=== PATIENT | male | born 1935 | race African-American/Black ===

== ENCOUNTER 2018-11-28 15:20 | Inpatient (IN) | payer OTHER, BC ==
--- NOTE | 2018-11-28 15:37 | PDOC ---
History of Present Illness - General Stated Complaint: Cold Symptoms Time Seen by Provider: 11/28/18 15:35 History Source: Patient Exam Limitations: No Limitations - History of Present Illness Initial Comments: 11/28/18 15:36 Lito Crandall is a 82yM w PMHx HTN, DM, CKD on dialysis (, , ), prostate CA s/p resection, microvascular ischemic disease presenting w fever and shivering. Pt is poor historian and unable to give full history. Subjective fevers, shivering, malaise last 2 days. Today underwent 30min dialysis before staff noted shivering, measured fever, sent to ED for further eval. Denies headache, nausea/vomiting, cough, SOB, chest/AB pain. Past History - Past Medical History Allergies/Adverse Reactions: Allergies Allergy/AdvReac Type Severity Reaction Status Date / Time No Known Allergies Allergy Verified 11/28/18 16:06 Home Medications: Ambulatory Orders Amlodipine Besylate [Norvasc -] 5 mg PO DAILY 09/24/18 Carvedilol 18.75 mg PO TID 09/24/18 Hydralazine HCl 10 mg PO TID 09/24/18 Sodium Bicarbonate - 1,300 mg PO TID 09/25/18 Aspirin 81 mg PO DAILY #30 tab.chew 10/04/18 Atorvastatin Ca [Lipitor] 40 mg PO HS #30 tablet 10/04/18 Cancer: Yes (PROSTATE) COPD: No Diabetes: Yes (BORDERLINE) GI Disorders: Yes (JESSY) HTN: Yes - Psycho Social/Smoking Cessation Hx Smoking History: Never smoked Have you smoked in the past 12 months: No Hx Alcohol Use: No Drug/Substance Use Hx: No Substance Use Type: None Hx Substance Use Treatment: No Review of Systems - Review of Systems Constitutional: Yes: Chills, Fever, Malaise HEENTM: No: Eye Pain, Nose Pain, Throat Pain, Mouth Pain Respiratory: No: Cough, Shortness of Breath Cardiac (ROS): No: Chest Pain, Palpitations, Syncope ABD/GI: No: Abdominal Distended, Constipated, Diarrhea, Nausea, Vomiting : No: Burning, Dysuria, Discharge, Flank Pain, Hematuria Musculoskeletal: No: Back Pain, Joint Pain, Muscle Pain, Neck Pain Integumentary: No: Bruising, Flushing, Lesions Neurological: No: Headache, Seizure, Tingling, Tremors Psychiatric: No: Anxiety, Depression, Stressors Endocrine: No: Excessive Sweating, Flushing, Intolerance to Cold, Intolerance to Heat Hematologic/Lymphatic: No: Anemia, Blood Clots *Physical Exam - Physical Exam General Appearance: Yes: Nourished, Appropriately Dressed. No: Apparent Distress (sleeping in bed) HEENT: positive: EOMI, JOCELYN, Normal Voice, Hearing Grossly Normal. negative: Scleral Icterus (R), Scleral Icterus (L), Nasal Congestion, Rhinorrhea Respiratory/Chest: positive: Lungs Clear, Normal Breath Sounds, Other (R chest wall candy cath ). negative: Chest Tender, Respiratory Distress, Crackles, Rales, Rhonchi, Stridor, Wheezing Cardiovascular: positive: Regular Rhythm, Regular Rate, S1, S2. negative: Edema , Murmur Gastrointestinal/Abdominal: positive: Normal Bowel Sounds, Flat, Soft. negative : Tender, Organomegaly Musculoskeletal: negative: CVA Tenderness (R), CVA Tenderness (L) Extremity: positive: Delayed Capillary Refill. negative: Pedal Edema Integumentary: positive: Dry Neurologic: negative: Fully Oriented, Alert (sleepy, mumbles words, follows basic commands) ED Treatment Course - LABORATORY CBC & Chemistry Diagram: 11/28/18 16:00 11/28/18 16:00 Medical Decision Making - Medical Decision Making 11/28/18 16:02 CBC CMP trop VBG coags lactate blood cx (blood, portacath) urine cx, EKG CXR tylenol for fever, 1g vanc/2.25 zosyn for sepsis EKG shows NSR, HR 91. QTc 418 WBC 18 w neutrophil shift, Cr 4.3 (CKD on dialysis), BG 262, neg trop, lactate 2 , UTI w 3+ leuk est WBC bacteria neg flu CXR no focal infiltrates, consolidation, effusion, RIJ in place. --- Lito Crandall is a 82yM w PMHx HTN, DM, CKD on dialysis (, , ), prostate CA s/p resection, microvascular ischemic disease presenting w 2d fever and shivering d/t sepsis (temp 102, HR 95, RR 22) in setting of UTI. Did not give fluids because pt is on dialysis. Given tylenol for fever, 1g vanc/ 2.25 zosyn for sepsis. No evidence of ACS (NSR EKG, neg trop) or acute lung infection. Has 18 WBC, Cr 4.3 (CKD on dialysis), mildly elevated BG 262. Contacted Dr Allison Stahl transport analyst, confirmed dialysis did not give any antibiotics Admitted to Dr Currie med/surg for sepsis d/t UTI, ESRD on dialysis Discharge - Discharge Information Problems reviewed: Yes Clinical Impression/Diagnosis: UTI (urinary tract infection) Qualifiers: Urinary tract infection type: acute cystitis Hematuria presence: without hematuria Qualified Code(s): N30.00 - Acute cystitis without hematuria Sepsis Qualifiers: Sepsis type: sepsis due to unspecified organism Sepsis acute organ dysfunction status: with acute organ dysfunction Severe sepsis acute organ dysfunction type : unspecified Severe sepsis shock status: without septic shock Qualified Code(s) : A41.9 - Sepsis, unspecified organism - Follow up/Referral - Patient Discharge Instructions - Post Discharge Activity
[2018-11-28] MEDS ORDERED: SODIUM CHLORIDE 0.9% 500 ML INFUS.BAG IV ONE (16:00)
[2018-11-28] MEDS ORDERED: ACETAMINOPHEN INJECTION 100 ML IVPB ONE (16:13)
[2018-11-28] MEDS ORDERED: ACETAMINOPHEN 1000 MG/100 ML VIAL (NON FORMULARY) IVPB ONE (16:17)
[2018-11-28] MEDS ORDERED: VANCOMYCIN 1 GM in D5W (PRE-DOCKED) 1,000 MG/250 ML IVPB ONE ×2 (16:17→19:32)
[2018-11-28] MEDS ORDERED: PIPERACILLIN/TAZOB 4.5 GM 4.5 GM in DEXTROSE 5%-WATER 100 ML IVPB ONE (16:17)
[2018-11-28 16:44] LABS: BASO % 0.2 % (0-2.0); HEMATOCRIT 37.4 % (35.4-49); LYMPH % 1.9 % (8-40); MCH 29.8 pg (25.7-33.7); MCHC 32.2 g/dl (32.0-35.9); MEAN CELL VOLUME 92.4 fl (80-96); MEAN PLT VOLUME 6.9 fl (7.5-11.1); MONO % 3.4 % (3.8-10.2); NEUT % 94.5 % (42.8-82.8); PLATELET COUNT 335 K/MM3 (134-434); RBC 4.05 M/mm3 (4.00-5.60); RDW 19.7 % (11.9-15.9); WHITE BLOOD COUNT 18.9 K/mm3 (4.0-10.0)
[2018-11-28 16:48] LABS: VENOUS PC02 38.7 mmHg (38-52)
[2018-11-28 16:51] LABS: VENOUS PO2 < 49 mmHg (28-48)
[2018-11-28 17:04] LABS: INR 1.14 (0.83-1.09); PROTHROMBIN TIME (PATIENT) 13.5 SEC (9.7-13.0)
[2018-11-28 17:07] LABS: ACTIVATED PTT 30.4 SECONDS (25.2-36.5)
[2018-11-28 17:16] LABS: ALBUMIN 3.4 g/dl (3.4-5.0); BILIRUBIN,TOTAL 0.9 mg/dL (0.2-1); BLOOD UREA NITROGEN 54.9 mg/dL (7-18); CALCIUM 8.7 mg/dL (8.5-10.1); CREATININE 4.3 mg/dL (0.55-1.3); TOT PROT 7.3 g/dl (6.4-8.2)
[2018-11-28] MEDS ORDERED: PIPERACILLIN/TAZOB 2.25 GM 2.25 GM in DEXTROSE 5%-WATER - 50 ML IVPB ONE (17:46)
[2018-11-28] MEDS ORDERED: PIPERACILLIN/TAZOB 2.25 GM 2.25 GM/50 ML BAG IVPB ONE (17:51)
[2018-11-28] MEDS ORDERED: VANCOMYCIN 1 GRAM (PRE-DOCKED) 1,000 MG/250 ML BAG IVPB ONE (17:51)
--- NOTE | 2018-11-28 18:06 | PDOC ---
Documentation entered by Marzena De Anda SCRIBE, acting as scribe for Lois Freire DO. Lois Freire DO: This documentation has been prepared by the Neetu perez Brenda, SCRIBE, under my direction and personally reviewed by me in its entirety. I confirm that the documentation accurately reflects all work, treatment, procedures, and medical decision making performed by me. Attending Attestation - Resident Resident Name: Paco Ga - ED Attending Attestation I have performed the following: I have examined & evaluated the patient, The case was reviewed & discussed with the resident, I agree w/resident's findings & plan, Exceptions are as noted - HPI HPI: 11/28/18 17:50 The patient is an 82 year old male, with a significant PMH of HTN, DM, JESSY, CKD on dialysis (, , ), prostate CA s/p resection, microvascular ischemic disease, who presents to the emergency department BIBA from the Dialysis center for evaluation of a fever of 102 degrees and shivering. As per patient's caregiver, patient received dialysis for 30 minutes only, due to fever concern. Patient was a bad historian and unable to give history. Allergies: NKA Past surgical history: None reported Social history: No tobacco use, alcohol use or illicit drug use. Manager Culinary: Dr. Alyce Grace - Physicial Exam PE: 11/28/18 17:42 GENERAL: Awake and alert o person. In no acute distress HEAD: No signs of trauma EYES: PERRLA, EOMI, sclera anicteric, conjunctiva clear ENT: Auricles normal inspection, hearing grossly normal, nares patent, oropharynx clear without exudates. Moist mucosa NECK: Normal ROM, supple, no lymphadenopathy, JVD, or masses LUNGS: Breath sounds equal, clear to auscultation bilaterally. No wheezes, and no crackles HEART: (+) tachycardic. Regularrhythm, normal S1 and S2, no murmurs, rubs or gallops ABDOMEN: Soft, nontender, normoactive bowel sounds. No guarding, no rebound. No masses EXTREMITIES: (+) right perm cath. No edema. No clubbing or cyanosis. No cords, erythema, or tenderness NEUROLOGICAL: Cranial nerves II through XII grossly intact. Normal speech. SKIN: Warm, Dry, normal turgor, no rashes or lesions noted. - Medical Decision Making 11/28/18 17:51 I, Dr. Lois Freire, DO, attest that this document has been prepared under my direction and personally reviewed by me in its entirety. I further attest, that it accurately reflects all work, treatment, procedures and medical decision -making performed by me. a/p: 82yo male from HD for eval of fevers today -pt with a perm cath to R chest wall -denies cough, denies abd pain, denies dysuria -pt does make urine -will send ua, ucx -will start abx -discussed with Dr. Robert Bose who states pt did not receive abx on hd -cultures sent from HD catheter by HD nurse in the ER -labs sent show an elevated wbc to 18.9 -normal K -will start iv abx - vanco, zosyn -will need admission 11/28/18 18:53 cxr clear 11/28/18 19:33 microblog sent to [facility] for admission 11/28/18 20:21 resident discussed the case with [facility] who accepts pt to service Heart Score/ECG Review - ECG Intrepretation Comment:: 11/28/18 19:11 sinus at 91, nl axis, nl interval, no acute st/t wave findings
[2018-11-28 19:24] LABS: EPI CELLS 3.5 /HPF (0-5/HPF); HYALINE CASTS 4 /lpf (0-8); URINE APPEARANCE TURBID; URINE BACTERIA >9000 /hpf (NEGATIVE); URINE BILIRUBIN NEGATIVE (NEGATIVE); URINE COLOR YELLOW; URINE GLUCOSE (UA) NEGATIVE (NEGATIVE); URINE KETONE NEGATIVE (NEGATIVE); URINE LEUK ESTERASE 3+ (NEGATIVE); URINE NITRITE NEGATIVE (NEGATIVE); URINE PROTEIN 3+ (NEGATIVE); URINE RBC 12 /hpf (0-4); URINE WBC 523 /hpf (0-5)
[2018-11-28 19:56] LABS: ANISOCYTOSIS 1+; MACROCYTOSIS 0; PLATELET ESTIMATE NORMAL
--- NOTE | 2018-11-28 22:13 | HP ---
CHIEF COMPLAINT: chills & fever PCP: Dr Gross HISTORY OF PRESENT ILLNESS: 82 y.o M PMH HTN, diabetes mellitus, ESRD on dialysis ([place], [place], Sat), prostate CA s/p resection and microvascular ischemic disease presenting d/t fever and chills. The patient was at dialysis today and began having shaking chills and was noted to be febrile. Pt appears altered and majority of history obtained from son at bedside. At baseline he is AOx2 but son said he seems "a bit off", although remains AOx2 today. He says for the past 2 days he has had chills but 30 mins into dialysis the chills worsened and he became febrile. Patient denies CP/ SOB/ suprapubic tenderness/ abdominal pain/ dysuria/ hematuria/ N/V/D/ myalgias/ parasthesias. ER course was notable for: (1) Tylenol (2) 1g vanc/ 2.25g Zosyn (3) Dr. Alyce Stahl contacted (nephro) 9$) UA 3+ LE, 3+ protein, 1+ blood Recent Travel: denies PAST MEDICAL HISTORY: as per hpi PAST SURGICAL HISTORY: prostate resection Social History: lives w/ son and daughter in law Smoking: denies Alcohol:denies Drugs: denies Allergies No Known Allergies Allergy (Verified 11/28/18 16:06) Family Hx: Mother: HTN, CAD; Father: HTN HOME MEDICATIONS: Home Medications Medication Instructions Recorded Amlodipine Besylate [Norvasc -] 10 mg PO DAILY 09/24/18 Carvedilol 18.75 mg PO TID 09/24/18 Hydralazine HCl 10 mg PO TID 09/24/18 Sodium Bicarbonate - 1,300 mg PO TID 09/25/18 Aspirin 81 mg PO DAILY #30 tab.chew 10/04/18 Atorvastatin Ca [Lipitor] 40 mg PO HS #30 tablet 10/04/18 Furosemide [Lasix] 80 mg PO DAILY 11/28/18 PHYSICAL EXAMINATION Vital Signs - 24 hr 11/28/18 11/28/18 15:45 21:14 Temperature 102.0 F H 98.7 F Pulse Rate 95 H Pulse Rate [ 81 Right Apical] Respiratory 22 H Rate Blood Pressure 164/84 Blood Pressure 138/71 [Right Arm] O2 Sat by Pulse 95 95 Oximetry (%) GENERAL: AOx2 oriented to self and place not year or month. In no acute distress. HEENT: NCAT. PERRLA. LUNGS: CTABL. No crackles/ w/r/r. HEART: RRR. No murmurs. ABDOMEN: Soft NTND. No guarding. + BS. No suprapubic tenderness. EXTR: 2+ pulses intact b/l. No edema noted. Laboratory Results - last 24 hr 11/28/18 11/28/18 11/28/18 16:00 16:00 16:00 WBC 18.9 H RBC 4.05 Hgb 12.0 Hct 37.4 D MCV 92.4 MCH 29.8 MCHC 32.2 RDW 19.7 H Plt Count 335 D MPV 6.9 L Absolute Neuts (auto) 17.8 H Neutrophils % 94.5 H Neutrophils % (Manual) 96.7 H Band Neutrophils % 0.0 Lymphocytes % 1.9 L D Lymphocytes % (Manual) 0.0 L Monocytes % 3.4 L Monocytes % (Manual) 1 L Eosinophils % 0.0 D Eosinophils % (Manual) 0.0 Basophils % 0.2 Basophils % (Manual) 0.0 Myelocytes % (Man) 0 Promyelocytes % (Man) 0 Blast Cells % (Manual) 0 Nucleated RBC % 0 Metamyelocytes 2 Hypochromia 0 Platelet Estimate Normal Polychromasia 0 Anisocytosis 1+ Microcytosis 1+ Macrocytosis 0 Corolla Cells 1+ Fragmented RBCs 1+ PT with INR 13.50 H INR 1.14 H PTT (Actin FS) 30.4 VBG pH POC VBG pCO2 POC VBG pO2 VBG HCO3 VBG O2 Sat (Lobito) VBG Base Excess Sodium 133 L Potassium 5.0 Chloride 98 Carbon Dioxide 22 Anion Gap 13 BUN 54.9 H Creatinine 4.3 H Est GFR (CKD-EPI)AfAm 13.77 Est GFR (CKD-EPI)NonAf 11.88 Random Glucose 262 H Lactic Acid Calcium 8.7 Total Bilirubin 0.9 AST 10 L ALT 12 L Alkaline Phosphatase 88 Creatine Kinase Troponin I Total Protein 7.3 Albumin 3.4 Urine Color Urine Appearance Urine pH Ur Specific Dulzura Urine Protein Urine Glucose (UA) Urine Ketones Urine Blood Urine Nitrite Urine Bilirubin Urine Urobilinogen Ur Leukocyte Esterase Urine WBC (Auto) Urine RBC (Auto) Urine Casts (Auto) U Epithel Cells (Auto) Urine Bacteria (Auto) Influenza A (Rapid) Influenza B (Rapid) 11/28/18 11/28/18 11/28/18 16:00 16:00 16:00 WBC RBC Hgb Hct MCV MCH MCHC RDW Plt Count MPV Absolute Neuts (auto) Neutrophils % Neutrophils % (Manual) Band Neutrophils % Lymphocytes % Lymphocytes % (Manual) Monocytes % Monocytes % (Manual) Eosinophils % Eosinophils % (Manual) Basophils % Basophils % (Manual) Myelocytes % (Man) Promyelocytes % (Man) Blast Cells % (Manual) Nucleated RBC % Metamyelocytes Hypochromia Platelet Estimate Polychromasia Anisocytosis Microcytosis Macrocytosis Corolla Cells Fragmented RBCs PT with INR INR PTT (Actin FS) VBG pH 7.40 POC VBG pCO2 38.7 POC VBG pO2 < 49 H VBG HCO3 23.5 VBG O2 Sat (Lobito) 72.0 VBG Base Excess -0.5 Sodium Potassium Chloride Carbon Dioxide Anion Gap BUN Creatinine Est GFR (CKD-EPI)AfAm Est GFR (CKD-EPI)NonAf Random Glucose Lactic Acid 2.0 Calcium Total Bilirubin AST ALT Alkaline Phosphatase Creatine Kinase 48 Troponin I < 0.02 Total Protein Albumin Urine Color Urine Appearance Urine pH Ur Specific Dulzura Urine Protein Urine Glucose (UA) Urine Ketones Urine Blood Urine Nitrite Urine Bilirubin Urine Urobilinogen Ur Leukocyte Esterase Urine WBC (Auto) Urine RBC (Auto) Urine Casts (Auto) U Epithel Cells (Auto) Urine Bacteria (Auto) Influenza A (Rapid) Influenza B (Rapid) 11/28/18 11/28/18 18:50 18:50 WBC RBC Hgb Hct MCV MCH MCHC RDW Plt Count MPV Absolute Neuts (auto) Neutrophils % Neutrophils % (Manual) Band Neutrophils % Lymphocytes % Lymphocytes % (Manual) Monocytes % Monocytes % (Manual) Eosinophils % Eosinophils % (Manual) Basophils % Basophils % (Manual) Myelocytes % (Man) Promyelocytes % (Man) Blast Cells % (Manual) Nucleated RBC % Metamyelocytes Hypochromia Platelet Estimate Polychromasia Anisocytosis Microcytosis Macrocytosis Serena Cells Fragmented RBCs PT with INR INR PTT (Actin FS) VBG pH POC VBG pCO2 POC VBG pO2 VBG HCO3 VBG O2 Sat (Lobito) VBG Base Excess Sodium Potassium Chloride Carbon Dioxide Anion Gap BUN Creatinine Est GFR (CKD-EPI)AfAm Est GFR (CKD-EPI)NonAf Random Glucose Lactic Acid Calcium Total Bilirubin AST ALT Alkaline Phosphatase Creatine Kinase Troponin I Total Protein Albumin Urine Color Yellow Urine Appearance Turbid Urine pH 6.0 D Ur Specific Dulzura 1.013 Urine Protein 3+ H Urine Glucose (UA) Negative Urine Ketones Negative Urine Blood 1+ H Urine Nitrite Negative Urine Bilirubin Negative Urine Urobilinogen 1.0 Ur Leukocyte Esterase 3+ H Urine WBC (Auto) 523 Urine RBC (Auto) 12 Urine Casts (Auto) 4 U Epithel Cells (Auto) 3.5 Urine Bacteria (Auto) >9000 Influenza A (Rapid) Negative Influenza B (Rapid) Negative ASSESSMENT/PLAN: 82 y.o M PMH HTN, diabetes mellitus, ESRD on dialysis (, Sun, Sun), prostate CA s/p resection and microvascular ischemic disease presenting d/t fever and chills. #Sepsis 2/2 UTI vs. right subclavian line vs lung pathology -Febrile tmax 102 -leukocytosis 18.9; f/u AM cbc -CXR: alveolar infiltrates noted w/ incr lung markings -F/u cultures: blood, urine, sputum -S/p vanc/ zosyn in ED -C/w abx: Zosyn, azithromycin-- f/u AM vanc level -ID consulted (Dr. Carranza) -F/u flu swab -Holding IVF d/t CXR findings #Acute metabolic encephalopathy -Likely 2/2 sepsis -Neuro checks #ESRD -On dialysis // Sun-- pt did not complete dialysis yesterday, likely to be dialyzed tomorrow -Dr. Robert mcqueen consulted -Renally dose medications -Avoid nephrotoxic meds -Trend renal labs #HTN -C/w home meds: hydralazine, coreg, amlodipine -Monitor vitals #DM -Holding oral agents -ISS -BGMs #FEN -No fluids -hyperkalemic-- f/u repeat bmp post dialysis (pt did not complete dialysis tx today); trend lytes -diabetic, na controlled diet #DVT PPX -Heparin SQ Visit type - Emergency Visit Emergency Visit: Yes ED Registration Date: 11/28/18 Care time: The patient presented to the Emergency Department on the above date and was hospitalized for further evaluation of their emergent condition. - New Patient This patient is new to me today: Yes Date on this admission: 11/29/18 - Critical Care Critical Care patient: No ATTENDING PHYSICIAN STATEMENT I saw and evaluated the patient. I reviewed the resident's note and discussed the case with the resident. I agree with the resident's findings and plan as documented. SUBJECTIVE: OBJECTIVE: ASSESSMENT AND PLAN:
[2018-11-28] MEDS ORDERED: HEPARIN NA (PORCINE) 5,000 UNITS/ML 1ML VIAL SQ ONE (23:17)
--- NOTE | 2018-11-29 00:45 | PN ---
Teaching Attending Note Name of Resident: Miya Gould ATTENDING PHYSICIAN STATEMENT I saw and evaluated the patient. I reviewed the resident's note and discussed the case with the resident. I agree with the resident's findings and plan as documented. SUBJECTIVE: 82 year old man w/ HTN, DM, JESSY, CKD on dialysis (, , ), prostate CA s/p resection, microvascular ischemic disease BIBA from the dialysis center for evaluation of a fever of 102 degrees and shivering. As per patient's caregiver, patient received dialysis for 30 minutes only, due to fever concern. Patient himself unable to provide much history. OBJECTIVE: Last Vital Signs Temp Pulse Resp BP Pulse Ox 98.7 F 87 18 159/75 96 11/28/18 21:14 11/29/18 00:00 11/29/18 00:00 11/29/18 00:00 11/29/18 00:00 gen -clear sclera, no sinus tenderness chest -right chest hd catheter cv -s1+s2+rrr chest - b/l air entry sounds appreciated abdomen -soft ext -no cyanosis Abnormal Lab Results 11/28/18 11/28/18 11/28/18 16:00 16:00 16:00 WBC 18.9 H RDW 19.7 H MPV 6.9 L Absolute Neuts (auto) 17.8 H Neutrophils % 94.5 H Neutrophils % (Manual) 96.7 H Lymphocytes % 1.9 L D Lymphocytes % (Manual) 0.0 L Monocytes % 3.4 L Monocytes % (Manual) 1 L PT with INR 13.50 H INR 1.14 H POC VBG pO2 Sodium 133 L BUN 54.9 H Creatinine 4.3 H Random Glucose 262 H AST 10 L ALT 12 L Urine Protein Urine Blood Ur Leukocyte Esterase 11/28/18 11/28/18 16:00 18:50 WBC RDW MPV Absolute Neuts (auto) Neutrophils % Neutrophils % (Manual) Lymphocytes % Lymphocytes % (Manual) Monocytes % Monocytes % (Manual) PT with INR INR POC VBG pO2 < 49 H Sodium BUN Creatinine Random Glucose AST ALT Urine Protein 3+ H Urine Blood 1+ H Ur Leukocyte Esterase 3+ H imaging reviewed - cxr noted to have b/l pulm edema ASSESSMENT AND PLAN: #sepsis secondary to HD catheter central line infection vs uti vs possible pna as cxr was notable for b/l infiltrates/pulm edema. +fever, leukocytosis. Lactate was wnl, hemodynamically stable for admission to floor. -med/surg -blood cultures -shiley tunneled hd catheter cultures were sent from ER -sputum culture -urine legionella ag -c/w broad spectrum abx coverage -zosyn and vancomycin renally dosed -can give tylenol for fever control -esr, crp -id consult #ESRD on HD -incomplete last dose of HD due to rigors/ fever -renal consult for HD -free water restriction -salt restriction -bp monitoring #Pseudohyponatremia- secondary to uncontrolled hyperglycemia #Hyperglycemia- uncontrolled -tight novolog sliding scale -diabetic diet -a1c dvt ppx- heparin sc
[2018-11-29] MEDS ORDERED: HEPARIN NA (PORCINE) 5,000 UNITS/ML 1ML VIAL ONE (00:59)
[2018-11-29] MEDS ORDERED: DEXTROSE 5%-WATER - 50 ML IVPB ONE ×6 (05:11→23:35)
[2018-11-29] MEDS ORDERED: PIPERACILLIN/TAZOBACTAM 2.25 GM VIAL IVPB ONE ×6 (05:11→23:35)
[2018-11-29] MEDS: SODIUM BICARBONATE 650 MG TABLET PO SCH ×3 (05:38→21:49)
[2018-11-29] MEDS: hydrALAZINE HCL 10 MG TABLET PO SCH ×3 (05:38→21:49)
[2018-11-29] MEDS: CARVEDILOL 6.25 MG TABLET (FP) PO SCH ×3 (05:38→21:49)
[2018-11-29] MEDS: PIPERACILLIN/TAZOB 2.25 GM 2.25 GM in DEXTROSE 5%-WATER - 50 ML IVPB SCH ×5 (05:39→21:48)
[2018-11-29] MEDS: HEPARIN NA (PORCINE) 5,000 UNITS/ML 1ML VIAL SQ SCH ×3 (05:40→21:49)
[2018-11-29] MEDS: INSULIN SLIDING SCALE (NOVOLOG) 1 VIAL SQ SCH ×4 (06:22→21:56)
[2018-11-29] MEDS ORDERED: AZITHROMYCIN IVPB 500 MG in DEXTROSE 5%-WATER - 250 ML IVPB SCH (10:00)
[2018-11-29] MEDS ORDERED: amLODIPine BESYLATE 10 MG TABLET (FP) PO SCH (10:00)
[2018-11-29] MEDS: FUROSEMIDE 40 MG TABLET (FP) PO SCH (10:25)
[2018-11-29] MEDS: ASPIRIN 81 MG CHEWABLE TABLETS PO SCH (10:25)
[2018-11-29 10:28] LABS: HEMATOCRIT 33.2 % (35.4-49); HEMOGLOBIN 10.7 GM/dL (11.7-16.9); MCH 29.8 pg (25.7-33.7); MCHC 32.3 g/dl (32.0-35.9); MEAN CELL VOLUME 92.3 fl (80-96); MEAN PLT VOLUME 7.2 fl (7.5-11.1); PLATELET COUNT 298 K/MM3 (134-434); RDW 18.8 % (11.9-15.9); WHITE BLOOD COUNT 15.4 K/mm3 (4.0-10.0)
[2018-11-29 11:00] LABS: ALBUMIN 2.8 g/dl (3.4-5.0); BILIRUBIN,TOTAL 1.2 mg/dL (0.2-1); BLOOD UREA NITROGEN 67.3 mg/dL (7-18); CALCIUM 9.1 mg/dL (8.5-10.1); CREATININE 4.8 mg/dL (0.55-1.3); PHOSPHOROUS 4.2 mg/dL (2.5-4.9); POTASSIUM 4.7 mmol/L (3.5-5.1); TOT PROT 6.3 g/dl (6.4-8.2)
--- NOTE | 2018-11-29 11:55 | CON.ID ---
Consult Consult Specialty:: infectious diseases Referred by:: Hospitalist Reason for Consultation:: bacteremia,sepsis,uti - History of Present Illness Chief Complaint: weakness ,lethargy,cough History of Present Illness: 82 y.o M PMH HTN, diabetes mellitus, ESRD on dialysis , prostate CA s/p resection and microvascular ischemic disease presenting d/t fever and chills. The patient was at dialysis and began having shaking chills and was noted to be febrile. . He says for the past 2 days he has had chills but 30 mins into dialysis the chills worsened and he became febrile. Patient denies CP/ SOB/ suprapubic tenderness/ abdominal pain/ dysuria/ hematuria/ N/V/D/ myalgias/ parasthesias. currently feels a bit better work up done shows positive bactermia through all sites including the catheter patient was started on iv abx - History Source History Provided By: Patient Limitations to Obtaining History: No Limitations - Alcohol/Substance Use Hx Alcohol Use: No - Smoking History Smoking history: Never smoked Have you smoked in the past 12 months: No Home Medications - Allergies Allergies/Adverse Reactions: Allergies Allergy/AdvReac Type Severity Reaction Status Date / Time No Known Allergies Allergy Verified 11/28/18 16:06 - Home Medications Home Medications: Ambulatory Orders Amlodipine Besylate [Norvasc -] 10 mg PO DAILY 09/24/18 Carvedilol 18.75 mg PO TID 09/24/18 Hydralazine HCl 10 mg PO TID 09/24/18 Sodium Bicarbonate - 1,300 mg PO TID 09/25/18 Aspirin 81 mg PO DAILY #30 tab.chew 10/04/18 Atorvastatin Ca [Lipitor] 40 mg PO HS #30 tablet 10/04/18 Furosemide [Lasix] 80 mg PO DAILY 11/28/18 Review of Systems - Review of Systems Constitutional: reports: Chills, Fever, Weakness Eyes: reports: No Symptoms HENT: reports: No Symptoms Neck: reports: No Symptoms Cardiovascular: reports: No Symptoms Respiratory: reports: No Symptoms Gastrointestinal: reports: No Symptoms Genitourinary: reports: No Symptoms Musculoskeletal: reports: No Symptoms Integumentary: reports: No Symptoms Neurological: reports: No Symptoms Endocrine: reports: No Symptoms Hematology/Lymphatic: reports: No Symptoms Psychiatric: reports: No Symptoms Physical Exam Vital Signs: Vital Signs Temperature 99.9 F H 11/29/18 09:08 Pulse Rate 77 11/29/18 09:08 Respiratory Rate 18 11/29/18 09:08 Blood Pressure 127/62 11/29/18 09:08 O2 Sat by Pulse Oximetry (%) 97 11/29/18 08:50 Constitutional: Yes: No Distress, Calm Eyes: Yes: Conjunctiva Clear Cardiovascular: Yes: Regular Rate and Rhythm Respiratory: Yes: Regular, CTA Bilaterally Gastrointestinal: Yes: Normal Bowel Sounds, Soft Musculoskeletal: Yes: WNL Extremities: Yes: WNL Neurological: Yes: Alert, Oriented Psychiatric: Yes: Alert, Oriented Labs: CBC, BMP 11/29/18 09:53 11/29/18 09:53 Imaging - Results Chest X-ray: Report Reviewed, Image Reviewed Assessment/Plan this patient with multiple medical problems coming with bacteremia gm negative both from the periphery and the catheter currently feeling better after abx i am going to take a wait approach we will give the patient abx for 48 hours and monitor blood cx if the blood cx turns negative then catheter can be changed over the guide wire if it remains positive then line ahs to come out continue abx close watch d/w the team also i am going to order an echo on the patient
--- NOTE | 2018-11-29 12:09 | CONSULT ---
Consult - text type - Consultation Consultation Note: Renal consult for ESRD on HD This is a 82 year old gentleman with history of ESRD on HD (TTS ), DM Type 2, Prostate cancer s/p resection, and hypertension who presented from dialysis center with high fever, chills and shortness of breath. Pt last had dialysis on Sunday (was off schedule). Daughter reports that he began to feel ill on Sunday night. He denies any shortness at present, abd pain, N/V/D , dysuria or frequency. No leg swelling. PMhx: as above Allergies: NKDA Family Hx: NC Social Hx: No T/A/D ROS: as per HPI, all other pertinent ros negative Home Medications Medication Instructions Recorded Amlodipine Besylate [Norvasc -] 10 mg PO DAILY 09/24/18 Carvedilol 18.75 mg PO TID 09/24/18 Hydralazine HCl 10 mg PO TID 09/24/18 Sodium Bicarbonate - 1,300 mg PO TID 09/25/18 Aspirin 81 mg PO DAILY #30 tab.chew 10/04/18 Atorvastatin Ca [Lipitor] 40 mg PO HS #30 tablet 10/04/18 Furosemide [Lasix] 80 mg PO DAILY 11/28/18 Vital Signs Temperature 99.9 F H 11/29/18 09:08 Pulse Rate 77 11/29/18 09:08 Respiratory Rate 18 11/29/18 09:08 Blood Pressure 127/62 11/29/18 09:08 O2 Sat by Pulse Oximetry (%) 97 11/29/18 08:50 Intake & Output 11/26/18 11/27/18 11/28/18 11/29/18 23:59 23:59 23:59 23:59 Intake Total 50 Balance 50 Weight 60.1 kg 58.468 kg NAD awake and alert neck supple RRR CTA soft NT/ND no LE edmea right IJ tunneled HD catheter, no discharge or tenderness CBC, BMP 11/29/18 09:53 11/29/18 09:53 Current Medications Amlodipine Besylate (Norvasc -) 10 mg PO DAILY [facility] Last Admin: 11/29/18 10:25 Dose: 10 mg Aspirin (Asa -) 81 mg PO DAILY [facility] Last Admin: 11/29/18 10:25 Dose: 81 mg Atorvastatin Calcium (Lipitor -) 40 mg PO HS [facility] Carvedilol (Coreg -) 18.75 mg PO TID [facility] Last Admin: 11/29/18 05:38 Dose: 18.75 mg Furosemide (Lasix -) 80 mg PO DAILY [facility] Last Admin: 11/29/18 10:25 Dose: 80 mg Heparin Sodium (Porcine) (Heparin -) 5,000 unit SQ TID [facility] Last Admin: 11/29/18 05:40 Dose: 5,000 unit Hydralazine HCl (Apresoline -) 10 mg PO TID [facility] Last Admin: 11/29/18 05:38 Dose: 10 mg Piperacillin Sod/Tazobactam (Sod 2.25 gm/ Dextrose) 50 mls @ 100 mls/hr IVPB Q6H-IV [facility]; Protocol Insulin Aspart (Novolog Vial Sliding Scale -) 1 vial SQ ACHS [facility]; Protocol Last Admin: 11/29/18 06:22 Dose: 4 units Sodium Bicarbonate (Sodium Bicarbonate -) 1,300 mg PO TID [facility] Last Admin: 11/29/18 05:38 Dose: 1,300 mg 82 year old gentleman with history of ESRD on HD (TTS), DM Type 2, Prostate cancer s/p resection, and hypertension who presented from dialysis center with high fever, chills and shortness of breath. 1. Gram negative bacteremia (? primary source vs. catheter) 2. ESRD on HD 3. Chronic anemia 4. Hyponatremia 5. Hypertension 6. DM type 2 Will defer removal of dialysis catheter pending identification of the organism. Case discussed with ID, will eventually need catheter exchange but can wait on removing catheter pending organism and repeat cultures Vascular surgery consulted Will arrange HD today with minimal UF Continue ROCK with HD for anemia Renal diet, 1.2L fluid restriction Continue amlodipine on oral sodium bicarb, will trend bicarb levels and adjust as needed Thank you Will follow Juice Jones DO
--- NOTE | 2018-11-29 12:51 | EKG ---
Test Reason : Blood Pressure : / mmHG Vent. Rate : 091 BPM Atrial Rate : 091 BPM P-R Int : 162 ms QRS Dur : 084 ms QT Int : 340 ms P-R-T Axes : 037 013 047 degrees QTc Int : 418 ms NORMAL SINUS RHYTHM POSSIBLE LEFT ATRIAL ENLARGEMENT WHEN COMPARED WITH ECG OF 24-SEP-2018 18:31, NO SIGNIFICANT CHANGE WAS FOUND Confirmed by EFRAIN MANZO MD ([id number]) on 11/29/2018 12:51:06 PM Referred By: Confirmed By:EFRAIN MANZO MD
[2018-11-29] MEDS ORDERED: SODIUM CHLORIDE 250 ML IV PRN (13:14)
--- NOTE | 2018-11-29 15:08 | ECHO ---
Name: YAJAIRA NEGRO Exam:Adult Echocardiogram Study Date: 11/29/2018 02:16 PM Age: 82 yrs Reason For Study: R/O Vegetation Height: 66 in Weight: 128 lb BSA: 1.7 m2 MMode/2D Measurements & Calculations IVSd: 0.99 cm Ao root diam: 2.7 cm LVIDd: 3.9 cm LA dimension: 2.5 cm LVIDs: 2.5 cm LVPWd: 1.1 cm LVPWs: 1.2 cm EDV(Teich): 66.8 ml ESV(Teich): 23.1 ml LVOT diam: 1.9 cm Doppler Measurements & Calculations MV E max helio: 91.3 cm/sec Ao V2 max: 157.8 cm/sec MV A max helio: 104.6 cm/sec Ao max P.2 mmHg MV E/A: 0.87 MV dec time: 0.30 sec RUBENS(V,D): 2.0 cm2 LV V1 max P.7 mmHg PA V2 max: 94.6 cm/sec LV V1 max: 119.4 cm/sec PA max P.6 mmHg Med Peak E' Helio: 6.1 cm/sec Med E/e': 14.9 Lat Peak E' Helio: 6.0 cm/sec Lat E/e': 15.1 Left Ventricle Left ventricular systolic function is normal. Ejection Fraction = 55-60%. The transmitral spectral Do ppler flow pattern is normal for age. Right Ventricle The right ventricle is normal in size and function. Atria Normal left and right atrial size and function. Mitral Valve There is a mobile echodensity at the base of the anterior leaflet of the mitral valve (left atrial stone rface) which may represent an artifact from the sclerotic aortic valve; a vegetation cannot be excluded. The re is no mitral valve stenosis. There is mild mitral regurgitation. Tricuspid Valve The tricuspid valve is not well visualized, but is grossly normal. There is no tricuspid stenosis. Th ere is mild tricuspid regurgitation. Aortic Valve There is moderate aortic sclerosis.;. No hemodynamically significant valvular aortic stenosis. No aor tic regurgitation is present. Pulmonic Valve The pulmonic valve is not well visualized. There is no pulmonic valvular stenosis. Great Vessels The aortic root is normal size. Pericardium/Pleura There is no pericardial effusion. Interpretation Summary Would consider a transesophageal echocardiogram if clinically indicated. There is moderate aortic scl erosis.; There is mild mitral regurgitation. Left ventricular systolic function is normal. Ejection Fraction = 55-60%. There is mild tricuspid regurgitation. There is a mobile echodensity at the base of the anterior leaflet of the mitral valve (left atrial stone rface) which may represent an artifact from the sclerotic aortic valve; a vegetation cannot be excluded. MD Esquivel *Ritu 11/29/2018 03:04 PM
[2018-11-29] MEDS ORDERED: EPOETIN ALFA 3,000 UNIT/1 ML ML IVPUSH ONE (15:30)
--- NOTE | 2018-11-29 15:51 | PN ---
Progress Note, Physician Chief Complaint: seen and examined in HD resting comfortably - Current Medication List Current Medications: Active Medications Aspirin (Asa -) 81 mg PO DAILY [facility] Last Admin: 11/29/18 10:25 Dose: 81 mg Atorvastatin Calcium (Lipitor -) 40 mg PO [facility] Carvedilol (Coreg -) 18.75 mg PO TID [facility] Last Admin: 11/29/18 05:38 Dose: 18.75 mg Furosemide (Lasix -) 80 mg PO DAILY [facility] Last Admin: 11/29/18 10:25 Dose: 80 mg Heparin Sodium (Porcine) (Heparin -) 5,000 unit SQ TID [facility] Last Admin: 11/29/18 05:40 Dose: 5,000 unit Hydralazine HCl (Apresoline -) 10 mg PO TID [facility] Last Admin: 11/29/18 05:38 Dose: 10 mg Piperacillin Sod/Tazobactam (Sod 2.25 gm/ Dextrose) 50 mls @ 100 mls/hr IVPB Q6H-IV [facility]; Protocol Last Admin: 11/29/18 13:00 Dose: 100 mls/hr Sodium Chloride (Normal Saline -) 250 mls @ 3,000 mls/hr IV PRN PRN PRN Reason: Hypotension during Dialysis Stop: 11/30/18 13:14 Insulin Aspart (Novolog Vial Sliding Scale -) 1 vial SQ ACHS [facility]; Protocol Last Admin: 11/29/18 13:09 Dose: 4 units Sodium Bicarbonate (Sodium Bicarbonate -) 1,300 mg PO TID [facility] Last Admin: 11/29/18 05:38 Dose: 1,300 mg - Objective Vital Signs: Vital Signs Temperature 99.1 F 11/29/18 15:00 Pulse Rate 70 11/29/18 15:30 Respiratory Rate 18 11/29/18 15:30 Blood Pressure 121/64 11/29/18 15:30 O2 Sat by Pulse Oximetry (%) 97 11/29/18 08:50 Constitutional: Yes: Calm Neck: Yes: Trachea Midline Cardiovascular: Yes: Regular Rate and Rhythm, S1, S2 Respiratory: Yes: CTA Bilaterally Gastrointestinal: Yes: Normal Bowel Sounds, Soft Edema: No Neurological: Yes: Alert, Oriented Labs: CBC, BMP 11/29/18 09:53 11/29/18 09:53 INR, PTT INR 1.14 (0.83-1.09) H 11/28/18 16:00 Problem List - Problems (1) Sepsis Assessment/Plan: iv abx blood culture permacath related infection gram negative bacteremia mobile echodensity seen on valve leaflet ?? Code(s): A41.9 - SEPSIS, UNSPECIFIED ORGANISM Qualifiers: Sepsis type: sepsis due to unspecified organism Sepsis acute organ dysfunction status: with acute organ dysfunction Severe sepsis acute organ dysfunction type: unspecified Severe sepsis shock status: without septic shock Qualified Code(s): A41.9 - Sepsis, unspecified organism; R65.20 - Severe sepsis without septic shock (2) Stage 5 chronic kidney disease Assessment/Plan: on HD per renal Code(s): N18.5 - CHRONIC KIDNEY DISEASE, STAGE 5 (3) HTN (hypertension) Assessment/Plan: coreg hydralazine lasix Code(s): I10 - ESSENTIAL (PRIMARY) HYPERTENSION
--- NOTE | 2018-11-29 15:53 | PN ---
Progress Note (short form) - Note Progress Note: Vascular Surgery: Called to evaluate the patient for possible removal of the permacath. He was brought to the ER for chills and fevers at dialysis. He denies any painful urination and states that he still makes urine. Slight cough. Denies any tenderness to his permcath site. Chana reviewed and he had a temp to 102 upon admission. Vital Signs Period Temp Pulse Resp BP Sys/Pryor Pulse Ox Last 24 Hr 97.9 F-99.9 F 70-91 16-18 121-159/60-89 95-97 GEN: pt resting comfortably Right chest: pt on HD machine, tolerating it well. No erythema/drainage from his permacath. CBC, BMP 11/29/18 09:53 11/29/18 09:53 Microbiology 11/28/18 17:30 Blood - Althea Cath Blood Culture - Preliminary Pending Organism 11/28/18 17:30 Blood - Althea Cath Blood Culture - Preliminary Pending Organism 11/28/18 16:00 Blood - Peripheral Venous Blood Culture - Preliminary Pending Organism 11/28/18 16:00 Blood - Peripheral Venous Blood Culture - Preliminary Pending Organism Laboratory Tests 11/28/18 11/28/18 18:50 18:50 Urine Color Yellow Urine Appearance Turbid Urine pH 6.0 D Ur Specific [place] 1.013 Urine Protein 3+ H Urine Glucose (UA) Negative Urine Ketones Negative Urine Blood 1+ H Urine Nitrite Negative Urine Bilirubin Negative Ur Leukocyte Esterase 3+ H Urine Bacteria (Auto) >9000 Influenza A (Rapid) Negative Influenza B (Rapid) Negative CXR: JANETTE A/P: 82 yo male with fevers, now afebrile with improving leukocytosis Case d/w ID and nephrology, want to wait to see if the patient has a positive blood culture before removing the permacath. If the cultures remains negative then pt may require a permacath exchange. D/w Dr. Gerco and will hold on catheter removal for now.
[2018-11-29] MEDS ORDERED: PIPERACILLIN/TAZOB 2.25 GM 2.25 GM in DEXTROSE 5%-WATER - 50 ML IVPB SCH (18:00)
[2018-11-29] MEDS: ATORVASTATIN CA 40 MG TABLET (FP) PO SCH (21:49)
[2018-11-30] MEDS: PIPERACILLIN/TAZOB 2.25 GM 2.25 GM in DEXTROSE 5%-WATER - 50 ML IVPB SCH ×4 (02:40→22:09)
[2018-11-30] MEDS: CARVEDILOL 6.25 MG TABLET (FP) PO SCH ×3 (05:45→22:10)
[2018-11-30] MEDS: HEPARIN NA (PORCINE) 5,000 UNITS/ML 1ML VIAL SQ SCH ×3 (05:45→22:10)
[2018-11-30] MEDS: hydrALAZINE HCL 10 MG TABLET PO SCH ×3 (05:45→22:11)
[2018-11-30] MEDS: SODIUM BICARBONATE 650 MG TABLET PO SCH ×3 (05:45→22:10)
[2018-11-30] MEDS: INSULIN SLIDING SCALE (NOVOLOG) 1 VIAL SQ SCH ×4 (06:04→21:30)
--- NOTE | 2018-11-30 10:04 | PN ---
Progress Note (short form) - Note Progress Note: Renal follow up for ESRD on HD Seen and examined at the bedside no acute complaints no fevers overnight s/p Hd yesterday with 1L UF making urine Vital Signs Temperature 99 F 11/30/18 06:00 Pulse Rate 75 11/30/18 06:00 Respiratory Rate 18 11/30/18 06:00 Blood Pressure 120/57 L 11/30/18 06:00 O2 Sat by Pulse Oximetry (%) 97 11/29/18 21:00 Intake & Output 11/27/18 11/28/18 11/29/18 11/30/18 23:59 23:59 23:59 23:59 Intake Total 850 200 Output Total 1700 Balance -850 200 Weight 60.1 kg 58.468 kg 57.017 kg NAD awake and alert RRR CTA soft NT/ND no LE edema CBC, BMP 11/29/18 09:53 11/29/18 09:53 Current Medications Aspirin (Asa -) 81 mg PO DAILY [facility] Last Admin: 11/29/18 10:25 Dose: 81 mg Atorvastatin Calcium (Lipitor -) 40 mg PO HS [facility] Last Admin: 11/29/18 21:49 Dose: 40 mg Carvedilol (Coreg -) 18.75 mg PO TID [facility] Last Admin: 11/30/18 05:45 Dose: 18.75 mg Furosemide (Lasix -) 80 mg PO DAILY [facility] Last Admin: 11/29/18 10:25 Dose: 80 mg Heparin Sodium (Porcine) (Heparin -) 5,000 unit SQ TID [facility] Last Admin: 11/30/18 05:45 Dose: 5,000 unit Hydralazine HCl (Apresoline -) 10 mg PO TID [facility] Last Admin: 11/30/18 05:45 Dose: 10 mg Piperacillin Sod/Tazobactam (Sod 2.25 gm/ Dextrose) 50 mls @ 100 mls/hr IVPB Q6H-IV [facility]; Protocol Last Admin: 11/30/18 02:40 Dose: 100 mls/hr Sodium Chloride (Normal Saline -) 250 mls @ 3,000 mls/hr IV PRN PRN PRN Reason: Hypotension during Dialysis Stop: 11/30/18 13:14 Insulin Aspart (Novolog Vial Sliding Scale -) 1 vial SQ ACHS [facility]; Protocol Last Admin: 11/30/18 06:04 Dose: 2 units Sodium Bicarbonate (Sodium Bicarbonate -) 1,300 mg PO TID [facility] Last Admin: 11/30/18 05:45 Dose: 1,300 mg 82 year old gentleman with history of ESRD on HD (TTS), DM Type 2, Prostate cancer s/p resection, and hypertension who presented from dialysis center with high fever, chills and shortness of breath. 1. Gram negative bacteremia (? primary source vs. catheter) 2. ESRD on HD 3. Chronic anemia 4. Hyponatremia 5. Hypertension 6. DM type 2 s/p Hd yesterday, tolerated it well fever curve improved f/u final culture results continue zosyn as per ID Vascular surgery consulted Continue ROCK with HD for anemia Renal diet, 1.2L fluid restriction Continue amlodipine on oral sodium bicarb, will trend bicarb levels and adjust as needed Juice Jones DO
--- NOTE | 2018-11-30 10:11 | PN ---
Progress Note, Physician History of Present Illness: patient feels much better no complaints afebrile awaiting for labs - Current Medication List Current Medications: Active Medications Aspirin (Asa -) 81 mg PO DAILY [facility] Last Admin: 11/29/18 10:25 Dose: 81 mg Atorvastatin Calcium (Lipitor -) 40 mg PO HS [facility] Last Admin: 11/29/18 21:49 Dose: 40 mg Carvedilol (Coreg -) 18.75 mg PO TID [facility] Last Admin: 11/30/18 05:45 Dose: 18.75 mg Furosemide (Lasix -) 80 mg PO DAILY [facility] Last Admin: 11/29/18 10:25 Dose: 80 mg Heparin Sodium (Porcine) (Heparin -) 5,000 unit SQ TID [facility] Last Admin: 11/30/18 05:45 Dose: 5,000 unit Hydralazine HCl (Apresoline -) 10 mg PO TID [facility] Last Admin: 11/30/18 05:45 Dose: 10 mg Piperacillin Sod/Tazobactam (Sod 2.25 gm/ Dextrose) 50 mls @ 100 mls/hr IVPB Q6H-IV [facility]; Protocol Last Admin: 11/30/18 02:40 Dose: 100 mls/hr Sodium Chloride (Normal Saline -) 250 mls @ 3,000 mls/hr IV PRN PRN PRN Reason: Hypotension during Dialysis Stop: 11/30/18 13:14 Insulin Aspart (Novolog Vial Sliding Scale -) 1 vial SQ ACHS [facility]; Protocol Last Admin: 11/30/18 06:04 Dose: 2 units Sodium Bicarbonate (Sodium Bicarbonate -) 1,300 mg PO TID [facility] Last Admin: 11/30/18 05:45 Dose: 1,300 mg - Objective Vital Signs: Vital Signs Temperature 99 F 11/30/18 06:00 Pulse Rate 75 11/30/18 06:00 Respiratory Rate 18 11/30/18 06:00 Blood Pressure 120/57 L 11/30/18 06:00 O2 Sat by Pulse Oximetry (%) 97 11/29/18 21:00 Constitutional: Yes: No Distress, Calm Cardiovascular: Yes: S1, S2, Other Respiratory: Yes: Regular, CTA Bilaterally Gastrointestinal: Yes: Normal Bowel Sounds, Soft Musculoskeletal: Yes: WNL Extremities: Yes: WNL Neurological: Yes: Alert, Oriented Psychiatric: Yes: Alert, Oriented Labs: CBC, BMP 11/29/18 09:53 11/29/18 09:53 INR, PTT INR 1.14 (0.83-1.09) H 11/28/18 16:00 Assessment/Plan echo result noted plan continue abx need dialysis catheter to be removed also patient needs a CARRIE to r/o conclusively if he has vegetation continue abx await for repeat blood cx
[2018-11-30] MEDS ORDERED: DEXTROSE 5%-WATER - 50 ML IVPB ONE ×3 (10:18→20:59)
[2018-11-30] MEDS ORDERED: PIPERACILLIN/TAZOBACTAM 2.25 GM VIAL IVPB ONE ×3 (10:18→20:59)
[2018-11-30] MEDS: ASPIRIN 81 MG CHEWABLE TABLETS PO SCH (10:21)
[2018-11-30] MEDS: FUROSEMIDE 40 MG TABLET (FP) PO SCH (10:21)
--- NOTE | 2018-11-30 10:44 | PN ---
Progress Note, Physician - Current Medication List Current Medications: Active Medications Aspirin (Asa -) 81 mg PO DAILY [facility] Last Admin: 11/30/18 10:21 Dose: 81 mg Atorvastatin Calcium (Lipitor -) 40 mg PO HS [facility] Last Admin: 11/29/18 21:49 Dose: 40 mg Carvedilol (Coreg -) 18.75 mg PO TID [facility] Last Admin: 11/30/18 05:45 Dose: 18.75 mg Furosemide (Lasix -) 80 mg PO DAILY [facility] Last Admin: 11/30/18 10:21 Dose: 80 mg Heparin Sodium (Porcine) (Heparin -) 5,000 unit SQ TID [facility] Last Admin: 11/30/18 05:45 Dose: 5,000 unit Hydralazine HCl (Apresoline -) 10 mg PO TID [facility] Last Admin: 11/30/18 05:45 Dose: 10 mg Piperacillin Sod/Tazobactam (Sod 2.25 gm/ Dextrose) 50 mls @ 100 mls/hr IVPB Q6H-IV [facility]; Protocol Last Admin: 11/30/18 10:20 Dose: 100 mls/hr Sodium Chloride (Normal Saline -) 250 mls @ 3,000 mls/hr IV PRN PRN PRN Reason: Hypotension during Dialysis Stop: 11/30/18 13:14 Insulin Aspart (Novolog Vial Sliding Scale -) 1 vial SQ ACHS [facility]; Protocol Last Admin: 11/30/18 06:04 Dose: 2 units Sodium Bicarbonate (Sodium Bicarbonate -) 1,300 mg PO TID [facility] Last Admin: 11/30/18 05:45 Dose: 1,300 mg - Objective Vital Signs: Vital Signs Temperature 98 F 11/30/18 10:00 Pulse Rate 70 11/30/18 10:00 Respiratory Rate 18 11/30/18 10:00 Blood Pressure 112/51 L 11/30/18 10:00 O2 Sat by Pulse Oximetry (%) 97 11/29/18 21:00 Cardiovascular: Yes: Regular Rate and Rhythm Respiratory: Yes: Regular, CTA Bilaterally Gastrointestinal: Yes: Normal Bowel Sounds, Soft Labs: CBC, BMP 11/29/18 09:53 11/29/18 09:53 INR, PTT INR 1.14 (0.83-1.09) H 11/28/18 16:00 Problem List - Problems (1) Line sepsis associated with dialysis catheter Assessment/Plan: iv abx blood culture Microbiology 11/28/18 17:30 Blood - Althea Cath Blood Culture - Preliminary Lactose Fermenting Neg Bacilli 11/28/18 17:30 Blood - Althea Cath Blood Culture - Preliminary Lactose Fermenting Neg Bacilli 11/28/18 16:00 Blood - Peripheral Venous Blood Culture - Preliminary Lactose Fermenting Neg Bacilli 11/28/18 16:00 Blood - Peripheral Venous Blood Culture - Preliminary Lactose Fermenting Neg Bacilli permacath related infection gram negative bacteremia mobile echodensity seen on valve leaflet ?? cardio Code(s): T82.7XXA - INFECT/INFLM REACT D/T OTH CARDI/VASC DEV/IMPLNT/GRFT, INIT ; A41.9 - SEPSIS, UNSPECIFIED ORGANISM (2) HTN (hypertension) Assessment/Plan: coreg hydralazine lasix Code(s): I10 - ESSENTIAL (PRIMARY) HYPERTENSION (3) Sepsis Code(s): A41.9 - SEPSIS, UNSPECIFIED ORGANISM Qualifiers: Sepsis type: sepsis due to unspecified organism Sepsis acute organ dysfunction status: with acute organ dysfunction Severe sepsis acute organ dysfunction type: unspecified Severe sepsis shock status: without septic shock Qualified Code(s): A41.9 - Sepsis, unspecified organism; R65.20 - Severe sepsis without septic shock (4) Stage 5 chronic kidney disease Assessment/Plan: on HD per renal Code(s): N18.5 - CHRONIC KIDNEY DISEASE, STAGE 5
--- NOTE | 2018-11-30 19:31 | CON.CARD ---
Consult Consult Specialty:: Cardiology Referred by:: Dr. Fontana Reason for Consultation:: Infective endocarditis - History of Present Illness Chief Complaint: Fever, chills and weakness. History of Present Illness: 82 year-old man with a PMHx of HTN, DM-II, ESRD on dialysis , prostate cancer, s /p resection, microvascular ischemic disease admitted 11/28/18 with fever and chills. The patient had chills for 2 days prior to the admission. He developed shaking, chills and was noted to be febrile during HD. He was found to have positive bactermia (Gram negative) through all sites including the catheter. Seen by ID and receiving IV ABx. He has severe weakness after admission. But he reports no chest pain, SOB, palpitation, syncope or near syncope. Echo 11/29/18 showed mobile echodensity at the base of anterior leaflet of MV. Mild MR. Normal LV and RV size and function. LVEF 55-60%. CARRIE was recommended by Dr. Chaney and ID. - History Source History Provided By: Patient, Medical Record Limitations to Obtaining History: No Limitations - Alcohol/Substance Use Hx Alcohol Use: No - Smoking History Smoking history: Never smoked Have you smoked in the past 12 months: No Home Medications - Allergies Allergies/Adverse Reactions: Allergies Allergy/AdvReac Type Severity Reaction Status Date / Time No Known Allergies Allergy Verified 11/28/18 16:06 - Home Medications Home Medications: Ambulatory Orders Amlodipine Besylate [Norvasc -] 10 mg PO DAILY 09/24/18 Carvedilol 18.75 mg PO TID 09/24/18 Hydralazine HCl 10 mg PO TID 09/24/18 Sodium Bicarbonate - 1,300 mg PO TID 09/25/18 Aspirin 81 mg PO DAILY #30 tab.chew 10/04/18 Atorvastatin Ca [Lipitor] 40 mg PO HS #30 tablet 10/04/18 Furosemide [Lasix] 80 mg PO DAILY 11/28/18 Review of Systems - Review of Systems Constitutional: reports: Fever, Loss of Appetite, Malaise, Weakness Eyes: reports: No Symptoms HENT: reports: No Symptoms Neck: reports: No Symptoms Cardiovascular: reports: No Symptoms Respiratory: reports: No Symptoms Gastrointestinal: reports: No Symptoms Genitourinary: reports: No Symptoms Breasts: reports: No Symptoms Reported Musculoskeletal: reports: No Symptoms Integumentary: reports: No Symptoms Neurological: reports: No Symptoms Endocrine: reports: No Symptoms Hematology/Lymphatic: reports: No Symptoms Psychiatric: reports: No Symptoms Vital Signs: Vital Signs Temperature 97.5 F L 11/30/18 17:25 Pulse Rate 70 11/30/18 17:25 Respiratory Rate 18 11/30/18 17:25 Blood Pressure 122/60 11/30/18 17:25 O2 Sat by Pulse Oximetry (%) 97 11/29/18 21:00 General: Well developed. Chronic ill. No acute distress. Head: Normocephalic. Atraumatic, Eyes: PERRLA, EOMI. Sclerae anicteric. Conjunctivae clear. Neck: Supple. No JVD. No bruits. Heart: Normal S1, S2: Regular rhythm and rate. No murmur. No gallop or rub. Lungs: Symmetrical air entry. Clear to auscultation. No crackle. No wheezing or rhonchi. Abdomen: Soft. Bowel sound positive. Non tender. No masses. Extremities: No edema. No clubbing or cyanosis. PD 2+, equal bilaterally. - Other Data Labs, Other Data: CBC, BMP 11/29/18 09:53 11/29/18 09:53 INR, PTT INR 1.14 (0.83-1.09) H 11/28/18 16:00 Assessment/Plan 82 year-old man with a PMHx of HTN, DM-II, ESRD on dialysis , prostate cancer, s /p resection, microvascular ischemic disease admitted 11/28/18 with fever and chills. He was found to have positive bactermia (Gram negative) through all sites including the catheter. Seen by ID and receiving IV ABx. Echo 11/29/18 showed mobile echodensity at the base of anterior leaflet of MV. Mild MR. Normal LV and RV size and function. LVEF 55-60%. CARRIE was recommended by Dr. Chaney and ID. Infective endocarditis:Meet Stern Criteria for infective endocarditis. Agree with recommended CARRIE. Will discuss with Dr. Avelar for the timing of CARRIE next week. I discuss the risks and benefits of the CARRIE with patient's health care proxy, [id number], Liliana Crandall . She agrees with the procedure and willing to signs the consent. Continue IV Abx guided by ID. We will follow the patient with you.
[2018-11-30] MEDS: ATORVASTATIN CA 40 MG TABLET (FP) PO SCH (22:10)
[2018-12-01] MEDS ORDERED: PIPERACILLIN/TAZOBACTAM 2.25 GM VIAL IVPB ONE ×4 (01:10→20:17)
[2018-12-01] MEDS ORDERED: DEXTROSE 5%-WATER - 50 ML IVPB ONE ×4 (01:10→20:18)
[2018-12-01] MEDS: PIPERACILLIN/TAZOB 2.25 GM 2.25 GM in DEXTROSE 5%-WATER - 50 ML IVPB SCH ×4 (03:08→20:57)
[2018-12-01] MEDS: HEPARIN NA (PORCINE) 5,000 UNITS/ML 1ML VIAL SQ SCH ×3 (05:00→21:03)
[2018-12-01] MEDS: hydrALAZINE HCL 10 MG TABLET PO SCH ×3 (05:00→21:02)
[2018-12-01] MEDS: CARVEDILOL 6.25 MG TABLET (FP) PO SCH ×3 (05:03→21:03)
[2018-12-01] MEDS: SODIUM BICARBONATE 650 MG TABLET PO SCH ×3 (05:03→21:01)
[2018-12-01] MEDS: INSULIN SLIDING SCALE (NOVOLOG) 1 VIAL SQ SCH ×4 (06:01→21:10)
[2018-12-01 06:59] LABS: BLOOD UREA NITROGEN 48.8 mg/dL (7-18); CALCIUM 8.5 mg/dL (8.5-10.1); CREATININE 4.8 mg/dL (0.55-1.3); POTASSIUM 4.1 mmol/L (3.5-5.1)
[2018-12-01 07:20] LABS: HEMATOCRIT 30.6 % (35.4-49); HEMOGLOBIN 10.3 GM/dL (11.7-16.9); LYMPH % 13.5 % (8-40); MCH 30.7 pg (25.7-33.7); MCHC 33.8 g/dl (32.0-35.9); MEAN CELL VOLUME 90.8 fl (80-96); MEAN PLT VOLUME 7.5 fl (7.5-11.1); NEUT % 74.4 % (42.8-82.8); PLATELET COUNT 304 K/MM3 (134-434); RBC 3.37 M/mm3 (4.00-5.60); RDW 18.5 % (11.9-15.9); WHITE BLOOD COUNT 10.7 K/mm3 (4.0-10.0)
[2018-12-01 07:21] LABS: BASO % 0.4 % (0-2.0); EOS % 2.3 % (0-4.5); MONO % 9.4 % (3.8-10.2)
[2018-12-01] MEDS: ASPIRIN 81 MG CHEWABLE TABLETS PO SCH (09:26)
[2018-12-01] MEDS: FUROSEMIDE 40 MG TABLET (FP) PO SCH (09:26)
--- NOTE | 2018-12-01 10:04 | PN ---
Progress Note (short form) - Note Progress Note: Renal follow up for ESRD on HD Seen and examined at the bedside no acute complaints no fevers denies any flank or abd pain making urine Vital Signs Temperature 98 F 12/01/18 09:33 Pulse Rate 71 12/01/18 09:33 Respiratory Rate 18 12/01/18 09:33 Blood Pressure 134/65 12/01/18 09:33 O2 Sat by Pulse Oximetry (%) 99 12/01/18 08:34 Intake & Output 11/28/18 11/29/18 11/30/18 12/01/18 23:59 23:59 23:59 23:59 Intake Total 850 750 Output Total 1700 Balance -850 750 Weight 60.1 kg 58.468 kg 56.699 kg 57.153 kg NAD awake and alert RRR CTA soft NT/ND no LE edema CBC, BMP 12/01/18 05:50 12/01/18 05:50 Current Medications Aspirin (Asa -) 81 mg PO DAILY [facility] Last Admin: 12/01/18 09:26 Dose: 81 mg Atorvastatin Calcium (Lipitor -) 40 mg PO HS [facility] Last Admin: 11/30/18 22:10 Dose: 40 mg Carvedilol (Coreg -) 18.75 mg PO TID [facility] Last Admin: 12/01/18 05:03 Dose: 18.75 mg Furosemide (Lasix -) 80 mg PO DAILY [facility] Last Admin: 12/01/18 09:26 Dose: 80 mg Heparin Sodium (Porcine) (Heparin -) 5,000 unit SQ TID [facility] Last Admin: 12/01/18 05:00 Dose: 5,000 unit Hydralazine HCl (Apresoline -) 10 mg PO TID [facility] Last Admin: 12/01/18 05:00 Dose: 10 mg Piperacillin Sod/Tazobactam (Sod 2.25 gm/ Dextrose) 50 mls @ 100 mls/hr IVPB Q6H-IV [facility]; Protocol Last Admin: 12/01/18 09:25 Dose: 100 mls/hr Insulin Aspart (Novolog Vial Sliding Scale -) 1 vial SQ ACHS [facility]; Protocol Last Admin: 12/01/18 06:01 Dose: Not Given Sodium Bicarbonate (Sodium Bicarbonate -) 1,300 mg PO TID [facility] Last Admin: 12/01/18 05:03 Dose: 1,300 mg 82 year old gentleman with history of ESRD on HD (TTS), DM Type 2, Prostate cancer s/p resection, and hypertension who presented from dialysis center with high fever, chills and shortness of breath. 1. Gram negative bacteremia likely secondary to source 2. ESRD on HD 3. Chronic anemia 4. Hyponatremia 5. Hypertension 6. 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
--- NOTE | 2018-12-01 10:30 | PN ---
Progress Note, Physician History of Present Illness: doing well no issues repeat blood cx negative so far - Current Medication List Current Medications: Active Medications Aspirin (Asa -) 81 mg PO DAILY [facility] Last Admin: 12/01/18 09:26 Dose: 81 mg Atorvastatin Calcium (Lipitor -) 40 mg PO HS [facility] Last Admin: 11/30/18 22:10 Dose: 40 mg Carvedilol (Coreg -) 18.75 mg PO TID [facility] Last Admin: 12/01/18 05:03 Dose: 18.75 mg Furosemide (Lasix -) 80 mg PO DAILY [facility] Last Admin: 12/01/18 09:26 Dose: 80 mg Heparin Sodium (Porcine) (Heparin -) 5,000 unit SQ TID [facility] Last Admin: 12/01/18 05:00 Dose: 5,000 unit Hydralazine HCl (Apresoline -) 10 mg PO TID [facility] Last Admin: 12/01/18 05:00 Dose: 10 mg Piperacillin Sod/Tazobactam (Sod 2.25 gm/ Dextrose) 50 mls @ 100 mls/hr IVPB Q6H-IV [facility]; Protocol Last Admin: 12/01/18 09:25 Dose: 100 mls/hr Insulin Aspart (Novolog Vial Sliding Scale -) 1 vial SQ ACHS [facility]; Protocol Last Admin: 12/01/18 06:01 Dose: Not Given Sodium Bicarbonate (Sodium Bicarbonate -) 1,300 mg PO TID [facility] Last Admin: 12/01/18 05:03 Dose: 1,300 mg - Objective Vital Signs: Vital Signs Temperature 98 F 12/01/18 09:33 Pulse Rate 71 12/01/18 09:33 Respiratory Rate 18 12/01/18 09:33 Blood Pressure 134/65 12/01/18 09:33 O2 Sat by Pulse Oximetry (%) 99 12/01/18 08:34 Constitutional: Yes: No Distress, Calm Cardiovascular: Yes: S1, S2 Respiratory: Yes: Regular, CTA Bilaterally Gastrointestinal: Yes: Normal Bowel Sounds, Soft Musculoskeletal: Yes: WNL Extremities: Yes: Other Neurological: Yes: Alert, Oriented Psychiatric: Yes: Alert, Oriented Labs: CBC, BMP 12/01/18 05:50 12/01/18 05:50 INR, PTT INR 1.14 (0.83-1.09) H 11/28/18 16:00 Assessment/Plan 82 year old gentleman with history of ESRD on HD (TTS), DM Type 2, Prostate cancer s/p resection, and hypertension who presented from dialysis center with high fever, chills and shortness of breath. 1. Gram negative bacteremia likely secondary to source 2. ESRD on HD 3. Chronic anemia 4. Hyponatremia 5. Hypertension 6. DM type 2 plan continue abc monitor the blood cx
--- NOTE | 2018-12-01 11:27 | PN ---
Progress Note, Physician - Current Medication List Current Medications: Active Medications Aspirin (Asa -) 81 mg PO DAILY [facility] Last Admin: 12/01/18 09:26 Dose: 81 mg Atorvastatin Calcium (Lipitor -) 40 mg PO HS [facility] Last Admin: 11/30/18 22:10 Dose: 40 mg Carvedilol (Coreg -) 18.75 mg PO TID [facility] Last Admin: 12/01/18 05:03 Dose: 18.75 mg Furosemide (Lasix -) 80 mg PO DAILY [facility] Last Admin: 12/01/18 09:26 Dose: 80 mg Heparin Sodium (Porcine) (Heparin -) 5,000 unit SQ TID [facility] Last Admin: 12/01/18 05:00 Dose: 5,000 unit Hydralazine HCl (Apresoline -) 10 mg PO TID [facility] Last Admin: 12/01/18 05:00 Dose: 10 mg Piperacillin Sod/Tazobactam (Sod 2.25 gm/ Dextrose) 50 mls @ 100 mls/hr IVPB Q6H-IV [facility]; Protocol Last Admin: 12/01/18 09:25 Dose: 100 mls/hr Insulin Aspart (Novolog Vial Sliding Scale -) 1 vial SQ ACHS [facility]; Protocol Last Admin: 12/01/18 06:01 Dose: Not Given Sodium Bicarbonate (Sodium Bicarbonate -) 1,300 mg PO TID [facility] Last Admin: 12/01/18 05:03 Dose: 1,300 mg - Objective Vital Signs: Vital Signs Temperature 98 F 12/01/18 09:33 Pulse Rate 71 12/01/18 09:33 Respiratory Rate 18 12/01/18 09:33 Blood Pressure 134/65 12/01/18 09:33 O2 Sat by Pulse Oximetry (%) 99 12/01/18 08:34 Cardiovascular: Yes: Regular Rate and Rhythm Respiratory: Yes: Regular, CTA Bilaterally Gastrointestinal: Yes: Normal Bowel Sounds, Soft Labs: CBC, BMP 12/01/18 05:50 12/01/18 05:50 INR, PTT INR 1.14 (0.83-1.09) H 11/28/18 16:00 Problem List - Problems (1) Line sepsis associated with dialysis catheter Assessment/Plan: iv abx blood culture Microbiology 11/28/18 17:30 Blood - [facility]a Cath Blood Culture - Preliminary Lactose Fermenting Neg Bacilli 10/17/19 17:30 Blood - Althea Cath Blood Culture - Preliminary Lactose Fermenting Neg Bacilli 11/28/18 16:00 Blood - Peripheral Venous Blood Culture - Preliminary Lactose Fermenting Neg Bacilli 11/28/18 16:00 Blood - Peripheral Venous Blood Culture - Preliminary Lactose Fermenting Neg Bacilli permacath related infection gram negative bacteremia mobile echodensity seen on valve leaflet ?? cardio Code(s): T82.7XXA - INFECT/INFLM REACT D/T OTH CARDI/VASC DEV/IMPLNT/GRFT, INIT ; A41.9 - SEPSIS, UNSPECIFIED ORGANISM (2) HTN (hypertension) Assessment/Plan: coreg hydralazine lasix Code(s): I10 - ESSENTIAL (PRIMARY) HYPERTENSION (3) Sepsis Code(s): A41.9 - SEPSIS, UNSPECIFIED ORGANISM Qualifiers: Sepsis type: sepsis due to unspecified organism Sepsis acute organ dysfunction status: with acute organ dysfunction Severe sepsis acute organ dysfunction type: unspecified Severe sepsis shock status: without septic shock Qualified Code(s): A41.9 - Sepsis, unspecified organism; R65.20 - Severe sepsis without septic shock (4) Stage 5 chronic kidney disease Assessment/Plan: on HD per renal Code(s): N18.5 - CHRONIC KIDNEY DISEASE, STAGE 5
--- NOTE | 2018-12-01 15:13 | PN ---
Progress Note, Physician Chief Complaint: The patient appears comfortable at the time of exam. He remains afebrile. He feels better than yesterday. He reports no chest pain, shortness of breath or palpitation. He feels better than yesterday. History of Present Illness: 82 year-old man with a PMHx of HTN, DM-II, ESRD on dialysis , prostate cancer, s /p resection, microvascular ischemic disease admitted 11/28/18 with fever and chills. The patient had chills for 2 days prior to the admission. He developed shaking, chills and was noted to be febrile during HD. He was found to have positive bactermia (Gram negative) through all sites including the catheter. Seen by ID and receiving IV ABx. Echo 11/29/18 showed mobile echodensity at the base of anterior leaflet of MV. Mild MR. Normal LV and RV size and function. LVEF 55-60%. CARRIE was recommended by Dr. Chaney and ID. - Current Medication List Current Medications: Active Medications Aspirin (Asa -) 81 mg PO DAILY [facility] Last Admin: 12/01/18 09:26 Dose: 81 mg Atorvastatin Calcium (Lipitor -) 40 mg PO HS [facility] Last Admin: 11/30/18 22:10 Dose: 40 mg Carvedilol (Coreg -) 18.75 mg PO TID [facility] Last Admin: 12/01/18 14:42 Dose: 18.75 mg Furosemide (Lasix -) 80 mg PO DAILY [facility] Last Admin: 12/01/18 09:26 Dose: 80 mg Heparin Sodium (Porcine) (Heparin -) 5,000 unit SQ TID [facility] Last Admin: 12/01/18 14:43 Dose: 5,000 unit Hydralazine HCl (Apresoline -) 10 mg PO TID [facility] Last Admin: 12/01/18 14:46 Dose: 10 mg Piperacillin Sod/Tazobactam (Sod 2.25 gm/ Dextrose) 50 mls @ 100 mls/hr IVPB Q6H-IV [facility]; Protocol Last Admin: 12/01/18 14:44 Dose: 100 mls/hr Insulin Aspart (Novolog Vial Sliding Scale -) 1 vial SQ ACHS [facility]; Protocol Last Admin: 12/01/18 11:40 Dose: Not Given Sodium Bicarbonate (Sodium Bicarbonate -) 1,300 mg PO TID [facility] Last Admin: 12/01/18 14:43 Dose: 1,300 mg - Objective Vital Signs: Vital Signs Temperature 98.8 F 12/01/18 14:01 Pulse Rate 71 12/01/18 14:01 Respiratory Rate 20 12/01/18 14:01 Blood Pressure 137/76 12/01/18 14:01 O2 Sat by Pulse Oximetry (%) 99 12/01/18 08:34 General: Well developed. Well nourished. No acute distress. Head: Normocephalic. Atraumatic, Eyes: PERRLA, EOMI. Sclerae anicteric. Conjunctivae clear. Neck: Supple. No JVD. No bruits. Heart: Normal S1, S2: Regular rhythm and rate. II/ luli and apical hsm. Lungs: Symmetrical air entry. Clear to auscultation. No crackle. No wheezing or rhonchi. Abdomen: Soft. Bowel sound positive. Non tender. No masses. Extremities: No edema. No clubbing or cyanosis. PD 2+, equal bilaterally. Labs: CBC, BMP 12/01/18 05:50 12/01/18 05:50 INR, PTT INR 1.14 (0.83-1.09) H 11/28/18 16:00 Assessment/Plan 82 year-old man with a PMHx of HTN, DM-II, ESRD on dialysis , prostate cancer, s /p resection, microvascular ischemic disease admitted 11/28/18 with fever and chills. He was found to have positive bactermia (Gram negative) through all sites including the catheter. Seen by ID and receiving IV ABx. Echo 11/29/18 showed mobile echodensity at the base of anterior leaflet of MV. Mild MR. Normal LV and RV size and function. LVEF 55-60%. CARRIE was recommended by Dr. Chaney and ID. Infective endocarditis:Meet Stern Criteria for infective endocarditis. Agree with recommended CARRIE. Dr. Anguiano will discuss with Dr. Avelar for the timing of CARRIE this week. I discussed the risks and benefits of the CARRIE with patient's health care proxy, [id number], Liliana Crandall . She spoke with her , pt 's son. They agreed with the procedure (CARRIE). Continue IV Abx guided by ID. We will follow the patient with you.
[2018-12-01] MEDS: ATORVASTATIN CA 40 MG TABLET (FP) PO SCH (21:02)
[2018-12-01] MEDS: ACETAMINOPHEN 325 MG TABLET (FP) PO PRN (22:10)
[2018-12-02] MEDS ORDERED: PIPERACILLIN/TAZOBACTAM 2.25 GM VIAL IVPB ONE ×4 (00:57→21:47)
[2018-12-02] MEDS ORDERED: DEXTROSE 5%-WATER - 50 ML IVPB ONE ×4 (00:57→21:47)
[2018-12-02] MEDS: PIPERACILLIN/TAZOB 2.25 GM 2.25 GM in DEXTROSE 5%-WATER - 50 ML IVPB SCH ×4 (02:50→22:00)
[2018-12-02] MEDS: CARVEDILOL 6.25 MG TABLET (FP) PO SCH ×3 (05:19→23:10)
[2018-12-02] MEDS: SODIUM BICARBONATE 650 MG TABLET PO SCH ×3 (05:19→23:10)
[2018-12-02] MEDS: HEPARIN NA (PORCINE) 5,000 UNITS/ML 1ML VIAL SQ SCH ×3 (05:20→23:10)
[2018-12-02] MEDS: hydrALAZINE HCL 10 MG TABLET PO SCH ×3 (05:21→23:10)
[2018-12-02] MEDS: INSULIN SLIDING SCALE (NOVOLOG) 1 VIAL SQ SCH ×4 (06:10→23:17)
[2018-12-02 08:45] LABS: BLOOD UREA NITROGEN 58.5 mg/dL (7-18); CALCIUM 8.2 mg/dL (8.5-10.1); CREATININE 5.7 mg/dL (0.55-1.3); POTASSIUM 3.9 mmol/L (3.5-5.1)
--- NOTE | 2018-12-02 09:18 | PN ---
Progress Note (short form) - Note Progress Note: Afebrile Permacath site clean, no tenderness Blood cultures with Klebsiella - same as urine Discussed with Dr. Carranza - he recommends catheter removal due to echo finding of possible Mitral valve vegetation. CARRIE is planned. Will wait for TTE to plan line removal and creation of new dialysis access.
--- NOTE | 2018-12-02 09:25 | PN ---
Progress Note, Physician History of Present Illness: stable no new issues - Current Medication List Current Medications: Active Medications Acetaminophen (Tylenol -) 650 mg PO Q4H PRN PRN Reason: FEVER Last Admin: 12/01/18 22:10 Dose: 650 mg Aspirin (Asa -) 81 mg PO DAILY [facility] Last Admin: 12/01/18 09:26 Dose: 81 mg Atorvastatin Calcium (Lipitor -) 40 mg PO HS [facility] Last Admin: 12/01/18 21:02 Dose: 40 mg Carvedilol (Coreg -) 18.75 mg PO TID [facility] Last Admin: 12/02/18 05:19 Dose: 18.75 mg Furosemide (Lasix -) 80 mg PO DAILY [facility] Last Admin: 12/01/18 09:26 Dose: 80 mg Heparin Sodium (Porcine) (Heparin -) 5,000 unit SQ TID [facility] Last Admin: 12/02/18 05:20 Dose: 5,000 unit Hydralazine HCl (Apresoline -) 10 mg PO TID [facility] Last Admin: 12/02/18 05:21 Dose: 10 mg Piperacillin Sod/Tazobactam (Sod 2.25 gm/ Dextrose) 50 mls @ 100 mls/hr IVPB Q6H-IV [facility]; Protocol Last Admin: 12/02/18 02:50 Dose: 100 mls/hr Insulin Aspart (Novolog Vial Sliding Scale -) 1 vial SQ ACHS [facility]; Protocol Last Admin: 12/02/18 06:10 Dose: Not Given Sodium Bicarbonate (Sodium Bicarbonate -) 1,300 mg PO TID [facility] Last Admin: 12/02/18 05:19 Dose: 1,300 mg - Objective Vital Signs: Vital Signs Temperature 98.8 F 12/02/18 05:25 Pulse Rate 75 12/02/18 05:25 Respiratory Rate 18 12/02/18 05:25 Blood Pressure 146/55 L 12/02/18 05:25 O2 Sat by Pulse Oximetry (%) 99 12/01/18 21:00 Constitutional: Yes: No Distress, Calm Cardiovascular: Yes: S1, S2 Respiratory: Yes: Regular, CTA Bilaterally Gastrointestinal: Yes: Normal Bowel Sounds, Soft Musculoskeletal: Yes: WNL Extremities: Yes: WNL Neurological: Yes: Alert, Oriented Psychiatric: Yes: Alert, Oriented Labs: CBC, BMP 12/01/18 05:50 12/02/18 06:45 INR, PTT INR 1.14 (0.83-1.09) H 11/28/18 16:00 Assessment/Plan 82 year old gentleman with history of ESRD on HD (TTS), DM Type 2, Prostate cancer s/p resection, and hypertension who presented from dialysis center with high fever, chills and shortness of breath. 1. Gram negative bacteremia likely secondary to source 2. ESRD on HD 3. Chronic anemia 4. Hyponatremia 5. Hypertension 6. DM type 2 plan continue abx monitor the blood cx rest as per the team
--- NOTE | 2018-12-02 10:34 | PN ---
Progress Note, Physician Chief Complaint: Sepsis ESRD History of Present Illness: Previous notes and events reviewed awake and alert NAD denies chest pain or SOB patient is pending CARRIE for mitral valve vegetation afebrile WBC showing downtrend - Current Medication List Current Medications: Active Medications Acetaminophen (Tylenol -) 650 mg PO Q4H PRN PRN Reason: FEVER Last Admin: 12/01/18 22:10 Dose: 650 mg Aspirin (Asa -) 81 mg PO DAILY [facility] Last Admin: 12/01/18 09:26 Dose: 81 mg Atorvastatin Calcium (Lipitor -) 40 mg PO HS [facility] Last Admin: 12/01/18 21:02 Dose: 40 mg Carvedilol (Coreg -) 18.75 mg PO TID [facility] Last Admin: 12/02/18 05:19 Dose: 18.75 mg Furosemide (Lasix -) 80 mg PO DAILY [facility] Last Admin: 12/01/18 09:26 Dose: 80 mg Heparin Sodium (Porcine) (Heparin -) 5,000 unit SQ TID [facility] Last Admin: 12/02/18 05:20 Dose: 5,000 unit Hydralazine HCl (Apresoline -) 10 mg PO TID [facility] Last Admin: 12/02/18 05:21 Dose: 10 mg Piperacillin Sod/Tazobactam (Sod 2.25 gm/ Dextrose) 50 mls @ 100 mls/hr IVPB Q6H-IV [facility]; Protocol Last Admin: 12/02/18 02:50 Dose: 100 mls/hr Insulin Aspart (Novolog Vial Sliding Scale -) 1 vial SQ ACHS [facility]; Protocol Last Admin: 12/02/18 06:10 Dose: Not Given Sodium Bicarbonate (Sodium Bicarbonate -) 1,300 mg PO TID [facility] Last Admin: 12/02/18 05:19 Dose: 1,300 mg - Objective Vital Signs: Vital Signs Temperature 98.8 F 12/02/18 05:25 Pulse Rate 75 12/02/18 05:25 Respiratory Rate 18 12/02/18 05:25 Blood Pressure 146/55 L 12/02/18 05:25 O2 Sat by Pulse Oximetry (%) 99 12/01/18 21:00 Constitutional: Yes: No Distress, Calm Eyes: Yes: Conjunctiva Clear HENT: Yes: Atraumatic Cardiovascular: Yes: Regular Rate and Rhythm Respiratory: Yes: Regular, Diminished Gastrointestinal: Yes: Normal Bowel Sounds, Soft Musculoskeletal: Yes: Muscle Weakness Extremities: Yes: WNL Edema: No Neurological: Yes: Alert, Oriented Psychiatric: Yes: Alert, Oriented Labs: CBC, BMP 12/01/18 05:50 12/02/18 06:45 INR, PTT INR 1.14 (0.83-1.09) H 11/28/18 16:00 Microbiology 11/30/18 07:15 Blood - Peripheral Venous Blood Culture - Preliminary NO GROWTH OBTAINED AFTER 48 HOURS, INCUBATION TO CONTINUE FOR 3 DAYS. 11/30/18 07:00 Blood - Peripheral Venous Blood Culture - Preliminary NO GROWTH OBTAINED AFTER 48 HOURS, INCUBATION TO CONTINUE FOR 3 DAYS. 11/29/18 15:10 Blood - Pre-Dialysis Blood Culture - Preliminary NO GROWTH OBTAINED AFTER 48 HOURS, INCUBATION TO CONTINUE FOR 3 DAYS. 11/28/18 16:00 Blood - Peripheral Venous Blood Culture - Final Klebsiella Pneumoniae 11/28/18 17:30 Blood - Althea Cath Blood Culture - Final Klebsiella Pneumoniae 11/28/18 18:50 Urine - Urine Clean Catch Urine Culture - Final Klebsiella Pneumoniae 11/28/18 17:30 Blood - Althea Cath Blood Culture - Final Klebsiella Pneumoniae 11/28/18 16:00 Blood - Peripheral Venous Blood Culture - Final Klebsiella Pneumoniae - ....Imaging Cat Scan: Report Reviewed Ultrasound: Report Reviewed Problem List - Problems (1) HTN (hypertension) Assessment/Plan: -Carvedilol, Hydralazine -low Na diet Code(s): I10 - ESSENTIAL (PRIMARY) HYPERTENSION (2) Sepsis Assessment/Plan: -ID on board -Leukocytosis WBC 10.7 -afebrile -initial BC positive with Klebsiella, repeat BC neg -UC positive Klebsiella -Zosyn -Echo shows possible mitral valve vegetation~Cardio on board and possibly will have CARRIE -ID recommend permacath removal IR on board and will wait for CARRIE to plan possible removal -Abd/Pelvic CT scan shows worsening hydronephrosis on right side compared to prior imaging, some blood noted in right upper calyx noted which could be secondary to prior instrumentation~Urology consult Code(s): A41.9 - SEPSIS, UNSPECIFIED ORGANISM Qualifiers: Sepsis type: sepsis due to unspecified organism Sepsis acute organ dysfunction status: with acute organ dysfunction Severe sepsis acute organ dysfunction type: unspecified Severe sepsis shock status: without septic shock Qualified Code(s): A41.9 - Sepsis, unspecified organism; R65.20 - Severe sepsis without septic shock (3) UTI (urinary tract infection) Assessment/Plan: -ID on board -Leukocytosis WBC 10.7 -afebirle -Zosyn -UC positive Klebsiella Code(s): N39.0 - URINARY TRACT INFECTION, SITE NOT SPECIFIED Qualifiers: Urinary tract infection type: acute cystitis Hematuria presence: without hematuria Qualified Code(s): N30.00 - Acute cystitis without hematuria (4) Stage 5 chronic kidney disease Assessment/Plan: -Renal on board -_HD on scheduled days -BUN/Cr 58.5/5.7 -monitor renal function daily -Renal US shows moderate right hydronephrosis Code(s): N18.5 - CHRONIC KIDNEY DISEASE, STAGE 5 Assessment/Plan see problem list dvt ppx
[2018-12-02] MEDS: FUROSEMIDE 40 MG TABLET (FP) PO SCH (11:04)
[2018-12-02] MEDS: ASPIRIN 81 MG CHEWABLE TABLETS PO SCH (11:04)
--- NOTE | 2018-12-02 12:23 | PN ---
Progress Note (short form) - Note Progress Note: Renal follow up for ESRD on HD Seen and examined at the bedside no acute complaints no fever, chills, sob, chest pain or abd pain Vital Signs Temperature 98.8 F 12/02/18 05:25 Pulse Rate 75 12/02/18 05:25 Respiratory Rate 18 12/02/18 05:25 Blood Pressure 146/55 L 12/02/18 05:25 O2 Sat by Pulse Oximetry (%) 99 12/01/18 21:00 Intake & Output 11/29/18 11/30/18 12/01/18 12/02/18 23:59 23:59 23:59 23:59 Intake Total 853 039 5722 50 Output Total 1700 1500 Balance -850 750 -350 50 Weight 58.468 kg 56.699 kg 57.153 kg 58.513 kg NAD awake and alert RRR CTA soft NT/ND no LE edema CBC, BMP 12/01/18 05:50 12/02/18 06:45 Current Medications Acetaminophen (Tylenol -) 650 mg PO Q4H PRN PRN Reason: FEVER Last Admin: 12/01/18 22:10 Dose: 650 mg Aspirin (Asa -) 81 mg PO DAILY [facility] Last Admin: 12/02/18 11:04 Dose: 81 mg Atorvastatin Calcium (Lipitor -) 40 mg PO HS [facility] Last Admin: 12/01/18 21:02 Dose: 40 mg Carvedilol (Coreg -) 18.75 mg PO TID [facility] Last Admin: 12/02/18 05:19 Dose: 18.75 mg Furosemide (Lasix -) 80 mg PO DAILY [facility] Last Admin: 12/02/18 11:04 Dose: 80 mg Heparin Sodium (Porcine) (Heparin -) 5,000 unit SQ TID [facility] Last Admin: 12/02/18 05:20 Dose: 5,000 unit Hydralazine HCl (Apresoline -) 10 mg PO TID [facility] Last Admin: 12/02/18 05:21 Dose: 10 mg Piperacillin Sod/Tazobactam (Sod 2.25 gm/ Dextrose) 50 mls @ 100 mls/hr IVPB Q6H-IV [facility]; Protocol Last Admin: 12/02/18 11:03 Dose: 100 mls/hr Insulin Aspart (Novolog Vial Sliding Scale -) 1 vial SQ ACHS [facility]; Protocol Last Admin: 12/02/18 06:10 Dose: Not Given Sodium Bicarbonate (Sodium Bicarbonate -) 1,300 mg PO TID [facility] Last Admin: 12/02/18 05:19 Dose: 1,300 mg 82 year old gentleman with history of ESRD on HD (TTS), DM Type 2, Prostate cancer s/p resection, and hypertension who presented from dialysis center with high fever, chills and shortness of breath. 1. Gram negative bacteremia likely secondary to source 2. ESRD on HD 3. Chronic anemia 4. Hyponatremia 5. Hypertension 6. DM type 2 Labs reviewed, no acute indication for STUDIO RECEPTIONIST today awaiting CARRIE to evalulate mobile mass seen by mitral valve fevers resolved, WBC improved Urine and blood cutlures grew klebsella CT of the Abdomen showed hydronephrosis and perinephric stranding with indwelling stents and air in bladder recommend consult for further evaluation continue zosyn as per ID HD catheter to be exchanged Continue ROCK with HD for anemia Renal diet, 1.2L fluid restriction Continue amlodipine on oral sodium bicarb, will trend bicarb levels and adjust as needed Juice Jones DO
--- NOTE | 2018-12-02 14:23 | CON.GU ---
Consult Consult Specialty:: Referred by:: Robert Reason for Consultation:: hydronephrosis - History of Present Illness History of Present Illness: 82 y.o M PMH HTN, diabetes mellitus, ESRD on dialysis ([facility], [place], [facility]), prostate CA s/p resection and microvascular ischemic disease presenting d/t fever and chills. The patient was at dialysis today and began having shaking chills and was noted to be febrile. Pt appears altered and majority of history obtained from son at bedside. At baseline he is AOx2 but son said he seems "a bit off", although remains AOx2 today. He says for the past 2 days he has had chills but 30 mins into dialysis the chills worsened and he became febrile. Patient denies CP/ SOB/ suprapubic tenderness/ abdominal pain/ dysuria/ hematuria/ N/V/D/ myalgias/ parasthesias. cons req. ER course was notable for: (1) Tylenol (2) 1g vanc/ 2.25g Zosyn (3) Dr. Alyce Stahl contacted (nephro) 9$) UA 3+ LE, 3+ protein, 1+ blood - History Source History Provided By: Family Member, Medical Record - Past Medical History Renal/: Yes: Renal Failure, Cancer - Alcohol/Substance Use Hx Alcohol Use: No - Smoking History Smoking history: Never smoked Have you smoked in the past 12 months: No Home Medications - Allergies Allergies/Adverse Reactions: Allergies Allergy/AdvReac Type Severity Reaction Status Date / Time No Known Allergies Allergy Verified 11/28/18 16:06 - Home Medications Home Medications: Ambulatory Orders Amlodipine Besylate [Norvasc -] 10 mg PO DAILY 09/24/18 Carvedilol 18.75 mg PO TID 09/24/18 Hydralazine HCl 10 mg PO TID 09/24/18 Sodium Bicarbonate - 1,300 mg PO TID 09/25/18 Aspirin 81 mg PO DAILY #30 tab.chew 10/04/18 Atorvastatin Ca [Lipitor] 40 mg PO HS #30 tablet 10/04/18 Furosemide [Lasix] 80 mg PO DAILY 11/28/18 Review of Systems - Review of Systems Constitutional: reports: Chills, Fever Genitourinary: reports: No Symptoms Physical Exam- Vital Signs: Vital Signs Temperature 98 F 12/02/18 09:00 Pulse Rate 80 12/02/18 09:00 Respiratory Rate 18 12/02/18 09:00 Blood Pressure 135/74 12/02/18 09:00 O2 Sat by Pulse Oximetry (%) 99 12/02/18 09:00 Gastrointestinal: Yes: Normal Bowel Sounds, Soft Renal/: No: CVA Tenderness - Left, CVA Tenderness - Right Kidneys: No: FLank Pain Right Scrotum: Yes: WNL Penis: Yes: WNL Prostate Exam: Yes: WNL Extremities: Yes: WNL Labs: CBC, BMP 12/01/18 05:50 12/02/18 06:45 Imaging - Results Cat Scan: Report Reviewed, Image Reviewed Problem List - Problems (1) Sepsis Code(s): A41.9 - SEPSIS, UNSPECIFIED ORGANISM Qualifiers: Sepsis type: sepsis due to unspecified organism Sepsis acute organ dysfunction status: with acute organ dysfunction Severe sepsis acute organ dysfunction type: unspecified Severe sepsis shock status: without septic shock Qualified Code(s): A41.9 - Sepsis, unspecified organism; R65.20 - Severe sepsis without septic shock (2) UTI (urinary tract infection) Assessment/Plan: ur cx, iv abxs Code(s): N39.0 - URINARY TRACT INFECTION, SITE NOT SPECIFIED Qualifiers: Urinary tract infection type: acute cystitis Hematuria presence: without hematuria Qualified Code(s): N30.00 - Acute cystitis without hematuria (3) Hydronephrosis Assessment/Plan: ? occluded JJ stent, cysto and stent change 12/04 Code(s): N13.30 - UNSPECIFIED HYDRONEPHROSIS Qualifiers: Hydronephrosis type: with other ureteral stricture Qualified Code(s): N13.1 - Hydronephrosis with ureteral stricture, not elsewhere classified (4) Prostate cancer Code(s): C61 - MALIGNANT NEOPLASM OF PROSTATE
--- NOTE | 2018-12-02 14:43 | PN ---
Progress Note, Physician Chief Complaint: No complaints today History of Present Illness: 82 year-old man with a PMHx of HTN, DM-II, ESRD on dialysis , prostate cancer, s /p resection, microvascular ischemic disease admitted 11/28/18 with fever and chills. He was found to have positive bactermia (Gram negative) through all sites including the catheter. Seen by ID and receiving IV ABx. Echo 11/29/18 showed mobile echodensity at the base of anterior leaflet of MV. Mild MR. Normal LV and RV size and function. LVEF 55-60%. CARRIE was recommended by Dr. Chaney and ID. - Current Medication List Current Medications: Active Medications Acetaminophen (Tylenol -) 650 mg PO Q4H PRN PRN Reason: FEVER Last Admin: 12/01/18 22:10 Dose: 650 mg Aspirin (Asa -) 81 mg PO DAILY [facility] Last Admin: 12/02/18 11:04 Dose: 81 mg Atorvastatin Calcium (Lipitor -) 40 mg PO HS [facility] Last Admin: 12/01/18 21:02 Dose: 40 mg Carvedilol (Coreg -) 18.75 mg PO TID [facility] Last Admin: 12/02/18 05:19 Dose: 18.75 mg Furosemide (Lasix -) 80 mg PO DAILY [facility] Last Admin: 12/02/18 11:04 Dose: 80 mg Heparin Sodium (Porcine) (Heparin -) 5,000 unit SQ TID [facility] Last Admin: 12/02/18 05:20 Dose: 5,000 unit Hydralazine HCl (Apresoline -) 10 mg PO TID [facility] Last Admin: 12/02/18 05:21 Dose: 10 mg Piperacillin Sod/Tazobactam (Sod 2.25 gm/ Dextrose) 50 mls @ 100 mls/hr IVPB Q6H-IV [facility]; Protocol Last Admin: 12/02/18 11:03 Dose: 100 mls/hr Insulin Aspart (Novolog Vial Sliding Scale -) 1 vial SQ ACHS [facility]; Protocol Last Admin: 12/02/18 12:37 Dose: Not Given Sodium Bicarbonate (Sodium Bicarbonate -) 1,300 mg PO TID [facility] Last Admin: 12/02/18 05:19 Dose: 1,300 mg - Objective Vital Signs: Vital Signs Temperature 98 F 12/02/18 09:00 Pulse Rate 80 12/02/18 09:00 Respiratory Rate 18 10/21/19 09:00 Blood Pressure 135/74 12/02/18 09:00 O2 Sat by Pulse Oximetry (%) 99 12/02/18 09:00 Constitutional: Yes: No Distress Neck: Yes: Supple Cardiovascular: Yes: Regular Rate and Rhythm. No: JVD Respiratory: Yes: CTA Bilaterally Gastrointestinal: Yes: Soft Edema: No Labs: CBC, BMP 12/01/18 05:50 12/02/18 06:45 INR, PTT INR 1.14 (0.83-1.09) H 11/28/18 16:00 Assessment/Plan 82 year-old man with a PMHx of HTN, DM-II, ESRD on dialysis , prostate cancer, s /p resection, microvascular ischemic disease admitted 11/28/18 with fever and chills. He was found to have positive bactermia (Gram negative) through all sites including the catheter. Seen by ID and receiving IV ABx. Echo 11/29/18 showed mobile echodensity at the base of anterior leaflet of MV. Mild MR. Normal LV and RV size and function. LVEF 55-60%. CARRIE was recommended by Dr. Chaney and ID. 1) ID Being tread for possible endocarditis with bacteremia from possible source Antibiotics as per primary team Echocardiogram with mild MR and possible mobile echodensity on MV. Will discuss with Dr. Avelar regarding timing of possible CARRIE.
[2018-12-02] MEDS ORDERED: PT OWN MED DRAWER 7, Y5N ONE (15:20)
[2018-12-02] MEDS: ATORVASTATIN CA 40 MG TABLET (FP) PO SCH (23:10)
[2018-12-03] MEDS: PIPERACILLIN/TAZOB 2.25 GM 2.25 GM in DEXTROSE 5%-WATER - 50 ML IVPB SCH ×4 (04:00→21:33)
[2018-12-03] MEDS ORDERED: DEXTROSE 5%-WATER - 50 ML IVPB ONE ×4 (04:15→21:15)
[2018-12-03] MEDS ORDERED: PIPERACILLIN/TAZOBACTAM 2.25 GM VIAL IVPB ONE ×4 (04:15→21:15)
[2018-12-03] MEDS: CARVEDILOL 6.25 MG TABLET (FP) PO SCH ×4 (06:09→21:33)
[2018-12-03] MEDS: SODIUM BICARBONATE 650 MG TABLET PO SCH ×3 (06:09→21:33)
[2018-12-03] MEDS: HEPARIN NA (PORCINE) 5,000 UNITS/ML 1ML VIAL SQ SCH ×2 (06:10→14:15)
[2018-12-03] MEDS: hydrALAZINE HCL 10 MG TABLET PO SCH ×4 (06:10→21:33)
[2018-12-03] MEDS: INSULIN SLIDING SCALE (NOVOLOG) 1 VIAL SQ SCH ×4 (06:12→21:43)
[2018-12-03] MEDS ORDERED: INSULIN (NOVOLOG) ASPART 100 UNITS/ML 10ML VIAL ONE (07:33)
[2018-12-03 08:23] LABS: HEMATOCRIT 33.9 % (35.4-49); HEMOGLOBIN 10.7 GM/dL (11.7-16.9); MCH 29.1 pg (25.7-33.7); MCHC 31.7 g/dl (32.0-35.9); MEAN CELL VOLUME 91.8 fl (80-96); MEAN PLT VOLUME 7.9 fl (7.5-11.1); PLATELET COUNT 317 K/MM3 (134-434); RBC 3.69 M/mm3 (4.00-5.60); RDW 19.4 % (11.9-15.9); WHITE BLOOD COUNT 11.4 K/mm3 (4.0-10.0)
[2018-12-03 09:04] LABS: ALBUMIN 2.4 g/dl (3.4-5.0); BILIRUBIN,TOTAL 0.7 mg/dL (0.2-1); BLOOD UREA NITROGEN 60.4 mg/dL (7-18); CALCIUM 8.7 mg/dL (8.5-10.1); CREATININE 6.3 mg/dL (0.55-1.3); POTASSIUM 3.7 mmol/L (3.5-5.1)
--- NOTE | 2018-12-03 09:37 | PN ---
Progress Note (short form) - Note Progress Note: CARRIE performed today. Pt tolerated procedure well. There were no complications. keep NPO for 2 hours post procedure then check gag reflex and if positive may resume previous diet. Full report to follow in echo report. Briefly, No evidence of valvular vegetations. There is a freely mobile echodensity adherent to the distal end of the dialysis catheter that appears c/ w a vegetation.
[2018-12-03] MEDS: ASPIRIN 81 MG CHEWABLE TABLETS PO SCH (09:59)
[2018-12-03] MEDS: FUROSEMIDE 40 MG TABLET (FP) PO SCH (10:00)
--- NOTE | 2018-12-03 11:48 | ECHO ---
Name: MARKY, YAJAIRA Exam:Transesophageal Echocardiogram Study Date: 12/03/2018 08:49 AM Age: 82 yrs Reason For Study: R/O Vegetation Height: 66 in Weight: 129 lb BSA: 1.7 m2 Procedure: A 2D transesophageal echocardiogram with Doppler and color flow Doppler was performed. Informed conse nt for Transesophageal Echocardiogram, and use of a contrast agent as needed, was obtained prior to the proc edure. The patient was brought to the endoscopy suite in a fasting state. An intravenous line was placed. A topical anesthetic agent was used for oropharangeal anesthesia. A bite block was inserted. IV concious sedati on was administered using propafol. The transesophageal probe was passed without difficulty. The usual views were obtained; basal, mid-esophageal, transgastric and aortic views. The patient's vital signs, including blood pressure, heart rate, pulse oximetry and cardiac rhythm were monitored throughout the procedure and r emained stable. The patient tolerated the procedure well without evidence of orophangeal or esophageal trauma . Contrast injection with agitated saline was performed. There were no complications. The patient was i n normal sinus rhythm during the exam. Left Ventricle Left ventricular systolic function is grossly normal. Right Ventricle The right ventricular systolic function is grossly normal. Atria No left atrial or left atrial appendage thrombus. Color flow doppler and agitated saline injection demonstrates no evidence of a patent foramen ovale. Mitral Valve The mitral valve is normal. There is no vegetation seen on the mitral valve. There is mild mitral regurgitation. Tricuspid Valve The tricuspid valve is normal. There is no tricuspid valve vegetation. There is trace tricuspid regur gitation. Aortic Valve There is mild aortic sclerosis.;. The aortic valve is trileaflet and opening normally. There is no ao rtic valvular vegetation. No aortic regurgitation is present. Pulmonic Valve The pulmonic valve is not well visualized. The pulmonic valve is not well seen, but is grossly normal . There is no vegetation on the pulmonic valve. Trace pulmonic valvular regurgitation. Great Vessels Mild, non-mobile, atheroma in the ascending aorta, aortic arch, and proximal descending aorta. The ao rtic root is normal size. Catheter visualized coursing from SVC into RA. There is an approximately 0.5 x 0.7 cm freely mobility echodensity consistent with a vegetation, attached to the distal end of the catheter. Pericardium/Pluera There is no pericardial effusion. Interpretation Summary Catheter visualized coursing from SVC into RA. There is an approximately 0.5 x 0.7 cm freely mobility echodensity consistent with a vegetation, attached to the distal end of the catheter. Left ventricular systolic function is grossly normal. The right ventricular systolic function is grossly normal. No left atrial or left atrial appendage thrombus. Color flow doppler and agitated saline injection demonstrates no evidence of a patent foramen ovale. The mitral valve is normal. There is no vegetation seen on the mitral valve. There is mild mitral regurgitation. The tricuspid valve is normal. There is no tricuspid valve vegetation. There is trace tricuspid regurgitation. There is mild aortic sclerosis.; The aortic valve is trileaflet and opening normally. There is no aortic valvular vegetation. The pulmonic valve is not well seen, but is grossly normal. There is no vegetation on the pulmonic valve. Trace pulmonic valvular regurgitation. Mild, non-mobile, atheroma in the ascending aorta, aortic arch, and proximal descending aorta. MD Ronny Avelar 12/03/2018 11:48 AM
--- NOTE | 2018-12-03 11:54 | PN ---
Progress Note, Physician History of Present Illness: stable no new issues luis done - Current Medication List Current Medications: Active Medications Acetaminophen (Tylenol -) 650 mg PO Q4H PRN PRN Reason: FEVER Last Admin: 12/01/18 22:10 Dose: 650 mg Aspirin (Asa -) 81 mg PO DAILY [facility] Last Admin: 12/03/18 09:59 Dose: Not Given Atorvastatin Calcium (Lipitor -) 40 mg PO HS [facility] Last Admin: 12/02/18 23:10 Dose: 40 mg Carvedilol (Coreg -) 18.75 mg PO TID [facility] Last Admin: 12/03/18 06:09 Dose: 18.75 mg Furosemide (Lasix -) 80 mg PO DAILY [facility] Last Admin: 12/03/18 10:00 Dose: Not Given Heparin Sodium (Porcine) (Heparin -) 5,000 unit SQ TID [facility] Last Admin: 12/03/18 06:10 Dose: 5,000 unit Hydralazine HCl (Apresoline -) 10 mg PO TID [facility] Last Admin: 12/03/18 06:10 Dose: 10 mg Piperacillin Sod/Tazobactam (Sod 2.25 gm/ Dextrose) 50 mls @ 100 mls/hr IVPB Q6H-IV [facility]; Protocol Last Admin: 12/03/18 11:34 Dose: 100 mls/hr Insulin Aspart (Novolog Vial Sliding Scale -) 1 vial SQ ACHS [facility]; Protocol Last Admin: 12/03/18 06:12 Dose: 2 units Sodium Bicarbonate (Sodium Bicarbonate -) 1,300 mg PO TID [facility] Last Admin: 12/03/18 06:09 Dose: 1,300 mg - Objective Vital Signs: Vital Signs Temperature 98 F 12/03/18 10:00 Pulse Rate 69 12/03/18 10:00 Respiratory Rate 18 12/03/18 10:00 Blood Pressure 137/68 12/03/18 10:00 O2 Sat by Pulse Oximetry (%) 100 12/03/18 09:50 Constitutional: Yes: No Distress, Calm Cardiovascular: Yes: S1, S2 Respiratory: Yes: Regular, CTA Bilaterally Gastrointestinal: Yes: Normal Bowel Sounds, Soft Musculoskeletal: Yes: WNL Extremities: Yes: WNL Neurological: Yes: Alert, Oriented Psychiatric: Yes: Alert, Oriented Labs: CBC, BMP 12/03/18 07:05 12/03/18 07:05 INR, PTT INR 1.14 (0.83-1.09) H 11/28/18 16:00 Assessment/Plan 82 year old gentleman with history of ESRD on HD (TTS), DM Type 2, Prostate cancer s/p resection, and hypertension who presented from dialysis center with high fever, chills and shortness of breath. 1. Gram negative bacteremia likely secondary to source 2. ESRD on HD 3. Chronic anemia 4. Hyponatremia 5. Hypertension 6. DM type 2 plan continue abx monitor the blood cx rest as per the team luis result noted catheter needs to come out
--- NOTE | 2018-12-03 13:12 | PN ---
Progress Note (short form) - Note Progress Note: Renal follow up for ESRD on HD Seen and examined at the bedside no acute complaints no fever, chills, sob, chest pain or abd pain NPO for nephrostomy tube placement Vital Signs Temperature 98 F 12/03/18 10:00 Pulse Rate 69 12/03/18 10:00 Respiratory Rate 18 12/03/18 10:00 Blood Pressure 137/68 12/03/18 10:00 O2 Sat by Pulse Oximetry (%) 100 12/03/18 09:50 Intake & Output 11/30/18 12/01/18 12/02/18 12/03/18 23:59 23:59 23:59 23:59 Intake Total 750 1150 100 100 Output Total 1500 200 Balance 750 -350 100 -100 Weight 56.699 kg 57.153 kg 58.513 kg 56.88 kg NAD awake and alert RRR CTA soft NT/ND no LE edema CBC, BMP 12/03/18 07:05 12/03/18 07:05 Current Medications Acetaminophen (Tylenol -) 650 mg PO Q4H PRN PRN Reason: FEVER Last Admin: 12/01/18 22:10 Dose: 650 mg Aspirin (Asa -) 81 mg PO DAILY [facility] Last Admin: 12/03/18 09:59 Dose: Not Given Atorvastatin Calcium (Lipitor -) 40 mg PO HS [facility] Last Admin: 12/02/18 23:10 Dose: 40 mg Carvedilol (Coreg -) 18.75 mg PO TID [facility] Last Admin: 12/03/18 06:09 Dose: 18.75 mg Furosemide (Lasix -) 80 mg PO DAILY [facility] Last Admin: 12/03/18 10:00 Dose: Not Given Heparin Sodium (Porcine) (Heparin -) 5,000 unit SQ TID [facility] Last Admin: 12/03/18 06:10 Dose: 5,000 unit Hydralazine HCl (Apresoline -) 10 mg PO TID [facility] Last Admin: 12/03/18 06:10 Dose: 10 mg Piperacillin Sod/Tazobactam (Sod 2.25 gm/ Dextrose) 50 mls @ 100 mls/hr IVPB Q6H-IV [facility]; Protocol Last Admin: 12/03/18 11:34 Dose: 100 mls/hr Insulin Aspart (Novolog Vial Sliding Scale -) 1 vial SQ ACHS [facility]; Protocol Last Admin: 12/03/18 12:26 Dose: Not Given Sodium Bicarbonate (Sodium Bicarbonate -) 1,300 mg PO TID [facility] Last Admin: 12/03/18 06:09 Dose: 1,300 mg 82 year old gentleman with history of ESRD on HD (TTS), DM Type 2, Prostate cancer s/p resection, and hypertension who presented from dialysis center with high fever, chills and shortness of breath. 1. Gram negative bacteremia likely secondary to source 2. ESRD on HD 3. Chronic anemia 4. Hyponatremia 5. Hypertension 6. DM type 2 No acute need for HD today. Cannot use present HD catheter given CARRIE findings of vegetation on catheter Heart valves w/o pathology Repeat cultures are w/o growth thus far fevers resolved, WBC improved Urine and blood cutlures grew klebsella CT of the Abdomen showed hydronephrosis and perinephric stranding with indwelling stents and air in bladder Seen by , for IR nephrostomy tube placement continue zosyn as per ID HD catheter to be exchanged Continue ROCK with HD for anemia Renal diet, 1.2L fluid restriction Continue amlodipine on oral sodium bicarb, will trend bicarb levels and adjust as needed Juice Jones DO
--- NOTE | 2018-12-03 13:54 | PN ---
Progress Note, Physician Chief Complaint: Sepsis ESRD History of Present Illness: Previous notes and events reviewed awake and alert NAD patient had CARRIE today afebrile leukocytosis 11.4 s/p R Nephrostomy tube placement - Current Medication List Current Medications: Active Medications Acetaminophen (Tylenol -) 650 mg PO Q4H PRN PRN Reason: FEVER Last Admin: 12/01/18 22:10 Dose: 650 mg Aspirin (Asa -) 81 mg PO DAILY [facility] Last Admin: 12/03/18 09:59 Dose: Not Given Atorvastatin Calcium (Lipitor -) 40 mg PO HS [facility] Last Admin: 12/02/18 23:10 Dose: 40 mg Carvedilol (Coreg -) 18.75 mg PO TID [facility] Last Admin: 12/03/18 06:09 Dose: 18.75 mg Furosemide (Lasix -) 80 mg PO DAILY [facility] Last Admin: 12/03/18 10:00 Dose: Not Given Heparin Sodium (Porcine) (Heparin -) 5,000 unit SQ TID [facility] Last Admin: 12/03/18 06:10 Dose: 5,000 unit Hydralazine HCl (Apresoline -) 10 mg PO TID [facility] Last Admin: 12/03/18 06:10 Dose: 10 mg Piperacillin Sod/Tazobactam (Sod 2.25 gm/ Dextrose) 50 mls @ 100 mls/hr IVPB Q6H-IV [facility]; Protocol Last Admin: 12/03/18 11:34 Dose: 100 mls/hr Insulin Aspart (Novolog Vial Sliding Scale -) 1 vial SQ ACHS [facility]; Protocol Last Admin: 12/03/18 12:26 Dose: Not Given Sodium Bicarbonate (Sodium Bicarbonate -) 1,300 mg PO TID [facility] Last Admin: 12/03/18 06:09 Dose: 1,300 mg - Objective Vital Signs: Vital Signs Temperature 98 F 12/03/18 10:00 Pulse Rate 69 12/03/18 10:00 Respiratory Rate 18 12/03/18 10:00 Blood Pressure 137/68 12/03/18 10:00 O2 Sat by Pulse Oximetry (%) 100 12/03/18 09:50 Constitutional: Yes: No Distress, Calm Eyes: Yes: Conjunctiva Clear HENT: Yes: Atraumatic Cardiovascular: Yes: Regular Rate and Rhythm Respiratory: Yes: Regular, CTA Bilaterally Gastrointestinal: Yes: Normal Bowel Sounds, Soft Genitourinary: Yes: Other (R nephrostomy tube with blood tinged drainage) Musculoskeletal: Yes: Muscle Weakness Extremities: Yes: WNL Edema: No Neurological: Yes: Alert, Oriented Psychiatric: Yes: Alert, Oriented Labs: CBC, BMP 12/03/18 07:05 12/03/18 07:05 INR, PTT INR 1.14 (0.83-1.09) H 11/28/18 16:00 Microbiology 11/30/18 07:15 Blood - Peripheral Venous Blood Culture - Preliminary NO GROWTH OBTAINED AFTER 72 HOURS, INCUBATION TO CONTINUE FOR 2 DAYS. 11/30/18 07:00 Blood - Peripheral Venous Blood Culture - Preliminary NO GROWTH OBTAINED AFTER 72 HOURS, INCUBATION TO CONTINUE FOR 2 DAYS. 11/29/18 15:10 Blood - Pre-Dialysis Blood Culture - Preliminary NO GROWTH OBTAINED AFTER 72 HOURS, INCUBATION TO CONTINUE FOR 2 DAYS. 11/28/18 16:00 Blood - Peripheral Venous Blood Culture - Final Klebsiella Pneumoniae 11/28/18 17:30 Blood - Althea Cath Blood Culture - Final Klebsiella Pneumoniae 11/28/18 18:50 Urine - Urine Clean Catch Urine Culture - Final Klebsiella Pneumoniae 11/28/18 17:30 Blood - Althea Cath Blood Culture - Final Klebsiella Pneumoniae 11/28/18 16:00 Blood - Peripheral Venous Blood Culture - Final Klebsiella Pneumoniae Problem List - Problems (1) HTN (hypertension) Assessment/Plan: -Carvedilol, Hydralazine -low Na diet Code(s): I10 - ESSENTIAL (PRIMARY) HYPERTENSION (2) Sepsis Assessment/Plan: -ID on board -Leukocytosis WBC 11.4 -afebrile -initial BC positive with Klebsiella, repeat BC neg -UC positive Klebsiella -Zosyn -Echo shows possible mitral valve vegetation~Cardio on board and possibly will have CARRIE -ID recommend permacath removal IR on board and will wait for CARRIE to plan possible removal -Abd/Pelvic CT scan shows worsening hydronephrosis on right side compared to prior imaging, some blood noted in right upper calyx noted which could be secondary to prior instrumentation, subcortical cysts on kidneys, double J stent noted on the R with the proximal double J within the proximal ureter, right parapelvic cysts -Urology consult -CARRIE done today and shows no evidence of valvular vegetation but freely mobile echodensity adherent to the distal end of of the dialysis catheter that appears to be consistent with vegetation -possible catheter removal? Code(s): A41.9 - SEPSIS, UNSPECIFIED ORGANISM Qualifiers: Sepsis type: sepsis due to unspecified organism Sepsis acute organ dysfunction status: with acute organ dysfunction Severe sepsis acute organ dysfunction type: unspecified Severe sepsis shock status: without septic shock Qualified Code(s): A41.9 - Sepsis, unspecified organism; R65.20 - Severe sepsis without septic shock (3) UTI (urinary tract infection) Assessment/Plan: -ID on board -Leukocytosis WBC 11.4 -afebirle -Zosyn -UC positive Klebsiella Code(s): N39.0 - URINARY TRACT INFECTION, SITE NOT SPECIFIED Qualifiers: Urinary tract infection type: acute cystitis Hematuria presence: without hematuria Qualified Code(s): N30.00 - Acute cystitis without hematuria (4) Stage 5 chronic kidney disease Assessment/Plan: -Renal on board -_HD on scheduled days -BUN/Cr 60.4/6.3 -monitor renal function daily -Renal US shows moderate right hydronephrosis -R nephrostomy tube placed with stent opening Code(s): N18.5 - CHRONIC KIDNEY DISEASE, STAGE 5 (5) Hydronephrosis Assessment/Plan: -Abd/Pelvic CT scan shows worsening hydronephrosis on right side compared to prior imaging, some blood noted in right upper calyx noted which could be secondary to prior instrumentation, subcortical cysts on kidneys, double J stent noted on the R with the proximal double J within the proximal ureter, right parapelvic cysts -possible R renal cysts aspiration tomorrow-ASA and Heparin held -Urology on board -possible stent change on 12/04/18 - Code(s): N13.30 - UNSPECIFIED HYDRONEPHROSIS Qualifiers: Hydronephrosis type: with other ureteral stricture Qualified Code(s): N13.1 - Hydronephrosis with ureteral stricture, not elsewhere classified Assessment/Plan see problem list dvt ppx
[2018-12-03] MEDS ORDERED: PT OWN MED DRAWER 7, Y5N ONE ×2 (14:52→21:16)
[2018-12-03] MEDS ORDERED: LIDOCAINE HCL 1%, 10 MG/ML (50 mL VIAL) SQ ONE (17:02)
--- NOTE | 2018-12-03 20:28 | PN ---
Progress Note (short form) - Note Progress Note: Permacath removed at bedside. Tip sent for culture.
[2018-12-03] MEDS: ATORVASTATIN CA 40 MG TABLET (FP) PO SCH (21:34)
[2018-12-04] MEDS ORDERED: PIPERACILLIN/TAZOBACTAM 2.25 GM VIAL IVPB ONE ×4 (02:37→19:56)
[2018-12-04] MEDS ORDERED: DEXTROSE 5%-WATER - 50 ML IVPB ONE ×4 (02:37→19:56)
[2018-12-04] MEDS: PIPERACILLIN/TAZOB 2.25 GM 2.25 GM in DEXTROSE 5%-WATER - 50 ML IVPB SCH ×4 (02:44→21:34)
[2018-12-04] MEDS: SODIUM BICARBONATE 650 MG TABLET PO SCH ×3 (05:42→21:36)
[2018-12-04] MEDS: hydrALAZINE HCL 10 MG TABLET PO SCH ×3 (05:43→21:37)
[2018-12-04] MEDS: CARVEDILOL 6.25 MG TABLET (FP) PO SCH ×3 (05:43→21:36)
[2018-12-04] MEDS: INSULIN SLIDING SCALE (NOVOLOG) 1 VIAL SQ SCH ×4 (06:31→21:39)
[2018-12-04] MEDS ORDERED: PT OWN MED DRAWER 7, Y5N ONE ×3 (06:37→19:57)
[2018-12-04] MEDS ORDERED: INSULIN (NOVOLOG) ASPART 100 UNITS/ML 10ML VIAL ONE ×3 (06:38→16:59)
[2018-12-04 07:41] LABS: BASO % 0.4 % (0-2.0); EOS % 1.2 % (0-4.5); HEMATOCRIT 32.7 % (35.4-49); HEMOGLOBIN 10.6 GM/dL (11.7-16.9); LYMPH % 7.5 % (8-40); MCH 29.1 pg (25.7-33.7); MCHC 32.5 g/dl (32.0-35.9); MEAN CELL VOLUME 89.4 fl (80-96); MEAN PLT VOLUME 7.4 fl (7.5-11.1); MONO % 10.1 % (3.8-10.2); NEUT % 80.8 % (42.8-82.8); PLATELET COUNT 318 K/MM3 (134-434); RBC 3.66 M/mm3 (4.00-5.60); WHITE BLOOD COUNT 12.9 K/mm3 (4.0-10.0)
[2018-12-04 08:05] LABS: BLOOD UREA NITROGEN 61.4 mg/dL (7-18); CALCIUM 8.5 mg/dL (8.5-10.1); CREATININE 6.7 mg/dL (0.55-1.3); PHOSPHOROUS 5.5 mg/dL (2.5-4.9); POTASSIUM 3.8 mmol/L (3.5-5.1)
[2018-12-04] MEDS: FUROSEMIDE 40 MG TABLET (FP) PO SCH (09:51)
--- NOTE | 2018-12-04 10:28 | PN ---
Progress Note, Physician Chief Complaint: Sepsis ESRD History of Present Illness: Previous notes and events reviewed awake and alert NAD patient to have parapelvic cyst drained by IR today afebrile leukocytosis 12.9 s/p R Nephrostomy tube placement Vascular remove permacath site - Current Medication List Current Medications: Active Medications Acetaminophen (Tylenol -) 650 mg PO Q4H PRN PRN Reason: FEVER Last Admin: 12/01/18 22:10 Dose: 650 mg Aspirin (Asa -) 81 mg PO DAILY [facility] Last Admin: 12/03/18 09:59 Dose: Not Given Atorvastatin Calcium (Lipitor -) 40 mg PO HS [facility] Last Admin: 12/03/18 21:34 Dose: 40 mg Carvedilol (Coreg -) 18.75 mg PO TID [facility] Last Admin: 12/04/18 05:43 Dose: 18.75 mg Furosemide (Lasix -) 80 mg PO DAILY [facility] Last Admin: 12/04/18 09:51 Dose: 80 mg Heparin Sodium (Porcine) (Heparin -) 5,000 unit SQ TID [facility] Last Admin: 12/03/18 14:15 Dose: Not Given Hydralazine HCl (Apresoline -) 10 mg PO TID [facility] Last Admin: 12/04/18 05:43 Dose: 10 mg Piperacillin Sod/Tazobactam (Sod 2.25 gm/ Dextrose) 50 mls @ 100 mls/hr IVPB Q6H-IV [facility]; Protocol Last Admin: 12/04/18 09:51 Dose: 100 mls/hr Insulin Aspart (Novolog Vial Sliding Scale -) 1 vial SQ ACHS [facility]; Protocol Last Admin: 12/04/18 06:31 Dose: 2 units Sodium Bicarbonate (Sodium Bicarbonate -) 1,300 mg PO TID [facility] Last Admin: 12/04/18 05:42 Dose: 1,300 mg - Objective Vital Signs: Vital Signs Temperature 98.5 F 12/04/18 09:55 Pulse Rate 69 12/04/18 09:55 Respiratory Rate 18 12/04/18 09:55 Blood Pressure 141/68 12/04/18 09:55 O2 Sat by Pulse Oximetry (%) 95 12/04/18 08:51 Constitutional: Yes: No Distress, Calm Eyes: Yes: Conjunctiva Clear HENT: Yes: Atraumatic Cardiovascular: Yes: Regular Rate and Rhythm Respiratory: Yes: Regular, CTA Bilaterally Gastrointestinal: Yes: Normal Bowel Sounds, Soft Genitourinary: Yes: Hematuria, Other (R nephrostomy tube) Musculoskeletal: Yes: Muscle Weakness Extremities: Yes: WNL Edema: No Wound/Incision: Yes: Dressing Dry and Intact Neurological: Yes: Alert, Oriented Psychiatric: Yes: Alert, Oriented Labs: CBC, BMP 12/04/18 07:00 12/04/18 07:00 INR, PTT INR 1.14 (0.83-1.09) H 11/28/18 16:00 Microbiology 12/03/18 14:30 Urine - Urine Nephrostomy Tube Right Urine Culture - Final NO GROWTH OBTAINED 11/30/18 07:00 Blood - Peripheral Venous Blood Culture - Preliminary NO GROWTH OBTAINED AFTER 96 HOURS, INCUBATION TO CONTINUE FOR 1 DAYS. 11/30/18 07:15 Blood - Peripheral Venous Blood Culture - Preliminary NO GROWTH OBTAINED AFTER 96 HOURS, INCUBATION TO CONTINUE FOR 1 DAYS. 11/29/18 15:10 Blood - Pre-Dialysis Blood Culture - Preliminary NO GROWTH OBTAINED AFTER 96 HOURS, INCUBATION TO CONTINUE FOR 1 DAYS. 11/28/18 16:00 Blood - Peripheral Venous Blood Culture - Final Klebsiella Pneumoniae 11/28/18 17:30 Blood - Althea Cath Blood Culture - Final Klebsiella Pneumoniae 11/28/18 18:50 Urine - Urine Clean Catch Urine Culture - Final Klebsiella Pneumoniae 11/28/18 17:30 Blood - Althea Cath Blood Culture - Final Klebsiella Pneumoniae 11/28/18 16:00 Blood - Peripheral Venous Blood Culture - Final Klebsiella Pneumoniae Problem List - Problems (1) HTN (hypertension) Assessment/Plan: -Carvedilol, Hydralazine -low Na diet Code(s): I10 - ESSENTIAL (PRIMARY) HYPERTENSION (2) Sepsis Assessment/Plan: -ID on board -Leukocytosis WBC 12.9 -afebrile -initial BC positive with Klebsiella, repeat BC neg -UC positive Klebsiella -UC from nephrostomy neg -Zosyn -Echo shows possible mitral valve vegetation~CARRIE done no valve vegetation -ID recommend permacath removal IR on board and will wait for CARRIE to plan possible removal -Abd/Pelvic CT scan shows worsening hydronephrosis on right side compared to prior imaging, some blood noted in right upper calyx noted which could be secondary to prior instrumentation, subcortical cysts on kidneys, double J stent noted on the R with the proximal double J within the proximal ureter, right parapelvic cysts -Urology consult -CARRIE done today and shows no evidence of valvular vegetation but freely mobile echodensity adherent to the distal end of of the dialysis catheter that appears to be consistent with vegetation -permacath removed by Vascular and tip sent for culture Code(s): A41.9 - SEPSIS, UNSPECIFIED ORGANISM Qualifiers: Sepsis type: sepsis due to unspecified organism Sepsis acute organ dysfunction status: with acute organ dysfunction Severe sepsis acute organ dysfunction type: unspecified Severe sepsis shock status: without septic shock Qualified Code(s): A41.9 - Sepsis, unspecified organism; R65.20 - Severe sepsis without septic shock (3) UTI (urinary tract infection) Assessment/Plan: -ID on board -Leukocytosis WBC 12.9 -afebirle -Zosyn -UC positive Klebsiella -UC from R nephrostomy tube neg Code(s): N39.0 - URINARY TRACT INFECTION, SITE NOT SPECIFIED Qualifiers: Urinary tract infection type: acute cystitis Hematuria presence: without hematuria Qualified Code(s): N30.00 - Acute cystitis without hematuria (4) Stage 5 chronic kidney disease Assessment/Plan: -Renal on board -_HD on scheduled days -BUN/Cr 61.4/6.7 -monitor renal function daily -Renal US shows moderate right hydronephrosis -R nephrostomy tube placed with stent opening -to have pelvic cyst drain by IR Code(s): N18.5 - CHRONIC KIDNEY DISEASE, STAGE 5 (5) Hydronephrosis Assessment/Plan: -Abd/Pelvic CT scan shows worsening hydronephrosis on right side compared to prior imaging, some blood noted in right upper calyx noted which could be secondary to prior instrumentation, subcortical cysts on kidneys, double J stent noted on the R with the proximal double J within the proximal ureter, right parapelvic cysts -possible R renal cysts aspiration tomorrow-ASA and Heparin held -Urology on board -possible stent change on 12/04/18 - Code(s): N13.30 - UNSPECIFIED HYDRONEPHROSIS Qualifiers: Hydronephrosis type: with other ureteral stricture Qualified Code(s): N13.1 - Hydronephrosis with ureteral stricture, not elsewhere classified Assessment/Plan see problem list dvt ppx
--- NOTE | 2018-12-04 10:51 | PN ---
Progress Note, Physician History of Present Illness: stable wbc has increased patient going for ir - Current Medication List Current Medications: Active Medications Acetaminophen (Tylenol -) 650 mg PO Q4H PRN PRN Reason: FEVER Last Admin: 12/01/18 22:10 Dose: 650 mg Aspirin (Asa -) 81 mg PO DAILY [facility] Last Admin: 12/03/18 09:59 Dose: Not Given Atorvastatin Calcium (Lipitor -) 40 mg PO HS [facility] Last Admin: 12/03/18 21:34 Dose: 40 mg Carvedilol (Coreg -) 18.75 mg PO TID [facility] Last Admin: 12/04/18 05:43 Dose: 18.75 mg Furosemide (Lasix -) 80 mg PO DAILY [facility] Last Admin: 12/04/18 09:51 Dose: 80 mg Heparin Sodium (Porcine) (Heparin -) 5,000 unit SQ TID [facility] Last Admin: 12/03/18 14:15 Dose: Not Given Hydralazine HCl (Apresoline -) 10 mg PO TID [facility] Last Admin: 12/04/18 05:43 Dose: 10 mg Piperacillin Sod/Tazobactam (Sod 2.25 gm/ Dextrose) 50 mls @ 100 mls/hr IVPB Q6H-IV [facility]; Protocol Last Admin: 12/04/18 09:51 Dose: 100 mls/hr Insulin Aspart (Novolog Vial Sliding Scale -) 1 vial SQ ACHS [facility]; Protocol Last Admin: 12/04/18 06:31 Dose: 2 units Sodium Bicarbonate (Sodium Bicarbonate -) 1,300 mg PO TID [facility] Last Admin: 12/04/18 05:42 Dose: 1,300 mg - Objective Vital Signs: Vital Signs Temperature 98.5 F 12/04/18 09:55 Pulse Rate 69 12/04/18 09:55 Respiratory Rate 18 12/04/18 09:55 Blood Pressure 141/68 12/04/18 09:55 O2 Sat by Pulse Oximetry (%) 95 12/04/18 08:51 Constitutional: Yes: No Distress, Calm Cardiovascular: Yes: S1, S2 Respiratory: Yes: Regular, CTA Bilaterally Musculoskeletal: Yes: WNL Extremities: Yes: WNL Neurological: Yes: Alert, Oriented Psychiatric: Yes: Alert, Oriented Labs: CBC, BMP 12/04/18 07:00 12/04/18 07:00 INR, PTT INR 1.14 (0.83-1.09) H 11/28/18 16:00 Assessment/Plan 82 year old gentleman with history of ESRD on HD (TTS), DM Type 2, Prostate cancer s/p resection, and hypertension who presented from dialysis center with high fever, chills and shortness of breath. 1. Gram negative bacteremia likely secondary to source 2. ESRD on HD 3. Chronic anemia 4. Hyponatremia 5. Hypertension 6. DM type 2 plan continue abx catheter removed close watch
--- NOTE | 2018-12-04 12:50 | PN ---
Progress Note (short form) - Note Progress Note: Renal follow up for ESRD on HD Seen and examined at the bedside no acute complaints s/p IR drainage of right sided hydronephrosis denies any sob, cp, abd pain, fever or chills tolerating oral diet tunneled dialysis catheter removed yesterday Vital Signs Temperature 98.5 F 12/04/18 09:55 Pulse Rate 70 12/04/18 12:03 Respiratory Rate 19 12/04/18 12:03 Blood Pressure 127/57 L 12/04/18 12:03 O2 Sat by Pulse Oximetry (%) 93 L 12/04/18 12:03 Intake & Output 12/01/18 12/02/18 12/03/18 12/04/18 23:59 23:59 23:59 23:59 Intake Total 1150 100 150 50 Output Total 1500 550 550 Balance -350 100 -400 -500 Weight 57.153 kg 58.513 kg 56.88 kg 56.427 kg NAD awake and alert RRR CTA soft NT/ND no LE edema CBC, BMP 12/04/18 07:00 12/04/18 07:00 Current Medications Acetaminophen (Tylenol -) 650 mg PO Q4H PRN PRN Reason: FEVER Last Admin: 12/01/18 22:10 Dose: 650 mg Aspirin (Asa -) 81 mg PO DAILY [facility] Last Admin: 12/03/18 09:59 Dose: Not Given Atorvastatin Calcium (Lipitor -) 40 mg PO HS [facility] Last Admin: 12/03/18 21:34 Dose: 40 mg Carvedilol (Coreg -) 18.75 mg PO TID [facility] Last Admin: 12/04/18 05:43 Dose: 18.75 mg Furosemide (Lasix -) 80 mg PO DAILY [facility] Last Admin: 12/04/18 09:51 Dose: 80 mg Heparin Sodium (Porcine) (Heparin -) 5,000 unit SQ TID [facility] Last Admin: 12/03/18 14:15 Dose: Not Given Hydralazine HCl (Apresoline -) 10 mg PO TID [facility] Last Admin: 12/04/18 05:43 Dose: 10 mg Piperacillin Sod/Tazobactam (Sod 2.25 gm/ Dextrose) 50 mls @ 100 mls/hr IVPB Q6H-IV [facility]; Protocol Last Admin: 12/04/18 09:51 Dose: 100 mls/hr Insulin Aspart (Novolog Vial Sliding Scale -) 1 vial SQ ACHS [facility]; Protocol Last Admin: 12/04/18 06:31 Dose: 2 units Sodium Bicarbonate (Sodium Bicarbonate -) 1,300 mg PO TID [facility] Last Admin: 12/04/18 05:42 Dose: 1,300 mg 82 year old gentleman with history of ESRD on HD (TTS), DM Type 2, Prostate cancer s/p resection, and hypertension who presented from dialysis center with high fever, chills and shortness of breath. 1. Gram negative bacteremia likely secondary to source 2. ESRD on HD 3. Chronic anemia 4. Hyponatremia 5. Hypertension 6. DM type 2 No acute need for HD today. K is stable and no evidence of volume overload HD catheter removed, new tunneled catheter insertion per vascular surgery. Heart valves w/o pathology on CARRIE Repeat cultures are w/o growth thus far Urine and blood cutlures grew klebsella CT of the Abdomen showed hydronephrosis and perinephric stranding with indwelling stents and air in bladder s/p nephrostomy tube placement by IR continue zosyn as per ID Continue ROCK with HD for anemia Renal diet, 1.2L fluid restriction Continue amlodipine on oral sodium bicarb Juice Jones DO
--- NOTE | 2018-12-04 16:21 | OP ---
DATE OF OPERATION: 12/03/2018 PROCEDURE: Removal of Perma-Cath. PREOPERATIVE DIAGNOSIS: Infected Perma-Cath. POSTOPERATIVE DIAGNOSIS: Infected Perma-Cath. ANESTHESIA: Local. DESCRIPTION OF PROCEDURE: The right chest and neck were prepped with Betadine solution. Time-out was performed, 1% lidocaine was infiltrated at the exit site of the Perma-Cath on the right chest wall, and the suture holding it in place was cut. The subcutaneous cuff was then sharply dissected to free it, and the catheter was removed. The tip was sent for culture. Pressure was applied until all bleeding ceased. A sterile dressing was applied. The patient tolerated the procedure well. Gagan [id number]
[2018-12-04] MEDS: ACETAMINOPHEN 325 MG TABLET (FP) PO PRN (21:35)
[2018-12-04] MEDS: HEPARIN NA (PORCINE) 5,000 UNITS/ML 1ML VIAL SQ SCH (21:36)
[2018-12-04] MEDS: ATORVASTATIN CA 40 MG TABLET (FP) PO SCH (21:37)
[2018-12-05] MEDS ORDERED: PIPERACILLIN/TAZOBACTAM 2.25 GM VIAL IVPB ONE ×4 (00:04→22:09)
[2018-12-05] MEDS ORDERED: DEXTROSE 5%-WATER - 50 ML IVPB ONE ×4 (00:04→22:09)
[2018-12-05] MEDS: PIPERACILLIN/TAZOB 2.25 GM 2.25 GM in DEXTROSE 5%-WATER - 50 ML IVPB SCH ×4 (02:00→22:00)
[2018-12-05] MEDS: SODIUM BICARBONATE 650 MG TABLET PO SCH ×3 (05:51→23:04)
[2018-12-05] MEDS: CARVEDILOL 6.25 MG TABLET (FP) PO SCH ×3 (05:52→23:04)
[2018-12-05] MEDS: HEPARIN NA (PORCINE) 5,000 UNITS/ML 1ML VIAL SQ SCH ×3 (05:52→23:05)
[2018-12-05] MEDS: hydrALAZINE HCL 10 MG TABLET PO SCH ×3 (05:52→23:05)
[2018-12-05] MEDS: INSULIN SLIDING SCALE (NOVOLOG) 1 VIAL SQ SCH ×4 (06:07→23:00)
[2018-12-05 06:57] LABS: HEMATOCRIT 32.8 % (35.4-49); HEMOGLOBIN 10.9 GM/dL (11.7-16.9); MCHC 33.2 g/dl (32.0-35.9); MEAN CELL VOLUME 90.4 fl (80-96); MEAN PLT VOLUME 7.5 fl (7.5-11.1); PLATELET COUNT 314 K/MM3 (134-434); RBC 3.63 M/mm3 (4.00-5.60); RDW 18.6 % (11.9-15.9); WHITE BLOOD COUNT 9.4 K/mm3 (4.0-10.0)
[2018-12-05 08:06] LABS: ALBUMIN 2.3 g/dl (3.4-5.0); BILIRUBIN,TOTAL 0.7 mg/dL (0.2-1); CALCIUM 8.4 mg/dL (8.5-10.1); CREATININE 7.1 mg/dL (0.55-1.3); POTASSIUM 3.5 mmol/L (3.5-5.1); TOT PROT 5.9 g/dl (6.4-8.2)
[2018-12-05] MEDS: ASPIRIN 81 MG CHEWABLE TABLETS PO SCH (08:59)
[2018-12-05] MEDS: FUROSEMIDE 40 MG TABLET (FP) PO SCH (08:59)
--- NOTE | 2018-12-05 10:32 | PN ---
Progress Note, Physician History of Present Illness: stable bloody drainage he the nephrostomy tube wbc normalized - Current Medication List Current Medications: Active Medications Acetaminophen (Tylenol -) 650 mg PO Q4H PRN PRN Reason: FEVER Last Admin: 12/04/18 21:35 Dose: 650 mg Aspirin (Asa -) 81 mg PO DAILY [facility] Last Admin: 12/05/18 08:59 Dose: Not Given Atorvastatin Calcium (Lipitor -) 40 mg PO HS [facility] Last Admin: 12/04/18 21:37 Dose: 40 mg Carvedilol (Coreg -) 18.75 mg PO TID [facility] Last Admin: 12/05/18 05:52 Dose: 18.75 mg Furosemide (Lasix -) 80 mg PO DAILY [facility] Last Admin: 12/05/18 08:59 Dose: 80 mg Heparin Sodium (Porcine) (Heparin -) 5,000 unit SQ TID [facility] Last Admin: 12/05/18 05:52 Dose: 5,000 unit Hydralazine HCl (Apresoline -) 10 mg PO TID [facility] Last Admin: 12/05/18 05:52 Dose: 10 mg Piperacillin Sod/Tazobactam (Sod 2.25 gm/ Dextrose) 50 mls @ 100 mls/hr IVPB Q6H-IV [facility]; Protocol Last Admin: 12/05/18 08:58 Dose: 100 mls/hr Insulin Aspart (Novolog Vial Sliding Scale -) 1 vial SQ ACHS [facility]; Protocol Last Admin: 12/05/18 06:07 Dose: Not Given Sodium Bicarbonate (Sodium Bicarbonate -) 1,300 mg PO TID [facility] Last Admin: 12/05/18 05:51 Dose: 1,300 mg - Objective Vital Signs: Vital Signs Temperature 97.7 F 12/05/18 09:00 Pulse Rate 68 12/05/18 09:00 Respiratory Rate 18 12/05/18 09:00 Blood Pressure 152/68 12/05/18 09:00 O2 Sat by Pulse Oximetry (%) 98 12/05/18 09:00 Constitutional: Yes: No Distress, Calm Cardiovascular: Yes: Regular Rate and Rhythm Respiratory: Yes: Regular, CTA Bilaterally Gastrointestinal: Yes: Normal Bowel Sounds, Soft Musculoskeletal: Yes: WNL Extremities: Yes: WNL Neurological: Yes: Alert, Oriented Psychiatric: Yes: Alert, Oriented Labs: CBC, BMP 12/05/18 06:25 12/05/18 06:25 INR, PTT INR 1.14 (0.83-1.09) H 11/28/18 16:00 Assessment/Plan 82 year old gentleman with history of ESRD on HD (TTS), DM Type 2, Prostate cancer s/p resection, and hypertension who presented from dialysis center with high fever, chills and shortness of breath. 1. Gram negative bacteremia likely secondary to source 2. ESRD on HD 3. Chronic anemia 4. Hyponatremia 5. Hypertension 6. DM type 2 plan continue abx rest as per the team monitor drainage rest as per the team
--- NOTE | 2018-12-05 11:26 | PN ---
Progress Note, Physician Chief Complaint: patient seen and exmained sitting up in bed NPO nephrosotomy bag bloody drainage - Current Medication List Current Medications: Active Medications Acetaminophen (Tylenol -) 650 mg PO Q4H PRN PRN Reason: FEVER Last Admin: 12/04/18 21:35 Dose: 650 mg Aspirin (Asa -) 81 mg PO DAILY [facility] Last Admin: 12/05/18 08:59 Dose: Not Given Atorvastatin Calcium (Lipitor -) 40 mg PO HS [facility] Last Admin: 12/04/18 21:37 Dose: 40 mg Carvedilol (Coreg -) 18.75 mg PO TID [facility] Last Admin: 12/05/18 05:52 Dose: 18.75 mg Furosemide (Lasix -) 80 mg PO DAILY [facility] Last Admin: 12/05/18 08:59 Dose: 80 mg Heparin Sodium (Porcine) (Heparin -) 5,000 unit SQ TID [facility] Last Admin: 12/05/18 05:52 Dose: 5,000 unit Hydralazine HCl (Apresoline -) 10 mg PO TID [facility] Last Admin: 12/05/18 05:52 Dose: 10 mg Piperacillin Sod/Tazobactam (Sod 2.25 gm/ Dextrose) 50 mls @ 100 mls/hr IVPB Q6H-IV [facility]; Protocol Last Admin: 12/05/18 08:58 Dose: 100 mls/hr Insulin Aspart (Novolog Vial Sliding Scale -) 1 vial SQ ACHS [facility]; Protocol Last Admin: 12/05/18 06:07 Dose: Not Given Sodium Bicarbonate (Sodium Bicarbonate -) 1,300 mg PO TID [facility] Last Admin: 12/05/18 05:51 Dose: 1,300 mg - Objective Vital Signs: Vital Signs Temperature 97.7 F 12/05/18 09:00 Pulse Rate 68 12/05/18 09:00 Respiratory Rate 18 12/05/18 09:00 Blood Pressure 152/68 12/05/18 09:00 O2 Sat by Pulse Oximetry (%) 98 12/05/18 09:00 Constitutional: Yes: Calm, Thin Cardiovascular: Yes: Regular Rate and Rhythm, S1, S2 Respiratory: Yes: CTA Bilaterally Gastrointestinal: Yes: Normal Bowel Sounds, Soft Genitourinary: Yes: Other (nephrostomy bag) Edema: No Neurological: Yes: Alert Labs: CBC, BMP 12/05/18 06:25 12/05/18 06:25 INR, PTT INR 1.14 (0.83-1.09) H 11/28/18 16:00 Problem List - Problems (1) Sepsis Assessment/Plan: iv abx blood culture noted permacath related infection-permacath removed gram negative bacteremia 11/28/18 18:50 Urine - Urine Clean Catch Urine Culture - Final Klebsiella Pneumoniae 11/28/18 17:30 Blood - Althea Cath Blood Culture - Final Klebsiella Pneumoniae 11/28/18 17:30 Blood - Althea Cath Blood Culture - Final Klebsiella Pneumoniae 11/28/18 16:00 Blood - Peripheral Venous Blood Culture - Final Klebsiella Pneumoniae 11/28/18 16:00 Blood - Peripheral Venous Blood Culture - Final Klebsiella Pneumoniae Code(s): A41.9 - SEPSIS, UNSPECIFIED ORGANISM Qualifiers: Sepsis type: sepsis due to unspecified organism Sepsis acute organ dysfunction status: with acute organ dysfunction Severe sepsis acute organ dysfunction type: unspecified Severe sepsis shock status: without septic shock Qualified Code(s): A41.9 - Sepsis, unspecified organism; R65.20 - Severe sepsis without septic shock (2) Stage 5 chronic kidney disease Assessment/Plan: on HD per renal Code(s): N18.5 - CHRONIC KIDNEY DISEASE, STAGE 5 (3) HTN (hypertension) Assessment/Plan: coreg hydralazine lasix Code(s): I10 - ESSENTIAL (PRIMARY) HYPERTENSION
[2018-12-05] MEDS ORDERED: PROPOFOL 20 ML ONE (14:49)
--- NOTE | 2018-12-05 14:51 | PN ---
Progress Note (short form) - Note Progress Note: Renal follow up for ESRD on HD Seen and examined at the bedside no acute complaints s/p IR drainage of right sided hydronephrosis denies any sob, cp, abd pain, fever or chills tolerating oral diet tunneled dialysis catheter removed yesterday Vital Signs Temperature 98.5 F 12/04/18 09:55 Pulse Rate 70 12/04/18 12:03 Respiratory Rate 19 12/04/18 12:03 Blood Pressure 127/57 L 12/04/18 12:03 O2 Sat by Pulse Oximetry (%) 93 L 12/04/18 12:03 Intake & Output 12/01/18 12/02/18 12/03/18 12/04/18 23:59 23:59 23:59 23:59 Intake Total 1150 100 150 50 Output Total 1500 550 550 Balance -350 100 -400 -500 Weight 57.153 kg 58.513 kg 56.88 kg 56.427 kg NAD awake and alert RRR CTA soft NT/ND no LE edema CBC, BMP 12/04/18 07:00 12/04/18 07:00 Current Medications Acetaminophen (Tylenol -) 650 mg PO Q4H PRN PRN Reason: FEVER Last Admin: 12/01/18 22:10 Dose: 650 mg Aspirin (Asa -) 81 mg PO DAILY [facility] Last Admin: 12/03/18 09:59 Dose: Not Given Atorvastatin Calcium (Lipitor -) 40 mg PO HS [facility] Last Admin: 12/03/18 21:34 Dose: 40 mg Carvedilol (Coreg -) 18.75 mg PO TID [facility] Last Admin: 12/04/18 05:43 Dose: 18.75 mg Furosemide (Lasix -) 80 mg PO DAILY [facility] Last Admin: 12/04/18 09:51 Dose: 80 mg Heparin Sodium (Porcine) (Heparin -) 5,000 unit SQ TID [facility] Last Admin: 12/03/18 14:15 Dose: Not Given Hydralazine HCl (Apresoline -) 10 mg PO TID [facility] Last Admin: 12/04/18 05:43 Dose: 10 mg Piperacillin Sod/Tazobactam (Sod 2.25 gm/ Dextrose) 50 mls @ 100 mls/hr IVPB Q6H-IV [facility]; Protocol Last Admin: 12/04/18 09:51 Dose: 100 mls/hr Insulin Aspart (Novolog Vial Sliding Scale -) 1 vial SQ ACHS [facility]; Protocol Last Admin: 12/04/18 06:31 Dose: 2 units Sodium Bicarbonate (Sodium Bicarbonate -) 1,300 mg PO TID [facility] Last Admin: 12/04/18 05:42 Dose: 1,300 mg 82 year old gentleman with history of ESRD on HD (TTS), DM Type 2, Prostate cancer s/p resection, and hypertension who presented from dialysis center with high fever, chills and shortness of breath. 1. Gram negative bacteremia likely secondary to source 2. ESRD on HD 3. Chronic anemia 4. Hyponatremia 5. Hypertension 6. DM type 2 No acute need for HD today. K is stable and no evidence of volume overload HD catheter removed, new tunneled catheter insertion per vascular surgery. Heart valves w/o pathology on CARRIE Repeat cultures are w/o growth thus far Urine and blood cutlures grew klebsella CT of the Abdomen showed hydronephrosis and perinephric stranding with indwelling stents and air in bladder s/p nephrostomy tube placement by IR continue zosyn as per ID Continue ROCK with HD for anemia Renal diet, 1.2L fluid restriction Continue amlodipine on oral sodium bicarb Juice Jones DO
[2018-12-05] MEDS ORDERED: SODIUM CHLORIDE 250 ML IV PRN (14:53)
--- NOTE | 2018-12-05 14:53 | PN ---
Progress Note (short form) - Note Progress Note: Renal follow up for ESRD on HD Seen and examined at the bedside no acute complaints NPO for tunneled catheter placement no sob, cp, abd pain, fever or chills Vital Signs Temperature 97.8 F 12/05/18 14:45 Pulse Rate 71 12/05/18 14:45 Respiratory Rate 18 12/05/18 14:45 Blood Pressure 133/67 12/05/18 14:45 O2 Sat by Pulse Oximetry (%) 98 12/05/18 09:00 Intake & Output 12/02/18 12/03/18 12/04/18 12/05/18 23:59 23:59 23:59 23:59 Intake Total 100 150 387 50 Output Total 550 850 525 Balance 100 -400 -463 -475 Weight 58.513 kg 56.88 kg 56.427 kg 56.245 kg NAD awake and alert RRR CTA soft NT/ND no LE edema CBC, BMP 12/05/18 06:25 12/05/18 06:25 Current Medications Acetaminophen (Tylenol -) 650 mg PO Q4H PRN PRN Reason: FEVER Last Admin: 12/04/18 21:35 Dose: 650 mg Aspirin (Asa -) 81 mg PO DAILY [facility] Last Admin: 12/05/18 08:59 Dose: Not Given Atorvastatin Calcium (Lipitor -) 40 mg PO HS [facility] Last Admin: 12/04/18 21:37 Dose: 40 mg Carvedilol (Coreg -) 18.75 mg PO TID [facility] Last Admin: 12/05/18 13:42 Dose: Not Given Furosemide (Lasix -) 80 mg PO DAILY [facility] Last Admin: 12/05/18 08:59 Dose: 80 mg Heparin Sodium (Porcine) (Heparin -) 5,000 unit SQ TID [facility] Last Admin: 12/05/18 13:42 Dose: Not Given Hydralazine HCl (Apresoline -) 10 mg PO TID [facility] Last Admin: 12/05/18 13:41 Dose: Not Given Piperacillin Sod/Tazobactam (Sod 2.25 gm/ Dextrose) 50 mls @ 100 mls/hr IVPB Q6H-IV [facility]; Protocol Last Admin: 12/05/18 14:03 Dose: 100 mls/hr Insulin Aspart (Novolog Vial Sliding Scale -) 1 vial SQ ACHS [facility]; Protocol Last Admin: 12/05/18 11:37 Dose: 4 units Sodium Bicarbonate (Sodium Bicarbonate -) 1,300 mg PO TID [facility] Last Admin: 12/05/18 13:42 Dose: Not Given 82 year old gentleman with history of ESRD on HD (TTS), DM Type 2, Prostate cancer s/p resection, and hypertension who presented from dialysis center with high fever, chills and shortness of breath. 1. Gram negative bacteremia likely secondary to source 2. ESRD on HD 3. Chronic anemia 4. Hyponatremia 5. Hypertension 6. DM type 2 for HD catheter placement today. Will plan for HD this evening vs. tomorrow morning pending completion of OR procedure. Heart valves w/o pathology on CARRIE Repeat cultures are w/o growth thus far Urine and blood cutlures grew klebsella CT of the Abdomen showed hydronephrosis and perinephric stranding with indwelling stents and air in bladder s/p nephrostomy tube placement by IR. Nephrostomy mangement per continue zosyn as per ID. Will need to determine which Abx he can be discharged on. Continue ROCK with HD for anemia Renal diet, 1.2L fluid restriction Continue amlodipine on oral sodium bicarb Juice Jones DO
[2018-12-05] MEDS ORDERED: SODIUM CHLORIDE 0.9% P/F 10 ML VIAL IJ ONE (14:54)
[2018-12-05] MEDS ORDERED: ceFAZolin SODIUM 1 GM VIAL ONE (14:54)
[2018-12-05] MEDS ORDERED: LIDOCAINE HCL 2% (20ML MULTI-DOSE VIAL) NR ONE (15:06)
[2018-12-05] MEDS ORDERED: HEPARIN NA (PORCINE) 5,000 UNITS/ML 1ML VIAL ONE (15:06)
[2018-12-05] MEDS ORDERED: LIDOCAINE HCL 2% (50ML VIAL) INF ONE (16:57)
--- NOTE | 2018-12-05 17:20 | OP ---
Operative Note - Note: Operative Date: 12/05/18 Pre-Operative Diagnosis: ESRD Operation: Placement Permacath Findings: Patent left IJ Implants: 23 cm TTC Permacath Post-Operative Diagnosis: Same as Pre-op Surgeon: Panda Greco Anesthesiologist/PHYSICAL SECURITY SPECIALIST: Robert Phillips Anesthesia: Fractional
[2018-12-05] MEDS ORDERED: ACETAMINOPHEN 325 MG TABLET (FP) PO PRN (17:32)
[2018-12-05] MEDS ORDERED: ONDANSETRON 4 MG/2 ML VIAL IVPUSH PRN (18:43)
[2018-12-05] MEDS ORDERED: MELATONIN 5 MG TABLETS PO PRN (22:43)
[2018-12-05] MEDS: ATORVASTATIN CA 40 MG TABLET (FP) PO SCH (23:05)
[2018-12-05] MEDS: SODIUM CHLORIDE 1,000 ML IV SCH ×2 (23:07→23:20)
[2018-12-06] MEDS ORDERED: DEXTROSE 5%-WATER - 50 ML IVPB ONE ×2 (02:07→09:02)
[2018-12-06] MEDS ORDERED: PIPERACILLIN/TAZOBACTAM 2.25 GM VIAL IVPB ONE ×2 (02:07→09:02)
[2018-12-06] MEDS: PIPERACILLIN/TAZOB 2.25 GM 2.25 GM in DEXTROSE 5%-WATER - 50 ML IVPB SCH ×2 (02:21→11:20)
[2018-12-06] MEDS: HEPARIN NA (PORCINE) 5,000 UNITS/ML 1ML VIAL SQ SCH ×2 (05:21→13:25)
[2018-12-06] MEDS: SODIUM BICARBONATE 650 MG TABLET PO SCH ×3 (05:21→21:32)
[2018-12-06] MEDS: hydrALAZINE HCL 10 MG TABLET PO SCH ×3 (05:22→21:32)
[2018-12-06] MEDS: CARVEDILOL 6.25 MG TABLET (FP) PO SCH ×3 (05:34→21:32)
[2018-12-06] MEDS: INSULIN SLIDING SCALE (NOVOLOG) 1 VIAL SQ SCH ×4 (06:19→23:21)
--- NOTE | 2018-12-06 09:42 | PN ---
Progress Note (short form) - Note Progress Note: POD#1 s/p permacath insertion to left chest Vital Signs Period Temp Pulse Resp BP Sys/Pryor Pulse Ox Last 24 Hr 97.8 F-98.9 F 59-77 16-22 133-176/59-80 95-100 GEN: Alert and follows commands Chest: No evidence of bleeding from permacath site. Dressing in place with scant dried blood. Microbiology 12/03/18 21:25 Catheter Tip - Perma Cath Tip Foreign Body Culture - Final NO GROWTH AFTER 48 HOURS INCUBATION A/p: 82 yo male s/p permacath removal(vegataion on catheter tip) and new catheter placement 12/05 Continue HD via new permcath Care as per the medical team Follow-up with Dr. Greco as outpt
[2018-12-06] MEDS ORDERED: FUROSEMIDE 40 MG TABLET (FP) PO SCH (10:00)
[2018-12-06] MEDS ORDERED: SODIUM CHLORIDE 250 ML IV PRN (10:00)
[2018-12-06] MEDS ORDERED: ASPIRIN 81 MG CHEWABLE TABLETS PO SCH (10:00)
--- NOTE | 2018-12-06 12:42 | PN ---
Progress Note, Physician History of Present Illness: stable no new issues - Current Medication List Current Medications: Active Medications Acetaminophen (Tylenol -) 650 mg PO Q4H PRN PRN Reason: FEVER Aspirin (Asa -) 81 mg PO DAILY [facility] Atorvastatin Calcium (Lipitor -) 40 mg PO HS [facility] Last Admin: 12/05/18 23:05 Dose: 40 mg Carvedilol (Coreg -) 18.75 mg PO TID [facility] Last Admin: 12/06/18 05:34 Dose: 18.75 mg Fentanyl (Sublimaze Injection -) 25 mcg IVPUSH [id number] PRN PRN Reason: PAIN-PACU ORDER X 4 DOSES ONLY Last Admin: 12/05/18 18:43 Dose: 25 mcg Furosemide (Lasix -) 80 mg PO DAILY [facility] Heparin Sodium (Porcine) (Heparin -) 5,000 unit SQ TID [facility] Last Admin: 12/06/18 05:21 Dose: 5,000 unit Hydralazine HCl (Apresoline -) 10 mg PO TID [facility] Last Admin: 12/06/18 05:22 Dose: 10 mg Sodium Chloride (Normal Saline -) 1,000 mls @ 42 mls/hr IV ASDIR [facility] Last Admin: 12/05/18 23:20 Dose: Not Given Cefazolin Sodium 3 gm/ (Dextrose) 100 mls @ 100 mls/hr IVPB ONCE ONE Stop: 12/06/18 13:38 Insulin Aspart (Novolog Vial Sliding Scale -) 1 vial SQ ACHS [facility]; Protocol Last Admin: 12/06/18 11:20 Dose: Not Given Melatonin (Melatonin) 5 mg PO HS PRN PRN Reason: INSOMNIA Last Admin: 12/05/18 23:05 Dose: 5 mg Ondansetron HCl (Zofran Injection) 4 mg IVPUSH Q6H PRN PRN Reason: NAUSEA AND/OR VOMITING Sodium Bicarbonate (Sodium Bicarbonate -) 1,300 mg PO TID [facility] Last Admin: 12/06/18 05:21 Dose: 1,300 mg - Objective Vital Signs: Vital Signs Temperature 98.7 F 12/06/18 08:50 Pulse Rate 63 12/06/18 12:00 Respiratory Rate 18 12/06/18 12:00 Blood Pressure 160/95 12/06/18 12:00 O2 Sat by Pulse Oximetry (%) 99 12/06/18 09:00 Constitutional: Yes: No Distress, Calm Cardiovascular: Yes: S1, S2 Respiratory: Yes: Regular, CTA Bilaterally Gastrointestinal: Yes: Normal Bowel Sounds, Soft Musculoskeletal: Yes: WNL Extremities: Yes: WNL Neurological: Yes: Alert, Oriented Psychiatric: Yes: Alert, Oriented Labs: CBC, BMP 12/05/18 06:25 12/05/18 06:25 INR, PTT INR 1.14 (0.83-1.09) H 11/28/18 16:00 Assessment/Plan 82 year old gentleman with history of ESRD on HD (TTS), DM Type 2, Prostate cancer s/p resection, and hypertension who presented from dialysis center with high fever, chills and shortness of breath. 1. Gram negative bacteremia likely secondary to source 2. ESRD on HD 3. Chronic anemia 4. Hyponatremia 5. Hypertension 6. DM type 2 plan continue abx new cath placed patient can get abx ancef during dialysis as per dialysis schedule rest as per the team
--- NOTE | 2018-12-06 13:17 | PN ---
Progress Note (short form) - Note Progress Note: Renal follow up for ESRD on HD Seen and examined at the bedside awake and alert s/p dialysis AM with new catheter tolerated it well no fevers or chills has some soreness at catheter insertion site Vital Signs Temperature 98.7 F 12/06/18 08:50 Pulse Rate 63 12/06/18 12:00 Respiratory Rate 18 12/06/18 12:00 Blood Pressure 160/95 12/06/18 12:00 O2 Sat by Pulse Oximetry (%) 99 12/06/18 09:00 Intake & Output 12/03/18 12/04/18 12/05/18 12/06/18 23:59 23:59 23:59 23:59 Intake Total 150 387 284 500 Output Total 550 413 821 6331 Balance -617 -463 -546 -9489 Weight 56.88 kg 56.427 kg 56.245 kg 56.744 kg NAD awake and alert RRR CTA soft NT/ND no LE edema CBC, BMP 12/05/18 06:25 12/05/18 06:25 Current Medications Acetaminophen (Tylenol -) 650 mg PO Q4H PRN PRN Reason: FEVER Aspirin (Asa -) 81 mg PO DAILY [facility] Atorvastatin Calcium (Lipitor -) 40 mg PO HS [facility] Last Admin: 12/05/18 23:05 Dose: 40 mg Carvedilol (Coreg -) 18.75 mg PO TID [facility] Last Admin: 12/06/18 05:34 Dose: 18.75 mg Fentanyl (Sublimaze Injection -) 25 mcg IVPUSH [id number] PRN PRN Reason: PAIN-PACU ORDER X 4 DOSES ONLY Last Admin: 12/05/18 18:43 Dose: 25 mcg Furosemide (Lasix -) 80 mg PO DAILY [facility] Heparin Sodium (Porcine) (Heparin -) 5,000 unit SQ TID [facility] Last Admin: 12/06/18 05:21 Dose: 5,000 unit Hydralazine HCl (Apresoline -) 10 mg PO TID [facility] Last Admin: 12/06/18 05:22 Dose: 10 mg Sodium Chloride (Normal Saline -) 1,000 mls @ 42 mls/hr IV ASDIR [facility] Last Admin: 12/05/18 23:20 Dose: Not Given Cefazolin Sodium 3 gm/ (Dextrose) 100 mls @ 100 mls/hr IVPB ONCE ONE Stop: 12/06/18 13:38 Insulin Aspart (Novolog Vial Sliding Scale -) 1 vial SQ ACHS [facility]; Protocol Last Admin: 12/06/18 11:20 Dose: Not Given Melatonin (Melatonin) 5 mg PO HS PRN PRN Reason: INSOMNIA Last Admin: 12/05/18 23:05 Dose: 5 mg Ondansetron HCl (Zofran Injection) 4 mg IVPUSH Q6H PRN PRN Reason: NAUSEA AND/OR VOMITING Sodium Bicarbonate (Sodium Bicarbonate -) 1,300 mg PO TID [facility] Last Admin: 12/06/18 05:21 Dose: 1,300 mg 82 year old gentleman with history of ESRD on HD (TTS), DM Type 2, Prostate cancer s/p resection, and hypertension who presented from dialysis center with high fever, chills and shortness of breath. 1. Gram negative bacteremia likely secondary to source 2. ESRD on HD 3. Chronic anemia 4. Hyponatremia 5. Hypertension 6. DM type 2 Tolerated dialysis well this AM. Repeat cultures negative. Heart valves w/o pathology on CARRIE Urine and blood cultures grew klebsella. CT of the Abdomen showed hydronephrosis and perinephric stranding with indwelling stents and air in bladder s/p nephrostomy tube placement by IR. Nephrostomy management per . Should follow up with on discharge. Will get Ancef with HD x 3 weeks. Continue ROCK with HD for anemia Renal diet, 1.2L fluid restriction Continue amlodipine on oral sodium bicarb Juice Jones DO
--- NOTE | 2018-12-06 13:35 | PN ---
Progress Note, Physician Chief Complaint: Sepsis ESRD History of Present Illness: Previous notes and events reviewed awake and alert NAD patient had permacath placement to L chest 12/05/18 had HD today denies chest pain or SOB R nephrostomy tube with bloody output - Current Medication List Current Medications: Active Medications Acetaminophen (Tylenol -) 650 mg PO Q4H PRN PRN Reason: FEVER Aspirin (Asa -) 81 mg PO DAILY [facility] Last Admin: 12/06/18 13:26 Dose: 81 mg Atorvastatin Calcium (Lipitor -) 40 mg PO HS [facility] Last Admin: 12/05/18 23:05 Dose: 40 mg Carvedilol (Coreg -) 18.75 mg PO TID [facility] Last Admin: 12/06/18 13:25 Dose: 18.75 mg Fentanyl (Sublimaze Injection -) 25 mcg IVPUSH [id number] PRN PRN Reason: PAIN-PACU ORDER X 4 DOSES ONLY Last Admin: 12/05/18 18:43 Dose: 25 mcg Furosemide (Lasix -) 80 mg PO DAILY [facility] Last Admin: 12/06/18 13:27 Dose: 80 mg Heparin Sodium (Porcine) (Heparin -) 5,000 unit SQ TID [facility] Last Admin: 12/06/18 13:25 Dose: 5,000 unit Hydralazine HCl (Apresoline -) 10 mg PO TID [facility] Last Admin: 12/06/18 13:27 Dose: 10 mg Sodium Chloride (Normal Saline -) 1,000 mls @ 42 mls/hr IV ASDIR [facility] Last Admin: 12/05/18 23:20 Dose: Not Given Cefazolin Sodium 3 gm/ (Dextrose) 100 mls @ 100 mls/hr IVPB ONCE ONE Stop: 12/06/18 13:38 Insulin Aspart (Novolog Vial Sliding Scale -) 1 vial SQ [facility]; Protocol Last Admin: 12/06/18 11:20 Dose: Not Given Melatonin (Melatonin) 5 mg PO HS PRN PRN Reason: INSOMNIA Last Admin: 12/05/18 23:05 Dose: 5 mg Ondansetron HCl (Zofran Injection) 4 mg IVPUSH Q6H PRN PRN Reason: NAUSEA AND/OR VOMITING Sodium Bicarbonate (Sodium Bicarbonate -) 1,300 mg PO TID [facility] Last Admin: 12/06/18 13:25 Dose: 1,300 mg - Objective Vital Signs: Vital Signs Temperature 98.7 F 12/06/18 08:50 Pulse Rate 63 12/06/18 12:00 Respiratory Rate 18 12/06/18 12:00 Blood Pressure 160/95 12/06/18 12:00 O2 Sat by Pulse Oximetry (%) 99 12/06/18 09:00 Constitutional: Yes: No Distress, Calm Eyes: Yes: Conjunctiva Clear HENT: Yes: Atraumatic Cardiovascular: Yes: Regular Rate and Rhythm Respiratory: Yes: Regular, CTA Bilaterally Gastrointestinal: Yes: Normal Bowel Sounds, Soft Genitourinary: Yes: Other (R nephrostomy tube) Musculoskeletal: Yes: Muscle Weakness Extremities: Yes: WNL Edema: No Wound/Incision: Yes: Dressing Dry and Intact Neurological: Yes: Alert, Oriented Psychiatric: Yes: Alert, Oriented Labs: CBC, BMP 12/05/18 06:25 12/05/18 06:25 INR, PTT INR 1.14 (0.83-1.09) H 11/28/18 16:00 Microbiology 12/04/18 12:15 Body Fluid - Other Gram Stain - Final 12/04/18 12:15 Body Fluid - Other Body Fluid Culture - Final NO GROWTH OF AEROBIC ORGANISMS AFTER 48 HOURS INCUBATION 12/04/18 12:15 Body Fluid - Other Anaerobic Culture - Final NO ANAEROBES WERE ISOLATED 12/03/18 21:25 Catheter Tip - Perma Cath Tip Foreign Body Culture - Final NO GROWTH AFTER 48 HOURS INCUBATION 11/30/18 07:15 Blood - Peripheral Venous Blood Culture - Final NO GROWTH AFTER 5 DAYS INCUBATION 11/30/18 07:00 Blood - Peripheral Venous Blood Culture - Final NO GROWTH AFTER 5 DAYS INCUBATION 11/29/18 15:10 Blood - Pre-Dialysis Blood Culture - Final NO GROWTH AFTER 5 DAYS INCUBATION 12/03/18 14:30 Urine - Urine Nephrostomy Tube Right Urine Culture - Final NO GROWTH OBTAINED 11/28/18 16:00 Blood - Peripheral Venous Blood Culture - Final Klebsiella Pneumoniae 11/28/18 17:30 Blood - Althea Cath Blood Culture - Final Klebsiella Pneumoniae 11/28/18 18:50 Urine - Urine Clean Catch Urine Culture - Final Klebsiella Pneumoniae 11/28/18 17:30 Blood - Althea Cath Blood Culture - Final Klebsiella Pneumoniae 11/28/18 16:00 Blood - Peripheral Venous Blood Culture - Final Klebsiella Pneumoniae Problem List - Problems (1) HTN (hypertension) Assessment/Plan: -Carvedilol, Hydralazine -low Na diet Code(s): I10 - ESSENTIAL (PRIMARY) HYPERTENSION (2) Sepsis Assessment/Plan: -ID on board -Leukocytosis WBC 9.4 -afebrile -initial BC positive with Klebsiella, repeat BC neg -UC positive Klebsiella -UC from nephrostomy neg -Ancef~will receive Ancef during dialysis for 3 weeks -Echo shows possible mitral valve vegetation~CARRIE done no valve vegetation -ID recommend permacath removal IR on board and will wait for CARRIE to plan possible removal -Abd/Pelvic CT scan shows worsening hydronephrosis on right side compared to prior imaging, some blood noted in right upper calyx noted which could be secondary to prior instrumentation, subcortical cysts on kidneys, double J stent noted on the R with the proximal double J within the proximal ureter, right parapelvic cysts -Urology consult -CARRIE done today and shows no evidence of valvular vegetation but freely mobile echodensity adherent to the distal end of of the dialysis catheter that appears to be consistent with vegetation -permacath removed by Vascular and tip sent for culture and neg Code(s): A41.9 - SEPSIS, UNSPECIFIED ORGANISM Qualifiers: Sepsis type: sepsis due to unspecified organism Sepsis acute organ dysfunction status: with acute organ dysfunction Severe sepsis acute organ dysfunction type: unspecified Severe sepsis shock status: without septic shock Qualified Code(s): A41.9 - Sepsis, unspecified organism; R65.20 - Severe sepsis without septic shock (3) UTI (urinary tract infection) Assessment/Plan: -ID on board -Leukocytosis WBC 9.4 -afebirle -Zosyn -UC positive Klebsiella -UC from R nephrostomy tube neg Code(s): N39.0 - URINARY TRACT INFECTION, SITE NOT SPECIFIED Qualifiers: Urinary tract infection type: acute cystitis Hematuria presence: without hematuria Qualified Code(s): N30.00 - Acute cystitis without hematuria (4) Stage 5 chronic kidney disease Assessment/Plan: -Renal on board -_HD on scheduled days -BUN/Cr 65/7.1 -monitor renal function daily -Renal US shows moderate right hydronephrosis -R nephrostomy tube placed with stent opening -pelvic cyst drain by IR -permacath removed by Vascular and new one placed to L side of chest yesterday Code(s): N18.5 - CHRONIC KIDNEY DISEASE, STAGE 5 (5) Hydronephrosis Assessment/Plan: -Abd/Pelvic CT scan shows worsening hydronephrosis on right side compared to prior imaging, some blood noted in right upper calyx noted which could be secondary to prior instrumentation, subcortical cysts on kidneys, double J stent noted on the R with the proximal double J within the proximal ureter, right parapelvic cysts -R renal cysts aspiration -Urology on board Code(s): N13.30 - UNSPECIFIED HYDRONEPHROSIS Qualifiers: Hydronephrosis type: with other ureteral stricture Qualified Code(s): N13.1 - Hydronephrosis with ureteral stricture, not elsewhere classified Assessment/Plan see problem list dvt ppx when begin d/c planning snf vs home care services
[2018-12-06] MEDS ORDERED: CEFAZOLIN 3 GM in DEXTROSE 5%-WATER - 100 ML IVPB ONE (14:00)
--- NOTE | 2018-12-06 14:53 | DS ---
Physical Examination Vital Signs: Vital Signs Temperature 98.7 F 12/06/18 13:52 Pulse Rate 85 12/06/18 13:52 Respiratory Rate 20 12/06/18 13:52 Blood Pressure 173/74 H 12/06/18 13:52 O2 Sat by Pulse Oximetry (%) 99 12/06/18 09:00 Findings/Remarks: Laboratory Results - last 24 hr 12/05/18 12/05/18 12/06/18 17:47 23:16 06:17 POC Glucometer 148 251 153 Active Medications Generic Name Dose Route Start Last Admin Trade Name Freq PRN Reason Stop Dose Admin Acetaminophen 650 mg 12/05/18 17:32 Tylenol - PO Q4H PRN FEVER Aspirin 81 mg 12/06/18 10:00 12/06/18 13:26 Asa - PO 81 mg DAILY [facility] Administration Atorvastatin Calcium 40 mg 12/05/18 22:00 12/05/18 23:05 Lipitor - PO 40 mg HS [facility] Administration Carvedilol 18.75 mg 12/05/18 22:00 12/06/18 13:25 Coreg - PO 18.75 mg TID [facility] Administration Fentanyl 25 mcg 12/05/18 18:43 12/05/18 18:43 Sublimaze Injection - IVPUSH 25 mcg [id number] PRN Administration PAIN-PACU ORDER X 4 DOSES ONLY Furosemide 80 mg 12/06/18 10:00 12/06/18 13:27 Lasix - PO 80 mg DAILY [facility] Administration Heparin Sodium (Porcine) 5,000 unit 12/05/18 22:00 12/06/18 13:25 Heparin - SQ 5,000 unit TID [facility] Administration Hydralazine HCl 10 mg 12/05/18 22:00 12/06/18 13:27 Apresoline - PO 10 mg TID [facility] Administration Sodium Chloride 1,000 mls @ 42 mls/hr 12/05/18 18:45 12/05/18 23:20 Normal Saline - IV Not Given ASDIR [facility] Cefazolin Sodium 3 gm/ 100 mls @ 100 mls/hr 12/06/18 14:00 Dextrose IVPB 12/06/18 14:59 ONCE ONE Insulin Aspart 1 vial 12/05/18 22:00 12/06/18 11:20 Novolog Vial Sliding Scale - SQ Not Given ACHS [facility] Protocol Melatonin 5 mg 12/05/18 22:43 12/05/18 23:05 Melatonin PO 5 mg HS PRN Administration INSOMNIA Ondansetron HCl 4 mg 12/05/18 18:43 Zofran Injection IVPUSH Q6H PRN NAUSEA AND/OR VOMITING Sodium Bicarbonate 1,300 mg 12/05/18 22:00 12/06/18 13:25 Sodium Bicarbonate - PO 1,300 mg TID [facility] Administration Microbiology 12/04/18 12:15 Body Fluid - Other Gram Stain - Final 12/04/18 12:15 Body Fluid - Other Body Fluid Culture - Final NO GROWTH OF AEROBIC ORGANISMS AFTER 48 HOURS INCUBATION 12/04/18 12:15 Body Fluid - Other Anaerobic Culture - Final NO ANAEROBES WERE ISOLATED 12/03/18 21:25 Catheter Tip - Perma Cath Tip Foreign Body Culture - Final NO GROWTH AFTER 48 HOURS INCUBATION 11/30/18 07:15 Blood - Peripheral Venous Blood Culture - Final NO GROWTH AFTER 5 DAYS INCUBATION 11/30/18 07:00 Blood - Peripheral Venous Blood Culture - Final NO GROWTH AFTER 5 DAYS INCUBATION 11/29/18 15:10 Blood - Pre-Dialysis Blood Culture - Final NO GROWTH AFTER 5 DAYS INCUBATION 12/03/18 14:30 Urine - Urine Nephrostomy Tube Right Urine Culture - Final NO GROWTH OBTAINED 11/28/18 16:00 Blood - Peripheral Venous Blood Culture - Final Klebsiella Pneumoniae 11/28/18 17:30 Blood - Althea Cath Blood Culture - Final Klebsiella Pneumoniae 11/28/18 18:50 Urine - Urine Clean Catch Urine Culture - Final Klebsiella Pneumoniae 11/28/18 17:30 Blood - Althea Cath Blood Culture - Final Klebsiella Pneumoniae 11/28/18 16:00 Blood - Peripheral Venous Blood Culture - Final Klebsiella Pneumoniae Constitutional: Yes: No Distress, Calm Eyes: Yes: Conjunctiva Clear HENT: Yes: Atraumatic Cardiovascular: Yes: Regular Rate and Rhythm Respiratory: Yes: Regular, CTA Bilaterally Gastrointestinal: Yes: Normal Bowel Sounds, Soft Renal/: Yes: Other (R nephrostomy tube) Musculoskeletal: Yes: Muscle Weakness Extremities: Yes: WNL Edema: No Wound/Incision: Yes: Dressing Dry and Intact Neurological: Yes: Alert, Oriented Psychiatric: Yes: Alert, Oriented Labs: CBC, BMP 12/05/18 06:25 12/05/18 06:25 Discharge Summary Problems reviewed: Yes Reason For Visit: URINARY TRACT INFECTION/SEPSIS/END STAGE RENAL JOSEPH Current Active Problems HTN (hypertension) (Acute) Line sepsis associated with dialysis catheter (Acute) Sepsis (Acute) UTI (urinary tract infection) (Acute) Hospital Course: 82 y.o M PMH HTN, diabetes mellitus, ESRD on dialysis ([place], [place], [place]), prostate CA s/p resection and microvascular ischemic disease presenting d/t fever and chills. The patient was at dialysis today and began having shaking chills and was noted to be febrile. Pt appears altered and majority of history obtained from son at bedside. At baseline he is AOx2 but son said he seems "a bit off", although remains AOx2 today. He says for the past 2 days he has had chills but 30 mins into dialysis the chills worsened and he became febrile. Patient denies CP/ SOB/ suprapubic tenderness/ abdominal pain/ dysuria/ hematuria/ N/V/D/ myalgias/ parasthesias. -ID on board -Leukocytosis WBC 9.4 -afebrile -initial BC positive with Klebsiella, repeat BC neg -UC positive Klebsiella -UC from nephrostomy neg -Ancef~will receive Ancef during dialysis for 3 weeks -Echo shows possible mitral valve vegetation~CARRIE done no valve vegetation -ID recommend permacath removal IR on board and will wait for CARRIE to plan possible removal -Abd/Pelvic CT scan shows worsening hydronephrosis on right side compared to prior imaging, some blood noted in right upper calyx noted which could be secondary to prior instrumentation, subcortical cysts on kidneys, double J stent noted on the R with the proximal double J within the proximal ureter, right parapelvic cysts -Urology consult -CARRIE done today and shows no evidence of valvular vegetation but freely mobile echodensity adherent to the distal end of of the dialysis catheter that appears to be consistent with vegetation -permacath removed by Vascular and tip sent for culture and neg Condition: Stable - Instructions Diet, Activity, Other Instructions: Keep permacath site clean and dry. Covered at all times. Follow-up with Dr Greco for further hemodialysis access care as needed. Follow up with PMD in 1 week Follow up with [employer] Dr Jones continue with HD on scheduled days, will receive Ancef during dialysis for 3 weeks Follow up with Vascular Dr Greco return to ER if develop fever, respiratory distress, chest pain, altered mental status Referrals: Tristin Rodriguez MD [Staff Physician] - 1 Week Juice Jones MD [Staff Physician] - Panda Greco MD [Staff Physician] - Disposition: [facility]/HOME HEALTH CARE - Home Medications Comprehensive Discharge Medication List: Ambulatory Orders Amlodipine Besylate [Norvasc -] 10 mg PO DAILY 09/24/18 Carvedilol 18.75 mg PO TID 09/24/18 Hydralazine HCl 10 mg PO TID 09/24/18 Sodium Bicarbonate - 1,300 mg PO TID 09/25/18 Aspirin 81 mg PO DAILY #30 tab.chew 10/04/18 Atorvastatin Ca [Lipitor] 40 mg PO HS #30 tablet 10/04/18 Furosemide [Lasix] 80 mg PO DAILY 11/28/18 Acetaminophen [Tylenol .Regular Strength -] 650 mg PO Q4H PRN tablet 12/06/18 Melatonin 5 mg PO HS PRN #30 tab 12/06/18
[2018-12-06] MEDS ORDERED: INSULIN (NOVOLOG) ASPART 100 UNITS/ML 10ML VIAL ONE (16:27)
[2018-12-06 21:30] VITALS: BP 149/74; PULSE 73; TEMP 98.1
[2018-12-06] MEDS: ATORVASTATIN CA 40 MG TABLET (FP) PO SCH (21:32)
--- NOTE | 2018-12-07 10:35 | OP ---
DATE OF OPERATION: 12/05/2018 PROCEDURE: Placement of Perma-Cath. PREOPERATIVE DIAGNOSIS: Renal failure. POSTOPERATIVE DIAGNOSIS: Renal failure. ANESTHESIA: Fractional. ANESTHESIOLOGIST: Robert Phillips MD OPERATIVE PROCEDURE: Following routine patient identification, intravenous sedation was established. The left neck and chest were prepped with ChloraPrep. Time-out was performed. Using ultrasound guidance, the left internal jugular vein was identified and cannulated with a micropuncture needle using 1% lidocaine local anesthesia. A wire was passed proximally and the needle exchanged for a 5-[place]an catheter. The wire was exchanged for a J-tip wire, which was advanced into the right atrium. Additional lidocaine was infiltrated on the chest wall and a stab wound made beneath the clavicle. A 23-cm tip-to-cuff Perma-Cath was advanced with a tunneler from chest to neck. The tract around the wire was dilated, and the introducer was placed over the wire into the superior vena cava. The wire and dilator were removed, and the catheter was advanced through the introducer and the tip positioned in the right atrium. Introducer was peeled away. Each lumen was aspirated for blood and flushed with saline and heparin solution. The neck wound was closed with a subcuticular suture of 3-0 Vicryl, and the catheter was sutured to the exit site with 3-0 nylon. A sterile dressing was applied, and the patient was taken to the recovery room in stable condition. KANDY SIMONS M.D. [id number]
--- NOTE | 2018-12-09 17:26 | PATH ---
Cytology Non-Gynecological Report Patient Name: YAJAIRA NEGRO Med. Rec. #: [id number] /Age/Gender: 1935 (Age: 82) / M Account: [id number] Location: [facility] MED/SURG Taken: 12/04/2018 Received: 12/04/2018 Reported: 12/09/2018 Physicians: Herman Traylor M.D. Specimen(s) Received RENAL CYST, FINE NEEDLE ASPIRATION Clinical History Right lower renal pole, pelvic cyst Final Diagnosis RENAL CYST, FINE NEEDLE ASPIRATION: SATISFACTORY FOR EVALUATION. NEGATIVE FOR MALIGNANCY. CYSTIC LESION WITH MACROPHAGES AND DEGENERATED CELLS. SCATTERED MACROPHAGES AND DEGENERATED CELLS IN A CLEAN BACKGROUND PRESENT. Electronically Signed Rosa M Stauffer M.D. Gross Description Approximately 40 cc of yellow cloudy fluid received fresh. One cytofunnel prepared and Pap stained.
== END 2018-12-06 21:45 | disposition home health service (06) | DRG 981 ==
LOC: JER 15:20 → JERBED 18:29 → J7W 11-29 01:48
PROVIDERS: ADMIT Internal Medicine; ATTEND Family Medicine
PROC: B246ZZ4 Ultrasonography of Right and Left Heart, Transesophageal (ICD-10-PCS; 2018-12-03)
PROC: 0T9330Z Drainage of Right Kidney Pelvis with Drainage Device, Percutaneous Approach (ICD-10-PCS; 2018-12-03)
PROC: 05PY03Z Removal of Infusion Device from Upper Vein, Open Approach (ICD-10-PCS; principal; 2018-12-03 08:15)
PROC: 0T903ZX Drainage of Right Kidney, Percutaneous Approach, Diagnostic (ICD-10-PCS; 2018-12-04)
PROC: 02HV33Z Insertion of Infusion Device into Superior Vena Cava, Percutaneous Approach (ICD-10-PCS; 2018-12-05)
PROC: B518ZZA Fluoroscopy of Superior Vena Cava, Guidance (ICD-10-PCS; 2018-12-05)
PROC: 0JH63XZ Insertion of Tunneled Vascular Access Device into Chest Subcutaneous Tissue and Fascia, Percutaneous Approach (ICD-10-PCS; 2018-12-05)
DX: T83.511A Infection and inflammatory reaction due to indwelling urethral catheter, initial encounter (principal); A41.59 Other Gram-negative sepsis; N18.6 End stage renal disease; G93.41 Metabolic encephalopathy; E87.1 Hypo-osmolality and hyponatremia; I12.0 Hypertensive chronic kidney disease with stage 5 chronic kidney disease or end stage renal disease; N13.1 Hydronephrosis with ureteral stricture, not elsewhere classified; N39.0 Urinary tract infection, site not specified; E11.22 Type 2 diabetes mellitus with diabetic chronic kidney disease; D72.829 Elevated white blood cell count, unspecified; E87.5 Hyperkalemia; N28.1 Cyst of kidney, acquired; D64.9 Anemia, unspecified; E11.65 Type 2 diabetes mellitus with hyperglycemia; Z85.46 Personal history of malignant neoplasm of prostate; Z99.2 Dependence on renal dialysis
CPT/HCPCS: 36415; 50390; 50432; 71045-TC-FY; 74176-TC; 74425-TC-FY; 76098-TC-FY; 76775-TC; 76942-TC; 80048; 80053; 81003; 82550; 82803; 82962; 83605; 83735; 84100; 84484; 85025; 85027; 85610; 85730; 86803; 87040; 87070; 87075; 87086; 87186; 87205; 87340; 87804; 87899; 88108; 93005; 93010; 93306-TC; 93312; 93325; 94760; 97116-GP; 97161-GP; 99285-25; A4358; C1729; C1769; G0480; J0131; J0885; J1644; J7030

== ENCOUNTER 2018-12-17 20:42 | Inpatient (IN) | payer OTHER, BC ==
--- NOTE | 2018-12-17 20:49 | PDOC ---
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 patient received his dialysis and finished at 18:10 then went home with his step daughter. The were preparing to eat around 19:00 and (per the daughter) the patient appeared weak at the dinner table and was leaning to the side then nearly fell but the daughter caught him. After the event he felt nauseous and vomited clear fluid once. The patient recalls the event and states that he felt very weak but denies complete syncope, loss of consciousness, or actual fall from chair. Unclear from daughter as she says he was still somewhat responsive during this event. No focal deficit after the event, seizure like activity, or post ictal period. No recent fevers but his nephrostromy tube did have bloody drainage today. Denies chest pain, SOB, 12/17/18 21:33 Past History - Past Medical History Allergies/Adverse Reactions: Allergies Allergy/AdvReac Type Severity Reaction Status Date / Time No Known Allergies Allergy Verified 11/28/18 16:06 Home Medications: Ambulatory Orders Amlodipine Besylate [Norvasc -] 10 mg PO DAILY 09/24/18 Carvedilol 18.75 mg PO TID 09/24/18 Hydralazine HCl 10 mg PO TID 09/24/18 Sodium Bicarbonate - 1,300 mg PO TID 09/25/18 Aspirin 81 mg PO DAILY #30 tab.chew 10/04/18 Atorvastatin Ca [Lipitor] 40 mg PO HS #30 tablet 10/04/18 Furosemide [Lasix] 80 mg PO DAILY 11/28/18 Acetaminophen [Tylenol .Regular Strength -] 650 mg PO Q4H PRN tablet 12/06/18 Melatonin 5 mg PO HS PRN #30 tab 12/06/18 Anemia: Yes Cancer: Yes (PROSTATE) Cardiac Disorders: No CVA: No COPD: No CHF: No Dementia: No Diabetes: Yes (BORDERLINE) GI Disorders: Yes (JESSY) HTN: Yes Liver Disease: No Thyroid Disease: No - Surgical History Abdominal Surgery: No Appendectomy: No Cardiac Surgery: No Cholecystectomy: No Lung Surgery: No Neurologic Surgery: No Orthopedic Surgery: No - Psycho Social/Smoking Cessation Hx Smoking History: Never smoked Have you smoked in the past 12 months: No Hx Alcohol Use: No Drug/Substance Use Hx: No Substance Use Type: None Hx Substance Use Treatment: No Review of Systems - Review of Systems Constitutional: No: Chills, Diaphoresis, Fever, Loss of Appetite HEENTM: No: Eye Pain, Blurred Vision, Tearing Respiratory: No: Cough, Orthopnea, Shortness of Breath Cardiac (ROS): No: Chest Pain, Edema, Irregular Heart Rate ABD/GI: Yes: Nausea, Vomiting. No: Diarrhea : No: Dysuria, Discharge, Frequency Musculoskeletal: Yes: Joint Pain. No: Joint Swelling Integumentary: No: Bruising, Lesions, Lumps Neurological: Yes: Weakness, Unsteady Gait. No: Headache, Numbness, Paresthesia Psychiatric: No: Anxiety, Depression Hematologic/Lymphatic: No: Easy Bleeding *Physical Exam - Physical Exam General Appearance: Yes: Appropriately Dressed, Thin. No: Apparent Distress HEENT: positive: EOMI, JOCELYN, Normal ENT Inspection, Normal Voice Neck: positive: Trachea midline, Normal Thyroid, Supple. negative: Tender, Rigid Respiratory/Chest: positive: Lungs Clear, Normal Breath Sounds, Other (C/D/I nephsotomy tube intact on posterior right CVA. Nephrostomy bag with blood fluid. ). negative: Chest Tender, Respiratory Distress, Accessory Muscle Use Cardiovascular: positive: Regular Rhythm, Regular Rate Gastrointestinal/Abdominal: positive: Normal Bowel Sounds, Flat, Soft. negative : Tender Musculoskeletal: positive: Normal Inspection. negative: Decreased Range of Motion Extremity: positive: Normal Capillary Refill, Normal Inspection, Normal Range of Motion. negative: Tender Integumentary: positive: Normal Color, Dry, Warm Neurologic: positive: Fully Oriented, Alert, Normal Mood/Affect, Normal Response , Motor Strength 5/5 ED Treatment Course - LABORATORY CBC & Chemistry Diagram: 12/17/18 22:15 12/17/18 22:15 Medical Decision Making - Medical Decision Making 82 year old with nephrostomy tube in place with blood in nephrostomy bag and brief episode of weakness/ presyncope one hour after dialysis today. Given blood in nephrostomy bag and mild temperature elevation to 100, concern for urinary infection. Elevated WBC, given Rocephin for previous cultures sensitive to UTI. Alternate diagnosis could be volume depletion with overly aggressive dialysis earlier today. 12/18/18 00:54 Discharge - Discharge Information Problems reviewed: Yes Clinical Impression/Diagnosis: Pre-syncope Condition: Improved - Admission Yes - Follow up/Referral - Patient Discharge Instructions - Post Discharge Activity
--- NOTE | 2018-12-17 20:58 | PDOC ---
Attending Attestation - Resident Resident Name: Kimberly Fung - ED Attending Attestation I have performed the following: I have examined & evaluated the patient, The case was reviewed & discussed with the resident, I agree w/resident's findings & plan - HPI HPI: 12/17/18 23:32 see resident hpi - Physicial Exam PE: 12/17/18 23:33 agree with resident exam - Medical Decision Making 12/17/18 23:33 82-year-old male status post near syncopal episode status post hemodialysis today Now with blood from his right nephrostomy tube Plan for admission to medical service for further evaluation
[2018-12-17 21:35] VITALS: BMI 22.6
[2018-12-17] MEDS ORDERED: ACETAMINOPHEN 1000 MG/100 ML VIAL (NON FORMULARY) IVPB ONE (21:50)
[2018-12-17 22:37] LABS: BASO % 0.7 % (0-2.0); EOS % 1.4 % (0-4.5); HEMATOCRIT 32.1 % (35.4-49); HEMOGLOBIN 10.6 GM/dL (11.7-16.9); LYMPH % 5.2 % (8-40); MCH 30.1 pg (25.7-33.7); MCHC 32.9 g/dl (32.0-35.9); MEAN CELL VOLUME 91.6 fl (80-96); MEAN PLT VOLUME 7.1 fl (7.5-11.1); MONO % 4.8 % (3.8-10.2); NEUT % 87.9 % (42.8-82.8); PLATELET COUNT 444 K/MM3 (134-434); RBC 3.51 M/mm3 (4.00-5.60); RDW 19.7 % (11.9-15.9); WHITE BLOOD COUNT 14.1 K/mm3 (4.0-10.0)
[2018-12-17] MEDS ORDERED: ACETAMINOPHEN INJECTION 100 ML IVPB ONE (23:00)
[2018-12-17] MEDS ORDERED: CEFTRIAXONE 1,000 MG in DEXTROSE 5%-WATER - 50 ML IVPB ONE (23:06)
[2018-12-17 23:11] LABS: ALBUMIN 2.9 g/dl (3.4-5.0); ALK PHOS 105 U/L (45-117); ANION GAP 8 MMOL/L (8-16); BILIRUBIN,TOTAL 0.4 mg/dL (0.2-1); BLOOD UREA NITROGEN 28.6 mg/dL (7-18); CALCIUM 8.7 mg/dL (8.5-10.1); CHLORIDE 95 mmol/L (98-107); CO2 25 mmol/L (21-32); CREATININE 3.5 mg/dL (0.55-1.3); GLUCOSE,RANDOM 197 mg/dL (74-106); POTASSIUM 4.7 mmol/L (3.5-5.1); SGOT/AST 13 U/L (15-37); SGPT/ALT < 6 U/L (13-61); SODIUM 128 mmol/L (136-145); URINE COLOR RED
[2018-12-17 23:12] LABS: URINE APPEARANCE BLOODY
[2018-12-17 23:22] LABS: URINE RBC >100 /hpf (0-4)
[2018-12-17 23:23] LABS: URINE BACTERIA FEW /hpf (NEGATIVE)
[2018-12-17 23:24] LABS: YEAST PRESENT (NEGATIVE)
[2018-12-17] MEDS ORDERED: CEFTRIAXONE 1 GM/50 ML BAG ONE (23:28)
--- NOTE | 2018-12-18 02:07 | HP ---
Admitting History and Physical - Primary Care Physician PCP: Dr. 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 According to son, after dailysis session today patient went home and had episode of weakness and leaning to side nearly falling, felt nausea, voimted x1 (clear). Patient denies LOC, falls, SOB/CP. NO fever, chills. Patient has nephrostomy right side with bloody drainage noted. Patient at baseline AOx2. 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)) Renal/: Yes: Renal Failure, Cancer, Hemodialysis, Other (right sided nephrostomy tube (likely due to failed uretral stents), prostate CA s/p resection) Endocrine: Yes: Diabetes Mellitus - Past Surgical History Additional Past Surgical History: right sided nephrostomy tube (likely due to failed uretral stents), thoracotomy x2 (to 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), prostate CA s/p resection - Smoking History Smoking history: Never smoked Have you smoked in the past 12 months: No - Alcohol/Substance Use Hx Alcohol Use: No History of Substance Use: reports: None - Social History Usual Living Arrangement: Yes: With Child ADL: Family Assistance History of Recent Travel: No Home Medications - Allergies Allergies/Adverse Reactions: Allergies Allergy/AdvReac Type Severity Reaction Status Date / Time No Known Allergies Allergy Verified 11/28/18 16:06 - Home Medications Home Medications: Ambulatory Orders Amlodipine Besylate [Norvasc -] 10 mg PO DAILY 09/24/18 Carvedilol 18.75 mg PO TID 09/24/18 Hydralazine HCl 10 mg PO TID 09/24/18 Sodium Bicarbonate - 1,300 mg PO TID 09/25/18 Aspirin 81 mg PO DAILY #30 tab.chew 10/04/18 Atorvastatin Ca [Lipitor] 40 mg PO HS #30 tablet 10/04/18 Furosemide [Lasix] 80 mg PO DAILY 11/28/18 Acetaminophen [Tylenol .Regular Strength -] 650 mg PO Q4H PRN tablet 12/06/18 Melatonin 5 mg PO HS PRN #30 tab 12/06/18 Family Medical History Family History: Denies Review of Systems - Review of Systems Constitutional: reports: Weakness Eyes: reports: No Symptoms HENT: reports: No Symptoms Neck: reports: No Symptoms Cardiovascular: reports: No Symptoms Respiratory: reports: No Symptoms Gastrointestinal: reports: Nausea, Vomiting Genitourinary: reports: No Symptoms Musculoskeletal: reports: No Symptoms Integumentary: reports: No Symptoms Neurological: reports: No Symptoms, Weakness Endocrine: reports: No Symptoms Hematology/Lymphatic: reports: No Symptoms Psychiatric: reports: No Symptoms Physical Examination Vital Signs: Vital Signs Temperature 98.6 F 12/17/18 20:50 Pulse Rate 58 L 12/17/18 20:50 Respiratory Rate 18 12/17/18 20:50 Blood Pressure 142/64 12/17/18 20:50 O2 Sat by Pulse Oximetry (%) 97 12/17/18 20:50 Constitutional: Yes: No Distress, Calm Eyes: Yes: Conjunctiva Clear, EOM Intact HENT: Yes: Atraumatic, Normocephalic Neck: Yes: Supple, Trachea Midline Cardiovascular: Yes: Regular Rate and Rhythm Respiratory: Yes: Regular, CTA Bilaterally Gastrointestinal: Yes: Normal Bowel Sounds, Soft Renal/: Yes: Other (nephsotomy tube intact (right side), Nephrostomy bag with blood fluid.) Musculoskeletal: Yes: WNL Extremities: Yes: WNL Edema: No Peripheral Pulses WNL: Yes Neurological: Yes: Alert, Oriented Labs: CBC, BMP 12/17/18 22:15 12/17/18 22:15 Imaging - Results Chest X-ray: Report Reviewed (no acute infiltrate noted) Cat Scan: Report Reviewed (CT head: No acute infract noted, chronic ischemic changes, old lacunar infarcts within left basal ganglia) Problem List - Problems (1) Pre-syncope Code(s): R55 - SYNCOPE AND COLLAPSE (2) Volume depletion Code(s): E86.9 - VOLUME DEPLETION, UNSPECIFIED (3) HLD (hyperlipidemia) Code(s): E78.5 - HYPERLIPIDEMIA, UNSPECIFIED (4) Diabetes Code(s): E11.9 - TYPE 2 DIABETES MELLITUS WITHOUT COMPLICATIONS (5) HTN (hypertension) Code(s): I10 - ESSENTIAL (PRIMARY) HYPERTENSION (6) UTI (urinary tract infection) Code(s): N39.0 - URINARY TRACT INFECTION, SITE NOT SPECIFIED Qualifiers: Urinary tract infection type: acute cystitis Hematuria presence: without hematuria Qualified Code(s): N30.00 - Acute cystitis without hematuria Assessment/Plan 82 y.o M PMH HTN, diabetes mellitus, ESRD on dialysis (, [place], Sat), prostate CA s/p resection, right sided nephrostomy tube (likely due to failed uretral stents) thoracotomy x2 (to 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 # Presyncope # HTN/HLD tele obs CT head: no acute infract, chronic ishemic changes, old lacunar infarcts within left basal ganglia -C/w home meds: hydralazine, coreg, amlodipine, lasix -c/w lipitor -Monitor vitals -cardiology follow up # ESRD on HD (pre-syncope 2/2 ? volume depletion) -On dialysis Tu// Sat -Renally dose medications -Avoid nephrotoxic meds -Trend renal labs - consider nephrology follow up # pre-syncope 2/2 ? UTI (blood noted on in right nephrostomy bag, UA unclear ) - last UC positive Klebsiella 12/06 wbc: 14.1, afebrile -F/u urine, blood cultures -S/p Rocephin in ED -ID consulted in AM #DM -Monitor BGMs BID AC -coverage with novlog sliding scale #FEN -No fluids -diabetic, Na controlled diet Visit type - Emergency Visit Emergency Visit: Yes Care time: The patient presented to the Emergency Department on the above date and was hospitalized for further evaluation of their emergent condition. - New Patient This patient is new to me today: Yes Date on this admission: 12/18/18 - Critical Care Critical Care patient: No
[2018-12-18] MEDS ORDERED: ACETAMINOPHEN 325 MG TABLET (FP) PO PRN (02:29)
[2018-12-18 05:54] LABS: HEMATOCRIT 31.2 % (35.4-49); HEMOGLOBIN 10.4 GM/dL (11.7-16.9); MCH 30.2 pg (25.7-33.7); MCHC 33.2 g/dl (32.0-35.9); MEAN PLT VOLUME 7.2 fl (7.5-11.1); PLATELET COUNT 393 K/MM3 (134-434); RBC 3.43 M/mm3 (4.00-5.60); RDW 19.3 % (11.9-15.9); WHITE BLOOD COUNT 10.4 K/mm3 (4.0-10.0)
[2018-12-18 06:19] LABS: BLOOD UREA NITROGEN 32.3 mg/dL (7-18); CALCIUM 8.6 mg/dL (8.5-10.1); CREATININE 3.9 mg/dL (0.55-1.3); POTASSIUM 4.5 mmol/L (3.5-5.1)
[2018-12-18] MEDS: hydrALAZINE HCL 10 MG TABLET PO SCH ×3 (06:38→22:15)
[2018-12-18] MEDS: INSULIN (NOVOLOG) ASPART 100 UNITS/ML 10ML VIAL SQ SCH ×2 (07:03→17:23)
[2018-12-18] MEDS ORDERED: amLODIPine BESYLATE 5 MG TABLET (FP) ONE (09:50)
[2018-12-18] MEDS ORDERED: FUROSEMIDE 40 MG TABLET (FP) ONE (09:50)
[2018-12-18] MEDS: FUROSEMIDE 40 MG TABLET (FP) PO SCH (09:56)
[2018-12-18] MEDS: amLODIPine BESYLATE 10 MG TABLET (FP) PO SCH (09:56)
[2018-12-18] MEDS ORDERED: PATIENT'S OWN MEDICATION (NON-FORMULARY) (Furosemide [Lasix] 80 MG) PO SCH (10:00)
--- NOTE | 2018-12-18 10:30 | EKG ---
Test Reason : Blood Pressure : / mmHG Vent. Rate : 059 BPM Atrial Rate : 059 BPM P-R Int : 134 ms QRS Dur : 094 ms QT Int : 442 ms P-R-T Axes : 035 012 045 degrees QTc Int : 437 ms POOR DATA QUALITY, INTERPRETATION MAY BE ADVERSELY AFFECTED SINUS BRADYCARDIA INCOMPLETE RIGHT BUNDLE BRANCH BLOCK BORDERLINE ECG WHEN COMPARED WITH ECG OF 28-NOV-2018 16:25, VENT. RATE HAS DECREASED BY 32 BPM Confirmed by JEFF LEZAMA MD ([id number]) on 12/18/2018 10:29:58 AM Referred By: Confirmed By:JEFF LEZAMA MD
--- NOTE | 2018-12-18 12:08 | PN ---
Progress Note (short form) - Note Progress Note: ID consult dictated patient interviewed and examined-d/w family at bedside he apparently staggered and almost fell with vomiting times one after getting home after HD no fevers vomiting has resolved he feels well family reports minimal output from PCN head ct no acute changes permacath site nt received rocephin in ED for leukocytosis which has resolved a/p ?symptoms yesterday may all be due to HD given drop in output from PCN will get renal sonogram received cefazolin at HD yesterday will give vancomycin one gram to cover for catheter related infection d/w dr jung-discharged on 12/06 with 3 weeks if iv cefazolin which he is still getting with HD for klebsiella bacteremia apparently had CARRIE showing vegetation on the dialysis catheter which was subsequently removed and replaced will contact Dr Vegas as the patient is still receiving cefazolin repeat blood cultures have been sent would continue cefazolin with HD- d/w renal f/u cultures needs renal sonogram and urology to f/u as well d/w dr vegas- he will see patient in am Problem List - Problems (1) Pre-syncope Code(s): R55 - SYNCOPE AND COLLAPSE (2) Bacteremia due to Klebsiella pneumoniae Code(s): R78.81 - BACTEREMIA (3) Obstructive uropathy Code(s): N13.9 - OBSTRUCTIVE AND REFLUX UROPATHY, UNSPECIFIED (4) ESRD (end stage renal disease) on dialysis Code(s): N18.6 - END STAGE RENAL DISEASE; Z99.2 - DEPENDENCE ON RENAL DIALYSIS
--- NOTE | 2018-12-18 12:24 | PN ---
Progress Note, Physician Chief Complaint: Pre-Syncope ESRD on HD R Nephrostomy tube History of Present Illness: Previous notes and events reviewed awake and alert NAD denies dizziness, chest pain, SOB leukocytosis - Current Medication List Current Medications: Active Medications Acetaminophen (Tylenol -) 650 mg PO Q4H PRN PRN Reason: FEVER Amlodipine Besylate (Norvasc -) 10 mg PO DAILY [facility] Last Admin: 12/18/18 09:56 Dose: 10 mg Atorvastatin Calcium (Lipitor -) 40 mg PO HS [facility] Carvedilol (Coreg -) 18.75 mg PO TID [facility] Furosemide (Lasix -) 80 mg PO DAILY [facility] Last Admin: 12/18/18 09:56 Dose: 80 mg Hydralazine HCl (Apresoline -) 10 mg PO TID [facility] Last Admin: 12/18/18 06:38 Dose: 10 mg Insulin Aspart (Novolog Vial) 1 units SQ BIDAC [facility]; Protocol Last Admin: 12/18/18 07:03 Dose: 2 unit - Objective Vital Signs: Vital Signs Temperature 98.6 F 12/17/18 20:50 Pulse Rate 55 L 12/18/18 06:30 Respiratory Rate 18 12/18/18 06:30 Blood Pressure 132/73 12/18/18 06:30 O2 Sat by Pulse Oximetry (%) 99 12/18/18 06:30 Constitutional: Yes: No Distress, Calm Eyes: Yes: Conjunctiva Clear HENT: Yes: Atraumatic Cardiovascular: Yes: Regular Rate and Rhythm Respiratory: Yes: Regular, Diminished Gastrointestinal: Yes: Normal Bowel Sounds, Soft Genitourinary: Yes: Other (R nephrostomy tube, pink tinged output) Musculoskeletal: Yes: Muscle Weakness Extremities: Yes: WNL Edema: No Neurological: Yes: Alert, Oriented Psychiatric: Yes: Alert, Oriented Labs: CBC, BMP 12/18/18 05:29 12/18/18 05:29 - ....Imaging Chest X-ray: Report Reviewed Cat Scan: Report Reviewed Problem List - Problems (1) Leukocytosis Assessment/Plan: -ID on board -Leukocytosis -afebrile -BC and UC -received Ceftriaxone in ER -CXR reviewed Code(s): D72.829 - ELEVATED WHITE BLOOD CELL COUNT, UNSPECIFIED (2) Diabetes Assessment/Plan: -[facility] ACHS -ISS -Novolog Code(s): E11.9 - TYPE 2 DIABETES MELLITUS WITHOUT COMPLICATIONS (3) HLD (hyperlipidemia) Assessment/Plan: -Atorvastatin Code(s): E78.5 - HYPERLIPIDEMIA, UNSPECIFIED (4) Pre-syncope Assessment/Plan: -Cardiology and Neurology consult -Carotid US -Tele monitoring -Head CT scan shows no evidence of acute intracranial hemorrhage, edema, midline shift, mass effect, skull fracture, moderate diffuse supratentorial chronic white matter microangiopathic ischemic changes, gliosis, left basal ganglia slit like encephalomalacia possibly post traumatic hemorrhagic in nature Code(s): R55 - SYNCOPE AND COLLAPSE (5) HTN (hypertension) Assessment/Plan: -Hydralazine, Carvedilol, Furosemide -low Na diet Code(s): I10 - ESSENTIAL (PRIMARY) HYPERTENSION (6) Stage 5 chronic kidney disease Assessment/Plan: -Renal on board -continue HD on scheduled days -BUN/Cr 32.3/3.9 -renal diet Code(s): N18.5 - CHRONIC KIDNEY DISEASE, STAGE 5 (7) Hydronephrosis Assessment/Plan: -R nephrostomy tube in place -Urology consult Code(s): N13.30 - UNSPECIFIED HYDRONEPHROSIS Qualifiers: Hydronephrosis type: with other ureteral stricture Qualified Code(s): N13.1 - Hydronephrosis with ureteral stricture, not elsewhere classified
[2018-12-18] MEDS ORDERED: VANCOMYCIN 1 GRAM (PRE-DOCKED) 1,000 MG/250 ML BAG IVPB ONE ×2 (12:35→13:15)
--- NOTE | 2018-12-18 16:16 | CONSULT ---
Consult - text type - Consultation Consultation Note: Renal consult for ESRD on HD This is a 82 year old gentleman with history of ESRD on HD, prostate cancer s/p resection and hypertension presents from home with syncope and nausea. Last dialysis was yesterday. He was recently admitted with Klebsella bacteremia secondary to UTI/Pylonephritis. As per daughter in law he was at home after dialysis and was about to fall when she caught him. He had LOC for 3 seconds and then had episode of vomiting. He had no issues at dialysis. He denied any CP , palpitations or dizziness. He was attempting to have a BM prior to the syncope. PMhx: as above Allergies: NKDA Family Hx: NC Social Hx: No T/A/D ROS: as per HPI, all other pertinent ros negative Home Medications Medication Instructions Recorded Amlodipine Besylate [Norvasc -] 10 mg PO DAILY 09/24/18 Carvedilol 18.75 mg PO TID 09/24/18 Hydralazine HCl 10 mg PO TID 09/24/18 Sodium Bicarbonate - 1,300 mg PO TID 09/25/18 Aspirin 81 mg PO DAILY #30 tab.chew 10/04/18 Atorvastatin Ca [Lipitor] 40 mg PO HS #30 tablet 10/04/18 Furosemide [Lasix] 80 mg PO DAILY 11/28/18 Acetaminophen [Tylenol .Regular 650 mg PO Q4H PRN tablet 12/06/18 Strength -] Melatonin 5 mg PO HS PRN #30 tab 12/06/18 Vital Signs Temperature 98.6 F 12/17/18 20:50 Pulse Rate 55 L 12/18/18 06:30 Respiratory Rate 18 12/18/18 06:30 Blood Pressure 132/73 12/18/18 06:30 O2 Sat by Pulse Oximetry (%) 99 12/18/18 06:30 Intake & Output 12/15/18 12/16/18 12/17/18 12/18/18 23:59 23:59 23:59 23:59 Weight 63.503 kg NAD awake and alert moist mucus membranes neck supple, no JVD RRR CTA, no rales or wheeze soft NT/ND no LE edema, clubbing or cyanosis CBC, BMP 12/18/18 05:29 12/18/18 05:29 Current Medications Acetaminophen (Tylenol -) 650 mg PO Q4H PRN PRN Reason: FEVER Amlodipine Besylate (Norvasc -) 10 mg PO DAILY [facility] Last Admin: 12/18/18 09:56 Dose: 10 mg Atorvastatin Calcium (Lipitor -) 40 mg PO HS [facility] Carvedilol (Coreg -) 18.75 mg PO TID [facility] Furosemide (Lasix -) 80 mg PO DAILY [facility] Last Admin: 12/18/18 09:56 Dose: 80 mg Hydralazine HCl (Apresoline -) 10 mg PO TID [facility] Last Admin: 12/18/18 15:39 Dose: 10 mg Insulin Aspart (Novolog Vial) 1 units SQ BIDAC [facility]; Protocol Last Admin: 12/18/18 07:03 Dose: 2 unit 82 year old gentleman with history of ESRD on HD, prostate cancer s/p resection and hypertension presents from home with syncope and nausea. 1. Syncope 2. ESRD on HD 3. Recent gram negative bacteremia 4. Hydronephrosis with indwelling nephrostomy tube 5. Anemia 6. Hyponatremia in setting of ESRD to be admitted to Tele Cardiology consult No acute indication for dialysis today, next dialysis is Will consult urology regarding nephrostomy tube and determine if it can be removed US ordered per ID Continue present medications. Thank you Juice Jones DO
--- NOTE | 2018-12-18 17:47 | CON.CARD ---
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 He presents now with an episode of near syncope. About one hour after dialysis her became diaphoretic and became very weak and was leaning to the side then nearly fell but the daughter caught him. After the event he felt nauseous and vomited clear fluid once. Last Echocardiogram was a CARRIE 12/03/18 which showed normal LV function. Presently asymptomatic. 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)) Renal/: Yes: Renal Failure, Cancer, Hemodialysis, Other (right sided nephrostomy tube (likely due to failed uretral stents), prostate CA s/p resection) Endocrine: Yes: Diabetes Mellitus - Alcohol/Substance Use Hx Alcohol Use: No History of Substance Use: reports: None - Smoking History Smoking history: Never smoked Have you smoked in the past 12 months: No - Social History ADL: Family Assistance History of Recent Travel: No Home Medications - Allergies Allergies/Adverse Reactions: Allergies Allergy/AdvReac Type Severity Reaction Status Date / Time No Known Allergies Allergy Verified 11/28/18 16:06 - Home Medications Home Medications: Ambulatory Orders Amlodipine Besylate [Norvasc -] 10 mg PO DAILY 09/24/18 Carvedilol 18.75 mg PO TID 09/24/18 Hydralazine HCl 10 mg PO TID 09/24/18 Sodium Bicarbonate - 1,300 mg PO TID 09/25/18 Aspirin 81 mg PO DAILY #30 tab.chew 10/04/18 Atorvastatin Ca [Lipitor] 40 mg PO HS #30 tablet 10/04/18 Furosemide [Lasix] 80 mg PO DAILY 11/28/18 Acetaminophen [Tylenol .Regular Strength -] 650 mg PO Q4H PRN tablet 12/06/18 Melatonin 5 mg PO HS PRN #30 tab 12/06/18 Vital Signs: Vital Signs Temperature 98.6 F 12/17/18 20:50 Pulse Rate 56 L 12/18/18 16:55 Respiratory Rate 17 12/18/18 16:55 Blood Pressure 147/69 12/18/18 16:55 O2 Sat by Pulse Oximetry (%) 98 12/18/18 16:55 Constitutional: Yes: No Distress HENT: Yes: WNL Neck: Yes: WNL Respiratory: Yes: CTA Bilaterally Gastrointestinal: Yes: Soft Cardiovascular: Yes: Regular Rate and Rhythm (S1S2 no MRHG) Extremities: Yes: WNL Edema: No Neurological: Yes: Alert, Oriented - Other Data Labs, Other Data: CBC, BMP 12/18/18 05:29 12/18/18 05:29 Assessment/Plan 82 year old male with a PMH of HTN, diabetes mellitus, ESRD on dialysis (Tu, [place], Sat), right sided nephrostomy tube (likely due to failed uretral stents), thoracotomy x2 (to 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 He presents now with an episode of near syncope. About one hour after dialysis her became diaphoretic and became very weak and was leaning to the side then nearly fell but the daughter caught him. After the event he felt nauseous and vomited clear fluid once. Near Syncope Associated with nausea and diaphoresis, so likely vagal He was recently admitted with Klebsella bacteremia secondary to UTI/ Pylonephritis, so should rule out recurrent infection Hyponatremia noted Na++ 128 Check for orthostatic hypotension Active Medications Acetaminophen (Tylenol -) 650 mg PO Q4H PRN PRN Reason: FEVER Amlodipine Besylate (Norvasc -) 10 mg PO DAILY [facility] Last Admin: 12/18/18 09:56 Dose: 10 mg Atorvastatin Calcium (Lipitor -) 40 mg PO HS [facility] Carvedilol (Coreg -) 18.75 mg PO TID [facility] Cefazolin Sodium/Dextrose (Ancef 2 Gm Premixed Ivpb -) 2 gm IVPB ONCE ONE Stop: 12/19/18 10:01 Epoetin Henry (Epogen -) 4,000 unit IVPUSH ONCE ONE Stop: 12/19/18 06:01 Furosemide (Lasix -) 80 mg PO DAILY [facility] Last Admin: 12/18/18 09:56 Dose: 80 mg Heparin Sodium (Porcine) (Heparin -) 300 unit IVPUSH Q1H [place] Stop: 12/19/18 09:01 Heparin Sodium (Porcine) (Heparin -) 500 unit IVPUSH ONCE ONE Stop: 12/19/18 06:01 Hydralazine HCl (Apresoline -) 10 mg PO TID [facility] Last Admin: 12/18/18 15:39 Dose: 10 mg Sodium Chloride (Normal Saline -) 250 mls @ 3,000 mls/hr IV PRN PRN PRN Reason: Hypotension during Dialysis Stop: 12/19/18 16:25 Insulin Aspart (Novolog Vial) 1 units SQ BIDAC [facility]; Protocol Last Admin: 12/18/18 17:23 Dose: 6 unit
--- NOTE | 2018-12-18 19:54 | CONS ---
DATE OF CONSULTATION: DATE OF DICTATION: 12/18/2018 CONSULTATION REQUESTED BY: Aric Weldon MD HISTORY OF PRESENT ILLNESS: The patient is an 82-year-old man who I saw in the ER. He had a recent admission to [facility] in November. He was here from November 28 to December 06. At that time, he had Klebsiella pneumoniae bacteremia found to be secondary to UTI. He had a right hydro. He had a percutaneous nephrostomy tube placed by the urologist. He had an echo that showed a question of vegetation. He had a CARRIE that revealed a vegetation on the dialysis catheter. The dialysis catheter was subsequently removed and replaced. He was discharged on cefazolin to be continued on dialysis for three weeks. He was discharged on December 06, 2018. This history was obtained from Dr. Jones, who was involved in the patient's care. The patient's family reports that yesterday, he came back from dialysis. He is still receiving cefazolin with dialysis and he was noted to be weaker than usual. They thought he was falling to one side. They were concerned that he was having a stroke. He vomited clear fluid one time and later became much more normal. He never fell as his [id number] was there and was able to help him sit. He is currently awake and alert. His vomiting has resolved. He has never had any fever and he feels well. The family reports that he has minimal output from his percutaneous nephrostomy. In the ER, he had a head CT that showed no changes. He reports no discomfort at his Permcat site. He received Rocephin in the ER for leukocytosis, which has resolved. PAST MEDICAL HISTORY: Notable for a history of CVA, hypertension, hyperlipidemia, renal failure, prostate cancer status post resection and diabetes. He has been on dialysis now for several months via Permcath. He has had thoracotomies x2 for lung biopsies. PAST SURGICAL HISTORY: He has had a recent right-sided percutaneous nephrostomy with the Klebsiella bacteremia. SOCIAL HISTORY: He is originally from [facility]. He lives with his son. He has no history of any substance use. They were unaware of his renal failure until this summer when he sought medical care. His PMD is Dr. Weldon. ALLERGIES: No known drug allergies. HOME MEDICATIONS: Amlodipine, Coreg, hydralazine, sodium bicarbonate, aspirin, atorvastatin, Lasix and melatonin. REVIEW OF SYSTEMS: He has had no fever or chills. He has been eating well and until this acute event, he was doing well. PHYSICAL EXAMINATION: General: He is awake and alert. Vital Signs: Temperature 98.6, pulse 55, blood pressure 132/73, respiratory rate 18, saturation 99%. His Permcath site is nontender. HEENT: Normocephalic. His eyes are anicteric. He has no thrush. Neck: Supple. Lungs: Diminished breath sounds at the bases. Heart: Regular rate and rhythm. Abdomen: Soft and nontender. His percutaneous nephrostomy site is clear. He has minimal urine output. It is still somewhat blood-tinged. He has no suprapubic pain. Extremities: No edema. LABORATORY DATA: His white count on admission was 14.1. Today, it is 10.4. Hemoglobin is 10.4, platelets are 393. His BUN and creatinine are 32 and 3.9. Urinalysis from the percutaneous nephrostomy shows greater than 100 red cells. Blood and urine cultures are pending. STUDIES: His head CT was unremarkable. A chest x-ray is without infiltrate. In summary, this is an 82-year-old man who is still on treatment with cefazolin for a Klebsiella bacteremia. I would suspect his symptoms yesterday may all be due to hemodialysis, given the drop in urine output from the percutaneous nephrostomy. Will order a renal sonogram to see if the hydronephrosis has resolved. He received Cefazolin yesterday. We will give him vancomycin 1 gram to cover for catheter-related infection. I spoke with Dr. Jones, who will continue his Cefazolin as per his prior orders. I spoke with Dr. Andre Carranza, who will follow up as the patient is still under his care on Cefazolin. He needs urology followup as well. Dr. Carranza will resume his care in the morning. BIPIN FLETCHER M.D. [id number]
[2018-12-18] MEDS: ATORVASTATIN CA 40 MG TABLET (FP) PO SCH (22:14)
[2018-12-19] MEDS: hydrALAZINE HCL 10 MG TABLET PO SCH ×3 (06:29→21:06)
[2018-12-19] MEDS: INSULIN (NOVOLOG) ASPART 100 UNITS/ML 10ML VIAL SQ SCH ×2 (06:29→17:30)
[2018-12-19] MEDS ORDERED: HEPARIN NA (PORCINE) 5,000 UNITS/ML 1ML VIAL IVPUSH ONE (07:00)
[2018-12-19] MEDS ORDERED: SODIUM CHLORIDE 250 ML IV PRN (08:00)
[2018-12-19] MEDS ORDERED: EPOETIN ALFA 2,000 UNIT/1 ML VIAL IVPUSH ONE (08:00)
[2018-12-19] MEDS ORDERED: ceFAZolin 2 GRAM PREMIX BAG IVPB ONE ×2 (09:00→13:45)
[2018-12-19] MEDS: FUROSEMIDE 40 MG TABLET (FP) PO SCH (09:12)
[2018-12-19] MEDS: amLODIPine BESYLATE 10 MG TABLET (FP) PO SCH (09:13)
--- NOTE | 2018-12-19 10:05 | CONSULT ---
Consult - text type - Consultation Consultation Note: Neurology Chief Complaint: Pre-syncope History of Present Illness: Patient being seen for Dr. 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 According to son, after dailysis session today patient went home and had episode of weakness and leaning to side nearly falling, felt nausea, voimted x1 (clear). Patient denies LOC, falls, SOB/CP. NO fever, chills. Patient has nephrostomy right side with bloody drainage noted. During my evaluation, the patient is awake,, alert, aware that he is in the hospital and does not complain of any lightheadedness, dizziness, weakness or other focal deficits. Noncontrast head CT was completed which I reviewed and showed no acute changes, chronic age-related atrophy and chronic left basal ganglia infarct noted. Of note, carotid Dopplers were completed and showed minimal atherosclerotic disease without hemodynamically significant stenosis. However there was mention of extensive thrombus of left internal jugular, subclavian, axillary veins. Consider vascular surgery evaluation, defer to primary care physician/hospitalist regarding this. 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), prostate CA s/p resection - Smoking History Smoking history: Never smoked Have you smoked in the past 12 months: No - Alcohol/Substance Use Hx Alcohol Use: No History of Substance Use: reports: None - Social History Usual Living Arrangement: Yes: With Child ADL: Family Assistance History of Recent Travel: No Home Medications - Allergies Allergies/Adverse Reactions: Allergies Allergy/AdvReac Type Severity Reaction Status Date / Time No Known Allergies Allergy Verified 11/28/18 16:06 - Home Medications Home Medications: Ambulatory Orders Amlodipine Besylate [Norvasc -] 10 mg PO DAILY 09/24/18 Carvedilol 18.75 mg PO TID 09/24/18 Hydralazine HCl 10 mg PO TID 09/24/18 Sodium Bicarbonate - 1,300 mg PO TID 09/25/18 Aspirin 81 mg PO DAILY #30 tab.chew 10/04/18 Atorvastatin Ca [Lipitor] 40 mg PO HS #30 tablet 10/04/18 Furosemide [Lasix] 80 mg PO DAILY 11/28/18 Acetaminophen [Tylenol .Regular Strength -] 650 mg PO Q4H PRN tablet 12/06/18 Melatonin 5 mg PO HS PRN #30 tab 12/06/18 Family Medical History Family History: HTN Review of Systems - Review of Systems Constitutional: reports: Weakness Eyes: reports: No Symptoms HENT: reports: No Symptoms Neck: reports: No Symptoms Cardiovascular: reports: No Symptoms Respiratory: reports: No Symptoms Gastrointestinal: reports: Nausea, Vomiting Genitourinary: reports: No Symptoms Musculoskeletal: reports: No Symptoms Integumentary: reports: No Symptoms Neurological: reports: No Symptoms, Weakness Endocrine: reports: No Symptoms Hematology/Lymphatic: reports: No Symptoms Psychiatric: reports: No Symptoms Physical Examination Vital Signs Period Temp Pulse Resp BP Sys/Pryor Pulse Ox Last 24 Hr 98 F-98.6 F 52-84 17-18 130-147/58-69 98-98 Constitutional: Yes: No Distress, Calm Eyes: Yes: Conjunctiva Clear, EOM Intact HENT: Yes: Atraumatic, Normocephalic Neck: Yes: Supple, Trachea Midline Cardiovascular: Yes: Regular Rate and Rhythm Respiratory: Yes: Regular, CTA Bilaterally Gastrointestinal: Yes: Normal Bowel Sounds, Soft Renal/: Yes: Other (nephsotomy tube intact (right side), Nephrostomy bag with blood fluid.) Musculoskeletal: Yes: WNL Extremities: Yes: WNL Edema: No Peripheral Pulses WNL: Yes Neurological: Awake, alert, cranial nerves intact, strength equal bilaterally in upper and lower extremities, sensory intact, finger to nose normal CBCD WBC 10.4 K/mm3 (4.0-10.0) H 12/18/18 05:29 RBC 3.43 M/mm3 (4.00-5.60) L 12/18/18 05:29 Hgb 10.4 GM/dL (11.7-16.9) L 12/18/18 05:29 Hct 31.2 % (35.4-49) L 12/18/18 05:29 MCV 91.0 fl (80-96) 12/18/18 05:29 MCHC 33.2 g/dl (32.0-35.9) 12/18/18 05:29 RDW 19.3 % (11.9-15.9) H 12/18/18 05:29 Plt Count 393 K/MM3 (134-434) 12/18/18 05:29 MPV 7.2 fl (7.5-11.1) L 12/18/18 05:29 CMP Sodium 130 mmol/L (136-145) L 12/18/18 05:29 Potassium 4.5 mmol/L (3.5-5.1) 12/18/18 05:29 Chloride 97 mmol/L (98-107) L 12/18/18 05:29 Carbon Dioxide 25 mmol/L (21-32) 12/18/18 05:29 Anion Gap 8 MMOL/L (8-16) 12/18/18 05:29 BUN 32.3 mg/dL (7-18) H 12/18/18 05:29 Creatinine 3.9 mg/dL (0.55-1.3) H 12/18/18 05:29 Random Glucose 176 mg/dL (74-106) H 12/18/18 05:29 Calcium 8.6 mg/dL (8.5-10.1) 12/18/18 05:29 Total Bilirubin 0.4 mg/dL (0.2-1) 12/17/18 22:15 AST 13 U/L (15-37) L 12/17/18 22:15 ALT < 6 U/L (13-61) L 12/17/18 22:15 Alkaline Phosphatase 105 U/L (45-117) 12/17/18 22:15 Total Protein 7.0 g/dl (6.4-8.2) 12/17/18 22:15 Albumin 2.9 g/dl (3.4-5.0) L 12/17/18 22:[address] head reviewed Carotid Dopplers reviewed Plan: 82 y.o M PMH HTN, diabetes mellitus, ESRD on dialysis (Tu, [place], Sat), prostate CA s/p resection, right sided nephrostomy tube (likely due to failed uretral stents) thoracotomy x2 (to 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 According to son, after dailysis session today patient went home and had episode of weakness and leaning to side nearly falling, felt nausea, voimted x1 (clear). Patient denies LOC, falls, SOB/CP. NO fever, chills. Patient has nephrostomy right side with bloody drainage noted. During my evaluation, the patient is awake,, alert, aware that he is in the hospital and does not complain of any lightheadedness, dizziness, weakness or other focal deficits. Noncontrast head CT was completed which I reviewed and showed no acute changes, chronic age-related atrophy and chronic left basal ganglia infarct noted. Of note, carotid Dopplers were completed and showed minimal atherosclerotic disease without hemodynamically significant stenosis. However there was mention of extensive thrombus of left internal jugular, subclavian, axillary veins. Consider vascular surgery evaluation, defer to primary care physician/hospitalist regarding this. Would optimize hydration. Monitor blood pressure, maintain normotensive range. Monitor glucose, maintain euglycemic range. Continue daily aspirin 81 mg for stroke prevention. Monitor renal function, hemodialysis as per exchange floor manager. Neurologically otherwise stable withoutsymptoms or deficits.
[2018-12-19] MEDS: HEPARIN NA (PORCINE) 5,000 UNITS/ML 1ML VIAL IVPUSH SCH ×2 (12:36→14:11)
--- NOTE | 2018-12-19 12:39 | CON.ID ---
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)) Renal/: Yes: Renal Failure, Cancer, Hemodialysis, Other (right sided nephrostomy tube (likely due to failed uretral stents), prostate CA s/p resection) Endocrine: Yes: Diabetes Mellitus - Alcohol/Substance Use Hx Alcohol Use: No History of Substance Use: reports: None - Smoking History Smoking history: Never smoked Have you smoked in the past 12 months: No - Social History ADL: Family Assistance History of Recent Travel: No Home Medications - Allergies Allergies/Adverse Reactions: Allergies Allergy/AdvReac Type Severity Reaction Status Date / Time No Known Allergies Allergy Verified 11/28/18 16:06 - Home Medications Home Medications: Ambulatory Orders Amlodipine Besylate [Norvasc -] 10 mg PO DAILY 09/24/18 Carvedilol 18.75 mg PO TID 09/24/18 Hydralazine HCl 10 mg PO TID 09/24/18 Sodium Bicarbonate - 1,300 mg PO TID 09/25/18 Aspirin 81 mg PO DAILY #30 tab.chew 10/04/18 Atorvastatin Ca [Lipitor] 40 mg PO HS #30 tablet 10/04/18 Furosemide [Lasix] 80 mg PO DAILY 11/28/18 Acetaminophen [Tylenol .Regular Strength -] 650 mg PO Q4H PRN tablet 12/06/18 Melatonin 5 mg PO HS PRN #30 tab 12/06/18 Physical Exam Vital Signs: Vital Signs Temperature 98.4 F 12/19/18 10:00 Pulse Rate 55 L 12/19/18 10:00 Respiratory Rate 18 12/19/18 10:00 Blood Pressure 133/60 12/19/18 10:00 O2 Sat by Pulse Oximetry (%) 98 12/19/18 08:00 Labs: CBC, BMP 12/18/18 05:29 12/18/18 05:29
--- NOTE | 2018-12-19 13:03 | PN ---
Progress Note (short form) - Note Progress Note: Renal follow up for ESRD on HD Seen and examined during dialysis BP stable, catheter with good flow goal UF 1.5-2L no acute complaints denies any shortness of breath no fever or chills Vital Signs Temperature 98.4 F 12/19/18 12:10 Pulse Rate 58 L 12/19/18 12:15 Respiratory Rate 18 12/19/18 12:15 Blood Pressure 121/57 L 12/19/18 12:15 O2 Sat by Pulse Oximetry (%) 98 12/19/18 08:00 Intake & Output 12/16/18 12/17/18 12/18/18 12/19/18 23:59 23:59 23:59 23:59 Intake Total 10 210 Output Total 80 100 Balance -70 110 Weight 63.503 kg 62.051 kg NAD neck supple, no JVD RRR CTA, no rales or wheeze soft NT/ND no LE edema, clubbing or cyanosis Current Medications Acetaminophen (Tylenol -) 650 mg PO Q4H PRN PRN Reason: FEVER Amlodipine Besylate (Norvasc -) 10 mg PO DAILY [facility] Last Admin: 12/19/18 09:13 Dose: 10 mg Atorvastatin Calcium (Lipitor -) 40 mg PO HS [facility] Last Admin: 12/18/18 22:14 Dose: 40 mg Furosemide (Lasix -) 80 mg PO DAILY [facility] Last Admin: 12/19/18 09:12 Dose: 80 mg Hydralazine HCl (Apresoline -) 10 mg PO TID [facility] Last Admin: 12/19/18 06:29 Dose: Not Given Insulin Aspart (Novolog Vial) 1 units SQ BIDAC [facility]; Protocol Last Admin: 12/19/18 06:29 Dose: Not Given 82 year old gentleman with history of ESRD on HD, prostate cancer s/p resection and hypertension presents from home with syncope and nausea. 1. Syncope likely vaso-vagal 2. ESRD on HD 3. Recent gram negative bacteremia 4. Hydronephrosis with indwelling nephrostomy tube 5. Anemia 6. Hyponatremia in setting of ESRD Tele work up showed no acute CVA on CT, no significnat obstrction on carotid US Currently tolerating dialysis Case discussed with Dr. Rodriguez, he will see patient today and consider clamping off nephrostomy tube today. Will continue Ancef 2g post HD today repeat cultures w/o growth ID follow up Thank you Juice Jones DO
[2018-12-19 13:05] LABS: HEMATOCRIT 30.4 % (35.4-49); HEMOGLOBIN 9.9 GM/dL (11.7-16.9); MCH 29.8 pg (25.7-33.7); MCHC 32.7 g/dl (32.0-35.9); MEAN CELL VOLUME 91.1 fl (80-96); PLATELET COUNT 295 K/MM3 (134-434); RBC 3.34 M/mm3 (4.00-5.60)
[2018-12-19 13:54] LABS: ALBUMIN 2.3 g/dl (3.4-5.0); ALK PHOS 72 U/L (45-117); ANION GAP 10 MMOL/L (8-16); BILIRUBIN,TOTAL 0.4 mg/dL (0.2-1); BLOOD UREA NITROGEN 32.7 mg/dL (7-18); CALCIUM 8.3 mg/dL (8.5-10.1); CHLORIDE 100 mmol/L (98-107); CHOLESTEROL 174 mg/dL (50-200); CO2 25 mmol/L (21-32); GLUCOSE,RANDOM 197 mg/dL (74-106); HDL CHOLESTEROL 39 mg/dL (40-60); LDL CHOLESTEROL (ONLY SJRH) 111 mg/dL (5-100); SGOT/AST 10 U/L (15-37); SGPT/ALT < 6 U/L (13-61); SODIUM 135 mmol/L (136-145); TOT PROT 5.5 g/dl (6.4-8.2); TRIGLYCERIDES 84 mg/dL (0-150)
--- NOTE | 2018-12-19 13:59 | CON.GU ---
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 According to son, after dailysis session today patient went home and had episode of weakness and leaning to side nearly falling, felt nausea, voimted x1 (clear). Patient denies LOC, falls, SOB/CP. NO fever, chills. Patient has nephrostomy right side with bloody drainage noted. Patient at baseline AOx2. cons req to eval R neph tube. 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)) Renal/: Yes: Renal Failure, Cancer, Hemodialysis, Other (right sided nephrostomy tube (likely due to failed uretral stents), prostate CA s/p resection) Endocrine: Yes: Diabetes Mellitus - Alcohol/Substance Use Hx Alcohol Use: No History of Substance Use: reports: None - Smoking History Smoking history: Never smoked Have you smoked in the past 12 months: No - Social History ADL: Family Assistance History of Recent Travel: No Home Medications - Allergies Allergies/Adverse Reactions: Allergies Allergy/AdvReac Type Severity Reaction Status Date / Time No Known Allergies Allergy Verified 11/28/18 16:06 - Home Medications Home Medications: Ambulatory Orders Amlodipine Besylate [Norvasc -] 10 mg PO DAILY 09/24/18 Carvedilol 18.75 mg PO TID 09/24/18 Hydralazine HCl 10 mg PO TID 09/24/18 Sodium Bicarbonate - 1,300 mg PO TID 09/25/18 Aspirin 81 mg PO DAILY #30 tab.chew 10/04/18 Atorvastatin Ca [Lipitor] 40 mg PO HS #30 tablet 10/04/18 Furosemide [Lasix] 80 mg PO DAILY 11/28/18 Acetaminophen [Tylenol .Regular Strength -] 650 mg PO Q4H PRN tablet 12/06/18 Melatonin 5 mg PO HS PRN #30 tab 12/06/18 Review of Systems - Review of Systems Genitourinary: denies: Burning, Flank Pain Physical Exam- Vital Signs: Vital Signs Temperature 98.4 F 12/19/18 12:10 Pulse Rate 58 L 12/19/18 12:15 Respiratory Rate 18 12/19/18 12:15 Blood Pressure 121/57 L 12/19/18 12:15 O2 Sat by Pulse Oximetry (%) 98 12/19/18 08:00 Renal/: No: CVA Tenderness - Right (R neph tube c clear yellow urine) Labs: CBC, BMP 12/19/18 12:45 12/19/18 12:45 Imaging - Results Ultrasound: Report Reviewed Problem List - Problems (1) Hydronephrosis Assessment/Plan: R neph tube clamped. Will remove in AM if tolerates clamping. F/u for cysto and R JJ stent removal Code(s): N13.30 - UNSPECIFIED HYDRONEPHROSIS Qualifiers: Hydronephrosis type: with other ureteral stricture Qualified Code(s): N13.1 - Hydronephrosis with ureteral stricture, not elsewhere classified (2) Renal failure Code(s): N19 - UNSPECIFIED KIDNEY FAILURE
--- NOTE | 2018-12-19 15:02 | PN ---
Progress Note, Physician Chief Complaint: patient seen and examiend currently getting HD - Current Medication List Current Medications: Active Medications Acetaminophen (Tylenol -) 650 mg PO Q4H PRN PRN Reason: FEVER Amlodipine Besylate (Norvasc -) 10 mg PO DAILY [facility] Last Admin: 12/19/18 09:13 Dose: 10 mg Atorvastatin Calcium (Lipitor -) 40 mg PO HS [facility] Last Admin: 12/18/18 22:14 Dose: 40 mg Furosemide (Lasix -) 80 mg PO DAILY [facility] Last Admin: 12/19/18 09:12 Dose: 80 mg Hydralazine HCl (Apresoline -) 10 mg PO TID [facility] Last Admin: 12/19/18 13:49 Dose: Not Given Insulin Aspart (Novolog Vial) 1 units SQ BIDAC [facility]; Protocol Last Admin: 12/19/18 06:29 Dose: Not Given - Objective Vital Signs: Vital Signs Temperature 98.7 F 12/19/18 14:00 Pulse Rate 60 12/19/18 14:00 Respiratory Rate 18 12/19/18 13:45 Blood Pressure 119/54 L 12/19/18 14:00 O2 Sat by Pulse Oximetry (%) 98 12/19/18 08:00 Constitutional: Yes: Calm Neck: Yes: Trachea Midline Cardiovascular: Yes: Regular Rate and Rhythm, S1, S2 Respiratory: Yes: CTA Bilaterally Gastrointestinal: Yes: Normal Bowel Sounds, Soft Labs: CBC, BMP 12/19/18 12:45 12/19/18 12:45 Problem List - Problems (1) Stage 5 chronic kidney disease Assessment/Plan: HD per renal epogen with HD for anemia Code(s): N18.5 - CHRONIC KIDNEY DISEASE, STAGE 5 (2) Hydronephrosis Assessment/Plan: urology on board right nephrosotomy tube clamped Code(s): N13.30 - UNSPECIFIED HYDRONEPHROSIS Qualifiers: Hydronephrosis type: with other ureteral stricture Qualified Code(s): N13.1 - Hydronephrosis with ureteral stricture, not elsewhere classified (3) Leukocytosis Assessment/Plan: improved on cefazolin for bacteremia Microbiology 11/28/18 17:30 Blood - Althea Cath Blood Culture - Final Klebsiella Pneumoniae 11/28/18 17:30 Blood - Althea Cath Blood Culture - Final Klebsiella Pneumoniae Code(s): D72.829 - ELEVATED WHITE BLOOD CELL COUNT, UNSPECIFIED (4) HTN (hypertension) Assessment/Plan: BP noted and hydralazine dose adjusted Code(s): I10 - ESSENTIAL (PRIMARY) HYPERTENSION
--- NOTE | 2018-12-19 16:09 | PN ---
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 He presents now with an episode of near syncope. About one hour after dialysis her became diaphoretic and became very weak and was leaning to the side then nearly fell but the daughter caught him. After the event he felt nauseous and vomited clear fluid once. Last Echocardiogram was a [facility] 12/03/18 which showed normal LV function. Presently asymptomatic. - Current Medication List Current Medications: Active Medications Acetaminophen (Tylenol -) 650 mg PO Q4H PRN PRN Reason: FEVER Amlodipine Besylate (Norvasc -) 10 mg PO DAILY [facility] Last Admin: 12/19/18 09:13 Dose: 10 mg Atorvastatin Calcium (Lipitor -) 40 mg PO HS [facility] Last Admin: 12/18/18 22:14 Dose: 40 mg Furosemide (Lasix -) 80 mg PO DAILY [facility] Last Admin: 12/19/18 09:12 Dose: 80 mg Hydralazine HCl (Apresoline -) 10 mg PO BID [facility] Insulin Aspart (Novolog Vial) 1 units SQ BIDAC [facility]; Protocol Last Admin: 12/19/18 06:29 Dose: Not Given - Objective Vital Signs: Vital Signs Temperature 98.7 F 12/19/18 14:00 Pulse Rate 62 12/19/18 15:32 Respiratory Rate 18 12/19/18 15:32 Blood Pressure 128/52 L 12/19/18 15:32 O2 Sat by Pulse Oximetry (%) 98 12/19/18 08:00 Constitutional: Yes: No Distress Eyes: Yes: WNL HENT: Yes: WNL Neck: Yes: WNL Cardiovascular: Yes: Regular Rate and Rhythm, S1, S2 Respiratory: Yes: CTA Bilaterally Gastrointestinal: Yes: Soft Extremities: Yes: WNL Edema: No Neurological: Yes: Alert, Oriented Labs: CBC, BMP 12/19/18 12:45 12/19/18 12:45 Assessment/Plan 82 year old male with a PMH of HTN, diabetes mellitus, ESRD on dialysis (, [place], Sat), right sided nephrostomy tube (likely due to failed uretral stents), thoracotomy x2 (to 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 He presents now with an episode of near syncope. About one hour after dialysis her became diaphoretic and became very weak and was leaning to the side then nearly fell but the daughter caught him. After the event he felt nauseous and vomited clear fluid once. Near Syncope Associated with nausea and diaphoresis, so likely vagal He was recently admitted with Klebsella bacteremia secondary to UTI/ Pylonephritis, so should rule out recurrent infection 12/19/18 No asymptomatic Likely near syncope was related to HD Avoid hypovolemia Call prn
[2018-12-19] MEDS: ATORVASTATIN CA 40 MG TABLET (FP) PO SCH (21:05)
[2018-12-20] MEDS: INSULIN (NOVOLOG) ASPART 100 UNITS/ML 10ML VIAL SQ SCH ×2 (06:15→17:12)
[2018-12-20 07:38] LABS: BLOOD UREA NITROGEN 21.8 mg/dL (7-18); CALCIUM 8.2 mg/dL (8.5-10.1); POTASSIUM 4.3 mmol/L (3.5-5.1)
[2018-12-20] MEDS ORDERED: PT OWN MED DRAWER 7, Y5N ONE (09:26)
[2018-12-20] MEDS: CARVEDILOL 6.25 MG TABLET (FP) PO SCH ×2 (09:39→09:40)
[2018-12-20] MEDS: FUROSEMIDE 40 MG TABLET (FP) PO SCH (09:42)
[2018-12-20] MEDS: amLODIPine BESYLATE 10 MG TABLET (FP) PO SCH (09:42)
[2018-12-20] MEDS: hydrALAZINE HCL 10 MG TABLET PO SCH ×2 (09:42→21:21)
--- NOTE | 2018-12-20 12:53 | PN ---
ROSIE Davis Note Chief Complaint: pt w/o c/o, tolerated neph tube clamping - Objective Vital Signs: Vital Signs Temperature 98.0 F 12/20/18 09:00 Pulse Rate 58 L 12/20/18 09:00 Respiratory Rate 18 12/20/18 09:00 Blood Pressure 137/58 L 12/20/18 09:00 O2 Sat by Pulse Oximetry (%) 97 12/20/18 00:00 Gastrointestinal: Yes: Soft Labs/Additional Data: CBC, BMP 12/19/18 12:45 12/20/18 06:30 Problem List - Problems (1) Hydronephrosis Assessment/Plan: R neph tube removed, f/u in my office after disch for cysto and R JJ stent removal Code(s): N13.30 - UNSPECIFIED HYDRONEPHROSIS Qualifiers: Hydronephrosis type: with other ureteral stricture Qualified Code(s): N13.1 - Hydronephrosis with ureteral stricture, not elsewhere classified (2) Renal failure Code(s): N19 - UNSPECIFIED KIDNEY FAILURE (3) Fungus infection Assessment/Plan: consider diflucan
--- NOTE | 2018-12-20 13:20 | PN ---
Progress Note, Physician History of Present Illness: stable no complaints nephrostomy tube removed - Current Medication List Current Medications: Active Medications Acetaminophen (Tylenol -) 650 mg PO Q4H PRN PRN Reason: FEVER Amlodipine Besylate (Norvasc -) 10 mg PO DAILY [facility] Last Admin: 12/20/18 09:42 Dose: 10 mg Atorvastatin Calcium (Lipitor -) 40 mg PO HS [facility] Last Admin: 12/19/18 21:05 Dose: 40 mg Furosemide (Lasix -) 80 mg PO DAILY [facility] Last Admin: 12/20/18 09:42 Dose: 80 mg Hydralazine HCl (Apresoline -) 10 mg PO BID [facility] Last Admin: 12/20/18 09:42 Dose: 10 mg [facility]; Protocol Last Admin: 12/20/18 06:15 Dose: Not Given - Objective Vital Signs: Vital Signs Temperature 98.0 F 12/20/18 09:00 Pulse Rate 58 L 12/20/18 09:00 Respiratory Rate 18 12/20/18 09:00 Blood Pressure 137/58 L 12/20/18 09:00 O2 Sat by Pulse Oximetry (%) 97 12/20/18 00:00 Constitutional: Yes: No Distress, Calm Cardiovascular: Yes: S1, S2 Respiratory: Yes: Regular, CTA Bilaterally Musculoskeletal: Yes: WNL Extremities: Yes: Other Neurological: Yes: Alert, Oriented Psychiatric: Yes: Alert, Oriented Labs: CBC, BMP 12/19/18 12:45 12/20/18 06:30
--- NOTE | 2018-12-20 14:46 | PN ---
Progress Note (short form) - Note Progress Note: Vascular Surgery Pt seen and examined. DVT in left IJ extending into subclavian vein. The permacath is on the same side, so the catheter probably caused this clot. This finding was on a carotid doppler. Venous duplex of left arm ordered. If DVT is found in the subclavian vein, pt will need anticoagulation. US ordrered STAT. Pt's left arm is not swollen. Pt is not symptomatic. Torrey King DO
--- NOTE | 2018-12-20 14:55 | PN ---
Progress Note, Physician Chief Complaint: patient seen and examined right nephrosotmy tube removed - Current Medication List Current Medications: Active Medications Acetaminophen (Tylenol -) 650 mg PO Q4H PRN PRN Reason: FEVER Amlodipine Besylate (Norvasc -) 10 mg PO DAILY [facility] Last Admin: 12/20/18 09:42 Dose: 10 mg Atorvastatin Calcium (Lipitor -) 40 mg PO HS [facility] Last Admin: 12/19/18 21:05 Dose: 40 mg Furosemide (Lasix -) 80 mg PO DAILY [facility] Last Admin: 12/20/18 09:42 Dose: 80 mg Hydralazine HCl (Apresoline -) 10 mg PO BID [facility] Last Admin: 12/20/18 09:42 Dose: 10 mg [facility]ulin Asp[facility]; Protocol Last Admin: 12/20/18 06:15 Dose: Not Given - Objective Vital Signs: Vital Signs Temperature 98.6 F 12/20/18 14:00 Pulse Rate 54 L 12/20/18 14:00 Respiratory Rate 20 12/20/18 14:00 Blood Pressure 121/53 L 12/20/18 14:00 O2 Sat by Pulse Oximetry (%) 97 12/20/18 08:00 Constitutional: Yes: Calm Neck: Yes: Trachea Midline Cardiovascular: Yes: Regular Rate and Rhythm, S1, S2 Respiratory: Yes: CTA Bilaterally Gastrointestinal: Yes: Normal Bowel Sounds, Soft Labs: CBC, BMP 12/19/18 12:45 12/20/18 06:30 Problem List - Problems (1) Stage 5 chronic kidney disease Assessment/Plan: HD per renal epogen with HD for anemia Code(s): N18.5 - CHRONIC KIDNEY DISEASE, STAGE 5 (2) Hydronephrosis Assessment/Plan: urology on board right nephrosotomy tube clamped yesterday and removed today Code(s): N13.30 - UNSPECIFIED HYDRONEPHROSIS Qualifiers: Hydronephrosis type: with other ureteral stricture Qualified Code(s): N13.1 - Hydronephrosis with ureteral stricture, not elsewhere classified (3) Leukocytosis Assessment/Plan: improved on cefazolin for bacteremia Microbiology 11/28/18 17:30 Blood - Althea Cath Blood Culture - Final Klebsiella Pneumoniae 11/28/18 17:30 Blood - Althea Cath Blood Culture - Final Klebsiella Pneumoniae Code(s): D72.829 - ELEVATED WHITE BLOOD CELL COUNT, UNSPECIFIED (4) HTN (hypertension) Assessment/Plan: BP noted and hydralazine dose adjusted Code(s): I10 - ESSENTIAL (PRIMARY) HYPERTENSION (5) Acute external jugular vein thrombosis Assessment/Plan: seen on carotid doppler thrombosis in external jugular and subclavian vein ultrasound of left arm ordered if positive will need anticoagulation vascular consult appreciated Code(s): I82.890 - ACUTE EMBOLISM AND THROMBOSIS OF OTHER SPECIFIED VEINS
[2018-12-20] MEDS ORDERED: SODIUM CHLORIDE 250 ML IV PRN ×2 (15:27→15:28)
--- NOTE | 2018-12-20 15:27 | PN ---
Progress Note (short form) - Note Progress Note: Renal follow up for ESRD on HD Seen and examined at the bedside offers no acute complaints denies any sob, cp, abd pain, fever or chills Vital Signs Temperature 98.6 F 12/20/18 14:00 Pulse Rate 54 L 12/20/18 14:00 Respiratory Rate 20 12/20/18 14:00 Blood Pressure 121/53 L 12/20/18 14:00 O2 Sat by Pulse Oximetry (%) 97 12/20/18 08:00 Intake & Output 12/17/18 12/18/18 12/19/18 12/20/18 23:59 23:59 23:59 23:59 Intake Total 10 1050 Output Total 80 2500 Balance -70 -1450 Weight 63.503 kg 62.051 kg NAD neck supple, no JVD RRR CTA, no rales or wheeze soft NT/ND no LE edema, clubbing or cyanosis CBC, BMP 12/19/18 12:45 12/20/18 06:30 Current Medications Acetaminophen (Tylenol -) 650 mg PO Q4H PRN PRN Reason: FEVER Amlodipine Besylate (Norvasc -) 10 mg PO DAILY [facility] Last Admin: 12/19/18 09:13 Dose: 10 mg Atorvastatin Calcium (Lipitor -) 40 mg PO HS [facility] Last Admin: 12/18/18 22:14 Dose: 40 mg Furosemide (Lasix -) 80 mg PO DAILY [facility] Last Admin: 12/19/18 09:12 Dose: 80 mg Hydralazine HCl (Apresoline -) 10 mg PO TID [facility] Last Admin: 12/19/18 06:29 Dose: Not Given Insulin Aspart (Novolog Vial) 1 units SQ BIDAC [facility]; Protocol Last Admin: 12/19/18 06:29 Dose: Not Given 82 year old gentleman with history of ESRD on HD, prostate cancer s/p resection and hypertension presents from home with syncope and nausea. 1. Syncope likely vaso-vagal 2. ESRD on HD 3. Recent gram negative bacteremia 4. Hydronephrosis with indwelling nephrostomy tube 5. Anemia 6. Hyponatremia in setting of ESRD Tele work up showed no acute CVA on CT, no significant obstruction on carotid US US did show venous thrombosis near dialysis catheter site. Was seen by vascular Sx today, will access extent of thrombosis with dedicated venous US of upper extremity Nephrostomy tube removed Will continue Ancef 2g post HD today repeat cultures w/o growth ID follow up Thank you Juice Jones DO
[2018-12-20] MEDS: ATORVASTATIN CA 40 MG TABLET (FP) PO SCH (21:21)
[2018-12-21] MEDS ORDERED: HEPARIN NA (PORCINE) 5,000 UNITS/ML 1ML VIAL IVPUSH ONE (06:00)
[2018-12-21] MEDS: INSULIN (NOVOLOG) ASPART 100 UNITS/ML 10ML VIAL SQ SCH ×2 (06:20→17:10)
[2018-12-21] MEDS ORDERED: EPOETIN ALFA 2,000 UNIT/1 ML VIAL IVPUSH ONE (06:45)
[2018-12-21] MEDS ORDERED: ceFAZolin SODIUM 1 GM VIAL ONE ×3 (08:16→08:17)
[2018-12-21] MEDS ORDERED: DEXTROSE 5%-WATER - 50 ML IVPB ONE ×3 (08:16→08:17)
[2018-12-21] MEDS ORDERED: CEFAZOLIN 1 GM in DEXTROSE 5%-WATER - 50 ML IVPB ONE ×3 (08:30→09:30)
[2018-12-21] MEDS: HEPARIN NA (PORCINE) 5,000 UNITS/ML 1ML VIAL IVPUSH SCH ×3 (08:47→10:15)
[2018-12-21 08:56] LABS: HEMATOCRIT 30.8 % (35.4-49); MCH 29.9 pg (25.7-33.7); MCHC 32.5 g/dl (32.0-35.9); MEAN CELL VOLUME 91.9 fl (80-96); MEAN PLT VOLUME 7.2 fl (7.5-11.1); PLATELET COUNT 345 K/MM3 (134-434); RBC 3.35 M/mm3 (4.00-5.60); RDW 19.7 % (11.9-15.9); WHITE BLOOD COUNT 6.5 K/mm3 (4.0-10.0)
[2018-12-21] MEDS ORDERED: CEFAZOLIN 3 GM in DEXTROSE 5%-WATER - 100 ML IVPB ONE (09:00)
[2018-12-21 09:19] LABS: BLOOD UREA NITROGEN 29.8 mg/dL (7-18); CALCIUM 8.3 mg/dL (8.5-10.1); CREATININE 5.1 mg/dL (0.55-1.3); PHOSPHOROUS 4.6 mg/dL (2.5-4.9); POTASSIUM 4.2 mmol/L (3.5-5.1)
--- NOTE | 2018-12-21 11:24 | PN ---
Progress Note (short form) - Note Progress Note: Renal follow up for ESRD on HD Seen and examined at the bedside during dailysis BP stable, tolerated 2L UF catheter with good flow no sob, cp, abd pain, fever or chills Vital Signs Temperature 98.6 F 12/21/18 06:00 Pulse Rate 61 12/21/18 11:04 Respiratory Rate 18 12/21/18 11:04 Blood Pressure 138/63 12/21/18 11:04 O2 Sat by Pulse Oximetry (%) 97 12/20/18 21:00 Intake & Output 12/18/18 12/19/18 12/20/18 12/21/18 23:59 23:59 23:59 23:59 Intake Total 10 1050 360 650 Output Total 80 2500 2400 2500 Balance -70 -2268 -3792 -0410 Weight 62.051 kg NAD neck supple, no JVD RRR CTA, no rales or wheeze soft NT/ND no LE edema, clubbing or cyanosis CBC, BMP 12/21/18 07:30 12/21/18 07:30 Current Medications Acetaminophen (Tylenol -) 650 mg PO Q4H PRN PRN Reason: FEVER Amlodipine Besylate (Norvasc -) 10 mg PO DAILY [facility] Last Admin: 12/20/18 09:42 Dose: 10 mg Atorvastatin Calcium (Lipitor -) 40 mg PO HS [facility] Last Admin: 12/20/18 21:21 Dose: 40 mg Furosemide (Lasix -) 80 mg PO DAILY [facility] Last Admin: 12/20/18 09:42 Dose: 80 mg Hydralazine HCl (Apresoline -) 10 mg PO BID [facility] Last Admin: 12/20/18 21:21 Dose: 10 mg Sodium Chloride (Normal Saline -) 250 mls @ 3,000 mls/hr IV PRN PRN PRN Reason: Hypotension during Dialysis Stop: 12/21/18 15:27 Sodium Chloride (Normal Saline -) 250 mls @ 3,000 mls/hr IV PRN PRN PRN Reason: Hypotension during Dialysis Stop: 12/21/18 15:29 [facility]; Protocol Last Admin: 12/21/18 06:20 Dose: Not Given 82 year old gentleman with history of ESRD on HD, prostate cancer s/p resection and hypertension presents from home with syncope and nausea. 1. Syncope likely vaso-vagal 2. ESRD on HD 3. Recent gram negative bacteremia 4. Hydronephrosis with indwelling nephrostomy tube 5. Anemia 6. Hyponatremia in setting of ESRD Tolerated dialysis well today Tele work up showed no acute CVA on CT, no significant obstruction on carotid US dedicated venous US of the upper extremity showed thrombosis in IJ next to catheter but no extension into subclavian vein or SVC, this was discussed with Dr. King who recommends no acute intervention Will continue Ancef with HD repeat cultures w/o growth discharge planning as per primary Thank you Juice Jones DO
[2018-12-21] MEDS: amLODIPine BESYLATE 10 MG TABLET (FP) PO SCH (11:25)
[2018-12-21] MEDS: FUROSEMIDE 40 MG TABLET (FP) PO SCH (11:25)
[2018-12-21] MEDS: hydrALAZINE HCL 10 MG TABLET PO SCH (11:26)
--- NOTE | 2018-12-21 11:48 | DS ---
Physical Examination Vital Signs: Vital Signs Temperature 98.6 F 12/21/18 06:00 Pulse Rate 61 12/21/18 11:04 Respiratory Rate 18 12/21/18 11:04 Blood Pressure 138/63 12/21/18 11:04 O2 Sat by Pulse Oximetry (%) 97 12/20/18 21:00 Findings/Remarks: FAMILY BEDSIDE, WOULD LIKE TO GO HOME. CLEARED BY NEPHROLOGY AND CAROTID VEIN THROMBOSIS IS CATHETER RELATED AND NO FURTHER WORKUP OR TX NEEDED. Constitutional: Yes: No Distress Eyes: Yes: WNL HENT: Yes: WNL Neck: Yes: WNL Cardiovascular: Yes: Regular Rate and Rhythm Respiratory: Yes: WNL Gastrointestinal: Yes: Soft Musculoskeletal: Yes: Muscle Weakness Edema: No Neurological: Yes: Pre-Existing Deficit ...Motor Strength: LLE, RLE Labs: CBC, BMP 12/21/18 07:30 12/21/18 07:30 Discharge Summary Problems reviewed: Yes Reason For Visit: PRE-SYNCOPE Current Active Problems Acute external jugular vein thrombosis (Acute) Bacteremia due to Klebsiella pneumoniae (Acute) Diabetes (Acute) ESRD (end stage renal disease) on dialysis (Acute) Fungus infection (Acute) HLD (hyperlipidemia) (Acute) Leukocytosis (Acute) Obstructive uropathy (Acute) Pre-syncope (Acute) Volume depletion (Acute) Procedures: Principal: LABS/XRAYS [facility] Hospital Course: ADMITTED WORKED UP BY NEPHROLOGY AND VASCULAR SURGERY, CHEST PAIN ATYPICAL WITH NAUSEA AND VOMITING LIKELY UREMIA, CORRECTED AFTER HD Plan of Treatment: OUTPT WITH F/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 Goals: HOME HEALTH AID, PT AT HOME, HD PER RENAL Condition: Improved - Instructions Diet, Activity, Other Instructions: RENAL F/U WITH YOUR PRIMARY DOCTOR IN 2 DAYS Referrals: Aric Weldon MD [Primary Care Provider] - Disposition: VNS/HOME HEALTH CARE - Home Medications Comprehensive Discharge Medication List: Ambulatory Orders Amlodipine Besylate [Norvasc -] 10 mg PO DAILY 09/24/18 Carvedilol 18.75 mg PO TID 09/24/18 Hydralazine HCl 10 mg PO TID 09/24/18 Sodium Bicarbonate - 1,300 mg PO TID 09/25/18 Aspirin 81 mg PO DAILY #30 tab.chew 10/04/18 Atorvastatin Ca [Lipitor] 40 mg PO HS #30 tablet 10/04/18 Furosemide [Lasix] 80 mg PO DAILY 11/28/18 Acetaminophen [Tylenol .Regular Strength -] 650 mg PO Q4H PRN tablet 12/06/18 Melatonin 5 mg PO HS PRN #30 tab 12/06/18 Ondansetron [Zofran *Odt*] 4 mg SL TID #21 od.tablet 12/21/18
[2018-12-21] MEDS ORDERED: PNEUMOC 13-VAL CONJ-DIP CRM/PF 0.5 ML DISP.SYRIN IM ONE (16:00)
--- NOTE | 2018-12-21 17:37 | PN ---
Progress Note, Physician History of Present Illness: Pt is for d/c home today. States he feels well. Remains afebrile. - Current Medication List Current Medications: Active Medications Acetaminophen (Tylenol -) 650 mg PO Q4H PRN PRN Reason: FEVER Amlodipine Besylate (Norvasc -) 10 mg PO DAILY [facility] Last Admin: 12/21/18 11:25 Dose: 10 mg Atorvastatin Calcium (Lipitor -) 40 mg PO HS [facility] Last Admin: 12/20/18 21:21 Dose: 40 mg Furosemide (Lasix -) 80 mg PO DAILY [facility] Last Admin: 12/21/18 11:25 Dose: 80 mg Hydralazine HCl (Apresoline -) 10 mg PO BID [facility] Last Admin: 12/21/18 11:26 Dose: 10 mg [facility]ulin [facility]; Protocol Last Admin: 12/21/18 17:10 Dose: 2 unit - Objective Vital Signs: Vital Signs Temperature 98.3 F 12/21/18 14:20 Pulse Rate 61 12/21/18 14:20 Respiratory Rate 22 H 12/21/18 14:20 Blood Pressure 131/61 12/21/18 14:20 O2 Sat by Pulse Oximetry (%) 97 12/21/18 09:00 Constitutional: Yes: No Distress, Calm HENT: Yes: Atraumatic Cardiovascular: Yes: Regular Rate and Rhythm Respiratory: Yes: Regular Gastrointestinal: Yes: Normal Bowel Sounds, Soft Integumentary: Yes: WNL Neurological: Yes: Alert, Oriented Labs: CBC, BMP 12/21/18 07:30 12/21/18 07:30 Microbiology 12/17/18 22:15 Blood - Peripheral Venous Blood Culture - Preliminary NO GROWTH OBTAINED AFTER 72 HOURS, INCUBATION TO CONTINUE FOR 2 DAYS. 12/17/18 22:15 Blood - Peripheral Venous Blood Culture - Preliminary NO GROWTH OBTAINED AFTER 72 HOURS, INCUBATION TO CONTINUE FOR 2 DAYS. 12/17/18 22:15 Urine - Urine Nephrostomy Tube Right Urine Culture - Final Yeast Like Organism Problem List - Problems (1) Bacteremia due to Klebsiella pneumoniae Code(s): R78.81 - BACTEREMIA (2) Diabetes Code(s): E11.9 - TYPE 2 DIABETES MELLITUS WITHOUT COMPLICATIONS (3) ESRD (end stage renal disease) on dialysis Code(s): N18.6 - END STAGE RENAL DISEASE; Z99.2 - DEPENDENCE ON RENAL DIALYSIS (4) HLD (hyperlipidemia) Code(s): E78.5 - HYPERLIPIDEMIA, UNSPECIFIED (5) Pre-syncope Code(s): R55 - SYNCOPE AND COLLAPSE (6) Anemia Code(s): D64.9 - ANEMIA, UNSPECIFIED (7) HTN (hypertension) Code(s): I10 - ESSENTIAL (PRIMARY) HYPERTENSION Assessment/Plan Klebsiella bacteremia (dx'd on last admission) -- to continue Ancef with HD until 12/27 -- blood cultures on this admission neg Pt is being d/c'd home
[2018-12-21 18:52] VITALS: BP 130/57; PULSE 58; TEMP 98.4
== END 2018-12-21 19:58 | disposition home health service (06) | DRG 682 ==
LOC: JER 20:42 → JERBED 12-18 01:47 → J4W 12-18 18:45 → OBSVTOIN 12-20 12:28
PROVIDERS: ADMIT Internal Medicine; ATTEND Family Medicine
PROC: 0TP5X0Z Removal of Drainage Device from Kidney, External Approach (ICD-10-PCS; principal; 2018-12-20)
PROC: 5A1D70Z Performance of Urinary Filtration, Intermittent, Less than 6 Hours Per Day (ICD-10-PCS; 2018-12-20)
DX: I12.0 Hypertensive chronic kidney disease with stage 5 chronic kidney disease or end stage renal disease (principal); N18.6 End stage renal disease; N13.30 Unspecified hydronephrosis; T82.868A Thrombosis due to vascular prosthetic devices, implants and grafts, initial encounter; E87.1 Hypo-osmolality and hyponatremia; R55 Syncope and collapse; R11.0 Nausea; I10 Essential (primary) hypertension; E78.5 Hyperlipidemia, unspecified; D72.829 Elevated white blood cell count, unspecified; E11.22 Type 2 diabetes mellitus with diabetic chronic kidney disease; D64.9 Anemia, unspecified; E86.9 Volume depletion, unspecified; N13.9 Obstructive and reflux uropathy, unspecified; Y84.8 Other medical procedures as the cause of abnormal reaction of the patient, or of later complication, without mention of misadventure at the time of the procedure; Z85.46 Personal history of malignant neoplasm of prostate; Z86.73 Personal history of transient ischemic attack (TIA), and cerebral infarction without residual deficits
CPT/HCPCS: 36415; 70450-TC; 71045-TC-FY; 76775-TC; 80048; 80053; 80061; 81003; 82962; 83721; 84100; 85025; 85027; 87040; 87086; 90670; 93005; 93010; 93880-TC; 93971; 99285-25; G0378; J0131; J0885; J1644

== ENCOUNTER 2019-01-08 09:13 | Day surgery (SDC) | payer OTHER, BC ==
[2019-01-06 15:38] VITALS: BMI 21.9
[2019-01-08 10:11] LABS: PROTHROMBIN TIME (PATIENT) 11.8 SEC (9.7-13.0)
[2019-01-08 10:14] LABS: ACTIVATED PTT 30.9 SECONDS (25.2-36.5)
[2019-01-08] MEDS ORDERED: PAPAVERINE HCL 30 MG/1 ML 10 ML VIAL NR ONE (10:26)
[2019-01-08] MEDS ORDERED: HEPARIN NA (PORCINE) 5,000 UNITS/ML 1ML VIAL ONE (10:27)
[2019-01-08] MEDS ORDERED: POVIDONE-IODINE OINTMENT 10% - 28.4 GM TUBE ONE (10:27)
[2019-01-08] MEDS ORDERED: ROCURONIUM BROMIDE 50 MG/5 ML SYRINGE ONE (12:42)
[2019-01-08] MEDS ORDERED: PROPOFOL 20 ML ONE ×2 (12:43→13:11)
[2019-01-08] MEDS ORDERED: MIDAZOLAM HCL 2 MG/2 ML SINGLE DOSE VIAL ONE (12:54)
[2019-01-08] MEDS ORDERED: ceFAZolin SODIUM 1 GM VIAL IVPB ONE (13:06)
[2019-01-08] MEDS ORDERED: LIDOCAINE HCL 1%, 10 MG/ML (20ML VIAL) NR ONE ×2 (13:16)
--- NOTE | 2019-01-08 15:06 | OP ---
Operative Note - Note: Operative Date: 01/08/19 Pre-Operative Diagnosis: ESRD Operation: Placement AV graft left arm Findings: Patent axillary artery and vein Implants: 4-7 mm PTFE Propaten Post-Operative Diagnosis: Same as Pre-op Surgeon: Panda Greco Jacket Preparer: Aleksandr Cantu Anesthesiologist/FRIT MIXER AND BURNER: Donald Powell Anesthesia: Fractional Estimated Blood Loss (mls): 30
[2019-01-08] MEDS ORDERED: ACETAMINOPHEN 325 MG TABLET (FP) PO PRN (15:12)
[2019-01-08] MEDS ORDERED: oxyCODONE HCL 5 MG TABLET PO PRN (15:12)
--- NOTE | 2019-01-08 15:12 | SURG ---
Surgery Focus Puller Note Focus Puller: Aleksandr Cantu PA-C Date of Service: 01/08/19 Diagnosis: ESRD Procedure: LUE AV graft I was present for the entirety of the operative procedure. For further detail, please refer to operative report. Visit type - Case Type Case Type: Scheduled - New patient This patient is new to me today: Yes Date on this admission: 01/08/19
[2019-01-08] MEDS ORDERED: ONDANSETRON 4 MG/2 ML VIAL IVPUSH PRN (15:41)
[2019-01-08] MEDS ORDERED: oxyCODONE HCL 5 MG TABLET ONE (15:54)
[2019-01-08 16:16] VITALS: TEMP 97.9
[2019-01-08 18:16] VITALS: BP 132/65; PULSE 72
--- NOTE | 2019-01-09 12:04 | OP ---
DATE OF OPERATION: 01/08/2019 SURGEON: Panda Greco MD [employer] SALESPERSON: ROBERTA Fu PROCEDURE: Placement of arteriovenous graft left arm. PREOPERATIVE DIAGNOSIS: Renal failure. POSTOPERATIVE DIAGNOSIS: Renal failure. ANESTHESIA: Fractional. ANESTHESIOLOGIST: Dr. Powell OPERATIVE FINDINGS: The left axillary artery and vein were patent and normal caliber. OPERATIVE PROCEDURE: Following routine patient identification with side and site verification, intravenous sedation was established. The left arm, axilla and chest wall were prepped with ChloraPrep. Timeout was performed. Lidocaine 1% was infiltrated in the axilla and a longitudinal incision made. The subcutaneous tissues were divided using cautery for hemostasis. The axillary artery and vein were then mobilized and secured with vessel loops. The side branches were ligated and divided. A counter incision was made in the distal upper arm and a curved metal tunneler passed between the 2 incisions over the anterior aspect of the arm. A 4-7 mm Propaten graft was then passed through the tunneler between the 2 incisions and then the tunneler was replaced along the medial aspect of the arm and the graft passed back to form a loop. The small end of the graft was beveled. The artery was occluded with vessel loops and opened on the exposed surface with a 6 mm arteriotomy. The end of the graft was anastomosed to the side of the artery with a running suture of 6-0 Prolene. Prior to completion of the suture line, the graft was occluded with the clamp and the artery was allowed to back bleed and flush. The suture line was completed. The artery was released. Bleeding from the suture line was controlled with Surgicel. The vein was then occluded with the bulldog clamp and vessel loop. A 15 mm venotomy was made. The large end of the graft was anastomosed to the side of the vein with running suture of 6-0 Prolene. The vein was allowed to back bleed and the graft was flushed prior to the completion of the suture line. Surgicel was applied to control bleeding. When hemostasis was adequate, the wounds were closed with interrupted suture of 3-0 Vicryl on the subcutaneous tissues and skin calista. Sterile dressings were applied and the patient was taken to the recovery room in stable condition. Gagan RODRIGUEZ/[id number]
== END 2019-01-08 18:30 | disposition home or self-care (01) ==
LOC: JASU-SURG 09:13
PROVIDERS: ATTEND Surgery
PROC: 03160JD Bypass Left Axillary Artery to Upper Arm Vein with Synthetic Substitute, Open Approach (ICD-10-PCS; principal; 2019-01-08 11:00)
DX: I12.0 Hypertensive chronic kidney disease with stage 5 chronic kidney disease or end stage renal disease (principal); E11.22 Type 2 diabetes mellitus with diabetic chronic kidney disease; N18.6 End stage renal disease; C61 Malignant neoplasm of prostate; I50.9 Heart failure, unspecified; Z99.2 Dependence on renal dialysis
CPT/HCPCS: 36415; 82962; 84132; 85610; 85730; 94760; J1644

== ENCOUNTER 2020-03-25 17:06 | Inpatient (IN) | payer OTHER, BC ==
[2020-03-25 19:07] LABS: BASO % 0.2 % (0-2.0); HEMATOCRIT 33.2 % (35.4-49); LYMPH % 5.1 % (8-40); MCH 34.4 pg (25.7-33.7); MCHC 33.2 g/dl (32.0-35.9); MEAN CELL VOLUME 103.8 fl (80-96); MEAN PLT VOLUME 8.1 fl (7.5-11.1); MONO % 3.5 % (3.8-10.2); NEUT % 91.2 % (42.8-82.8); PLATELET COUNT 275 K/MM3 (134-434); RDW 15.2 % (11.9-15.9); WHITE BLOOD COUNT 11.5 K/mm3 (4.0-10.0)
[2020-03-25 19:15] LABS: INR 1.26 (0.83-1.09); PROTHROMBIN TIME (PATIENT) 15.1 SEC (9.7-13.0)
[2020-03-25 19:39] LABS: CHLORIDE 96 mmol/L (98-107); SODIUM 133 mmol/L (136-145)
[2020-03-25 19:41] LABS: CALCIUM 8.8 mg/dL (8.5-10.1)
[2020-03-25 19:42] LABS: ALBUMIN 2.1 g/dl (3.4-5.0); BLOOD UREA NITROGEN 79.2 mg/dL (7-18); CO2 26 mmol/L (21-32); GLUCOSE,RANDOM 293 mg/dL (74-106)
[2020-03-25 19:45] LABS: PHOSPHOROUS 4.3 mg/dL (2.5-4.9); SGOT/AST 44 U/L (15-37); SGPT/ALT 18 U/L (13-61)
[2020-03-25 19:46] LABS: BILIRUBIN,TOTAL 0.7 mg/dL (0.2-1); TOT PROT 6.2 g/dl (6.4-8.2)
[2020-03-25 19:48] LABS: ALK PHOS 74 U/L (45-117)
[2020-03-25 20:09] LABS: ANISOCYTOSIS 1+; MACROCYTOSIS 1+; PLATELET ESTIMATE NORMAL
[2020-03-25 20:11] LABS: ANION GAP 10 MMOL/L (8-16)
[2020-03-25 20:13] LABS: CREATININE 10.3 mg/dL (0.55-1.3)
[2020-03-25 20:14] LABS: POTASSIUM 6.8 mmol/L (3.5-5.1)
[2020-03-25] MEDS ORDERED: SODIUM ZIRCONIUM CYCLOSILICATE (LOKELMA) 5 GM PACKET PO ONE (22:00)
[2020-03-25 22:05] LABS: CALCIUM 8.8 mg/dL (8.5-10.1)
[2020-03-25] MEDS ORDERED: SODIUM BICARBONATE 8.4% 50 MEQ/50 ML DISP.SYRIN IVPUSH ONE (22:15)
[2020-03-25] MEDS ORDERED: INSULIN REGULAR HUMAN 100 UNITS/ML *VIAL IVPUSH ONE (22:15)
[2020-03-25] MEDS ORDERED: SODIUM BICARBONATE 8.4% 50 MEQ/50 ML VIAL ONE (22:17)
[2020-03-25] MEDS ORDERED: SODIUM ZIRCONIUM CYCLOSILICATE (LOKELMA) 5 GM PACKET ONE (22:17)
[2020-03-25] MEDS ORDERED: LACTATED RINGERS SOLUTION 1000 ML INFUS.BAG IV ONE (22:19)
[2020-03-25 22:26] LABS: BLOOD UREA NITROGEN 83.7 mg/dL (7-18)
[2020-03-25 22:30] LABS: CREATININE 10.2 mg/dL (0.55-1.3)
[2020-03-26] MEDS ORDERED: CALCIUM GLUCONATE 10% - 1,000 MG/10 ML VIAL IVPUSH ONE ×2 (01:27→03:42)
[2020-03-26] MEDS ORDERED: SODIUM ZIRCONIUM CYCLOSILICATE (LOKELMA) 5 GM PACKET PO ONE (01:28)
[2020-03-26] MEDS ORDERED: ALBUTEROL SO4 2.5/IPRATROPIUM 0.5 INH SOL 3 ML VIAL.NEB. NEB ONE (01:29)
[2020-03-26] MEDS ORDERED: SODIUM POLYSTYRENE SULFONATE 15 GM/60 ML BOTTLE PO ONE (01:30)
[2020-03-26] MEDS ORDERED: CALCIUM GLUCONATE 10% - 1,000 MG/10 ML VIAL IVPB ONE (02:00)
[2020-03-26] MEDS ORDERED: SODIUM ZIRCONIUM CYCLOSILICATE (LOKELMA) 5 GM PACKET ONE (02:07)
[2020-03-26] MEDS ORDERED: CALCIUM GLUCONATE 10% - 1,000 MG/10 ML VIAL ONE (02:07)
[2020-03-26] MEDS ORDERED: CEFTRIAXONE 2 GM/100 ML BAG IVPB ONE (02:08)
[2020-03-26] MEDS ORDERED: SODIUM POLYSTYRENE SULFONATE 15 GM/60 ML BOTTLE ONE (02:08)
[2020-03-26] MEDS ORDERED: AZITHROMYCIN IVPB 500 MG/250 ML BAG IVPB ONE (02:08)
[2020-03-26] MEDS ORDERED: CEFTRIAXONE 2 GM in DEXTROSE 5%-WATER 100 ML IVPB ONE (02:30)
[2020-03-26] MEDS: AZITHROMYCIN IVPB 500 MG/250 ML BAG IVPB SCH ×2 (03:30→09:28)
[2020-03-26] MEDS ORDERED: SODIUM ZIRCONIUM CYCLOSILICATE (LOKELMA) 10 GM PACKET PO ONE (05:00)
[2020-03-26] MEDS: HEPARIN NA (PORCINE) 5,000 UNITS/ML 1ML VIAL SQ SCH ×3 (06:47→21:27)
[2020-03-26] MEDS: INSULIN SLIDING SCALE (NOVOLOG) 1 VIAL SQ SCH ×4 (06:48→21:26)
[2020-03-26 08:01] LABS: BASO % 0.2 % (0-2.0); HEMATOCRIT 33.2 % (35.4-49); HEMOGLOBIN 11.4 GM/dL (11.7-16.9); LYMPH % 5.3 % (8-40); MCHC 34.4 g/dl (32.0-35.9); MEAN CELL VOLUME 101.9 fl (80-96); MEAN PLT VOLUME 7.4 fl (7.5-11.1); MONO % 3.4 % (3.8-10.2); NEUT % 91.1 % (42.8-82.8); PLATELET COUNT 286 K/MM3 (134-434); RBC 3.26 M/mm3 (4.00-5.60); RDW 15.1 % (11.9-15.9); WHITE BLOOD COUNT 10.6 K/mm3 (4.0-10.0)
[2020-03-26 08:20] VITALS: BMI 16.1
[2020-03-26] MEDS ORDERED: SODIUM CHLORIDE 250 ML IV PRN (08:28)
[2020-03-26 08:45] LABS: BLOOD UREA NITROGEN 85.7 mg/dL (7-18)
[2020-03-26 08:48] LABS: PHOSPHOROUS 4.6 mg/dL (2.5-4.9)
[2020-03-26 08:49] LABS: BILIRUBIN,TOTAL 1.1 mg/dL (0.2-1); TOT PROT 5.5 g/dl (6.4-8.2)
[2020-03-26 09:42] LABS: ANISOCYTOSIS 1+; MACROCYTOSIS 1+; PLATELET ESTIMATE NORMAL; TARGET CELLS 1+
[2020-03-26 10:04] LABS: CREATININE 10.5 mg/dL (0.55-1.3)
[2020-03-26] MEDS: DEXAMETHASONE SOD PHOSPHATE 4 MG/1 ML VIAL IVPUSH SCH (16:59)
[2020-03-27] MEDS: INSULIN SLIDING SCALE (NOVOLOG) 1 VIAL SQ SCH ×4 (06:41→23:27)
[2020-03-27] MEDS: HEPARIN NA (PORCINE) 5,000 UNITS/ML 1ML VIAL SQ SCH ×4 (06:41→23:27)
[2020-03-27] MEDS ORDERED: cefTRIAXone SODIUM 1 GM VIAL ONE (09:19)
[2020-03-27] MEDS ORDERED: DEXTROSE 5%-WATER - 50 ML IVPB ONE (09:20)
[2020-03-27] MEDS: AZITHROMYCIN 250 MG TABLET PO SCH (09:41)
[2020-03-27] MEDS: CEFTRIAXONE 1 GM in DEXTROSE 5%-WATER - 50 ML IVPB SCH (09:41)
[2020-03-27] MEDS: DEXAMETHASONE SOD PHOSPHATE 4 MG/1 ML VIAL IVPUSH SCH (09:41)
[2020-03-27] MEDS ORDERED: ZINC SULFATE 220 MG TABLET PO SCH (12:00)
[2020-03-27] MEDS: CHOLECALCIFEROL (VIT D3) 1,000 UNIT (25 MCG) TABLET PO SCH ×2 (12:47→12:54)
[2020-03-27] MEDS: ASCORBIC ACID 500 MG TABLET (FP) PO SCH ×3 (12:47→23:27)
[2020-03-27] MEDS ORDERED: LORazepam 2 MG/ML SDV VIAL IVPUSH SCH (15:45)
[2020-03-27] MEDS ORDERED: HALOPERIDOL LACTATE 5 MG/ML IM PRN (15:53)
[2020-03-27] MEDS ORDERED: PT OWN MED DRAWER 7, Y5N ONE (18:48)
[2020-03-27] MEDS: ATORVASTATIN CA 80 MG TABLET (FP) PO SCH (23:27)
[2020-03-27] MEDS: INSULIN (LEVEMIR) 100 UNITS/ML UNITS SQ SCH (23:27)
[2020-03-28] MEDS: HEPARIN NA (PORCINE) 5,000 UNITS/ML 1ML VIAL SQ SCH ×3 (06:03→21:31)
[2020-03-28] MEDS: INSULIN SLIDING SCALE (NOVOLOG) 1 VIAL SQ SCH ×4 (06:04→22:05)
[2020-03-28 08:05] LABS: BASO % 0.2 % (0-2.0); HEMOGLOBIN 11.3 GM/dL (11.7-16.9); LYMPH % 5.3 % (8-40); MCH 35.4 pg (25.7-33.7); MCHC 34.3 g/dl (32.0-35.9); MEAN CELL VOLUME 103.1 fl (80-96); MEAN PLT VOLUME 7.7 fl (7.5-11.1); MONO % 5.9 % (3.8-10.2); NEUT % 88.6 % (42.8-82.8); PLATELET COUNT 336 K/MM3 (134-434); RDW 15.3 % (11.9-15.9); WHITE BLOOD COUNT 9.6 K/mm3 (4.0-10.0)
[2020-03-28 08:14] LABS: POTASSIUM 4.7 mmol/L (3.5-5.1)
[2020-03-28 08:20] LABS: MAGNESIUM 2.1 mg/dL (1.8-2.4)
[2020-03-28 08:21] LABS: ALBUMIN 1.9 g/dl (3.4-5.0); CALCIUM 8.4 mg/dL (8.5-10.1)
[2020-03-28 08:23] LABS: CREATININE 6.4 mg/dL (0.55-1.3)
[2020-03-28 08:25] LABS: BILIRUBIN,TOTAL 0.7 mg/dL (0.2-1); TOT PROT 5.3 g/dl (6.4-8.2)
[2020-03-28 08:43] LABS: BLOOD UREA NITROGEN 56.9 mg/dL (7-18)
[2020-03-28] MEDS: ASCORBIC ACID 500 MG TABLET (FP) PO SCH ×2 (10:00→21:31)
[2020-03-28] MEDS: CHOLECALCIFEROL (VIT D3) 1,000 UNIT (25 MCG) TABLET PO SCH (10:00)
[2020-03-28] MEDS: ZINC SULFATE 220 MG CAPSULE (FP) PO SCH (10:00)
[2020-03-28] MEDS: AZITHROMYCIN 250 MG TABLET PO SCH (10:00)
[2020-03-28] MEDS: CEFTRIAXONE 1 GM in DEXTROSE 5%-WATER - 50 ML IVPB SCH (10:07)
[2020-03-28] MEDS: DEXAMETHASONE 1.5 MG TABLET PO SCH (11:39)
[2020-03-28] MEDS ORDERED: PT OWN MED DRAWER 7, Y5N ONE (18:02)
[2020-03-28] MEDS ORDERED: SODIUM CHLORIDE 250 ML IV PRN (18:15)
[2020-03-28] MEDS ORDERED: HEPARIN NA (PORCINE) 5,000 UNITS/ML 1ML VIAL IVPUSH ONE (18:15)
[2020-03-28] MEDS: ATORVASTATIN CA 80 MG TABLET (FP) PO SCH (21:31)
[2020-03-28] MEDS: INSULIN (LEVEMIR) 100 UNITS/ML UNITS SQ SCH ×2 (22:06→22:18)
[2020-03-29] MEDS: INSULIN SLIDING SCALE (NOVOLOG) 1 VIAL SQ SCH ×4 (06:42→22:48)
[2020-03-29] MEDS: HEPARIN NA (PORCINE) 5,000 UNITS/ML 1ML VIAL SQ SCH ×3 (06:43→22:37)
[2020-03-29 07:13] LABS: HEMATOCRIT 30.7 % (35.4-49); HEMOGLOBIN 10.6 GM/dL (11.7-16.9); LYMPH % 8.1 % (8-40); MCHC 34.6 g/dl (32.0-35.9); MEAN CELL VOLUME 101.3 fl (80-96); MEAN PLT VOLUME 7.6 fl (7.5-11.1); MONO % 5.3 % (3.8-10.2); NEUT % 86.6 % (42.8-82.8); PLATELET COUNT 332 K/MM3 (134-434); RBC 3.03 M/mm3 (4.00-5.60); RDW 14.7 % (11.9-15.9); WHITE BLOOD COUNT 7.5 K/mm3 (4.0-10.0)
[2020-03-29 07:39] LABS: POTASSIUM 4.6 mmol/L (3.5-5.1)
[2020-03-29 07:46] LABS: CALCIUM 7.8 mg/dL (8.5-10.1)
[2020-03-29 07:47] LABS: ALBUMIN 1.9 g/dl (3.4-5.0); BLOOD UREA NITROGEN 72.8 mg/dL (7-18); MAGNESIUM 2.1 mg/dL (1.8-2.4)
[2020-03-29 07:51] LABS: BILIRUBIN,TOTAL 0.5 mg/dL (0.2-1); TOT PROT 5.3 g/dl (6.4-8.2)
[2020-03-29] MEDS ORDERED: DEXTROSE 5%-WATER - 50 ML IVPB ONE (11:34)
[2020-03-29] MEDS ORDERED: cefTRIAXone SODIUM 1 GM VIAL ONE (11:34)
[2020-03-29] MEDS: CEFTRIAXONE 1 GM in DEXTROSE 5%-WATER - 50 ML IVPB SCH (11:45)
[2020-03-29] MEDS: CHOLECALCIFEROL (VIT D3) 1,000 UNIT (25 MCG) TABLET PO SCH (11:46)
[2020-03-29] MEDS: ASPIRIN 81 MG CHEWABLE TABLETS PO SCH (11:46)
[2020-03-29] MEDS: AZITHROMYCIN 250 MG TABLET PO SCH (11:46)
[2020-03-29] MEDS: ZINC SULFATE 220 MG CAPSULE (FP) PO SCH (11:46)
[2020-03-29] MEDS: DEXAMETHASONE 1.5 MG TABLET PO SCH (11:46)
[2020-03-29] MEDS: ASCORBIC ACID 500 MG TABLET (FP) PO SCH ×2 (11:46→22:39)
[2020-03-29] MEDS ORDERED: HEPARIN NA (PORCINE) 5,000 UNITS/ML 1ML VIAL IVPUSH ONE (12:00)
[2020-03-29 13:38] LABS: CREATININE 7.6 mg/dL (0.55-1.3)
[2020-03-29] MEDS: INSULIN (LEVEMIR) 100 UNITS/ML UNITS SQ SCH (22:38)
[2020-03-29] MEDS: ATORVASTATIN CA 80 MG TABLET (FP) PO SCH (22:39)
[2020-03-30] MEDS: HEPARIN NA (PORCINE) 5,000 UNITS/ML 1ML VIAL SQ SCH ×3 (06:21→21:45)
[2020-03-30 06:56] LABS: BASO % 0.2 % (0-2.0); EOS % 0.6 % (0-4.5); HEMATOCRIT 32.4 % (35.4-49); HEMOGLOBIN 10.9 GM/dL (11.7-16.9); LYMPH % 11.4 % (8-40); MCH 34.4 pg (25.7-33.7); MCHC 33.7 g/dl (32.0-35.9); MEAN CELL VOLUME 101.9 fl (80-96); MEAN PLT VOLUME 7.6 fl (7.5-11.1); MONO % 5.3 % (3.8-10.2); NEUT % 82.5 % (42.8-82.8); PLATELET COUNT 342 K/MM3 (134-434); RBC 3.18 M/mm3 (4.00-5.60); RDW 15.2 % (11.9-15.9); WHITE BLOOD COUNT 8.4 K/mm3 (4.0-10.0)
[2020-03-30] MEDS: INSULIN SLIDING SCALE (NOVOLOG) 1 VIAL SQ SCH ×4 (07:19→21:58)
[2020-03-30 07:42] LABS: POTASSIUM 3.4 mmol/L (3.5-5.1)
[2020-03-30] MEDS ORDERED: INSULIN SLIDING SCALE (NOVOLOG) 1 VIAL SQ ONE (07:51)
[2020-03-30] MEDS ORDERED: INSULIN (LEVEMIR) 100 UNITS/ML UNITS SQ ONE (07:51)
[2020-03-30 07:54] LABS: ALBUMIN 1.8 g/dl (3.4-5.0); CALCIUM 7.5 mg/dL (8.5-10.1)
[2020-03-30 07:55] LABS: MAGNESIUM 1.8 mg/dL (1.8-2.4)
[2020-03-30 07:57] LABS: BILIRUBIN,TOTAL 0.6 mg/dL (0.2-1); TOT PROT 5.2 g/dl (6.4-8.2)
[2020-03-30 07:58] LABS: CREATININE 4.4 mg/dL (0.55-1.3)
[2020-03-30 08:19] LABS: BLOOD UREA NITROGEN 31.8 mg/dL (7-18)
[2020-03-30] MEDS ORDERED: INSULIN (LEVEMIR) 100 UNITS/ML UNITS SQ SCH (08:55)
[2020-03-30] MEDS ORDERED: PT OWN MED DRAWER 7, Y5N ONE (10:27)
[2020-03-30] MEDS ORDERED: cefTRIAXone SODIUM 1 GM VIAL ONE (10:27)
[2020-03-30] MEDS ORDERED: DEXTROSE 5%-WATER - 50 ML IVPB ONE (10:27)
[2020-03-30] MEDS: ASPIRIN 81 MG CHEWABLE TABLETS PO SCH (10:33)
[2020-03-30] MEDS: DEXAMETHASONE 1.5 MG TABLET PO SCH (10:33)
[2020-03-30] MEDS: ZINC SULFATE 220 MG CAPSULE (FP) PO SCH (10:33)
[2020-03-30] MEDS: CEFTRIAXONE 1 GM in DEXTROSE 5%-WATER - 50 ML IVPB SCH (10:33)
[2020-03-30] MEDS: ASCORBIC ACID 500 MG TABLET (FP) PO SCH ×2 (10:33→21:45)
[2020-03-30] MEDS: CHOLECALCIFEROL (VIT D3) 1,000 UNIT (25 MCG) TABLET PO SCH (10:33)
[2020-03-30] MEDS ORDERED: SODIUM CHLORIDE 250 ML IV PRN (12:26)
[2020-03-30] MEDS ORDERED: DEXTROSE 50%-WATER 25 GM/50 ML DISP.SYRIN ONE (16:49)
[2020-03-30] MEDS ORDERED: DEXTROSE 50%-WATER - 25 GM/50 ML VIAL IVPUSH ONE (17:08)
[2020-03-30] MEDS: ATORVASTATIN CA 80 MG TABLET (FP) PO SCH (21:45)
[2020-03-31] MEDS: INSULIN SLIDING SCALE (NOVOLOG) 1 VIAL SQ SCH ×4 (06:01→22:17)
[2020-03-31] MEDS: HEPARIN NA (PORCINE) 5,000 UNITS/ML 1ML VIAL SQ SCH ×3 (06:01→22:16)
[2020-03-31] MEDS ORDERED: DEXTROSE 5%-WATER - 50 ML IVPB ONE (09:19)
[2020-03-31] MEDS ORDERED: cefTRIAXone SODIUM 1 GM VIAL ONE (09:19)
[2020-03-31] MEDS ORDERED: PT OWN MED DRAWER 7, Y5N ONE ×2 (09:19→21:56)
[2020-03-31] MEDS: ASCORBIC ACID 500 MG TABLET (FP) PO SCH ×2 (09:27→22:17)
[2020-03-31] MEDS: ASPIRIN 81 MG CHEWABLE TABLETS PO SCH (09:28)
[2020-03-31] MEDS: CEFTRIAXONE 1 GM in DEXTROSE 5%-WATER - 50 ML IVPB SCH (09:28)
[2020-03-31] MEDS: ZINC SULFATE 220 MG CAPSULE (FP) PO SCH (09:28)
[2020-03-31] MEDS: CHOLECALCIFEROL (VIT D3) 1,000 UNIT (25 MCG) TABLET PO SCH (09:28)
[2020-03-31] MEDS: DEXAMETHASONE 1.5 MG TABLET PO SCH (09:28)
[2020-03-31 11:33] LABS: BASO % 0.4 % (0-2.0); EOS % 2.2 % (0-4.5); HEMATOCRIT 27.3 % (35.4-49); HEMOGLOBIN 9.1 GM/dL (11.7-16.9); LYMPH % 10.3 % (8-40); MCH 34.2 pg (25.7-33.7); MCHC 33.4 g/dl (32.0-35.9); MEAN CELL VOLUME 102.3 fl (80-96); MONO % 5.3 % (3.8-10.2); NEUT % 81.8 % (42.8-82.8); PLATELET COUNT 242 K/MM3 (134-434); RBC 2.67 M/mm3 (4.00-5.60); RDW 15.1 % (11.9-15.9); WHITE BLOOD COUNT 5.6 K/mm3 (4.0-10.0)
[2020-03-31 12:01] LABS: ALBUMIN 1.6 g/dl (3.4-5.0); BLOOD UREA NITROGEN 32.2 mg/dL (7-18); CALCIUM 7.4 mg/dL (8.5-10.1); MAGNESIUM 1.8 mg/dL (1.8-2.4)
[2020-03-31 12:09] LABS: BILIRUBIN,TOTAL 0.4 mg/dL (0.2-1); CREATININE 5.6 mg/dL (0.55-1.3); TOT PROT 4.5 g/dl (6.4-8.2)
[2020-03-31 12:23] LABS: POTASSIUM 3.9 mmol/L (3.5-5.1)
[2020-03-31] MEDS: ATORVASTATIN CA 80 MG TABLET (FP) PO SCH (22:17)
[2020-04-01] MEDS: HEPARIN NA (PORCINE) 5,000 UNITS/ML 1ML VIAL SQ SCH ×3 (06:31→21:38)
[2020-04-01] MEDS: INSULIN SLIDING SCALE (NOVOLOG) 1 VIAL SQ SCH ×4 (06:31→21:38)
[2020-04-01] MEDS ORDERED: SODIUM CHLORIDE 250 ML IV PRN (07:28)
[2020-04-01] MEDS ORDERED: PT OWN MED DRAWER 7, Y5N ONE (09:41)
[2020-04-01] MEDS ORDERED: cefTRIAXone SODIUM 1 GM VIAL ONE (09:42)
[2020-04-01] MEDS ORDERED: DEXTROSE 5%-WATER - 50 ML IVPB ONE (09:42)
[2020-04-01] MEDS: CEFTRIAXONE 1 GM in DEXTROSE 5%-WATER - 50 ML IVPB SCH (09:56)
[2020-04-01] MEDS: ZINC SULFATE 220 MG CAPSULE (FP) PO SCH (09:56)
[2020-04-01] MEDS: ASPIRIN 81 MG CHEWABLE TABLETS PO SCH (09:56)
[2020-04-01] MEDS: DEXAMETHASONE 1.5 MG TABLET PO SCH (09:56)
[2020-04-01] MEDS: CHOLECALCIFEROL (VIT D3) 1,000 UNIT (25 MCG) TABLET PO SCH (09:56)
[2020-04-01] MEDS: ASCORBIC ACID 500 MG TABLET (FP) PO SCH ×2 (09:57→21:38)
[2020-04-01 17:12] LABS: BASO % 0.3 % (0-2.0); EOS % 0.5 % (0-4.5); HEMATOCRIT 29.3 % (35.4-49); HEMOGLOBIN 9.9 GM/dL (11.7-16.9); LYMPH % 7.2 % (8-40); MCH 34.8 pg (25.7-33.7); MCHC 33.7 g/dl (32.0-35.9); MEAN CELL VOLUME 103.3 fl (80-96); MEAN PLT VOLUME 8.1 fl (7.5-11.1); MONO % 3.9 % (3.8-10.2); NEUT % 88.1 % (42.8-82.8); PLATELET COUNT 299 K/MM3 (134-434); RBC 2.84 M/mm3 (4.00-5.60); RDW 15.5 % (11.9-15.9)
[2020-04-01 17:39] LABS: POTASSIUM 3.9 mmol/L (3.5-5.1)
[2020-04-01 17:42] LABS: BLOOD UREA NITROGEN 23.4 mg/dL (7-18); CALCIUM 7.8 mg/dL (8.5-10.1)
[2020-04-01 17:43] LABS: ALBUMIN 1.8 g/dl (3.4-5.0); MAGNESIUM 1.9 mg/dL (1.8-2.4)
[2020-04-01 17:46] LABS: CREATININE 4.3 mg/dL (0.55-1.3)
[2020-04-01 17:47] LABS: BILIRUBIN,TOTAL 0.6 mg/dL (0.2-1)
[2020-04-01] MEDS: ATORVASTATIN CA 80 MG TABLET (FP) PO SCH (21:38)
[2020-04-02] MEDS: HEPARIN NA (PORCINE) 5,000 UNITS/ML 1ML VIAL SQ SCH ×2 (06:29→14:13)
[2020-04-02] MEDS: INSULIN SLIDING SCALE (NOVOLOG) 1 VIAL SQ SCH ×3 (06:31→16:40)
[2020-04-02] MEDS ORDERED: EPOETIN ALFA-EPBX 10,000 UNIT/ML VIAL SQ ONE (08:00)
[2020-04-02 08:52] LABS: BASO % 0.9 % (0-2.0); EOS % 2.3 % (0-4.5); HEMATOCRIT 26.3 % (35.4-49); HEMOGLOBIN 9.1 GM/dL (11.7-16.9); LYMPH % 12.1 % (8-40); MCHC 34.5 g/dl (32.0-35.9); MEAN CELL VOLUME 101.3 fl (80-96); MEAN PLT VOLUME 8.2 fl (7.5-11.1); MONO % 7.5 % (3.8-10.2); NEUT % 77.2 % (42.8-82.8); PLATELET COUNT 312 K/MM3 (134-434); RDW 15.3 % (11.9-15.9); WHITE BLOOD COUNT 6.8 K/mm3 (4.0-10.0)
[2020-04-02 09:06] LABS: POTASSIUM 3.8 mmol/L (3.5-5.1)
[2020-04-02 09:11] LABS: ALBUMIN 1.8 g/dl (3.4-5.0); CALCIUM 7.9 mg/dL (8.5-10.1)
[2020-04-02 09:13] LABS: BLOOD UREA NITROGEN 29.9 mg/dL (7-18); MAGNESIUM 1.8 mg/dL (1.8-2.4)
[2020-04-02 09:15] LABS: CREATININE 5.1 mg/dL (0.55-1.3)
[2020-04-02 09:17] LABS: BILIRUBIN,TOTAL 0.6 mg/dL (0.2-1); TOT PROT 4.8 g/dl (6.4-8.2)
[2020-04-02] MEDS ORDERED: PT OWN MED DRAWER 7, Y5N ONE (11:13)
[2020-04-02] MEDS: ZINC SULFATE 220 MG CAPSULE (FP) PO SCH (11:16)
[2020-04-02] MEDS: ASCORBIC ACID 500 MG TABLET (FP) PO SCH (11:16)
[2020-04-02] MEDS: ASPIRIN 81 MG CHEWABLE TABLETS PO SCH (11:17)
[2020-04-02] MEDS: CHOLECALCIFEROL (VIT D3) 1,000 UNIT (25 MCG) TABLET PO SCH (11:17)
[2020-04-02] MEDS: DEXAMETHASONE 1.5 MG TABLET PO SCH (11:17)
[2020-04-02 14:35] VITALS: BP 128/74; PULSE 84; TEMP 97.4
== END 2020-04-02 19:00 | disposition home or self-care (01) | DRG 871 ==
LOC: JER 17:06 → JERBED 22:17 → J4S 03-26 03:05
PROVIDERS: ADMIT Internal Medicine; ATTEND Nurse Practitioner Family
PROC: 5A1D70Z Performance of Urinary Filtration, Intermittent, Less than 6 Hours Per Day (ICD-10-PCS; principal; 2020-03-26)
PROC: 5A1D70Z Performance of Urinary Filtration, Intermittent, Less than 6 Hours Per Day (ICD-10-PCS; 2020-03-29)
PROC: 5A1D70Z Performance of Urinary Filtration, Intermittent, Less than 6 Hours Per Day (ICD-10-PCS; 2020-03-31)
PROC: 5A1D70Z Performance of Urinary Filtration, Intermittent, Less than 6 Hours Per Day (ICD-10-PCS; 2020-04-02)
DX: A41.89 Other specified sepsis (principal); U07.1 COVID-19; N18.6 End stage renal disease; J96.01 Acute respiratory failure with hypoxia; J12.82 Pneumonia due to coronavirus disease 2019; G93.41 Metabolic encephalopathy; I12.0 Hypertensive chronic kidney disease with stage 5 chronic kidney disease or end stage renal disease; Z68.1 Body mass index [BMI] 19.9 or less, adult; E11.22 Type 2 diabetes mellitus with diabetic chronic kidney disease; R63.0 Anorexia; E87.5 Hyperkalemia; D64.9 Anemia, unspecified; E78.5 Hyperlipidemia, unspecified; Z99.2 Dependence on renal dialysis; E11.649 Type 2 diabetes mellitus with hypoglycemia without coma; Z85.46 Personal history of malignant neoplasm of prostate; Z86.73 Personal history of transient ischemic attack (TIA), and cerebral infarction without residual deficits; W06.XXXA Fall from bed, initial encounter; Y92.230 Patient room in hospital as the place of occurrence of the external cause
CPT/HCPCS: 36415; 70450-TC; 71045-TC-FY; 71250-TC; 80048; 80053; 82550; 82553; 82607; 82728; 82746; 82947; 82962; 83036; 83540; 83550; 83605; 83615; 83735; 84100; 84443; 84484; 85025; 85379; 85610; 86140; 86769; 86803; 87340; 93005; 93010; 94761; 97116-GP; 97161-GP; 99285-25; C9803; J1644; Q5106; U0003

== ENCOUNTER 2021-05-12 11:50 | Inpatient (IN) | payer OTHER, BC ==
[2021-05-12 12:53] LABS: BASO % 1.2 % (0-2.0); EOS % 3.9 % (0-4.5); HEMATOCRIT 31.2 % (35.4-49); HEMOGLOBIN 10.6 GM/dL (11.7-16.9); LYMPH % 22.2 % (8-40); MCH 35.3 pg (25.7-33.7); MCHC 33.9 g/dl (32.0-35.9); MEAN CELL VOLUME 104.1 fl (80-96); MEAN PLT VOLUME 6.6 fl (7.5-11.1); NEUT % 57.7 % (42.8-82.8); PLATELET COUNT 270 10^3/uL (134-434); RDW 15.5 % (11.9-15.9); WHITE BLOOD COUNT 4.1 K/mm3 (4.0-10.0)
[2021-05-12 13:09] LABS: CHLORIDE 96 mmol/L (98-107); SODIUM 133 mmol/L (136-145)
[2021-05-12 13:11] LABS: CALCIUM 9.2 mg/dL (8.5-10.1)
[2021-05-12 13:12] LABS: ALBUMIN 3.1 g/dl (3.4-5.0); ANION GAP 11 MMOL/L (8-16); BLOOD UREA NITROGEN 66.4 mg/dL (7-18); CO2 26 mmol/L (21-32); GLUCOSE,RANDOM 126 mg/dL (74-106)
[2021-05-12 13:15] LABS: SGOT/AST 6 U/L (15-37); SGPT/ALT 11 U/L (13-61)
[2021-05-12 13:16] LABS: TOT PROT 6.4 g/dl (6.4-8.2)
[2021-05-12 13:17] LABS: BILIRUBIN,TOTAL 0.6 mg/dL (0.2-1)
[2021-05-12 13:18] LABS: ALK PHOS 69 U/L (45-117)
[2021-05-12 13:23] LABS: CREATININE 8.2 mg/dL (0.55-1.3)
[2021-05-12] MEDS ORDERED: LIDOCAINE HCL 1%, 10 MG/ML (20ML VIAL) ONE (16:34)
[2021-05-12] MEDS ORDERED: HEPARIN NA (PORCINE) 5,000 UNITS/ML 1ML VIAL ONE (16:34)
[2021-05-12] MEDS ORDERED: POVIDONE-IODINE OINTMENT 10% - 28.4 GM TUBE ONE (16:35)
[2021-05-12] MEDS ORDERED: MIDAZOLAM HCL 2 MG/2 ML SINGLE DOSE VIAL ONE (16:55)
[2021-05-12] MEDS ORDERED: ceFAZolin SODIUM 1 GM VIAL IVPB ONE (17:05)
[2021-05-12] MEDS ORDERED: LIDOCAINE HCL 1%, 10 MG/ML (20ML VIAL) INF ONE (17:47)
[2021-05-12] MEDS ORDERED: MELATONIN 5 MG TABLETS PO PRN (20:56)
[2021-05-12] MEDS: HEPARIN NA (PORCINE) 5,000 UNITS/ML 1ML VIAL SQ SCH (22:20)
[2021-05-12 23:53] VITALS: BMI 18.6
[2021-05-13 09:23] LABS: BASO % 0.9 % (0-2.0); EOS % 3.5 % (0-4.5); HEMATOCRIT 29.7 % (35.4-49); LYMPH % 20.6 % (8-40); MCH 35.3 pg (25.7-33.7); MCHC 33.8 g/dl (32.0-35.9); MEAN CELL VOLUME 104.3 fl (80-96); MEAN PLT VOLUME 6.9 fl (7.5-11.1); MONO % 10.8 % (3.8-10.2); NEUT % 64.2 % (42.8-82.8); PLATELET COUNT 276 10^3/uL (134-434); RBC 2.85 M/mm3 (4.00-5.60); RDW 15.7 % (11.9-15.9); WHITE BLOOD COUNT 4.6 K/mm3 (4.0-10.0)
[2021-05-13 09:46] LABS: CHLORIDE 100 mmol/L (98-107); SODIUM 134 mmol/L (136-145)
[2021-05-13 09:49] LABS: ANION GAP 12 MMOL/L (8-16); BLOOD UREA NITROGEN 83.8 mg/dL (7-18); CALCIUM 9.1 mg/dL (8.5-10.1); CO2 22 mmol/L (21-32)
[2021-05-13 09:52] LABS: PHOSPHOROUS 5.5 mg/dL (2.5-4.9); SGPT/ALT 9 U/L (13-61)
[2021-05-13 09:53] LABS: ALBUMIN 3.4 g/dl (3.4-5.0); GLUCOSE,RANDOM 107 mg/dL (74-106); SGOT/AST 8 U/L (15-37)
[2021-05-13 09:54] LABS: BILIRUBIN,TOTAL 0.7 mg/dL (0.2-1); TOT PROT 6.4 g/dl (6.4-8.2)
[2021-05-13 09:55] LABS: ALK PHOS 60 U/L (45-117)
[2021-05-13] MEDS ORDERED: ATORVASTATIN CA 40 MG TABLET (FP) PO SCH (10:00)
[2021-05-13] MEDS ORDERED: SODIUM CHLORIDE 250 ML IV PRN (10:11)
[2021-05-13 10:12] LABS: CREATININE 9.6 mg/dL (0.55-1.3)
[2021-05-13] MEDS: HEPARIN NA (PORCINE) 5,000 UNITS/ML 1ML VIAL SQ SCH (13:06)
[2021-05-13 19:55] VITALS: BP 126/60; PULSE 72; TEMP 98.9
== END 2021-05-13 19:55 | disposition home or self-care (01) | DRG 252 ==
LOC: JER 11:50 → JERBED 14:24 → J5S 19:40
PROVIDERS: ADMIT Family Medicine; ATTEND Family Medicine
PROC: 05780ZZ Dilation of Left Axillary Vein, Open Approach (ICD-10-PCS; 2021-05-12)
PROC: 057Y0ZZ Dilation of Upper Vein, Open Approach (ICD-10-PCS; 2021-05-12)
PROC: B50NYZZ Plain Radiography of Left Upper Extremity Veins using Other Contrast (ICD-10-PCS; 2021-05-12)
PROC: 05C80ZZ Extirpation of Matter from Left Axillary Vein, Open Approach (ICD-10-PCS; principal; 2021-05-12 16:00)
PROC: 5A1D70Z Performance of Urinary Filtration, Intermittent, Less than 6 Hours Per Day (ICD-10-PCS; 2021-05-13)
DX: T82.868A Thrombosis due to vascular prosthetic devices, implants and grafts, initial encounter (principal); N18.6 End stage renal disease; E87.1 Hypo-osmolality and hyponatremia; I12.0 Hypertensive chronic kidney disease with stage 5 chronic kidney disease or end stage renal disease; E11.22 Type 2 diabetes mellitus with diabetic chronic kidney disease; F03.90 Unspecified dementia, unspecified severity, without behavioral disturbance, psychotic disturbance, mood disturbance, and anxiety; E78.5 Hyperlipidemia, unspecified; D63.1 Anemia in chronic kidney disease; Z99.2 Dependence on renal dialysis; Z86.73 Personal history of transient ischemic attack (TIA), and cerebral infarction without residual deficits; Z85.46 Personal history of malignant neoplasm of prostate; Y84.8 Other medical procedures as the cause of abnormal reaction of the patient, or of later complication, without mention of misadventure at the time of the procedure
CPT/HCPCS: 36415; 76000-TC-FY; 80053; 83735; 84100; 84443; 85025; 86803; 87340; 93005; 93010; 93931; 93971; 94760; 99285-25; C9803-CS; J1644; U0003; U0005

== ENCOUNTER 2021-06-02 12:21 | Inpatient (IN) | payer OTHER, BC ==
[2021-06-02 14:54] LABS: BASO % 1.3 % (0-2.0); HEMATOCRIT 26.3 % (35.4-49); HEMOGLOBIN 8.8 GM/dL (11.7-16.9); LYMPH % 25.8 % (8-40); MCH 35.2 pg (25.7-33.7); MCHC 33.3 g/dl (32.0-35.9); MEAN CELL VOLUME 105.6 fl (80-96); MONO % 18.2 % (3.8-10.2); NEUT % 49.7 % (42.8-82.8); PLATELET COUNT 277 10^3/uL (134-434); RBC 2.49 M/mm3 (4.00-5.60); RDW 15.7 % (11.9-15.9); WHITE BLOOD COUNT 3.7 K/mm3 (4.0-10.0)
[2021-06-02 15:01] LABS: INR 1.01 (0.83-1.09); PROTHROMBIN TIME (PATIENT) 11.6 SEC (9.7-13.0)
[2021-06-02 15:04] LABS: ACTIVATED PTT 32.2 SECONDS (25.2-36.5)
[2021-06-02 15:10] LABS: CHLORIDE 98 mmol/L (98-107); SODIUM 135 mmol/L (136-145)
[2021-06-02 15:12] LABS: CALCIUM 9.1 mg/dL (8.5-10.1)
[2021-06-02 15:13] LABS: ANION GAP 8 MMOL/L (8-16); BLOOD UREA NITROGEN 71.1 mg/dL (7-18); CO2 28 mmol/L (21-32); GLUCOSE,RANDOM 95 mg/dL (74-106)
[2021-06-02 15:16] LABS: SGOT/AST 7 U/L (15-37); SGPT/ALT 11 U/L (13-61)
[2021-06-02 15:17] LABS: BILIRUBIN,TOTAL 0.4 mg/dL (0.2-1)
[2021-06-02 15:18] LABS: TOT PROT 5.6 g/dl (6.4-8.2)
[2021-06-02 15:19] LABS: ALK PHOS 60 U/L (45-117)
[2021-06-02 15:20] LABS: ANISOCYTOSIS 1+; MACROCYTOSIS 0
[2021-06-02 15:27] LABS: CREATININE 7.5 mg/dL (0.55-1.3)
[2021-06-02 16:52] LABS: INR 1.04 (0.83-1.09)
[2021-06-02] MEDS ORDERED: HEPARIN NA (PORCINE) 5,000 UNITS/ML 1ML VIAL ONE ×2 (17:18→20:34)
[2021-06-02] MEDS ORDERED: LIDOCAINE HCL 1%, 10 MG/ML (20ML VIAL) ONE (17:18)
[2021-06-02] MEDS ORDERED: PROPOFOL 20 ML ONE (19:49)
[2021-06-02] MEDS ORDERED: ceFAZolin SODIUM 1 GM VIAL ONE (20:21)
[2021-06-02] MEDS ORDERED: ceFAZolin SODIUM 1 GM VIAL IVPB ONE (20:25)
[2021-06-02] MEDS ORDERED: LIDOCAINE HCL 1%, 10 MG/ML (20ML VIAL) SQ ONE ×2 (20:27)
[2021-06-02] MEDS ORDERED: HEPARIN NA (PORCINE) 5,000 UNITS/ML 1ML VIAL IV ONE (20:30)
[2021-06-02] MEDS ORDERED: SODIUM CHLORIDE 250 ML IV PRN (21:21)
[2021-06-02] MEDS ORDERED: ACETAMINOPHEN 325 MG TABLET (FP) PO PRN (21:28)
[2021-06-02] MEDS ORDERED: INSULIN SLIDING SCALE (NOVOLOG) 1 VIAL SQ SCH ×2 (22:00)
[2021-06-02] MEDS ORDERED: hydrALAZINE HCL 20 MG/ML VIAL ONE (22:08)
[2021-06-02] MEDS ORDERED: hydrALAZINE HCL 20 MG/ML VIAL IVPUSH ONE ×2 (22:10→22:42)
[2021-06-03] MEDS: INSULIN SLIDING SCALE (NOVOLOG) 1 VIAL SQ SCH ×4 (06:52→22:09)
[2021-06-03 07:00] LABS: BASO % 1.4 % (0-2.0); EOS % 4.2 % (0-4.5); HEMATOCRIT 27.2 % (35.4-49); HEMOGLOBIN 9.2 GM/dL (11.7-16.9); LYMPH % 18.3 % (8-40); MCH 35.6 pg (25.7-33.7); MCHC 33.8 g/dl (32.0-35.9); MEAN CELL VOLUME 105.4 fl (80-96); MEAN PLT VOLUME 7.3 fl (7.5-11.1); MONO % 12.6 % (3.8-10.2); NEUT % 63.5 % (42.8-82.8); PLATELET COUNT 287 10^3/uL (134-434); RBC 2.58 M/mm3 (4.00-5.60); RDW 15.5 % (11.9-15.9); WHITE BLOOD COUNT 5.1 K/mm3 (4.0-10.0)
[2021-06-03 07:30] LABS: CHLORIDE 100 mmol/L (98-107); SODIUM 134 mmol/L (136-145)
[2021-06-03 07:32] LABS: ANION GAP 12 MMOL/L (8-16); BLOOD UREA NITROGEN 73.9 mg/dL (7-18); CALCIUM 8.9 mg/dL (8.5-10.1); CO2 21 mmol/L (21-32); GLUCOSE,RANDOM 115 mg/dL (74-106)
[2021-06-03 07:33] LABS: ALBUMIN 3.1 g/dl (3.4-5.0)
[2021-06-03 07:35] LABS: SGPT/ALT 11 U/L (13-61)
[2021-06-03 07:36] LABS: SGOT/AST 36 U/L (15-37)
[2021-06-03 07:37] LABS: BILIRUBIN,TOTAL 0.9 mg/dL (0.2-1); TOT PROT 5.7 g/dl (6.4-8.2)
[2021-06-03 07:38] LABS: ALK PHOS 53 U/L (45-117)
[2021-06-03 07:45] LABS: CREATININE 8.4 mg/dL (0.55-1.3)
[2021-06-03] MEDS ORDERED: PATIENT'S OWN MEDICATION (NON-FORMULARY) (Furosemide [Lasix] 80 MG Tablet) PO SCH (10:00)
[2021-06-03] MEDS ORDERED: amLODIPine BESYLATE 10 MG TABLET (FP) PO SCH ×2 (10:00)
[2021-06-03] MEDS: SEVELAMER CARBONATE 800 MG TAB (FP) PO SCH ×3 (10:00→17:19)
[2021-06-03] MEDS ORDERED: FUROSEMIDE 40 MG TABLET (FP) PO SCH (10:00)
[2021-06-03] MEDS ORDERED: SEVELAMER CARBONATE 800 MG TAB (FP) PO SCH (10:00)
[2021-06-03 11:59] VITALS: BMI 17.6
[2021-06-03] MEDS ORDERED: ATORVASTATIN CA 40 MG TABLET (FP) PO SCH ×2 (22:00)
[2021-06-03] MEDS ORDERED: MELATONIN 5 MG TABLETS PO SCH ×2 (22:00)
[2021-06-03 23:25] VITALS: BP 121/54; PULSE 65; TEMP 98.7
== END 2021-06-03 22:15 | disposition home or self-care (01) | DRG 252 ==
LOC: JER 12:21 → JERBED 17:58 → J6S 22:37
PROVIDERS: ADMIT Internal Medicine; ATTEND Family Medicine
PROC: 037Y3ZZ Dilation of Upper Artery, Percutaneous Approach (ICD-10-PCS; 2021-06-02)
PROC: 03CY3ZZ Extirpation of Matter from Upper Artery, Percutaneous Approach (ICD-10-PCS; 2021-06-02)
PROC: 3E05317 Introduction of Other Thrombolytic into Peripheral Artery, Percutaneous Approach (ICD-10-PCS; 2021-06-02)
PROC: 05CY3ZZ Extirpation of Matter from Upper Vein, Percutaneous Approach (ICD-10-PCS; principal; 2021-06-02 19:00)
PROC: 5A1D70Z Performance of Urinary Filtration, Intermittent, Less than 6 Hours Per Day (ICD-10-PCS; 2021-06-03)
DX: T82.868A Thrombosis due to vascular prosthetic devices, implants and grafts, initial encounter (principal); N18.6 End stage renal disease; I12.0 Hypertensive chronic kidney disease with stage 5 chronic kidney disease or end stage renal disease; E87.1 Hypo-osmolality and hyponatremia; Y83.9 Surgical procedure, unspecified as the cause of abnormal reaction of the patient, or of later complication, without mention of misadventure at the time of the procedure; E11.22 Type 2 diabetes mellitus with diabetic chronic kidney disease; D63.1 Anemia in chronic kidney disease
CPT/HCPCS: 36415; 76000-TC-FY; 80053; 82962; 85025; 85610; 85730; 86850; 86900; 86901; 93005; 93010; 94760; 99285-25; C9803-CS; J1644; U0003; U0005

== ENCOUNTER 2021-06-20 22:40 | Inpatient (IN) | payer OTHER, BC ==
[2021-06-21 01:18] LABS: EOS % 0.8 % (0-4.5); HEMATOCRIT 31.2 % (35.4-49); HEMOGLOBIN 10.4 GM/dL (11.7-16.9); LYMPH % 11.1 % (8-40); MCH 35.3 pg (25.7-33.7); MCHC 33.4 g/dl (32.0-35.9); MEAN CELL VOLUME 105.7 fl (80-96); MEAN PLT VOLUME 7.4 fl (7.5-11.1); MONO % 12.8 % (3.8-10.2); NEUT % 74.3 % (42.8-82.8); PLATELET COUNT 256 10^3/uL (134-434); RBC 2.95 M/mm3 (4.00-5.60); RDW 14.7 % (11.9-15.9); WHITE BLOOD COUNT 6.9 K/mm3 (4.0-10.0)
[2021-06-21 01:26] LABS: INR 1.05 (0.83-1.09); PROTHROMBIN TIME (PATIENT) 12.1 SEC (9.7-13.0)
[2021-06-21 01:29] LABS: ACTIVATED PTT 31.4 SECONDS (25.2-36.5)
[2021-06-21 02:00] LABS: CHLORIDE 100 mmol/L (98-107); SODIUM 136 mmol/L (136-145)
[2021-06-21 02:03] LABS: ALBUMIN 3.4 g/dl (3.4-5.0); ANION GAP 11 MMOL/L (8-16); CO2 25 mmol/L (21-32)
[2021-06-21 02:04] LABS: BLOOD UREA NITROGEN 73.5 mg/dL (7-18); GLUCOSE,RANDOM 143 mg/dL (74-106); MAGNESIUM 2.6 mg/dL (1.8-2.4)
[2021-06-21 02:06] LABS: SGPT/ALT 11 U/L (13-61)
[2021-06-21 02:07] LABS: SGOT/AST 10 U/L (15-37)
[2021-06-21 02:08] LABS: BILIRUBIN,TOTAL 0.6 mg/dL (0.2-1); TOT PROT 6.8 g/dl (6.4-8.2)
[2021-06-21 02:09] LABS: ALK PHOS 63 U/L (45-117)
[2021-06-21 02:12] LABS: CREATININE 8.9 mg/dL (0.55-1.3)
[2021-06-21] MEDS: SEVELAMER CARBONATE 800 MG TAB (FP) PO SCH ×3 (06:30→18:11)
[2021-06-21 09:00] LABS: IRON SERUM 13 ug/dL (50-175); TOTAL IRON BINDING CAPACITY 150 ug/dL (250-450)
[2021-06-21 09:01] LABS: LDH 201 U/L (87-246)
[2021-06-21] MEDS ORDERED: SODIUM CHLORIDE 250 ML IV PRN ×2 (11:42→12:43)
[2021-06-21 11:51] LABS: HEMATOCRIT 26.3 % (35.4-49); MCH 35.9 pg (25.7-33.7); MCHC 34.2 g/dl (32.0-35.9); MEAN CELL VOLUME 104.8 fl (80-96); MEAN PLT VOLUME 7.5 fl (7.5-11.1); PLATELET COUNT 236 10^3/uL (134-434); RBC 2.51 M/mm3 (4.00-5.60); RDW 14.8 % (11.9-15.9); WHITE BLOOD COUNT 5.7 K/mm3 (4.0-10.0)
[2021-06-21 11:54] LABS: CHLORIDE 102 mmol/L (98-107); SODIUM 136 mmol/L (136-145)
[2021-06-21] MEDS ORDERED: cefTRIAXone SODIUM 1 GM VIAL ONE (12:08)
[2021-06-21] MEDS ORDERED: DEXTROSE 5%-WATER - 50 ML IVPB ONE (12:08)
[2021-06-21] MEDS: ASCORBIC ACID 500 MG TABLET (FP) PO SCH ×2 (12:09→21:56)
[2021-06-21] MEDS: amLODIPine BESYLATE 10 MG TABLET (FP) PO SCH (12:10)
[2021-06-21] MEDS: CHOLECALCIFEROL (VIT D3) 1,000 UNIT (25 MCG) TABLET PO SCH (12:10)
[2021-06-21] MEDS: ASPIRIN 81 MG CHEWABLE TABLETS PO SCH (12:10)
[2021-06-21] MEDS: CEFTRIAXONE 1 GM in DEXTROSE 5%-WATER - 50 ML IVPB SCH (12:10)
[2021-06-21 12:33] LABS: ANION GAP 15 MMOL/L (8-16); CALCIUM 9.4 mg/dL (8.5-10.1); CO2 19 mmol/L (21-32); GLUCOSE,RANDOM 109 mg/dL (74-106)
[2021-06-21 12:34] LABS: BLOOD UREA NITROGEN 78.6 mg/dL (7-18)
[2021-06-21 12:37] LABS: CREATININE 9.4 mg/dL (0.55-1.3); PHOSPHOROUS 4.5 mg/dL (2.5-4.9)
[2021-06-21] MEDS ORDERED: EPOETIN ALFA-EPBX 4,000 UNIT/ML VIAL IVPUSH ONE (14:00)
[2021-06-21] MEDS: HEPARIN NA (PORCINE) 5,000 UNITS/ML 1ML VIAL SQ SCH ×2 (17:33→21:56)
[2021-06-21] MEDS: INSULIN SLIDING SCALE (NOVOLOG) 1 VIAL SQ SCH ×2 (18:05→21:56)
[2021-06-21] MEDS: ATORVASTATIN CA 40 MG TABLET (FP) PO SCH (21:56)
[2021-06-21] MEDS: MELATONIN 5 MG TABLETS PO SCH (21:56)
[2021-06-22] MEDS: HEPARIN NA (PORCINE) 5,000 UNITS/ML 1ML VIAL SQ SCH ×3 (06:34→22:14)
[2021-06-22] MEDS: INSULIN SLIDING SCALE (NOVOLOG) 1 VIAL SQ SCH ×4 (06:35→22:14)
[2021-06-22 07:40] LABS: BASO % 0.5 % (0-2.0); EOS % 2.2 % (0-4.5); HEMATOCRIT 25.3 % (35.4-49); HEMOGLOBIN 8.6 GM/dL (11.7-16.9); LYMPH % 19.4 % (8-40); MCH 35.5 pg (25.7-33.7); MCHC 34.1 g/dl (32.0-35.9); MEAN CELL VOLUME 104.2 fl (80-96); MEAN PLT VOLUME 7.7 fl (7.5-11.1); MONO % 18.5 % (3.8-10.2); NEUT % 59.4 % (42.8-82.8); PLATELET COUNT 244 10^3/uL (134-434); RBC 2.43 M/mm3 (4.00-5.60); WHITE BLOOD COUNT 4.5 K/mm3 (4.0-10.0)
[2021-06-22 08:23] LABS: CALCIUM 8.7 mg/dL (8.5-10.1); MAGNESIUM 2.2 mg/dL (1.8-2.4)
[2021-06-22 08:26] LABS: PHOSPHOROUS 2.7 mg/dL (2.5-4.9)
[2021-06-22 08:27] LABS: BILIRUBIN,TOTAL 0.6 mg/dL (0.2-1); CREATININE 5.2 mg/dL (0.55-1.3)
[2021-06-22 08:28] LABS: TOT PROT 5.2 g/dl (6.4-8.2)
[2021-06-22 08:36] LABS: ALBUMIN 2.5 g/dl (3.4-5.0); BLOOD UREA NITROGEN 27.5 mg/dL (7-18)
[2021-06-22] MEDS ORDERED: DEXTROSE 5%-WATER - 50 ML IVPB ONE (09:34)
[2021-06-22] MEDS ORDERED: cefTRIAXone SODIUM 1 GM VIAL ONE (09:34)
[2021-06-22] MEDS: CEFTRIAXONE 1 GM in DEXTROSE 5%-WATER - 50 ML IVPB SCH (09:39)
[2021-06-22] MEDS: CHOLECALCIFEROL (VIT D3) 1,000 UNIT (25 MCG) TABLET PO SCH (09:40)
[2021-06-22] MEDS: ASCORBIC ACID 500 MG TABLET (FP) PO SCH ×2 (09:40→22:14)
[2021-06-22] MEDS: SEVELAMER CARBONATE 800 MG TAB (FP) PO SCH ×3 (09:40→17:51)
[2021-06-22] MEDS: FUROSEMIDE 40 MG TABLET (FP) PO SCH (09:40)
[2021-06-22] MEDS: amLODIPine BESYLATE 10 MG TABLET (FP) PO SCH ×2 (09:41→12:12)
[2021-06-22] MEDS: ASPIRIN 81 MG CHEWABLE TABLETS PO SCH (09:44)
[2021-06-22] MEDS ORDERED: INSULIN (NOVOLOG) ASPART 100 UNITS/ML 10ML VIAL ONE (12:36)
[2021-06-22] MEDS ORDERED: SODIUM CHLORIDE 250 ML IV PRN (13:15)
[2021-06-22] MEDS ORDERED: predniSONE 20 MG TABLET (UD) PO SCH (15:45)
[2021-06-22] MEDS: DEXAMETHASONE SOD PHOSPHATE 10 MG/1 ML VIAL IVPUSH SCH (17:50)
[2021-06-22] MEDS: MELATONIN 5 MG TABLETS PO SCH (22:14)
[2021-06-22] MEDS: ATORVASTATIN CA 40 MG TABLET (FP) PO SCH (22:14)
[2021-06-23] MEDS: HEPARIN NA (PORCINE) 5,000 UNITS/ML 1ML VIAL SQ SCH ×3 (06:23→22:15)
[2021-06-23] MEDS: INSULIN SLIDING SCALE (NOVOLOG) 1 VIAL SQ SCH ×4 (06:29→22:33)
[2021-06-23] MEDS: SEVELAMER CARBONATE 800 MG TAB (FP) PO SCH ×3 (08:50→18:29)
[2021-06-23] MEDS: ASPIRIN 81 MG CHEWABLE TABLETS PO SCH (11:15)
[2021-06-23] MEDS: CEFTRIAXONE 1 GM in DEXTROSE 5%-WATER - 50 ML IVPB SCH (11:16)
[2021-06-23] MEDS: DEXAMETHASONE SOD PHOSPHATE 10 MG/1 ML VIAL IVPUSH SCH (11:16)
[2021-06-23] MEDS: ASCORBIC ACID 500 MG TABLET (FP) PO SCH ×2 (11:16→22:15)
[2021-06-23] MEDS: amLODIPine BESYLATE 10 MG TABLET (FP) PO SCH (11:17)
[2021-06-23] MEDS: CHOLECALCIFEROL (VIT D3) 1,000 UNIT (25 MCG) TABLET PO SCH (11:17)
[2021-06-23] MEDS ORDERED: EPOETIN ALFA-EPBX 10,000 UNIT/ML VIAL IVPUSH ONE (15:00)
[2021-06-23] MEDS ORDERED: IRON SUCROSE INJECTION 100 MG in SODIUM CHLORIDE 95 ML IVPB ONE (15:01)
[2021-06-23] MEDS ORDERED: SODIUM CHLORIDE 250 ML IV PRN (15:01)
[2021-06-23 15:38] LABS: HEMATOCRIT 24.8 % (35.4-49); HEMOGLOBIN 8.3 GM/dL (11.7-16.9); MCH 34.9 pg (25.7-33.7); MCHC 33.4 g/dl (32.0-35.9); MEAN CELL VOLUME 104.6 fl (80-96); MEAN PLT VOLUME 7.6 fl (7.5-11.1); PLATELET COUNT 289 10^3/uL (134-434); RBC 2.38 M/mm3 (4.00-5.60); RDW 15.1 % (11.9-15.9); WHITE BLOOD COUNT 5.6 K/mm3 (4.0-10.0)
[2021-06-23 16:00] LABS: CHLORIDE 101 mmol/L (98-107); SODIUM 141 mmol/L (136-145)
[2021-06-23 16:06] LABS: CALCIUM 9.7 mg/dL (8.5-10.1); GLUCOSE,RANDOM 138 mg/dL (74-106)
[2021-06-23 16:07] LABS: ANION GAP 9 MMOL/L (8-16); BLOOD UREA NITROGEN 38.9 mg/dL (7-18); CO2 30 mmol/L (21-32)
[2021-06-23 16:09] LABS: PHOSPHOROUS 2.9 mg/dL (2.5-4.9)
[2021-06-23 16:10] LABS: SGOT/AST 9 U/L (15-37); TOT PROT 5.9 g/dl (6.4-8.2)
[2021-06-23 16:11] LABS: BILIRUBIN,TOTAL 0.4 mg/dL (0.2-1)
[2021-06-23 16:12] LABS: ALK PHOS 50 U/L (45-117)
[2021-06-23 16:14] LABS: SGPT/ALT 12 U/L (13-61)
[2021-06-23] MEDS: MELATONIN 5 MG TABLETS PO SCH (22:15)
[2021-06-23] MEDS: ATORVASTATIN CA 40 MG TABLET (FP) PO SCH (22:15)
[2021-06-24] MEDS: HEPARIN NA (PORCINE) 5,000 UNITS/ML 1ML VIAL SQ SCH ×3 (05:43→21:19)
[2021-06-24] MEDS: INSULIN SLIDING SCALE (NOVOLOG) 1 VIAL SQ SCH ×4 (06:19→21:43)
[2021-06-24 09:18] LABS: BASO % 0.7 % (0-2.0); EOS % 3.1 % (0-4.5); HEMATOCRIT 26.7 % (35.4-49); LYMPH % 24.6 % (8-40); MCH 35.4 pg (25.7-33.7); MCHC 33.7 g/dl (32.0-35.9); MEAN CELL VOLUME 105.2 fl (80-96); MEAN PLT VOLUME 7.5 fl (7.5-11.1); MONO % 14.3 % (3.8-10.2); NEUT % 57.3 % (42.8-82.8); PLATELET COUNT 286 10^3/uL (134-434); RBC 2.54 M/mm3 (4.00-5.60); RDW 15.2 % (11.9-15.9); WHITE BLOOD COUNT 4.4 K/mm3 (4.0-10.0)
[2021-06-24 09:50] LABS: ANISOCYTOSIS 2+; MACROCYTOSIS 2+
[2021-06-24 10:10] LABS: ALBUMIN 2.8 g/dl (3.4-5.0); BLOOD UREA NITROGEN 14.3 mg/dL (7-18)
[2021-06-24 10:12] LABS: CALCIUM 9.5 mg/dL (8.5-10.1)
[2021-06-24 10:13] LABS: MAGNESIUM 2.1 mg/dL (1.8-2.4)
[2021-06-24 10:15] LABS: CREATININE 4.6 mg/dL (0.55-1.3); PHOSPHOROUS 2.6 mg/dL (2.5-4.9)
[2021-06-24 10:17] LABS: BILIRUBIN,TOTAL 0.5 mg/dL (0.2-1); TOT PROT 5.6 g/dl (6.4-8.2)
[2021-06-24] MEDS ORDERED: cefTRIAXone SODIUM 1 GM VIAL ONE (10:46)
[2021-06-24] MEDS ORDERED: DEXTROSE 5%-WATER - 50 ML IVPB ONE (10:46)
[2021-06-24] MEDS: CEFTRIAXONE 1 GM in DEXTROSE 5%-WATER - 50 ML IVPB SCH (10:51)
[2021-06-24] MEDS: ASPIRIN 81 MG CHEWABLE TABLETS PO SCH ×2 (10:59→18:19)
[2021-06-24] MEDS: SEVELAMER CARBONATE 800 MG TAB (FP) PO SCH ×3 (10:59→18:18)
[2021-06-24] MEDS: CHOLECALCIFEROL (VIT D3) 1,000 UNIT (25 MCG) TABLET PO SCH ×2 (10:59→18:19)
[2021-06-24] MEDS: ASCORBIC ACID 500 MG TABLET (FP) PO SCH ×2 (10:59→21:19)
[2021-06-24] MEDS: ATORVASTATIN CA 40 MG TABLET (FP) PO SCH (21:18)
[2021-06-24] MEDS: MELATONIN 5 MG TABLETS PO SCH (21:19)
[2021-06-25] MEDS: HEPARIN NA (PORCINE) 5,000 UNITS/ML 1ML VIAL SQ SCH ×3 (06:24→22:58)
[2021-06-25] MEDS: INSULIN SLIDING SCALE (NOVOLOG) 1 VIAL SQ SCH ×4 (06:30→22:59)
[2021-06-25] MEDS ORDERED: SODIUM CHLORIDE 250 ML IV PRN (07:00)
[2021-06-25] MEDS ORDERED: EPOETIN ALFA-EPBX 10,000 UNIT/ML VIAL IVPUSH ONE (08:00)
[2021-06-25] MEDS: SEVELAMER CARBONATE 800 MG TAB (FP) PO SCH ×3 (08:31→16:48)
[2021-06-25 09:52] LABS: HEMATOCRIT 27.1 % (35.4-49); HEMOGLOBIN 9.1 GM/dL (11.7-16.9); MCH 35.2 pg (25.7-33.7); MCHC 33.7 g/dl (32.0-35.9); MEAN CELL VOLUME 104.5 fl (80-96); MEAN PLT VOLUME 7.8 fl (7.5-11.1); PLATELET COUNT 309 10^3/uL (134-434); RBC 2.59 M/mm3 (4.00-5.60); WHITE BLOOD COUNT 4.3 K/mm3 (4.0-10.0)
[2021-06-25 10:27] LABS: BLOOD UREA NITROGEN 21.8 mg/dL (7-18); CALCIUM 9.6 mg/dL (8.5-10.1)
[2021-06-25 10:31] LABS: PHOSPHOROUS 3.4 mg/dL (2.5-4.9)
[2021-06-25] MEDS: amLODIPine BESYLATE 10 MG TABLET (FP) PO SCH (10:32)
[2021-06-25 10:33] LABS: CREATININE 6.7 mg/dL (0.55-1.3)
[2021-06-25] MEDS: CHOLECALCIFEROL (VIT D3) 1,000 UNIT (25 MCG) TABLET PO SCH (11:23)
[2021-06-25] MEDS: ASPIRIN 81 MG CHEWABLE TABLETS PO SCH (11:23)
[2021-06-25] MEDS: ASCORBIC ACID 500 MG TABLET (FP) PO SCH ×2 (11:23→22:59)
[2021-06-25] MEDS ORDERED: DEXTROSE 50%-WATER 25 GM/50 ML DISP.SYRIN ONE (12:02)
[2021-06-25] MEDS ORDERED: DEXTROSE 50%-WATER - 25 GM/50 ML VIAL IVPUSH ONE (14:05)
[2021-06-25] MEDS ORDERED: DEXTROSE 50%-WATER - 25 GM/50 ML VIAL IVPUSH PRN (14:05)
[2021-06-25] MEDS: AMOX TR/POT CLAV 500MG/125MG TABLETS (FP) PO SCH (16:48)
[2021-06-25] MEDS: ATORVASTATIN CA 40 MG TABLET (FP) PO SCH (22:58)
[2021-06-25] MEDS: MELATONIN 5 MG TABLETS PO SCH (22:59)
[2021-06-26] MEDS: INSULIN SLIDING SCALE (NOVOLOG) 1 VIAL SQ SCH ×4 (06:14→22:28)
[2021-06-26] MEDS: HEPARIN NA (PORCINE) 5,000 UNITS/ML 1ML VIAL SQ SCH ×3 (06:15→22:17)
[2021-06-26] MEDS: SEVELAMER CARBONATE 800 MG TAB (FP) PO SCH ×3 (08:10→16:38)
[2021-06-26] MEDS: AMOX TR/POT CLAV 500MG/125MG TABLETS (FP) PO SCH ×2 (08:10→16:38)
[2021-06-26] MEDS ORDERED: ONDANSETRON 4 MG/2 ML VIAL IVPUSH PRN (08:28)
[2021-06-26] MEDS ORDERED: MAG HYDROX/AL HYDROX/SIMETH 30 ML UNIT-DOSE CUP PO PRN (08:29)
[2021-06-26] MEDS: ASPIRIN 81 MG CHEWABLE TABLETS PO SCH (09:26)
[2021-06-26] MEDS: amLODIPine BESYLATE 10 MG TABLET (FP) PO SCH (09:27)
[2021-06-26] MEDS: FUROSEMIDE 40 MG TABLET (FP) PO SCH (09:27)
[2021-06-26] MEDS: ASCORBIC ACID 500 MG TABLET (FP) PO SCH ×2 (09:27→22:17)
[2021-06-26] MEDS: CHOLECALCIFEROL (VIT D3) 1,000 UNIT (25 MCG) TABLET PO SCH (09:27)
[2021-06-26 09:36] LABS: BASO % 0.7 % (0-2.0); EOS % 2.3 % (0-4.5); HEMATOCRIT 30.1 % (35.4-49); LYMPH % 20.2 % (8-40); MCH 34.8 pg (25.7-33.7); MCHC 33.1 g/dl (32.0-35.9); MEAN PLT VOLUME 7.9 fl (7.5-11.1); MONO % 13.1 % (3.8-10.2); NEUT % 63.7 % (42.8-82.8); PLATELET COUNT 354 10^3/uL (134-434); RBC 2.87 M/mm3 (4.00-5.60); RDW 14.5 % (11.9-15.9); WHITE BLOOD COUNT 6.2 K/mm3 (4.0-10.0)
[2021-06-26 09:54] LABS: CHLORIDE 97 mmol/L (98-107); SODIUM 137 mmol/L (136-145)
[2021-06-26 10:02] LABS: ALBUMIN 3.1 g/dl (3.4-5.0); ANION GAP 8 MMOL/L (8-16); BLOOD UREA NITROGEN 36.6 mg/dL (7-18); CO2 32 mmol/L (21-32); GLUCOSE,RANDOM 105 mg/dL (74-106)
[2021-06-26 10:05] LABS: SGOT/AST 20 U/L (15-37); SGPT/ALT 19 U/L (13-61)
[2021-06-26 10:06] LABS: BILIRUBIN,TOTAL 0.6 mg/dL (0.2-1)
[2021-06-26 10:08] LABS: ALK PHOS 55 U/L (45-117)
[2021-06-26 10:14] LABS: CREATININE 8.3 mg/dL (0.55-1.3)
[2021-06-26 13:39] VITALS: BMI 16.6
[2021-06-26] MEDS ORDERED: SODIUM ZIRCONIUM CYCLOSILICATE (LOKELMA) 5 GM PACKET PO ONE (14:42)
[2021-06-26] MEDS: ATORVASTATIN CA 40 MG TABLET (FP) PO SCH (22:17)
[2021-06-26] MEDS: MELATONIN 5 MG TABLETS PO SCH (22:17)
[2021-06-27] MEDS: INSULIN SLIDING SCALE (NOVOLOG) 1 VIAL SQ SCH ×4 (06:24→22:44)
[2021-06-27] MEDS: HEPARIN NA (PORCINE) 5,000 UNITS/ML 1ML VIAL SQ SCH ×3 (06:24→21:55)
[2021-06-27 09:30] LABS: BASO % 0.7 % (0-2.0); EOS % 2.3 % (0-4.5); HEMOGLOBIN 10.1 GM/dL (11.7-16.9); MCH 34.7 pg (25.7-33.7); MCHC 32.4 g/dl (32.0-35.9); MEAN CELL VOLUME 107.2 fl (80-96); MEAN PLT VOLUME 7.6 fl (7.5-11.1); MONO % 11.4 % (3.8-10.2); NEUT % 66.6 % (42.8-82.8); PLATELET COUNT 365 10^3/uL (134-434); RDW 15.2 % (11.9-15.9); WHITE BLOOD COUNT 7.3 K/mm3 (4.0-10.0)
[2021-06-27] MEDS: FUROSEMIDE 40 MG TABLET (FP) PO SCH (09:43)
[2021-06-27] MEDS: amLODIPine BESYLATE 10 MG TABLET (FP) PO SCH (09:43)
[2021-06-27] MEDS: SEVELAMER CARBONATE 800 MG TAB (FP) PO SCH ×4 (09:43→17:17)
[2021-06-27] MEDS: CHOLECALCIFEROL (VIT D3) 1,000 UNIT (25 MCG) TABLET PO SCH (09:43)
[2021-06-27] MEDS: AMOX TR/POT CLAV 500MG/125MG TABLETS (FP) PO SCH ×3 (09:46→17:17)
[2021-06-27] MEDS: ASPIRIN 81 MG CHEWABLE TABLETS PO SCH (09:46)
[2021-06-27] MEDS: ASCORBIC ACID 500 MG TABLET (FP) PO SCH ×2 (09:46→21:54)
[2021-06-27 09:56] LABS: CHLORIDE 96 mmol/L (98-107); SODIUM 138 mmol/L (136-145)
[2021-06-27 10:08] LABS: ANION GAP 10 MMOL/L (8-16); BILIRUBIN,TOTAL 0.6 mg/dL (0.2-1); BLOOD UREA NITROGEN 44.7 mg/dL (7-18); CO2 31 mmol/L (21-32); GLUCOSE,RANDOM 90 mg/dL (74-106); SGOT/AST 25 U/L (15-37); SGPT/ALT 24 U/L (13-61)
[2021-06-27 10:10] LABS: ALK PHOS 58 U/L (45-117); CALCIUM 10.1 mg/dL (8.5-10.1); MAGNESIUM 2.4 mg/dL (1.8-2.4); PHOSPHOROUS 2.7 mg/dL (2.5-4.9); TOT PROT 6.1 g/dl (6.4-8.2)
[2021-06-27 10:13] LABS: CREATININE 9.9 mg/dL (0.55-1.3)
[2021-06-27] MEDS ORDERED: SODIUM CHLORIDE 250 ML IV PRN (10:35)
[2021-06-27] MEDS ORDERED: DEXTROSE 50%-WATER - 25 GM/50 ML VIAL IVPUSH ONE (11:30)
[2021-06-27] MEDS ORDERED: INSULIN REGULAR HUMAN 100 UNITS/ML *VIAL IVPUSH ONE (11:30)
[2021-06-27] MEDS ORDERED: CALCIUM GLUCONATE 10% - 1,000 MG/10 ML VIAL IVPB ONE (11:30)
[2021-06-27] MEDS: MELATONIN 5 MG TABLETS PO SCH (21:54)
[2021-06-27] MEDS: ATORVASTATIN CA 40 MG TABLET (FP) PO SCH (21:54)
[2021-06-28] MEDS: HEPARIN NA (PORCINE) 5,000 UNITS/ML 1ML VIAL SQ SCH ×2 (05:47→13:30)
[2021-06-28] MEDS: INSULIN SLIDING SCALE (NOVOLOG) 1 VIAL SQ SCH ×2 (06:05→12:02)
[2021-06-28] MEDS: SEVELAMER CARBONATE 800 MG TAB (FP) PO SCH ×2 (08:52→12:08)
[2021-06-28] MEDS: AMOX TR/POT CLAV 500MG/125MG TABLETS (FP) PO SCH (08:52)
[2021-06-28] MEDS: amLODIPine BESYLATE 10 MG TABLET (FP) PO SCH (09:42)
[2021-06-28] MEDS ORDERED: POLYETHYLENE GLYCOL (HEALTHYLAX) 3350 17 GM PACKET PO ONE (09:45)
[2021-06-28 09:47] LABS: BASO % 0.5 % (0-2.0); EOS % 2.5 % (0-4.5); HEMOGLOBIN 10.5 GM/dL (11.7-16.9); LYMPH % 16.8 % (8-40); MCH 35.6 pg (25.7-33.7); MCHC 33.8 g/dl (32.0-35.9); MEAN CELL VOLUME 105.4 fl (80-96); MEAN PLT VOLUME 7.3 fl (7.5-11.1); MONO % 14.1 % (3.8-10.2); NEUT % 66.1 % (42.8-82.8); PLATELET COUNT 346 10^3/uL (134-434); RBC 2.94 M/mm3 (4.00-5.60); RDW 15.1 % (11.9-15.9); WHITE BLOOD COUNT 6.8 K/mm3 (4.0-10.0)
[2021-06-28 10:04] LABS: CALCIUM 9.5 mg/dL (8.5-10.1)
[2021-06-28 10:05] LABS: BLOOD UREA NITROGEN 20.6 mg/dL (7-18)
[2021-06-28 10:07] LABS: CREATININE 6.2 mg/dL (0.55-1.3)
[2021-06-28] MEDS: CHOLECALCIFEROL (VIT D3) 1,000 UNIT (25 MCG) TABLET PO SCH (10:35)
[2021-06-28] MEDS: ASPIRIN 81 MG CHEWABLE TABLETS PO SCH (10:35)
[2021-06-28] MEDS: ASCORBIC ACID 500 MG TABLET (FP) PO SCH (10:36)
[2021-06-28 10:53] LABS: ANISOCYTOSIS 2+; MACROCYTOSIS 0
[2021-06-28] MEDS ORDERED: BISACODYL 10 MG SUPP.RECT PR ONE (11:02)
[2021-06-28 15:24] VITALS: BP 127/56; PULSE 67; TEMP 98.9
== END 2021-06-28 16:22 | DRG 193 ==
LOC: JER 22:40 → JERBED 06-21 03:21 → J8W 06-21 08:22 → OBSVTOIN 06-21 12:28 → J5S 06-23 18:14
PROVIDERS: ADMIT Internal Medicine; ATTEND Internal Medicine
DX: J18.9 Pneumonia, unspecified organism (principal); U07.1 COVID-19; N18.6 End stage renal disease; R64 Cachexia; I12.0 Hypertensive chronic kidney disease with stage 5 chronic kidney disease or end stage renal disease; D50.9 Iron deficiency anemia, unspecified; E87.5 Hyperkalemia; R62.7 Adult failure to thrive; Z68.20 Body mass index [BMI] 20.0-20.9, adult; E11.22 Type 2 diabetes mellitus with diabetic chronic kidney disease; Z99.2 Dependence on renal dialysis; F03.90 Unspecified dementia, unspecified severity, without behavioral disturbance, psychotic disturbance, mood disturbance, and anxiety; E78.5 Hyperlipidemia, unspecified; D63.1 Anemia in chronic kidney disease; N25.0 Renal osteodystrophy; Z85.46 Personal history of malignant neoplasm of prostate
CPT/HCPCS: 0241U-QW; 36415; 71045-TC-FY; 71250-TC; 80048; 80053; 82607; 82728; 82947; 82962; 83540; 83550; 83615; 83735; 84100; 85025; 85027; 85379; 85610; 85730; 86140; 86803; 87340; 87807; 93005; 93010; 97116-GP; 97161-GP; 99285-25; C9803-CS; G0378; J1100; J1644; J1756; Q5106; U0003; U0005

== ENCOUNTER 2021-07-09 15:15 | Inpatient (IN) | payer OTHER, BC ==
[2021-07-09] MEDS ORDERED: CALCIUM GLUCONATE 10% - 1,000 MG/10 ML VIAL IVPUSH ONE (16:22)
[2021-07-09] MEDS ORDERED: INSULIN REGULAR HUMAN 100 UNITS/ML *VIAL IVPUSH ONE (16:22)
[2021-07-09] MEDS ORDERED: DEXTROSE 50%-WATER - 25 GM/50 ML VIAL IVPUSH ONE (16:23)
[2021-07-09] MEDS ORDERED: CALCIUM GLUCONATE 10% - 1,000 MG/10 ML VIAL ONE (16:30)
[2021-07-09] MEDS ORDERED: DEXTROSE 50%-WATER - 25 GM/50 ML VIAL ONE (16:30)
[2021-07-09 17:17] LABS: BASO % 1.6 % (0-2.0); EOS % 2.3 % (0-4.5); HEMATOCRIT 34.1 % (35.4-49); HEMOGLOBIN 11.4 GM/dL (11.7-16.9); LYMPH % 29.1 % (8-40); MCH 34.8 pg (25.7-33.7); MCHC 33.6 g/dl (32.0-35.9); MEAN CELL VOLUME 103.8 fl (80-96); MEAN PLT VOLUME 7.2 fl (7.5-11.1); MONO % 14.9 % (3.8-10.2); NEUT % 52.1 % (42.8-82.8); PLATELET COUNT 354 10^3/uL (134-434); RBC 3.29 M/mm3 (4.00-5.60); RDW 15.1 % (11.9-15.9); WHITE BLOOD COUNT 4.5 K/mm3 (4.0-10.0)
[2021-07-09 17:23] LABS: INR 0.97 (0.83-1.09); PROTHROMBIN TIME (PATIENT) 11.2 SEC (9.7-13.0)
[2021-07-09 17:26] LABS: ACTIVATED PTT 30.1 SECONDS (25.2-36.5)
[2021-07-09 17:43] LABS: CHLORIDE 94 mmol/L (98-107); SODIUM 137 mmol/L (136-145)
[2021-07-09 17:45] LABS: CALCIUM 9.9 mg/dL (8.5-10.1); CO2 26 mmol/L (21-32); GLUCOSE,RANDOM 69 mg/dL (74-106); MAGNESIUM 2.6 mg/dL (1.8-2.4)
[2021-07-09 17:46] LABS: ALBUMIN 3.6 g/dl (3.4-5.0)
[2021-07-09 17:48] LABS: PHOSPHOROUS 8.2 mg/dL (2.5-4.9); SGPT/ALT 11 U/L (13-61)
[2021-07-09 17:49] LABS: SGOT/AST 10 U/L (15-37)
[2021-07-09 17:50] LABS: BILIRUBIN,TOTAL 0.8 mg/dL (0.2-1); TOT PROT 7.1 g/dl (6.4-8.2)
[2021-07-09 17:51] LABS: ALK PHOS 66 U/L (45-117)
[2021-07-09 17:52] LABS: ANION GAP 16 MMOL/L (8-16); BLOOD UREA NITROGEN 61.3 mg/dL (7-18); CREATININE 17.8 mg/dL (0.55-1.3)
[2021-07-09] MEDS ORDERED: SODIUM CHLORIDE 250 ML IV PRN (17:57)
[2021-07-09 18:44] LABS: CHLORIDE 95 mmol/L (98-107); SODIUM 136 mmol/L (136-145)
[2021-07-09 18:45] LABS: CALCIUM 9.7 mg/dL (8.5-10.1)
[2021-07-09 18:46] LABS: ANION GAP 17 MMOL/L (8-16); BLOOD UREA NITROGEN 62.8 mg/dL (7-18); CO2 24 mmol/L (21-32); GLUCOSE,RANDOM 128 mg/dL (74-106)
[2021-07-09 19:32] LABS: CREATININE 17.7 mg/dL (0.55-1.3)
[2021-07-09] MEDS ORDERED: ALBUTEROL SO4 2.5/IPRATROPIUM 0.5 INH SOL 3 ML VIAL.NEB. NEB SCH (22:00)
[2021-07-10] MEDS: traZODone HCL 50 MG TABLET (FP) PO SCH ×3 (00:42→21:46)
[2021-07-10] MEDS: hydrALAZINE HCL 10 MG TABLET PO SCH ×4 (00:42→21:51)
[2021-07-10] MEDS: MELATONIN 5 MG TABLETS PO SCH ×3 (00:42→21:46)
[2021-07-10] MEDS: CARVEDILOL 6.25 MG TABLET (FP) PO SCH ×4 (00:43→21:45)
[2021-07-10] MEDS: ALPRAZolam 0.25 MG TABLET PO PRN ×2 (00:43→09:29)
[2021-07-10] MEDS: INSULIN SLIDING SCALE (NOVOLOG) 1 VIAL SQ SCH ×5 (00:45→21:51)
[2021-07-10] MEDS: HEPARIN NA (PORCINE) 5,000 UNITS/ML 1ML VIAL SQ SCH ×3 (06:28→21:47)
[2021-07-10] MEDS: ALBUTEROL SO4 2.5/IPRATROPIUM 0.5 INH SOL 3 ML VIAL.NEB. NEB SCH ×4 (07:20→20:03)
[2021-07-10 07:30] LABS: BASO % 0.4 % (0-2.0); EOS % 1.4 % (0-4.5); HEMOGLOBIN 11.7 GM/dL (11.7-16.9); MCHC 33.6 g/dl (32.0-35.9); MEAN CELL VOLUME 104.2 fl (80-96); MEAN PLT VOLUME 7.4 fl (7.5-11.1); MONO % 11.4 % (3.8-10.2); NEUT % 55.8 % (42.8-82.8); PLATELET COUNT 338 10^3/uL (134-434); RBC 3.35 M/mm3 (4.00-5.60); RDW 15.4 % (11.9-15.9); WHITE BLOOD COUNT 6.7 K/mm3 (4.0-10.0)
[2021-07-10 07:39] LABS: INR 0.96 (0.83-1.09)
[2021-07-10 07:51] LABS: CHLORIDE 102 mmol/L (98-107); SODIUM 144 mmol/L (136-145)
[2021-07-10 07:53] LABS: CALCIUM 9.7 mg/dL (8.5-10.1)
[2021-07-10 07:54] LABS: ANION GAP 12 MMOL/L (8-16); CO2 29 mmol/L (21-32); GLUCOSE,RANDOM 107 mg/dL (74-106)
[2021-07-10 08:08] LABS: BLOOD UREA NITROGEN 21.9 mg/dL (7-18); CREATININE 9.1 mg/dL (0.55-1.3)
[2021-07-10] MEDS: ASPIRIN 81 MG CHEWABLE TABLETS PO SCH (09:28)
[2021-07-10] MEDS: FUROSEMIDE 40 MG TABLET (FP) PO SCH (09:28)
[2021-07-10] MEDS: CHOLECALCIFEROL (VIT D3) 1,000 UNIT (25 MCG) TABLET PO SCH (09:28)
[2021-07-10] MEDS: CALCIUM ACETATE 667 MG CAPSULE (FP) PO SCH ×3 (09:28→17:46)
[2021-07-10 11:09] VITALS: BMI 17.9
[2021-07-11] MEDS: HEPARIN NA (PORCINE) 5,000 UNITS/ML 1ML VIAL SQ SCH ×3 (06:23→23:14)
[2021-07-11] MEDS: INSULIN SLIDING SCALE (NOVOLOG) 1 VIAL SQ SCH ×4 (06:24→23:14)
[2021-07-11] MEDS: ALBUTEROL SO4 2.5/IPRATROPIUM 0.5 INH SOL 3 ML VIAL.NEB. NEB SCH ×4 (07:16→19:20)
[2021-07-11 08:17] LABS: BASO % 1.1 % (0-2.0); EOS % 3.5 % (0-4.5); HEMATOCRIT 27.7 % (35.4-49); HEMOGLOBIN 9.3 GM/dL (11.7-16.9); LYMPH % 36.4 % (8-40); MCH 35.1 pg (25.7-33.7); MCHC 33.4 g/dl (32.0-35.9); MEAN PLT VOLUME 7.6 fl (7.5-11.1); MONO % 14.3 % (3.8-10.2); NEUT % 44.7 % (42.8-82.8); PLATELET COUNT 299 10^3/uL (134-434); RBC 2.64 M/mm3 (4.00-5.60); RDW 15.2 % (11.9-15.9)
[2021-07-11 08:20] LABS: CHLORIDE 101 mmol/L (98-107); SODIUM 139 mmol/L (136-145)
[2021-07-11 08:24] LABS: ALBUMIN 2.9 g/dl (3.4-5.0); ANION GAP 8 MMOL/L (8-16); BLOOD UREA NITROGEN 33.2 mg/dL (7-18); CO2 31 mmol/L (21-32); GLUCOSE,RANDOM 86 mg/dL (74-106)
[2021-07-11 08:27] LABS: SGOT/AST 12 U/L (15-37); SGPT/ALT 9 U/L (13-61)
[2021-07-11 08:29] LABS: BILIRUBIN,TOTAL 0.7 mg/dL (0.2-1)
[2021-07-11 08:30] LABS: ALK PHOS 59 U/L (45-117)
[2021-07-11] MEDS: CHOLECALCIFEROL (VIT D3) 1,000 UNIT (25 MCG) TABLET PO SCH (09:30)
[2021-07-11] MEDS: hydrALAZINE HCL 10 MG TABLET PO SCH ×2 (09:30→23:00)
[2021-07-11] MEDS: CALCIUM ACETATE 667 MG CAPSULE (FP) PO SCH ×3 (09:30→16:46)
[2021-07-11] MEDS: FUROSEMIDE 40 MG TABLET (FP) PO SCH (09:30)
[2021-07-11] MEDS: CARVEDILOL 6.25 MG TABLET (FP) PO SCH ×2 (09:31→23:00)
[2021-07-11] MEDS: ASPIRIN 81 MG CHEWABLE TABLETS PO SCH (09:31)
[2021-07-11 12:50] LABS: ANISOCYTOSIS 1+; MACROCYTOSIS 1+; OVALOCYTE 2+; TEAR DROP CELLS 2+
[2021-07-11] MEDS ORDERED: ROSUVASTATIN CA 10 MG TABLET PO SCH (22:00)
[2021-07-11] MEDS: traZODone HCL 50 MG TABLET (FP) PO SCH (23:00)
[2021-07-11] MEDS: MELATONIN 5 MG TABLETS PO SCH (23:14)
[2021-07-12] MEDS: INSULIN SLIDING SCALE (NOVOLOG) 1 VIAL SQ SCH ×3 (06:34→17:36)
[2021-07-12] MEDS: HEPARIN NA (PORCINE) 5,000 UNITS/ML 1ML VIAL SQ SCH ×2 (06:34→16:29)
[2021-07-12] MEDS: ALBUTEROL SO4 2.5/IPRATROPIUM 0.5 INH SOL 3 ML VIAL.NEB. NEB SCH ×3 (07:50→15:10)
[2021-07-12] MEDS: ALPRAZolam 0.25 MG TABLET PO PRN (07:53)
[2021-07-12] MEDS ORDERED: SODIUM CHLORIDE 250 ML IV PRN ×2 (08:45)
[2021-07-12] MEDS ORDERED: EPOETIN ALFA-EPBX 4,000 UNIT/ML VIAL IVPUSH ONE (09:00)
[2021-07-12] MEDS: CARVEDILOL 6.25 MG TABLET (FP) PO SCH (12:22)
[2021-07-12] MEDS: ASPIRIN 81 MG CHEWABLE TABLETS PO SCH (12:22)
[2021-07-12] MEDS: CALCIUM ACETATE 667 MG CAPSULE (FP) PO SCH ×3 (12:22→18:55)
[2021-07-12] MEDS: CHOLECALCIFEROL (VIT D3) 1,000 UNIT (25 MCG) TABLET PO SCH (12:22)
[2021-07-12] MEDS: hydrALAZINE HCL 10 MG TABLET PO SCH (12:31)
[2021-07-12] MEDS: FUROSEMIDE 40 MG TABLET (FP) PO SCH (12:42)
[2021-07-12 17:09] VITALS: BP 115/64; PULSE 66; TEMP 98
== END 2021-07-12 21:04 | DRG 640 ==
LOC: JER 15:15 → JERBED 18:00 → J8W 23:50
PROVIDERS: ADMIT Internal Medicine; ATTEND Family Medicine
PROC: 5A1D70Z Performance of Urinary Filtration, Intermittent, Less than 6 Hours Per Day (ICD-10-PCS; principal; 2021-07-12)
DX: E87.5 Hyperkalemia (principal); N18.6 End stage renal disease; I12.0 Hypertensive chronic kidney disease with stage 5 chronic kidney disease or end stage renal disease; I24.8 Other forms of acute ischemic heart disease; Z91.15 Patient's noncompliance with renal dialysis; E78.5 Hyperlipidemia, unspecified; E11.9 Type 2 diabetes mellitus without complications; F03.90 Unspecified dementia, unspecified severity, without behavioral disturbance, psychotic disturbance, mood disturbance, and anxiety; Z85.46 Personal history of malignant neoplasm of prostate; Z93.6 Other artificial openings of urinary tract status; E83.39 Other disorders of phosphorus metabolism; D63.1 Anemia in chronic kidney disease; N25.0 Renal osteodystrophy; E83.41 Hypermagnesemia; Z99.2 Dependence on renal dialysis
CPT/HCPCS: 36415; 71045-TC-FY; 80048; 80053; 82962; 83735; 84100; 84132; 84484; 85025; 85610; 85730; 93005; 93010; 93306-TC; 94640; 99285-25; C9803-CS; J1644; Q5106; U0003; U0005

== ENCOUNTER 2021-09-27 11:52 | Inpatient (IN) | payer OTHER, BC ==
[2021-09-27 15:13] LABS: BASO % 0.8 % (0-2.0); EOS % 1.5 % (0-4.5); HEMATOCRIT 39.2 % (35.4-49); HEMOGLOBIN 13.1 GM/dL (11.7-16.9); LYMPH % 18.3 % (8-40); MCH 32.8 pg (25.7-33.7); MCHC 33.4 g/dl (32.0-35.9); MEAN CELL VOLUME 98.3 fl (80-96); MEAN PLT VOLUME 7.6 fl (7.5-11.1); MONO % 15.1 % (3.8-10.2); NEUT % 64.3 % (42.8-82.8); PLATELET COUNT 242 10^3/uL (134-434); RBC 3.98 M/mm3 (4.00-5.60); RDW 16.1 % (11.9-15.9); WHITE BLOOD COUNT 4.3 K/mm3 (4.0-10.0)
[2021-09-27 15:20] LABS: INR 0.95 (0.83-1.09); PROTHROMBIN TIME (PATIENT) 10.9 SEC (9.7-13.0)
[2021-09-27 15:23] LABS: ACTIVATED PTT 30.1 SECONDS (25.2-36.5)
[2021-09-27 15:56] LABS: CHLORIDE 102 mmol/L (98-107); SODIUM 137 mmol/L (136-145)
[2021-09-27 15:58] LABS: ALBUMIN 2.9 g/dl (3.4-5.0); ANION GAP 12 MMOL/L (8-16); CO2 23 mmol/L (21-32); GLUCOSE,RANDOM 132 mg/dL (74-106)
[2021-09-27 16:01] LABS: SGOT/AST 9 U/L (15-37); SGPT/ALT 9 U/L (13-61)
[2021-09-27 16:03] LABS: BILIRUBIN,TOTAL 0.5 mg/dL (0.2-1); TOT PROT 6.1 g/dl (6.4-8.2)
[2021-09-27 16:20] LABS: ALK PHOS 85 U/L (45-117)
[2021-09-27] MEDS: HEPARIN NA (PORCINE) 5,000 UNITS/ML 1ML VIAL SQ SCH (21:33)
[2021-09-27] MEDS: CARVEDILOL 6.25 MG TABLET (FP) PO SCH (21:33)
[2021-09-27] MEDS ORDERED: traZODone HCL 50 MG TABLET (FP) PO SCH (22:00)
[2021-09-28 09:14] LABS: BASO % 0.8 % (0-2.0); EOS % 1.5 % (0-4.5); HEMATOCRIT 38.9 % (35.4-49); HEMOGLOBIN 13.4 GM/dL (11.7-16.9); LYMPH % 24.6 % (8-40); MCH 34.1 pg (25.7-33.7); MCHC 34.4 g/dl (32.0-35.9); MEAN PLT VOLUME 7.2 fl (7.5-11.1); MONO % 14.7 % (3.8-10.2); NEUT % 58.4 % (42.8-82.8); PLATELET COUNT 237 10^3/uL (134-434); RBC 3.93 M/mm3 (4.00-5.60); RDW 15.9 % (11.9-15.9); WHITE BLOOD COUNT 3.5 K/mm3 (4.0-10.0)
[2021-09-28 09:40] LABS: CHLORIDE 100 mmol/L (98-107); SODIUM 138 mmol/L (136-145)
[2021-09-28 10:00] LABS: CALCIUM 9.3 mg/dL (8.5-10.1)
[2021-09-28 10:01] LABS: ALBUMIN 2.9 g/dl (3.4-5.0); ANION GAP 15 MMOL/L (8-16); BLOOD UREA NITROGEN 70.8 mg/dL (7-18); CO2 23 mmol/L (21-32); GLUCOSE,RANDOM 116 mg/dL (74-106)
[2021-09-28 10:04] LABS: PHOSPHOROUS 4.2 mg/dL (2.5-4.9); SGOT/AST 6 U/L (15-37); SGPT/ALT 10 U/L (13-61)
[2021-09-28 10:05] LABS: BILIRUBIN,TOTAL 0.5 mg/dL (0.2-1); TOT PROT 6.3 g/dl (6.4-8.2)
[2021-09-28 10:06] LABS: ALK PHOS 81 U/L (45-117)
[2021-09-28] MEDS ORDERED: POVIDONE-IODINE OINTMENT 10% - 28.4 GM TUBE ONE (10:13)
[2021-09-28] MEDS ORDERED: LIDOCAINE HCL 1%, 10 MG/ML (20ML VIAL) ONE (10:13)
[2021-09-28] MEDS ORDERED: HEPARIN NA (PORCINE) 5,000 UNITS/ML 1ML VIAL ONE (10:14)
[2021-09-28] MEDS ORDERED: SODIUM CHLORIDE 250 ML IV PRN ×2 (10:30→14:28)
[2021-09-28] MEDS: HEPARIN NA (PORCINE) 5,000 UNITS/ML 1ML VIAL SQ SCH (10:34)
[2021-09-28] MEDS: CARVEDILOL 6.25 MG TABLET (FP) PO SCH ×2 (10:34→21:04)
[2021-09-28] MEDS ORDERED: LIDOCAINE HCL/PF 2% SDV 5ML VIAL ONE (11:19)
[2021-09-28] MEDS ORDERED: PROPOFOL 20 ML ONE (11:19)
[2021-09-28] MEDS ORDERED: ceFAZolin SODIUM 1 GM VIAL ONE (11:44)
[2021-09-28] MEDS ORDERED: oxyCODONE HCL 5 MG TABLET PO PRN ×2 (11:48→14:28)
[2021-09-28] MEDS ORDERED: ONDANSETRON 4 MG/2 ML VIAL IVPUSH PRN (11:48)
[2021-09-28] MEDS ORDERED: ceFAZolin SODIUM 1 GM VIAL IVPB ONE (11:52)
[2021-09-28] MEDS ORDERED: LIDOCAINE HCL 1%, 10 MG/ML (20ML VIAL) NR ONE (11:56)
[2021-09-28] MEDS ORDERED: PHENYLEPHRINE HCL 10 MG/1 ML SINGLE DOSE VIAL ONE (12:19)
[2021-09-28] MEDS ORDERED: SEVOFLURANE 250 ML BTL ONE (12:24)
[2021-09-28] MEDS ORDERED: ePHEDrine SULFATE 50 MG/1 ML AMPULE ONE (13:58)
[2021-09-28] MEDS ORDERED: DESMOPRESSIN ACETATE 4 MCG/ML AMP IVPB ONE (16:26)
[2021-09-28 18:11] LABS: PROTHROMBIN TIME (PATIENT) 11.5 SEC (9.7-13.0)
[2021-09-28] MEDS ORDERED: HEPARIN NA (PORCINE) 5,000 UNITS/ML 1ML VIAL SQ SCH (22:00)
[2021-09-28] MEDS ORDERED: traZODone HCL 50 MG TABLET (FP) PO SCH (22:00)
[2021-09-29 11:00] LABS: CHLORIDE 102 mmol/L (98-107); SODIUM 140 mmol/L (136-145)
[2021-09-29] MEDS: CARVEDILOL 6.25 MG TABLET (FP) PO SCH ×2 (11:00→22:09)
[2021-09-29 11:02] LABS: CALCIUM 8.7 mg/dL (8.5-10.1)
[2021-09-29 11:04] LABS: ANION GAP 15 MMOL/L (8-16); CO2 23 mmol/L (21-32); GLUCOSE,RANDOM 134 mg/dL (74-106)
[2021-09-29 11:18] LABS: CREATININE 12.2 mg/dL (0.55-1.3)
[2021-09-29] MEDS ORDERED: ONDANSETRON 4 MG/2 ML VIAL IVPUSH PRN (13:43)
[2021-09-29] MEDS ORDERED: PROMETHAZINE HCL 25 MG/1 ML VIAL IVPUSH PRN ×2 (13:43→15:20)
[2021-09-29] MEDS ORDERED: SODIUM CHLORIDE 1,000 ML IV SCH ×2 (13:45→20:12)
[2021-09-29] MEDS ORDERED: PROPOFOL 20 ML ONE (18:57)
[2021-09-29] MEDS ORDERED: SODIUM CHLORIDE 250 ML IV PRN (19:01)
[2021-09-29] MEDS ORDERED: ceFAZolin SODIUM 1 GM VIAL ONE (19:25)
[2021-09-29] MEDS ORDERED: ceFAZolin SODIUM 1 GM VIAL IVPB ONE (19:41)
[2021-09-29] MEDS ORDERED: LIDOCAINE HCL 1%, 10 MG/ML (20ML VIAL) INF ONE (20:05)
[2021-09-29] MEDS ORDERED: oxyCODONE HCL 5 MG TABLET PO PRN (20:12)
[2021-09-29] MEDS ORDERED: traZODone HCL 50 MG TABLET (FP) PO SCH (22:00)
[2021-09-29] MEDS: HEPARIN NA (PORCINE) 5,000 UNITS/ML 1ML VIAL SQ SCH (22:09)
[2021-09-30] MEDS ORDERED: SODIUM CHLORIDE 250 ML IV PRN (07:28)
[2021-09-30 10:31] LABS: BASO % 0.3 % (0-2.0); HEMOGLOBIN 9.7 GM/dL (11.7-16.9); LYMPH % 11.3 % (8-40); MCH 33.2 pg (25.7-33.7); MCHC 33.3 g/dl (32.0-35.9); MEAN CELL VOLUME 99.7 fl (80-96); MEAN PLT VOLUME 7.3 fl (7.5-11.1); MONO % 7.9 % (3.8-10.2); NEUT % 79.5 % (42.8-82.8); PLATELET COUNT 221 10^3/uL (134-434); RBC 2.91 M/mm3 (4.00-5.60); RDW 16.1 % (11.9-15.9); WHITE BLOOD COUNT 5.5 K/mm3 (4.0-10.0)
[2021-09-30 11:10] LABS: CHLORIDE 106 mmol/L (98-107); SODIUM 140 mmol/L (136-145)
[2021-09-30 11:13] LABS: BLOOD UREA NITROGEN 85.5 mg/dL (7-18); CALCIUM 8.1 mg/dL (8.5-10.1); GLUCOSE,RANDOM 113 mg/dL (74-106)
[2021-09-30 11:14] LABS: ANION GAP 12 MMOL/L (8-16); CO2 22 mmol/L (21-32)
[2021-09-30] MEDS: CARVEDILOL 6.25 MG TABLET (FP) PO SCH ×2 (11:18→11:41)
[2021-09-30] MEDS: HEPARIN NA (PORCINE) 5,000 UNITS/ML 1ML VIAL SQ SCH ×3 (11:19→12:59)
[2021-09-30 13:06] VITALS: BP 129/64; PULSE 68; RESP 17; TEMP 97.8
[2021-09-30 18:40] VITALS: BMI 14.3
== END 2021-09-30 18:35 | disposition home health service (06) | DRG 252 ==
LOC: JER 11:52 → JERBED 15:32 → J6S 18:09
PROVIDERS: ADMIT Internal Medicine; ATTEND Family Medicine
PROC: B50NYZZ Plain Radiography of Left Upper Extremity Veins using Other Contrast (ICD-10-PCS; 2021-09-28)
PROC: 5A1D70Z Performance of Urinary Filtration, Intermittent, Less than 6 Hours Per Day (ICD-10-PCS; 2021-09-28)
PROC: 05CY0ZZ Extirpation of Matter from Upper Vein, Open Approach (ICD-10-PCS; principal; 2021-09-28 11:56)
PROC: 057 Upper Veins, Dilation (ICD-10-PCS; 2021-09-28 11:56)
PROC: 05HN33Z Insertion of Infusion Device into Left Internal Jugular Vein, Percutaneous Approach (ICD-10-PCS; 2021-09-29)
PROC: B514ZZA Fluoroscopy of Left Jugular Veins, Guidance (ICD-10-PCS; 2021-09-29)
PROC: 5A1D70Z Performance of Urinary Filtration, Intermittent, Less than 6 Hours Per Day (ICD-10-PCS; 2021-09-30)
DX: T82.868A Thrombosis due to vascular prosthetic devices, implants and grafts, initial encounter (principal); N18.6 End stage renal disease; I12.0 Hypertensive chronic kidney disease with stage 5 chronic kidney disease or end stage renal disease; E78.5 Hyperlipidemia, unspecified; F03.90 Unspecified dementia, unspecified severity, without behavioral disturbance, psychotic disturbance, mood disturbance, and anxiety; E11.22 Type 2 diabetes mellitus with diabetic chronic kidney disease; D64.9 Anemia, unspecified; Z85.46 Personal history of malignant neoplasm of prostate; Z99.2 Dependence on renal dialysis; Z86.73 Personal history of transient ischemic attack (TIA), and cerebral infarction without residual deficits; Y84.8 Other medical procedures as the cause of abnormal reaction of the patient, or of later complication, without mention of misadventure at the time of the procedure
CPT/HCPCS: 36415; 71045-TC-FY; 76000-TC-FY; 80048; 80053; 84100; 84484; 85025; 85610; 85730; 86803; 86850; 86900; 86901; 87340; 88304-TC; 93005; 93010; 93971; 94760; 99285-25; C9803-CS; J1644; J2597; U0003; U0005

== ENCOUNTER 2021-11-28 04:33 | Day surgery (SDC) | payer OTHER, BC ==
[2021-11-25 14:37] VITALS: BMI 15.7
[2021-11-28 14:11] LABS: CHLORIDE 98 mmol/L (98-107); SODIUM 137 mmol/L (136-145)
[2021-11-28 14:12] LABS: ANION GAP 14 MMOL/L (8-16); BLOOD UREA NITROGEN 88.5 mg/dL (7-18); CALCIUM 10.3 mg/dL (8.5-10.1); CO2 25 mmol/L (21-32); GLUCOSE,RANDOM 124 mg/dL (74-106)
[2021-11-28 14:21] LABS: CREATININE 8.5 mg/dL (0.55-1.3)
[2021-11-28] MEDS ORDERED: DEXMEDETOMIDINE HCL 200 MCG/2 ML IVPB ONE (14:27)
[2021-11-28] MEDS ORDERED: POVIDONE-IODINE OINTMENT 10% - 28.4 GM TUBE ONE ×2 (15:02→17:08)
[2021-11-28] MEDS ORDERED: SUCCINYLCHOLINE CHLORIDE 200 MG/10 ML SYRINGE ONE (15:02)
[2021-11-28] MEDS ORDERED: LIDOCAINE HCL 1%, 10 MG/ML (20ML VIAL) ONE (15:03)
[2021-11-28] MEDS ORDERED: HEPARIN NA (PORCINE) 5,000 UNITS/ML 1ML VIAL ONE ×2 (15:03→17:08)
[2021-11-28] MEDS ORDERED: PROPOFOL 20 ML ONE (15:06)
[2021-11-28] MEDS ORDERED: ceFAZolin SODIUM 1 GM VIAL IVPB ONE (15:20)
[2021-11-28] MEDS ORDERED: PAPAVERINE HCL 30 MG/1 ML 10 ML VIAL NR ONE (15:41)
[2021-11-28] MEDS ORDERED: ACETAMINOPHEN INJECTION 100 ML IVPB ONE (15:42)
[2021-11-28] MEDS ORDERED: LIDOCAINE HCL 1%, 10 MG/ML (20ML VIAL) INF ONE (15:49)
[2021-11-28 19:36] VITALS: RESP 20
[2021-11-28 19:39] VITALS: BP 112/67; PULSE 71; TEMP 97.3
== END 2021-11-28 19:39 | disposition home or self-care (01) ==
LOC: JASU-SURG 04:33
PROVIDERS: ATTEND Surgery
PROC: 03170ZD Bypass Right Brachial Artery to Upper Arm Vein, Open Approach (ICD-10-PCS; principal; 2021-11-28 15:00)
DX: I12.0 Hypertensive chronic kidney disease with stage 5 chronic kidney disease or end stage renal disease (principal); N18.6 End stage renal disease; Z99.2 Dependence on renal dialysis
CPT/HCPCS: 36415; 80048; 82962; 86850; 86900; 86901; 94760; J1644

== ENCOUNTER 2022-01-17 12:02 | Inpatient (IN) | payer OTHER, BC ==
[2022-01-17 15:29] LABS: HEMATOCRIT 39.2 % (35.4-49); MCH 33.3 pg (25.7-33.7); MCHC 33.1 g/dl (32.0-35.9); MEAN CELL VOLUME 100.6 fl (80-96); MEAN PLT VOLUME 8.2 fl (7.5-11.1); PLATELET COUNT 273 10^3/uL (134-434)
[2022-01-17] MEDS ORDERED: VANCOMYCIN 1 GM in D5W (PRE-DOCKED) 1,000 MG/250 ML IVPB ONE (15:38)
[2022-01-17] MEDS ORDERED: CEFEPIME HCL/D5W 1 GM/50 ML BAG IVPB ONE (15:40)
[2022-01-17] MEDS ORDERED: CEFEPIME 1 GM/100 ML BAG IVPB ONE (15:44)
[2022-01-17 15:49] LABS: CHLORIDE 103 mmol/L (98-107); SODIUM 139 mmol/L (136-145)
[2022-01-17 15:51] LABS: CALCIUM 10.8 mg/dL (8.5-10.1)
[2022-01-17 15:52] LABS: ALBUMIN 2.4 g/dl (3.4-5.0); CO2 23 mmol/L (21-32); GLUCOSE,RANDOM 185 mg/dL (74-106)
[2022-01-17 15:55] LABS: SGOT/AST 25 U/L (15-37); SGPT/ALT 15 U/L (13-61)
[2022-01-17 15:57] LABS: TOT PROT 6.5 g/dl (6.4-8.2)
[2022-01-17 15:58] LABS: ALK PHOS 101 U/L (45-117)
[2022-01-17] MEDS ORDERED: VANCOMYCIN/WATER FOR INJ (PEG) 1,000 MG/200 ML BAG IVPB ONE (16:14)
[2022-01-17 16:15] LABS: ANION GAP 13 MMOL/L (8-16); BLOOD UREA NITROGEN 116.5 mg/dL (7-18); CREATININE 10.4 mg/dL (0.55-1.3)
[2022-01-17 16:22] LABS: ANISOCYTOSIS 0; HELMET CELLS 0; HOWELL-JOLLY BODIES 0; MACROCYTOSIS 0; OVALOCYTE 0; ROULEAU 0; SICKELED CELLS 0; TARGET CELLS 0; TEAR DROP CELLS 0; TOXIC GRANULATION 0
[2022-01-17] MEDS ORDERED: SODIUM CHLORIDE 250 ML IV PRN (17:35)
[2022-01-18 09:04] LABS: CALCIUM 10.4 mg/dL (8.5-10.1)
[2022-01-18 09:05] LABS: ALBUMIN 2.7 g/dl (3.4-5.0)
[2022-01-18 09:06] LABS: HEMATOCRIT 35.2 % (35.4-49); HEMOGLOBIN 11.1 GM/dL (11.7-16.9); MCH 31.7 pg (25.7-33.7); MCHC 31.6 g/dl (32.0-35.9); MEAN CELL VOLUME 100.2 fl (80-96); MEAN PLT VOLUME 7.9 fl (7.5-11.1); PLATELET COUNT 272 10^3/uL (134-434); RBC 3.51 M/mm3 (4.00-5.60); RDW 15.8 % (11.9-15.9); WHITE BLOOD COUNT 15.2 K/mm3 (4.0-10.0)
[2022-01-18 09:08] LABS: CREATININE 5.6 mg/dL (0.55-1.3)
[2022-01-18 09:10] LABS: BILIRUBIN,TOTAL 1.5 mg/dL (0.2-1); TOT PROT 6.2 g/dl (6.4-8.2)
[2022-01-18 09:18] LABS: BLOOD UREA NITROGEN 55.2 mg/dL (7-18)
[2022-01-18 11:05] LABS: ANISOCYTOSIS 0; HELMET CELLS 0; HOWELL-JOLLY BODIES 0; MACROCYTOSIS 0; OVALOCYTE 0; ROULEAU 0; SICKELED CELLS 0; TARGET CELLS 0; TEAR DROP CELLS 0; TOXIC GRANULATION 0
[2022-01-18] MEDS: CEFTRIAXONE 1 GM in DEXTROSE 5%-WATER - 50 ML IVPB SCH (13:10)
[2022-01-18] MEDS ORDERED: AZITHROMYCIN IVPB 500 MG/250 ML BAG IVPB ONE (15:00)
[2022-01-18] MEDS: ATORVASTATIN CA 20 MG TABLET (FP) PO SCH (21:02)
[2022-01-18] MEDS: CARVEDILOL 6.25 MG TABLET (FP) PO SCH (21:07)
[2022-01-19] MEDS ORDERED: SEVELAMER CARBONATE 800 MG TAB (FP) PO SCH (08:00)
[2022-01-19] MEDS: SEVELAMER CARBONATE 0.8 GM POWDER PACKET PO SCH ×3 (09:14→17:01)
[2022-01-19] MEDS: CINACALCET HCL 30 MG TAB (FP) PO SCH (09:56)
[2022-01-19] MEDS: CARVEDILOL 6.25 MG TABLET (FP) PO SCH ×2 (09:56→22:14)
[2022-01-19] MEDS: CEFTRIAXONE 1 GM in DEXTROSE 5%-WATER - 50 ML IVPB SCH (09:56)
[2022-01-19] MEDS: ASPIRIN COATED 81 MG TABLET.EC PO SCH (09:56)
[2022-01-19] MEDS ORDERED: AZITHROMYCIN IVPB 250 MG in DEXTROSE 5%-WATER - 250 ML IVPB ONE (10:00)
[2022-01-19] MEDS ORDERED: SODIUM CHLORIDE 250 ML IV PRN (10:14)
[2022-01-19 13:01] LABS: HEMATOCRIT 37.5 % (35.4-49); HEMOGLOBIN 11.5 GM/dL (11.7-16.9); MCH 31.2 pg (25.7-33.7); MCHC 30.7 g/dl (32.0-35.9); MEAN CELL VOLUME 101.8 fl (80-96); PLATELET COUNT 272 10^3/uL (134-434); RBC 3.69 M/mm3 (4.00-5.60); RDW 15.9 % (11.9-15.9); WHITE BLOOD COUNT 14.7 K/mm3 (4.0-10.0)
[2022-01-19 13:22] LABS: CHLORIDE 101 mmol/L (98-107); SODIUM 144 mmol/L (136-145)
[2022-01-19 13:23] LABS: CALCIUM 10.4 mg/dL (8.5-10.1)
[2022-01-19 13:24] LABS: ANION GAP 13 MMOL/L (8-16); CO2 30 mmol/L (21-32); GLUCOSE,RANDOM 191 mg/dL (74-106)
[2022-01-19 13:27] LABS: PHOSPHOROUS 3.7 mg/dL (2.5-4.9)
[2022-01-19 13:28] LABS: BLOOD UREA NITROGEN 85.1 mg/dL (7-18); CREATININE 7.7 mg/dL (0.55-1.3)
[2022-01-19] MEDS: ATORVASTATIN CA 20 MG TABLET (FP) PO SCH (22:14)
[2022-01-20] MEDS: SEVELAMER CARBONATE 0.8 GM POWDER PACKET PO SCH ×3 (08:46→17:16)
[2022-01-20] MEDS: CINACALCET HCL 30 MG TAB (FP) PO SCH (10:39)
[2022-01-20] MEDS: ASPIRIN COATED 81 MG TABLET.EC PO SCH (10:39)
[2022-01-20] MEDS: CEFTRIAXONE 1 GM in DEXTROSE 5%-WATER - 50 ML IVPB SCH ×2 (10:39→10:47)
[2022-01-20] MEDS: CARVEDILOL 6.25 MG TABLET (FP) PO SCH ×2 (10:39→21:31)
[2022-01-20] MEDS ORDERED: SODIUM CHLORIDE 250 ML IV PRN (12:16)
[2022-01-20 16:05] LABS: HEMATOCRIT 39.8 % (35.4-49); HEMOGLOBIN 12.4 GM/dL (11.7-16.9); MCHC 31.3 g/dl (32.0-35.9); MEAN CELL VOLUME 102.5 fl (80-96); MEAN PLT VOLUME 8.1 fl (7.5-11.1); PLATELET COUNT 283 10^3/uL (134-434); RBC 3.88 M/mm3 (4.00-5.60); RDW 16.1 % (11.9-15.9); WHITE BLOOD COUNT 18.5 K/mm3 (4.0-10.0)
[2022-01-20 17:29] LABS: ANISOCYTOSIS 1+; MACROCYTOSIS 1+
[2022-01-20] MEDS: ATORVASTATIN CA 20 MG TABLET (FP) PO SCH (21:31)
[2022-01-20] MEDS: PIPERACILLIN/TAZOB 2.25 GM 2.25 GM in DEXTROSE 5%-WATER - 50 ML IVPB SCH (23:12)
[2022-01-21] MEDS: PIPERACILLIN/TAZOB 2.25 GM 2.25 GM in DEXTROSE 5%-WATER - 50 ML IVPB SCH ×3 (01:24→17:46)
[2022-01-21] MEDS: SEVELAMER CARBONATE 0.8 GM POWDER PACKET PO SCH ×3 (08:38→17:23)
[2022-01-21] MEDS: CINACALCET HCL 30 MG TAB (FP) PO SCH ×2 (08:39→09:16)
[2022-01-21] MEDS: ASPIRIN COATED 81 MG TABLET.EC PO SCH ×2 (08:39→09:16)
[2022-01-21] MEDS: CARVEDILOL 6.25 MG TABLET (FP) PO SCH ×3 (08:39→21:03)
[2022-01-21] MEDS: ATORVASTATIN CA 20 MG TABLET (FP) PO SCH (21:03)
[2022-01-22] MEDS: PIPERACILLIN/TAZOB 2.25 GM 2.25 GM in DEXTROSE 5%-WATER - 50 ML IVPB SCH ×3 (01:00→18:02)
[2022-01-22] MEDS: SEVELAMER CARBONATE 0.8 GM POWDER PACKET PO SCH ×3 (08:24→18:01)
[2022-01-22 09:13] LABS: HEMATOCRIT 37.8 % (35.4-49); HEMOGLOBIN 11.9 GM/dL (11.7-16.9); MCHC 31.5 g/dl (32.0-35.9); MEAN CELL VOLUME 101.7 fl (80-96); MEAN PLT VOLUME 8.1 fl (7.5-11.1); PLATELET COUNT 284 10^3/uL (134-434); RBC 3.71 M/mm3 (4.00-5.60); WHITE BLOOD COUNT 20.2 K/mm3 (4.0-10.0)
[2022-01-22] MEDS: CINACALCET HCL 30 MG TAB (FP) PO SCH (09:34)
[2022-01-22] MEDS: ASPIRIN COATED 81 MG TABLET.EC PO SCH (09:34)
[2022-01-22] MEDS: CARVEDILOL 6.25 MG TABLET (FP) PO SCH ×2 (09:34→23:20)
[2022-01-22 09:52] LABS: CHLORIDE 98 mmol/L (98-107); SODIUM 142 mmol/L (136-145)
[2022-01-22 10:10] LABS: ALBUMIN 2.6 g/dl (3.4-5.0); ALK PHOS 103 U/L (45-117); CREATININE 7.4 mg/dL (0.55-1.3); SGPT/ALT 14 U/L (13-61); TOT PROT 6.5 g/dl (6.4-8.2)
[2022-01-22 10:11] LABS: BILIRUBIN,TOTAL 0.8 mg/dL (0.2-1)
[2022-01-22 10:12] LABS: BLOOD UREA NITROGEN 73.4 mg/dL (7-18); CALCIUM 10.6 mg/dL (8.5-10.1); GLUCOSE,RANDOM 190 mg/dL (74-106); SGOT/AST 13 U/L (15-37)
[2022-01-22 10:13] LABS: CO2 29 mmol/L (21-32)
[2022-01-22 10:46] LABS: ANION GAP 15 MMOL/L (8-16)
[2022-01-22 11:03] LABS: ANISOCYTOSIS 1+; MACROCYTOSIS 1+
[2022-01-22] MEDS ORDERED: VANCOMYCIN/WATER FOR INJ (PEG) 1,000 MG/200 ML BAG IVPB ONE (16:45)
[2022-01-22] MEDS: ATORVASTATIN CA 20 MG TABLET (FP) PO SCH (23:21)
[2022-01-23] MEDS: PIPERACILLIN/TAZOB 2.25 GM 2.25 GM in DEXTROSE 5%-WATER - 50 ML IVPB SCH ×3 (01:48→18:01)
[2022-01-23] MEDS: SEVELAMER CARBONATE 0.8 GM POWDER PACKET PO SCH ×3 (08:54→17:05)
[2022-01-23] MEDS: CINACALCET HCL 30 MG TAB (FP) PO SCH (10:03)
[2022-01-23] MEDS: ASPIRIN COATED 81 MG TABLET.EC PO SCH (10:03)
[2022-01-23] MEDS: CARVEDILOL 6.25 MG TABLET (FP) PO SCH ×2 (10:35→21:27)
[2022-01-23] MEDS ORDERED: SODIUM CHLORIDE 250 ML IV PRN (11:07)
[2022-01-23] MEDS: ATORVASTATIN CA 20 MG TABLET (FP) PO SCH (21:27)
[2022-01-24] MEDS: PIPERACILLIN/TAZOB 2.25 GM 2.25 GM in DEXTROSE 5%-WATER - 50 ML IVPB SCH ×3 (01:29→17:56)
[2022-01-24] MEDS: SEVELAMER CARBONATE 0.8 GM POWDER PACKET PO SCH ×3 (08:05→17:57)
[2022-01-24] MEDS: CINACALCET HCL 30 MG TAB (FP) PO SCH (09:22)
[2022-01-24] MEDS: ASPIRIN COATED 81 MG TABLET.EC PO SCH (09:22)
[2022-01-24] MEDS: CARVEDILOL 6.25 MG TABLET (FP) PO SCH ×2 (09:22→21:56)
[2022-01-24 21:31] VITALS: BMI 15.3
[2022-01-24] MEDS: ATORVASTATIN CA 20 MG TABLET (FP) PO SCH (21:56)
[2022-01-25] MEDS: PIPERACILLIN/TAZOB 2.25 GM 2.25 GM in DEXTROSE 5%-WATER - 50 ML IVPB SCH ×2 (01:45→09:19)
[2022-01-25] MEDS: ASPIRIN COATED 81 MG TABLET.EC PO SCH (09:19)
[2022-01-25] MEDS: AMINO ACIDS/PROTEIN HYDROLYS 30 ML LIQUID.PKT PO SCH (09:19)
[2022-01-25] MEDS: CARVEDILOL 6.25 MG TABLET (FP) PO SCH ×2 (09:19→21:37)
[2022-01-25] MEDS: CINACALCET HCL 30 MG TAB (FP) PO SCH (09:19)
[2022-01-25] MEDS: SEVELAMER CARBONATE 0.8 GM POWDER PACKET PO SCH ×2 (09:19→12:34)
[2022-01-25 10:36] LABS: HEMOGLOBIN 11.2 GM/dL (11.7-16.9); MCH 32.2 pg (25.7-33.7); MEAN CELL VOLUME 100.5 fl (80-96); MEAN PLT VOLUME 8.9 fl (7.5-11.1); PLATELET COUNT 388 10^3/uL (134-434); RBC 3.49 M/mm3 (4.00-5.60); RDW 16.1 % (11.9-15.9); WHITE BLOOD COUNT 13.6 K/mm3 (4.0-10.0)
[2022-01-25 10:55] LABS: ALBUMIN 2.1 g/dl (3.4-5.0); BLOOD UREA NITROGEN 54.4 mg/dL (7-18); MAGNESIUM 2.3 mg/dL (1.8-2.4)
[2022-01-25 10:58] LABS: CREATININE 7.1 mg/dL (0.55-1.3)
[2022-01-25 11:00] LABS: BILIRUBIN,TOTAL 0.9 mg/dL (0.2-1); TOT PROT 6.2 g/dl (6.4-8.2)
[2022-01-25 11:04] LABS: CALCIUM 8.7 mg/dL (8.5-10.1)
[2022-01-25] MEDS ORDERED: LIDOCAINE HCL 1%, 10 MG/ML (20ML VIAL) SQ ONE (14:14)
[2022-01-25] MEDS: ATORVASTATIN CA 20 MG TABLET (FP) PO SCH (21:44)
[2022-01-26] MEDS: SEVELAMER CARBONATE 0.8 GM POWDER PACKET PO SCH ×4 (01:06→17:23)
[2022-01-26] MEDS: PIPERACILLIN/TAZOB 2.25 GM 2.25 GM in DEXTROSE 5%-WATER - 50 ML IVPB SCH ×4 (01:07→17:45)
[2022-01-26] MEDS: AMINO ACIDS/PROTEIN HYDROLYS 30 ML LIQUID.PKT PO SCH (08:00)
[2022-01-26] MEDS: ASPIRIN COATED 81 MG TABLET.EC PO SCH (09:27)
[2022-01-26] MEDS: CINACALCET HCL 30 MG TAB (FP) PO SCH (09:28)
[2022-01-26] MEDS: CARVEDILOL 6.25 MG TABLET (FP) PO SCH ×2 (09:39→21:06)
[2022-01-26 13:15] LABS: HEMATOCRIT 35.6 % (35.4-49); HEMOGLOBIN 11.1 GM/dL (11.7-16.9); MCH 31.5 pg (25.7-33.7); MCHC 31.3 g/dl (32.0-35.9); MEAN CELL VOLUME 100.8 fl (80-96); MEAN PLT VOLUME 8.2 fl (7.5-11.1); PLATELET COUNT 382 10^3/uL (134-434); RBC 3.53 M/mm3 (4.00-5.60); RDW 16.4 % (11.9-15.9); WHITE BLOOD COUNT 12.5 K/mm3 (4.0-10.0)
[2022-01-26] MEDS: ATORVASTATIN CA 20 MG TABLET (FP) PO SCH (21:08)
[2022-01-27] MEDS: PIPERACILLIN/TAZOB 2.25 GM 2.25 GM in DEXTROSE 5%-WATER - 50 ML IVPB SCH ×3 (02:03→17:53)
[2022-01-27] MEDS: SEVELAMER CARBONATE 0.8 GM POWDER PACKET PO SCH ×3 (08:54→17:14)
[2022-01-27] MEDS: AMINO ACIDS/PROTEIN HYDROLYS 30 ML LIQUID.PKT PO SCH (08:54)
[2022-01-27] MEDS: ASPIRIN COATED 81 MG TABLET.EC PO SCH (09:43)
[2022-01-27] MEDS: CINACALCET HCL 30 MG TAB (FP) PO SCH (09:44)
[2022-01-27] MEDS: CARVEDILOL 6.25 MG TABLET (FP) PO SCH ×2 (09:44→21:04)
[2022-01-27 12:33] LABS: HEMATOCRIT 31.7 % (35.4-49); HEMOGLOBIN 10.2 GM/dL (11.7-16.9); MCH 32.5 pg (25.7-33.7); MCHC 32.2 g/dl (32.0-35.9); MEAN CELL VOLUME 100.7 fl (80-96); PLATELET COUNT 341 10^3/uL (134-434); RBC 3.15 M/mm3 (4.00-5.60); RDW 16.8 % (11.9-15.9); WHITE BLOOD COUNT 12.4 K/mm3 (4.0-10.0)
[2022-01-27 12:50] LABS: ALBUMIN 1.9 g/dl (3.4-5.0); CALCIUM 8.7 mg/dL (8.5-10.1)
[2022-01-27 12:51] LABS: BLOOD UREA NITROGEN 39.3 mg/dL (7-18)
[2022-01-27 12:53] LABS: CREATININE 6.2 mg/dL (0.55-1.3)
[2022-01-27 12:55] LABS: BILIRUBIN,TOTAL 0.7 mg/dL (0.2-1); TOT PROT 5.8 g/dl (6.4-8.2)
[2022-01-27] MEDS: ATORVASTATIN CA 20 MG TABLET (FP) PO SCH (21:03)
[2022-01-28] MEDS: PIPERACILLIN/TAZOB 2.25 GM 2.25 GM in DEXTROSE 5%-WATER - 50 ML IVPB SCH ×3 (01:25→17:53)
[2022-01-28] MEDS: SEVELAMER CARBONATE 0.8 GM POWDER PACKET PO SCH ×3 (08:03→17:54)
[2022-01-28] MEDS: AMINO ACIDS/PROTEIN HYDROLYS 30 ML LIQUID.PKT PO SCH ×2 (08:03→17:54)
[2022-01-28 09:53] LABS: CALCIUM 8.4 mg/dL (8.5-10.1)
[2022-01-28 09:54] LABS: BLOOD UREA NITROGEN 52.4 mg/dL (7-18)
[2022-01-28 09:57] LABS: CREATININE 7.1 mg/dL (0.55-1.3)
[2022-01-28] MEDS ORDERED: SODIUM CHLORIDE 250 ML IV PRN (11:11)
[2022-01-28] MEDS: CARVEDILOL 6.25 MG TABLET (FP) PO SCH ×2 (12:42→22:11)
[2022-01-28] MEDS: ASPIRIN COATED 81 MG TABLET.EC PO SCH (12:42)
[2022-01-28] MEDS: CINACALCET HCL 30 MG TAB (FP) PO SCH (12:42)
[2022-01-28] MEDS: ALBUMIN HUMAN 25% 100 ML VIAL IV SCH ×3 (12:43→13:40)
[2022-01-28] MEDS: ATORVASTATIN CA 20 MG TABLET (FP) PO SCH (22:09)
[2022-01-29] MEDS: PIPERACILLIN/TAZOB 2.25 GM 2.25 GM in DEXTROSE 5%-WATER - 50 ML IVPB SCH ×3 (01:30→17:21)
[2022-01-29] MEDS: AMINO ACIDS/PROTEIN HYDROLYS 30 ML LIQUID.PKT PO SCH ×3 (08:19→17:22)
[2022-01-29] MEDS: SEVELAMER CARBONATE 0.8 GM POWDER PACKET PO SCH ×3 (08:27→17:22)
[2022-01-29 09:49] LABS: BASO % 1.2 % (0-2.0); HEMATOCRIT 32.9 % (35.4-49); HEMOGLOBIN 10.5 GM/dL (11.7-16.9); MCH 32.1 pg (25.7-33.7); MCHC 31.9 g/dl (32.0-35.9); MEAN CELL VOLUME 100.5 fl (80-96); MEAN PLT VOLUME 7.6 fl (7.5-11.1); MONO % 10.6 % (3.8-10.2); NEUT % 75.2 % (42.8-82.8); PLATELET COUNT 446 10^3/uL (134-434); RBC 3.27 M/mm3 (4.00-5.60); RDW 16.2 % (11.9-15.9); WHITE BLOOD COUNT 9.5 K/mm3 (4.0-10.0)
[2022-01-29] MEDS: ASPIRIN COATED 81 MG TABLET.EC PO SCH (10:42)
[2022-01-29] MEDS: CINACALCET HCL 30 MG TAB (FP) PO SCH (10:42)
[2022-01-29] MEDS: CARVEDILOL 6.25 MG TABLET (FP) PO SCH ×2 (10:42→21:22)
[2022-01-29] MEDS: ATORVASTATIN CA 20 MG TABLET (FP) PO SCH (21:22)
[2022-01-30] MEDS: AMINO ACIDS/PROTEIN HYDROLYS 30 ML LIQUID.PKT PO SCH ×2 (08:33→17:03)
[2022-01-30 08:55] VITALS: RESP 20
[2022-01-30] MEDS: CARVEDILOL 6.25 MG TABLET (FP) PO SCH (09:39)
[2022-01-30] MEDS: CINACALCET HCL 30 MG TAB (FP) PO SCH (09:39)
[2022-01-30] MEDS: ASPIRIN COATED 81 MG TABLET.EC PO SCH (09:39)
[2022-01-30] MEDS: SEVELAMER CARBONATE 0.8 GM POWDER PACKET PO SCH ×3 (10:51→17:03)
[2022-01-30 14:29] VITALS: BP 97/48; PULSE 63; TEMP 98
== END 2022-01-30 21:00 | disposition home or self-care (01) | DRG 193 ==
LOC: JER 12:02 → JERBED 18:06 → J6S 01-18 11:33
PROVIDERS: ADMIT Internal Medicine; ATTEND Family Medicine
PROC: 5A1D70Z Performance of Urinary Filtration, Intermittent, Less than 6 Hours Per Day (ICD-10-PCS; principal; 2022-01-17)
PROC: 05PY33Z Removal of Infusion Device from Upper Vein, Percutaneous Approach (ICD-10-PCS; 2022-01-25)
DX: J12.1 Respiratory syncytial virus pneumonia (principal); G93.41 Metabolic encephalopathy; J96.01 Acute respiratory failure with hypoxia; N18.6 End stage renal disease; I12.0 Hypertensive chronic kidney disease with stage 5 chronic kidney disease or end stage renal disease; R64 Cachexia; Z68.1 Body mass index [BMI] 19.9 or less, adult; J90 Pleural effusion, not elsewhere classified; J18.9 Pneumonia, unspecified organism; F03.90 Unspecified dementia, unspecified severity, without behavioral disturbance, psychotic disturbance, mood disturbance, and anxiety; E11.22 Type 2 diabetes mellitus with diabetic chronic kidney disease; Z99.2 Dependence on renal dialysis; E78.5 Hyperlipidemia, unspecified; C61 Malignant neoplasm of prostate; D63.1 Anemia in chronic kidney disease; E87.5 Hyperkalemia; Z86.73 Personal history of transient ischemic attack (TIA), and cerebral infarction without residual deficits; R13.10 Dysphagia, unspecified; R62.7 Adult failure to thrive
CPT/HCPCS: 0241U-QW; 36415; 71045-TC-FY; 71250-TC; 80048; 80053; 82962; 83735; 84100; 84132; 84484; 85025; 85027; 86803; 87040; 87340; 93005; 93010; 99285-25; C9803-CS; U0003; U0005

== ENCOUNTER 2022-03-23 10:31 | Inpatient (IN) | payer OTHER, BC ==
[2022-03-23 11:37] LABS: BASO % 0.9 % (0-2.0); HEMATOCRIT 32.9 % (35.4-49); HEMOGLOBIN 11.1 GM/dL (11.7-16.9); LYMPH % 17.4 % (8-40); MCH 34.9 pg (25.7-33.7); MCHC 33.9 g/dl (32.0-35.9); MEAN CELL VOLUME 103.2 fl (80-96); MEAN PLT VOLUME 6.6 fl (7.5-11.1); MONO % 9.6 % (3.8-10.2); NEUT % 69.1 % (42.8-82.8); PLATELET COUNT 321 10^3/uL (134-434); RBC 3.19 M/mm3 (4.00-5.60); RDW 18.5 % (11.9-15.9); WHITE BLOOD COUNT 4.3 K/mm3 (4.0-10.0)
[2022-03-23 12:06] LABS: CALCIUM 9.3 mg/dL (8.5-10.1)
[2022-03-23 12:07] LABS: ALBUMIN 3.2 g/dl (3.4-5.0); BLOOD UREA NITROGEN 86.5 mg/dL (7-18); MAGNESIUM 2.6 mg/dL (1.8-2.4)
[2022-03-23 12:10] LABS: CREATININE 6.3 mg/dL (0.55-1.3); PHOSPHOROUS 2.8 mg/dL (2.5-4.9)
[2022-03-23 12:11] LABS: TOT PROT 6.9 g/dl (6.4-8.2)
[2022-03-23 12:12] LABS: BILIRUBIN,TOTAL 0.5 mg/dL (0.2-1)
[2022-03-23] MEDS ORDERED: SODIUM CHLORIDE 250 ML IV PRN (14:11)
[2022-03-23] MEDS ORDERED: ACETAMINOPHEN 325 MG TABLET (FP) PO PRN (19:17)
[2022-03-24 07:58] LABS: BASO % 1.6 % (0-2.0); EOS % 2.8 % (0-4.5); HEMATOCRIT 32.4 % (35.4-49); LYMPH % 25.9 % (8-40); MCH 34.6 pg (25.7-33.7); MCHC 33.9 g/dl (32.0-35.9); MONO % 15.8 % (3.8-10.2); NEUT % 53.9 % (42.8-82.8); PLATELET COUNT 350 10^3/uL (134-434); RBC 3.18 M/mm3 (4.00-5.60); RDW 17.6 % (11.9-15.9); WHITE BLOOD COUNT 3.3 K/mm3 (4.0-10.0)
[2022-03-24 08:18] LABS: CALCIUM 8.5 mg/dL (8.5-10.1)
[2022-03-24 08:22] LABS: CREATININE 3.7 mg/dL (0.55-1.3)
[2022-03-24 08:25] LABS: BLOOD UREA NITROGEN 34.8 mg/dL (7-18)
[2022-03-24] MEDS: ASPIRIN 81 MG CHEWABLE TABLETS PO SCH ×2 (09:42→09:51)
[2022-03-24] MEDS: CALCIUM ACETATE 667 MG CAPSULE (FP) PO SCH ×2 (09:42→09:51)
[2022-03-24] MEDS: SEVELAMER CARBONATE 800 MG TAB (FP) PO SCH ×4 (09:42→17:24)
[2022-03-24] MEDS: hydrALAZINE HCL 10 MG TABLET PO SCH ×2 (09:42→09:51)
[2022-03-24] MEDS: CARVEDILOL 6.25 MG TABLET (FP) PO SCH ×3 (09:42→23:33)
[2022-03-24] MEDS: CINACALCET HCL 30 MG TAB (FP) PO SCH ×2 (09:43→09:51)
[2022-03-24] MEDS ORDERED: SODIUM CHLORIDE 250 ML IV PRN (11:55)
[2022-03-24] MEDS ORDERED: ATORVASTATIN CA 40 MG TABLET (FP) PO SCH (22:00)
[2022-03-25] MEDS: CALCIUM ACETATE 667 MG CAPSULE (FP) PO SCH (08:03)
[2022-03-25] MEDS: SEVELAMER CARBONATE 800 MG TAB (FP) PO SCH ×3 (08:03→18:04)
[2022-03-25 08:56] LABS: HEMATOCRIT 31.8 % (35.4-49); MCH 35.2 pg (25.7-33.7); MCHC 34.4 g/dl (32.0-35.9); MEAN CELL VOLUME 102.3 fl (80-96); MEAN PLT VOLUME 6.5 fl (7.5-11.1); PLATELET COUNT 348 10^3/uL (134-434); RBC 3.11 M/mm3 (4.00-5.60); RDW 17.9 % (11.9-15.9); WHITE BLOOD COUNT 5.3 K/mm3 (4.0-10.0)
[2022-03-25 09:22] LABS: CALCIUM 9.5 mg/dL (8.5-10.1)
[2022-03-25 09:23] LABS: BLOOD UREA NITROGEN 53.4 mg/dL (7-18)
[2022-03-25 09:26] LABS: CREATININE 6.1 mg/dL (0.55-1.3)
[2022-03-25] MEDS: CINACALCET HCL 30 MG TAB (FP) PO SCH (10:04)
[2022-03-25] MEDS: ASPIRIN 81 MG CHEWABLE TABLETS PO SCH (10:04)
[2022-03-25] MEDS: CARVEDILOL 6.25 MG TABLET (FP) PO SCH (10:04)
[2022-03-25] MEDS: hydrALAZINE HCL 10 MG TABLET PO SCH (10:04)
[2022-03-25 11:00] LABS: ANISOCYTOSIS 1+; MACROCYTOSIS 0
[2022-03-25 15:50] VITALS: BP 142/75; PULSE 79; RESP 16; TEMP 97.8
[2022-03-26 17:26] VITALS: BMI 16.2
== END 2022-03-25 18:25 | disposition home health service (06) | DRG 682 ==
LOC: JER 10:31 → JERBED 16:17 → J4W 20:48
PROVIDERS: ADMIT Internal Medicine; ATTEND Family Medicine
PROC: 5A1D70Z Performance of Urinary Filtration, Intermittent, Less than 6 Hours Per Day (ICD-10-PCS; principal; 2022-03-23)
PROC: 5A1D70Z Performance of Urinary Filtration, Intermittent, Less than 6 Hours Per Day (ICD-10-PCS; 2022-03-25)
DX: I12.0 Hypertensive chronic kidney disease with stage 5 chronic kidney disease or end stage renal disease (principal); N18.6 End stage renal disease; G45.9 Transient cerebral ischemic attack, unspecified; F03.90 Unspecified dementia, unspecified severity, without behavioral disturbance, psychotic disturbance, mood disturbance, and anxiety; E78.5 Hyperlipidemia, unspecified; N25.0 Renal osteodystrophy; E11.22 Type 2 diabetes mellitus with diabetic chronic kidney disease; R51.9 Headache, unspecified; E11.649 Type 2 diabetes mellitus with hypoglycemia without coma; R29.810 Facial weakness; Z99.2 Dependence on renal dialysis; Z85.46 Personal history of malignant neoplasm of prostate; Z86.73 Personal history of transient ischemic attack (TIA), and cerebral infarction without residual deficits
CPT/HCPCS: 0241U-QW; 36415; 70450-TC; 71045-TC-FY; 80048; 80053; 82962; 83735; 84100; 84484; 85025; 85027; 86803; 87340; 97116-GP; 97162-GP; 99285-25

== ENCOUNTER 2022-11-09 19:20 | Inpatient (IN) | payer OTHER, BC ==
[2022-11-09] MEDS ORDERED: PIPERACILLIN/TAZOB 4.5 GM 4.5 GM in DEXTROSE 5%-WATER 100 ML IVPB ONE (19:38)
[2022-11-09] MEDS ORDERED: VANCOMYCIN 1,000 MG in DEXTROSE 5%-WATER - 250 ML IVPB ONE (19:38)
[2022-11-09] MEDS ORDERED: ACETAMINOPHEN 1000 MG/100 ML BAG IVPB ONE (19:40)
[2022-11-09 19:53] VITALS: BMI 13.3
[2022-11-09] MEDS ORDERED: ACETAMINOPHEN INJECTION 100 ML IVPB ONE (20:38)
[2022-11-09] MEDS ORDERED: PIPERACILLIN/TAZOB 4.5 GM 4.5 GM/100 ML BAG IVPB ONE (20:39)
[2022-11-09] MEDS ORDERED: VANCOMYCIN 1 GRAM (PRE-DOCKED) 1,000 MG/250 ML BAG IVPB ONE (20:39)
[2022-11-09 20:59] LABS: HEMATOCRIT 39.9 % (35.4-49); HEMOGLOBIN 13.6 GM/dL (11.7-16.9); MCH 32.4 pg (25.7-33.7); MEAN CELL VOLUME 95.2 fl (80-96); PLATELET COUNT 194 10^3/uL (134-434); RBC 4.19 M/mm3 (4.00-5.60); RDW 18.1 % (11.9-15.9); WHITE BLOOD COUNT 6.5 K/mm3 (4.0-10.0)
[2022-11-09 21:00] LABS: VENOUS BASE EXCESS -4.1 mmol/L (-2-2); VENOUS O2 SATURATION 28.1 % (70-80); VENOUS PCO2 47.1 mmHg (38-52); VENOUS PH 7.298 (7.310-7.410)
[2022-11-09 21:06] LABS: INR 1.03 (0.83-1.09); PROTHROMBIN TIME (PATIENT) 11.9 SEC (9.7-13.0)
[2022-11-09 21:32] LABS: POTASSIUM 3.5 mmol/L (3.5-5.1)
[2022-11-09 21:35] LABS: ALBUMIN 3.4 g/dl (3.4-5.0); BLOOD UREA NITROGEN 48.4 mg/dL (7-18); CALCIUM 8.4 mg/dL (8.5-10.1); MAGNESIUM 1.8 mg/dL (1.8-2.4)
[2022-11-09 21:39] LABS: CREATININE 3.7 mg/dL (0.55-1.3)
[2022-11-09 21:40] LABS: BILIRUBIN,TOTAL 0.8 mg/dL (0.2-1); TOT PROT 6.8 g/dl (6.4-8.2)
[2022-11-09 21:41] LABS: LACTIC ACID 4.4 mmol/L (0.4-2.0)
[2022-11-09 22:05] LABS: ANISOCYTOSIS 1+; MACROCYTOSIS 1+
[2022-11-10] MEDS: CINACALCET HCL 30 MG TAB (FP) PO SCH (09:28)
[2022-11-10] MEDS ORDERED: ASPIRIN 81 MG CHEWABLE TABLETS ONE (09:51)
[2022-11-10] MEDS ORDERED: CARVEDILOL 6.25 MG TABLET (FP) ONE (09:51)
[2022-11-10] MEDS ORDERED: SEVELAMER CARBONATE 800 MG TAB (FP) ONE ×2 (09:51→12:58)
[2022-11-10] MEDS ORDERED: HEPARIN NA (PORCINE) 5,000 UNITS/ML 1ML VIAL ONE (09:52)
[2022-11-10] MEDS: ASPIRIN 81 MG CHEWABLE TABLETS PO SCH (09:56)
[2022-11-10] MEDS: HEPARIN NA (PORCINE) 5,000 UNITS/ML 1ML VIAL SQ SCH ×2 (09:56→23:11)
[2022-11-10] MEDS: CARVEDILOL 6.25 MG TABLET (FP) PO SCH ×2 (09:56→23:11)
[2022-11-10] MEDS: SEVELAMER CARBONATE 800 MG TAB (FP) PO SCH ×3 (09:56→17:17)
[2022-11-10] MEDS ORDERED: hydrALAZINE HCL 10 MG TABLET PO SCH (10:00)
[2022-11-10] MEDS ORDERED: PIPERACILLIN/TAZOB 2.25 GM 2.25 GM in DEXTROSE 5%-WATER - 50 ML IVPB SCH (10:00)
[2022-11-10 11:29] LABS: BASO % 0.3 % (0-2.0); EOS % 0.1 % (0-4.5); HEMATOCRIT 36.7 % (35.4-49); LYMPH % 5.2 % (8-40); MCH 31.8 pg (25.7-33.7); MCHC 32.8 g/dl (32.0-35.9); MEAN PLT VOLUME 7.1 fl (7.5-11.1); MONO % 5.9 % (3.8-10.2); NEUT % 88.5 % (42.8-82.8); PLATELET COUNT 157 10^3/uL (134-434); RBC 3.78 M/mm3 (4.00-5.60); RDW 17.8 % (11.9-15.9)
[2022-11-10 11:45] LABS: ALBUMIN 2.9 g/dl (3.4-5.0); CALCIUM 8.8 mg/dL (8.5-10.1)
[2022-11-10 11:46] LABS: BLOOD UREA NITROGEN 67.8 mg/dL (7-18)
[2022-11-10 11:48] LABS: CREATININE 4.3 mg/dL (0.55-1.3)
[2022-11-10 11:50] LABS: BILIRUBIN,TOTAL 0.8 mg/dL (0.2-1); TOT PROT 6.3 g/dl (6.4-8.2)
[2022-11-10 12:03] LABS: POTASSIUM 3.9 mmol/L (3.5-5.1)
[2022-11-10] MEDS ORDERED: SODIUM CHLORIDE 250 ML IV PRN (14:35)
[2022-11-10] MEDS: INSULIN SLIDING SCALE (NOVOLOG) 1 VIAL SQ SCH ×2 (16:57→23:11)
[2022-11-10] MEDS: PIPERACILLIN/TAZOB 2.25 GM 2.25 GM in DEXTROSE 5%-WATER - 50 ML IVPB SCH (17:28)
[2022-11-10] MEDS: ATORVASTATIN CA 40 MG TABLET (FP) PO SCH (23:11)
[2022-11-11] MEDS: PIPERACILLIN/TAZOB 2.25 GM 2.25 GM in DEXTROSE 5%-WATER - 50 ML IVPB SCH ×3 (01:38→17:10)
[2022-11-11] MEDS: INSULIN SLIDING SCALE (NOVOLOG) 1 VIAL SQ SCH ×4 (07:06→21:37)
[2022-11-11 09:28] LABS: HEMATOCRIT 32.7 % (35.4-49); MCH 32.1 pg (25.7-33.7); MCHC 33.6 g/dl (32.0-35.9); MEAN CELL VOLUME 95.6 fl (80-96); MEAN PLT VOLUME 7.9 fl (7.5-11.1); PLATELET COUNT 161 10^3/uL (134-434); RBC 3.42 M/mm3 (4.00-5.60); RDW 17.4 % (11.9-15.9); WHITE BLOOD COUNT 13.9 K/mm3 (4.0-10.0)
[2022-11-11 09:48] LABS: CALCIUM 8.6 mg/dL (8.5-10.1)
[2022-11-11 09:49] LABS: ALBUMIN 2.6 g/dl (3.4-5.0); BLOOD UREA NITROGEN 88.4 mg/dL (7-18)
[2022-11-11 09:52] LABS: CREATININE 5.5 mg/dL (0.55-1.3)
[2022-11-11] MEDS: SEVELAMER CARBONATE 800 MG TAB (FP) PO SCH ×4 (09:52→17:36)
[2022-11-11 09:54] LABS: BILIRUBIN,TOTAL 0.8 mg/dL (0.2-1)
[2022-11-11 09:55] LABS: TOT PROT 5.8 g/dl (6.4-8.2)
[2022-11-11] MEDS ORDERED: VANCOMYCIN 500 MG in DEXTROSE 5%-WATER - 100 ML IVPB SCH ×2 (10:00→22:00)
[2022-11-11] MEDS ORDERED: ONDANSETRON 4 MG/2 ML VIAL IVPUSH PRN (12:24)
[2022-11-11] MEDS: HEPARIN NA (PORCINE) 5,000 UNITS/ML 1ML VIAL SQ SCH ×2 (12:51→21:31)
[2022-11-11] MEDS ORDERED: HEPARIN NA (PORCINE) 5,000 UNITS/ML 1ML VIAL IVPUSH ONE (13:00)
[2022-11-11] MEDS: ASPIRIN 81 MG CHEWABLE TABLETS PO SCH (14:08)
[2022-11-11] MEDS: CARVEDILOL 6.25 MG TABLET (FP) PO SCH ×2 (14:08→21:31)
[2022-11-11] MEDS: PANTOPRAZOLE SODIUM 40 MG VIAL IVPUSH SCH (14:09)
[2022-11-11] MEDS: CINACALCET HCL 30 MG TAB (FP) PO SCH (14:09)
[2022-11-11 14:26] LABS: MAGNESIUM 2.1 mg/dL (1.8-2.4)
[2022-11-11] MEDS ORDERED: PIPERACILLIN/TAZOBACTAM 2.25 GM VIAL IVPB ONE ×2 (16:56→17:37)
[2022-11-11] MEDS: ATORVASTATIN CA 40 MG TABLET (FP) PO SCH (21:31)
[2022-11-11] MEDS: POLYETHYLENE GLYCOL (HEALTHYLAX) 3350 17 GM PACKET PO SCH (21:32)
[2022-11-12] MEDS: PIPERACILLIN/TAZOB 2.25 GM 2.25 GM in DEXTROSE 5%-WATER - 50 ML IVPB SCH ×3 (01:11→17:16)
[2022-11-12] MEDS: POLYETHYLENE GLYCOL (HEALTHYLAX) 3350 17 GM PACKET PO SCH ×3 (06:03→22:11)
[2022-11-12] MEDS: INSULIN SLIDING SCALE (NOVOLOG) 1 VIAL SQ SCH ×4 (06:03→22:11)
[2022-11-12] MEDS: SEVELAMER CARBONATE 800 MG TAB (FP) PO SCH ×3 (10:08→17:17)
[2022-11-12] MEDS: ASPIRIN 81 MG CHEWABLE TABLETS PO SCH (10:33)
[2022-11-12] MEDS: CARVEDILOL 6.25 MG TABLET (FP) PO SCH ×2 (10:34→22:12)
[2022-11-12] MEDS: CINACALCET HCL 30 MG TAB (FP) PO SCH (10:35)
[2022-11-12] MEDS: PANTOPRAZOLE SODIUM 40 MG VIAL IVPUSH SCH (10:35)
[2022-11-12] MEDS: HEPARIN NA (PORCINE) 5,000 UNITS/ML 1ML VIAL SQ SCH ×2 (10:41→22:12)
[2022-11-12 12:40] LABS: BASO % 0.2 % (0-2.0); EOS % 0.9 % (0-4.5); HEMATOCRIT 31.4 % (35.4-49); HEMOGLOBIN 10.8 GM/dL (11.7-16.9); LYMPH % 6.7 % (8-40); MCH 32.8 pg (25.7-33.7); MCHC 34.5 g/dl (32.0-35.9); MEAN CELL VOLUME 95.2 fl (80-96); MEAN PLT VOLUME 7.9 fl (7.5-11.1); MONO % 4.7 % (3.8-10.2); NEUT % 87.5 % (42.8-82.8); PLATELET COUNT 147 10^3/uL (134-434); RDW 17.5 % (11.9-15.9); WHITE BLOOD COUNT 11.3 K/mm3 (4.0-10.0)
[2022-11-12] MEDS: ATORVASTATIN CA 40 MG TABLET (FP) PO SCH (22:12)
[2022-11-13] MEDS: PIPERACILLIN/TAZOB 2.25 GM 2.25 GM in DEXTROSE 5%-WATER - 50 ML IVPB SCH ×3 (01:25→17:13)
[2022-11-13] MEDS: POLYETHYLENE GLYCOL (HEALTHYLAX) 3350 17 GM PACKET PO SCH ×3 (06:05→21:46)
[2022-11-13] MEDS: INSULIN SLIDING SCALE (NOVOLOG) 1 VIAL SQ SCH ×4 (06:07→22:00)
[2022-11-13] MEDS: HEPARIN NA (PORCINE) 5,000 UNITS/ML 1ML VIAL SQ SCH ×2 (09:10→21:46)
[2022-11-13] MEDS: ASPIRIN 81 MG CHEWABLE TABLETS PO SCH (09:10)
[2022-11-13] MEDS: CARVEDILOL 6.25 MG TABLET (FP) PO SCH ×2 (09:10→21:46)
[2022-11-13] MEDS: CINACALCET HCL 30 MG TAB (FP) PO SCH (09:10)
[2022-11-13] MEDS: PANTOPRAZOLE SODIUM 40 MG VIAL IVPUSH SCH (09:10)
[2022-11-13 09:17] LABS: BASO % 0.3 % (0-2.0); EOS % 1.4 % (0-4.5); HEMATOCRIT 31.9 % (35.4-49); HEMOGLOBIN 10.8 GM/dL (11.7-16.9); LYMPH % 7.4 % (8-40); MCH 32.3 pg (25.7-33.7); MCHC 33.8 g/dl (32.0-35.9); MEAN CELL VOLUME 95.7 fl (80-96); MEAN PLT VOLUME 9.2 fl (7.5-11.1); MONO % 6.6 % (3.8-10.2); NEUT % 84.3 % (42.8-82.8); PLATELET COUNT 175 10^3/uL (134-434); RBC 3.33 M/mm3 (4.00-5.60); RDW 17.5 % (11.9-15.9); WHITE BLOOD COUNT 10.5 K/mm3 (4.0-10.0)
[2022-11-13] MEDS: SEVELAMER CARBONATE 800 MG TAB (FP) PO SCH ×3 (09:35→17:32)
[2022-11-13] MEDS ORDERED: SODIUM CHLORIDE 250 ML IV PRN (13:22)
[2022-11-13] MEDS: CALCIUM ACETATE 667 MG CAPSULE (FP) PO SCH ×2 (13:26→13:27)
[2022-11-13] MEDS: hydrALAZINE HCL 10 MG TABLET PO SCH ×2 (14:10→21:45)
[2022-11-13 15:08] VITALS: RESP 18
[2022-11-13] MEDS: ATORVASTATIN CA 40 MG TABLET (FP) PO SCH (21:45)
[2022-11-14] MEDS: PIPERACILLIN/TAZOB 2.25 GM 2.25 GM in DEXTROSE 5%-WATER - 50 ML IVPB SCH ×2 (01:25→12:51)
[2022-11-14] MEDS: POLYETHYLENE GLYCOL (HEALTHYLAX) 3350 17 GM PACKET PO SCH ×2 (06:04→12:59)
[2022-11-14] MEDS: INSULIN SLIDING SCALE (NOVOLOG) 1 VIAL SQ SCH ×3 (06:14→17:44)
[2022-11-14] MEDS ORDERED: EPOETIN ALFA-EPBX 4,000 UNIT/ML VIAL IVPUSH ONE (08:45)
[2022-11-14 09:18] LABS: HEMATOCRIT 29.9 % (35.4-49); HEMOGLOBIN 10.2 GM/dL (11.7-16.9); MCH 32.6 pg (25.7-33.7); MCHC 34.2 g/dl (32.0-35.9); MEAN CELL VOLUME 95.2 fl (80-96); MEAN PLT VOLUME 8.9 fl (7.5-11.1); PLATELET COUNT 158 10^3/uL (134-434); RBC 3.14 M/mm3 (4.00-5.60); RDW 17.6 % (11.9-15.9); WHITE BLOOD COUNT 6.3 K/mm3 (4.0-10.0)
[2022-11-14 09:46] LABS: POTASSIUM 3.8 mmol/L (3.5-5.1)
[2022-11-14 09:51] LABS: BLOOD UREA NITROGEN 81.4 mg/dL (7-18); CALCIUM 8.6 mg/dL (8.5-10.1)
[2022-11-14 09:55] LABS: CREATININE 6.9 mg/dL (0.55-1.3)
[2022-11-14] MEDS: SEVELAMER CARBONATE 800 MG TAB (FP) PO SCH ×3 (12:39→17:43)
[2022-11-14] MEDS: hydrALAZINE HCL 10 MG TABLET PO SCH (12:40)
[2022-11-14] MEDS: CARVEDILOL 6.25 MG TABLET (FP) PO SCH (12:50)
[2022-11-14] MEDS: HEPARIN NA (PORCINE) 5,000 UNITS/ML 1ML VIAL SQ SCH (12:50)
[2022-11-14] MEDS: ASPIRIN 81 MG CHEWABLE TABLETS PO SCH (12:59)
[2022-11-14] MEDS: PANTOPRAZOLE SODIUM 40 MG VIAL IVPUSH SCH (12:59)
[2022-11-14] MEDS: CINACALCET HCL 30 MG TAB (FP) PO SCH (13:01)
[2022-11-14 19:10] VITALS: BP 108/58; PULSE 98; TEMP 98.2
== END 2022-11-14 19:06 | disposition home or self-care (01) | DRG 871 ==
LOC: JER 19:20 → JERBED 20:29 → J4S 11-10 13:55
PROVIDERS: ADMIT Internal Medicine; ATTEND Family Medicine
PROC: 5A1D70Z Performance of Urinary Filtration, Intermittent, Less than 6 Hours Per Day (ICD-10-PCS; principal; 2022-11-11)
PROC: 5A1D70Z Performance of Urinary Filtration, Intermittent, Less than 6 Hours Per Day (ICD-10-PCS; 2022-11-14)
DX: A41.89 Other specified sepsis (principal); J18.9 Pneumonia, unspecified organism; N18.6 End stage renal disease; I12.0 Hypertensive chronic kidney disease with stage 5 chronic kidney disease or end stage renal disease; I10 Essential (primary) hypertension; E78.5 Hyperlipidemia, unspecified; R11.10 Vomiting, unspecified; N13.9 Obstructive and reflux uropathy, unspecified; I45.10 Unspecified right bundle-branch block; I49.9 Cardiac arrhythmia, unspecified; R09.02 Hypoxemia; N25.0 Renal osteodystrophy; F03.90 Unspecified dementia, unspecified severity, without behavioral disturbance, psychotic disturbance, mood disturbance, and anxiety; E11.22 Type 2 diabetes mellitus with diabetic chronic kidney disease; Z99.2 Dependence on renal dialysis; Z85.46 Personal history of malignant neoplasm of prostate
CPT/HCPCS: 0241U-QW; 36415; 71045-TC-FY; 74018-TC-FY; 80048; 80053; 82553; 82803; 82962; 83605; 83735; 84484; 85025; 85027; 85610; 85730; 86704; 86803; 87040; 87070; 87077; 87205; 87340; 87517; 93005; 93010; 97116-GP; 97161-GP; 99285-25; J1644; Q5106

== ENCOUNTER 2023-06-23 13:42 | Inpatient (IN) | payer OTHER, BC ==
[2023-06-23 14:14] VITALS: BMI 13.8
[2023-06-23 15:05] LABS: BASO % 0.6 % (0-2.0); EOS % 1.4 % (0-4.5); HEMATOCRIT 42.5 % (35.4-49); HEMOGLOBIN 14.1 GM/dL (11.7-16.9); LYMPH % 12.9 % (8-40); MCHC 33.1 g/dl (32.0-35.9); MEAN CELL VOLUME 99.6 fl (80-96); MEAN PLT VOLUME 7.4 fl (7.5-11.1); MONO % 5.7 % (3.8-10.2); NEUT % 79.4 % (42.8-82.8); PLATELET COUNT 204 10^3/uL (134-434); RBC 4.26 M/mm3 (4.00-5.60); RDW 16.7 % (11.9-15.9); WHITE BLOOD COUNT 6.1 K/mm3 (4.0-10.0)
[2023-06-23 15:34] LABS: POTASSIUM 3.7 mmol/L (3.5-5.1)
[2023-06-23 15:37] LABS: CALCIUM 9.8 mg/dL (8.5-10.1)
[2023-06-23 15:38] LABS: ALBUMIN 2.6 g/dl (3.4-5.0); BLOOD UREA NITROGEN 74.3 mg/dL (7-18); MAGNESIUM 2.3 mg/dL (1.8-2.4)
[2023-06-23 15:41] LABS: CREATININE 5.9 mg/dL (0.55-1.3); PHOSPHOROUS 2.6 mg/dL (2.5-4.9)
[2023-06-23] MEDS ORDERED: ACETAMINOPHEN 325 MG TABLET (FP) PO PRN (15:42)
[2023-06-23 15:43] LABS: BILIRUBIN,TOTAL 0.5 mg/dL (0.2-1); TOT PROT 6.3 g/dl (6.4-8.2)
[2023-06-23] MEDS ORDERED: SEVELAMER CARBONATE 800 MG TAB (FP) ONE (16:04)
[2023-06-23] MEDS: SEVELAMER CARBONATE 800 MG TAB (FP) PO SCH (17:07)
[2023-06-23] MEDS: CARVEDILOL 6.25 MG TABLET (FP) PO SCH (21:33)
[2023-06-23] MEDS: hydrALAZINE HCL 10 MG TABLET PO SCH (21:33)
[2023-06-23] MEDS: ATORVASTATIN CA 40 MG TABLET (FP) PO SCH (21:33)
[2023-06-24] MEDS: CINACALCET HCL 30 MG TAB (FP) PO SCH (09:19)
[2023-06-24] MEDS: PANTOPRAZOLE 40 MG TABLET PO SCH (09:19)
[2023-06-25 07:10] LABS: HEMATOCRIT 38.8 % (35.4-49); HEMOGLOBIN 12.6 GM/dL (11.7-16.9); MCH 32.5 pg (25.7-33.7); MCHC 32.4 g/dl (32.0-35.9); MEAN CELL VOLUME 100.3 fl (80-96); MEAN PLT VOLUME 7.9 fl (7.5-11.1); PLATELET COUNT 229 10^3/uL (134-434); RBC 3.87 M/mm3 (4.00-5.60); RDW 16.3 % (11.9-15.9)
[2023-06-25 07:23] LABS: CHLORIDE 103 mmol/L (98-107); POTASSIUM 4.3 mmol/L (3.5-5.1); SODIUM 137 mmol/L (136-145)
[2023-06-25 07:25] LABS: ALBUMIN 2.5 g/dl (3.4-5.0); ANION GAP 11 mmol/L (4-13); CALCIUM 9.1 mg/dL (8.5-10.1); CO2 24 mmol/L (21-32); GLUCOSE,RANDOM 99 mg/dL (74-106)
[2023-06-25 07:28] LABS: SGOT/AST 28 U/L (15-37); SGPT/ALT 34 U/L (13-61)
[2023-06-25 07:30] LABS: BILIRUBIN,TOTAL 0.6 mg/dL (0.2-1); TOT PROT 5.7 g/dl (6.4-8.2)
[2023-06-25 07:32] LABS: ALK PHOS 98 U/L (45-117)
[2023-06-25 07:35] LABS: CREATININE 7.6 mg/dL (0.55-1.3)
[2023-06-25] MEDS ORDERED: SODIUM CHLORIDE 250 ML IV PRN (11:22)
[2023-06-25] MEDS: HEPARIN NA (PORCINE) 5,000 UNITS/ML 1ML VIAL IVPUSH ONE (13:15)
[2023-06-27 07:32] LABS: POTASSIUM 4.1 mmol/L (3.5-5.1)
[2023-06-27 07:40] LABS: ALBUMIN 2.4 g/dl (3.4-5.0)
[2023-06-27 07:42] LABS: CALCIUM 8.1 mg/dL (8.5-10.1); CREATININE 6.1 mg/dL (0.55-1.3)
[2023-06-27 07:44] LABS: BILIRUBIN,TOTAL 0.6 mg/dL (0.2-1); TOT PROT 5.5 g/dl (6.4-8.2)
[2023-06-27 07:46] LABS: BLOOD UREA NITROGEN 58.1 mg/dL (7-18)
[2023-06-27 18:06] VITALS: BP 120/58; PULSE 57; RESP 17; TEMP 98
== END 2023-06-27 19:25 | disposition home or self-care (01) | DRG 314 ==
LOC: JER 13:42 → JERBED 14:16 → J4S 17:38
PROVIDERS: ADMIT Family Medicine; ATTEND Family Medicine
DX: T82.590A Other mechanical complication of surgically created arteriovenous fistula, initial encounter (principal); E43 Unspecified severe protein-calorie malnutrition; N18.6 End stage renal disease; J18.9 Pneumonia, unspecified organism; I12.0 Hypertensive chronic kidney disease with stage 5 chronic kidney disease or end stage renal disease; Z68.1 Body mass index [BMI] 19.9 or less, adult; R64 Cachexia; F03.90 Unspecified dementia, unspecified severity, without behavioral disturbance, psychotic disturbance, mood disturbance, and anxiety; Z99.2 Dependence on renal dialysis; E11.22 Type 2 diabetes mellitus with diabetic chronic kidney disease; E78.5 Hyperlipidemia, unspecified; R62.7 Adult failure to thrive; Y83.9 Surgical procedure, unspecified as the cause of abnormal reaction of the patient, or of later complication, without mention of misadventure at the time of the procedure; N25.0 Renal osteodystrophy
CPT/HCPCS: 36415; 80053; 83735; 84100; 85025; 85027; 85730; 86704; 86803; 87340; 87517; 93005; 93010; 99285-25; J1644